=== PATIENT | female | born 1950 | race American Indian/Alaskan Native ===

== ENCOUNTER 2017-01-05 21:33 | Observation (INO) | payer OTHER, MEDICAID ==
[2017-01-05 21:33] VITALS: BMI 42.7
--- NOTE | 2017-01-05 22:07 | ED PDOC ---
Syncope/Near Syncope/Dizzyness Time Seen by Provider: 01/05/17 21:51 Chief Complaint (Nursing): Dizziness/Lightheaded Chief Complaint (Provider): Dizziness History Per: Patient History/Exam Limitations: no limitations Onset/Duration Of Symptoms: Days (x5) Current Symptoms Are (Timing): Still Present Activity At Onset Of Symptoms: Exertional Activity (ambulation), Other (rising quickly) Seizure Or Post-ictal Symptoms: None Fall Associated With With Symptoms: No Severity: Moderate Additional Complaint(s): Lindsey Woodard is a 66 year old female, with a past medical history inclusive of CAD/CO (s/p CABG and coronary stent placement), CHF, mitral valve prolapse, HTN, hypercholesterolemia, CKD and COPD (on home O2), who presents to the ED on 01/05/17 for the evaluation of moderate dizziness that she has experienced x5 days. Sensation, further described as "room spinning", is worse upon rising quickly and with ambulation, though she is able to do so unassisted. Associated nausea, mild crampy/gassy abdominal pain and intermittent right shoulder pain also reported, though she denies outright chest pain, vomiting, headache or syncope. No previous history of similar, with patient further reporting that chronic b/l leg swelling is unchanged from baseline. Of note, patient was evaluated by her PMD earlier today for this issue, at which time she was told her blood pressure was elevated, and that she had medicated with a dose of her nitroglycerin prior to arrival. PMD: Derrick Cole Past Medical History Reviewed: Historical Data, Nursing Documentation, Vital Signs Vital Signs: Last Vital Signs Temp 98.5 F 01/05/17 21:34 Pulse 90 01/05/17 21:34 Resp 20 01/05/17 21:34 BP 118/66 01/05/17 21:34 Pulse Ox 95 01/05/17 21:34 - Medical History PMH: Anemia, Arthritis, Asthma, Back Problems (herniated discs (cervical, lumbar )), Bronchitis, CAD, Cardia Arrhythmia, CHF, COPD, Deep Vein Thrombosis, HTN, Hypercholesterolemia, Hypothyroidism, Malignancy (ovarian), Mitral Valve Prolapse, Peripheral Edema, Pneumonia, Pulmonary Embolism, Chronic Kidney Disease Denies: Diabetes, HIV - Surgical History Surgical History: CABG, Coronary Stent, Endoscopy - Family History Family History: States: Unknown Family Hx - Social History Current smoker - smoking cessation education provided: Yes (light (<10 cigarettes/day)) Alcohol: None Drugs: Denies - Immunization History Hx Pneumococcal Vaccination: Yes - Home Medications Home Medications: Ambulatory Orders Medication Instructions Recorded Aspirin [Aspirin EC] 81 mg PO DAILY #0 tablet. 06/08/16 Levothyroxine Sodium 25 mcg PO DAILY #0 tablet 06/08/16 Pravastatin Sodium [Pravachol] 20 mg PO HS #0 tab 06/08/16 Albuterol 0.083% [Albuterol 3 ml IH Q6 PRN 11/30/16 Sulfate 3 Ml] Ergocalciferol (Vitamin D2) 50,000 unit PO QWK 11/30/16 [Vitamin D2] Febuxostat [Uloric] 40 mg PO DAILY 11/30/16 Ferrous Sulfate [Feosol] 325 mg PO DAILY 11/30/16 Folic Acid 1 mg PO DAILY 11/30/16 Furosemide [Lasix] 40 mg PO DAILY 11/30/16 Levocetirizine Dihydrochloride 5 mg PO DAILY 11/30/16 [Xyzal] Metoprolol Succinate XL [Toprol XL] 25 mg PO BRK 11/30/16 Ranolazine [Ranexa] 500 mg PO BID 11/30/16 - Allergies Allergies/Adverse Reactions: Allergies Allergy/AdvReac Type Severity Reaction Status Date / Time No Known Allergies Allergy Verified 11/30/16 00:55 Review of Systems ROS Statement: Except As Marked, All Systems Reviewed And Found Negative Cardiovascular: Positive for: Edema (chronic b/l LE, unchanged from baseline). Negative for: Chest Pain Gastrointestinal: Positive for: Nausea, Abdominal Pain (mild, crampy/gassy). Negative for: Vomiting Musculoskeletal: Positive for: Shoulder Pain (right (intermittent)) Neurological: Positive for: Dizziness ("room spinning"). Negative for: Headache , Other (no syncope) Physical Exam - Reviewed Nursing Documentation Reviewed: Yes Vital Signs Reviewed: Yes - Physical Exam Appears: Positive for: Non-toxic, No Acute Distress Head Exam: Positive for: ATRAUMATIC, NORMOCEPHALIC Skin: Positive for: Normal Color, Warm, Dry Eye Exam: Positive for: Normal appearance, EOMI, PERRL. Negative for: Nystagmus ENT: Positive for: Normal ENT Inspection Neck: Positive for: Normal, Painless ROM, Supple Cardiovascular/Chest: Positive for: Regular Rate, Rhythm, Edema (chronic b/l LE , non-pitting). Negative for: Murmur Respiratory: Positive for: Normal Breath Sounds. Negative for: Wheezing, Respiratory Distress Gastrointestinal/Abdominal: Positive for: Normal Exam, Soft. Negative for: Tenderness Back: Positive for: Normal Inspection Extremity: Positive for: Normal ROM (moving all extremities well) Neurologic/Psych: Positive for: Alert, Oriented. Negative for: Motor/Sensory Deficits (5/5 x4 extremities), Aphasia, Facial Droop - Laboratory Results Result Diagrams: 01/05/17 22:40 01/06/17 05:30 - ECG O2 Sat by Pulse Oximetry: 95 (RA) Pulse Ox Interpretation: Normal Medical Decision Making Medical Decision Makin:51 Initial Impression: vertiginous (peripheral vs central) dizziness vs non- vertiginous/orthostatic dizziness Initial Plan: * EKG * CT Head w/o contrast * Labs * BNP * Troponin I * Meclizine 25mg PO * Reevaluation 2250: CT head impression: 1. No acute intracranial abnormality. 2. Increase in size of extraaxial mass, possibly meningioma. Recommend MRI. Scribe Attestation: Documented by Cadence Sorto, acting as a scribe for Earl Goldman MD. Provider Scribe Attestation: All medical record entries made by the Scribe were at my direction and personally dictated by me. I have reviewed the chart and agree that the record accurately reflects my personal performance of the history, physical exam, medical decision making, and the department course for this patient. I have also personally directed, reviewed, and agree with the discharge instructions and disposition. Disposition - Clinical Impression Clinical Impression: Dizziness, Mass of brain - Patient ED Disposition Is Patient to be Admitted: Yes Discussed With : Chet Mccann Doctor Will See Patient In The: ED Counseled Patient/Family Regarding: Studies Performed, Diagnosis - Disposition Disposition Time: 23:00 Condition: FAIR - Pt Status Changed To: Hospital Disposition Of: Observation - POA Present On Arrival: None
--- NOTE | 2017-01-05 22:51 | CT ---
EXAM: CT Head Without Intravenous Contrast CLINICAL HISTORY: 66 years old, female; Signs and symptoms; Dizziness and other: Near syncope TECHNIQUE: Axial computed tomography images of the head/brain without intravenous contrast. This CT exam was performed using one or more of the following dose reduction techniques: automated exposure control, adjustment of the mA and/or kV according to patient size, and/or use of iterative reconstruction technique. Coronal and sagittal reformatted images were created and reviewed. COMPARISON: CT - HEAD W/O CONTRAST 06/15/2014 3:57:42 AM FINDINGS: Brain: No intracranial hemorrhage. 2.9 x 2.1 cm extra-axial mass along RIGHT frontal convexity, mildly increased from previous examination. Dilated perivascular space vs chronic lacunar infarct about LEFT basal ganglia. No definite edema. Ventricles: No hydrocephalus. Bones/joints: No acute fracture. Soft tissues: Unremarkable. Vasculature: Mild atherosclerotic disease of intracranial arteries. Sinuses: Scattered minimal mucosal thickening. Mastoid air cells: No mastoid effusion. Orbits: Unremarkable as visualized. Sella: Mildly enlarged sella with CSF density, stable. IMPRESSION: 1. No acute intracranial abnormality. 2. Increase in size of extraaxial mass, possibly meningioma. Recommend MRI. 3. Incidental/non-acute findings are described above.
[2017-01-05 23:06] LABS: BASO # 0.1 K/uL (0.0-0.2); BASO % 0.6 % (0.0-2.0); EOS # 0.2 K/uL (0.0-0.7); EOS % 2.6 % (0.0-4.0); HEMATOCRIT 40.5 % (34.0-47.0); LYMPH # 3.2 K/uL (1.0-4.3); LYMPH % 36.7 % (20.0-40.0); MEAN CELL VOLUME 82.8 fl (81.0-99.0); MEAN CORPUSCULAR HEMOGLOBIN 26.5 pg (27.0-31.0); MONO # 0.7 K/uL (0.0-0.8); MONO % 7.5 % (0.0-10.0); NEUT # 4.7 K/uL (1.8-7.0); NEUT % 52.6 % (50.0-75.0); NRBC % 0.2 % (0.0-0.0); RED CELL DISTRIBUTION WIDTH 15.9 % (11.5-14.5); WHITE BLOOD COUNT 8.8 K/uL (4.8-10.8)
[2017-01-05 23:19] LABS: BLOOD UREA NITROGEN 26 mg/dl (7-17); CALCIUM 9.1 mg/dL (8.4-10.2); CARBON DIOXIDE 32 mmol/L (22-30); CHLORIDE 101 mmol/L (98-107); GFR AFRICAN-AMERICAN 34; GLUCOSE,RANDOM 103 mg/dL (65-105); POTASSIUM 3.9 MMOL/L (3.6-5.0); SODIUM 144 mmol/l (132-148)
--- NOTE | 2017-01-05 23:57 | CP.PCM.HP ---
History of Present Illness - History of Present Illness History of Present Illness: PCP: Derrick Cole MD Chief Complaint: Dizziness/Lightheadedness HPI: 66 years old female with Hx of CAD, COPD, HTN last admitted on 11/30/16 with chest pain and discharged on 11/30/16, She now comes with one day of lightheadedness which is intermittent. This occurs when standing from a sitting position and while ambulating. She has associated mild abdominal and right shoulder pains with nausea. No chest pain , SOB, coughing, Headaches. She has chronic bilateral leg edema. She referred seeing her PCP 5 days ago and her blood pressure was found to be elevated. PMH: Anemia; Arthritis, DDD , Herneated Disc, cervical and LS, with chronic back pain; CAD, Cardia Arrhythmia, CHF systolic and Diastolic; Obesity; COPD and Asthma;, DVT and PE; HTN; HLD; Hypothyroidism, Mitral Valve Prolapse, Peripheral Edema; CKD IV; Vertigo PSH; CABG triple bipass 03/2012; Coronary stent placement; hysterectomy SH: light smoker; no illegal drug use; No alcohol; FH: no known family hx Allergies: NKDA Present on Admission - Present on Admission Any Indicators Present on Admission: No History of DVT/PE: No History of Uncontrolled Diabetes: No Urinary Catheter: No Decubitus Ulcer Present: No Review of Systems - Constitutional Constitutional: absent: Anorexia, Chills, Fever, Headache, Lethargy - EENT Eyes: Requires Corrective Lenses. absent: Diplopia, Photophobia, Sees Flashes Ears: absent: Decreased Hearing, Ear Discharge, Ear Pain, Tinnitus Nose/Mouth/Throat: absent: Epistaxis, Nasal Congestion, Nasal Discharge, Sinus Pain, Sinus Pressure, Sore Throat - Cardiovascular Cardiovascular: Leg Edema, Lightheadedness. absent: Chest Pain, Dyspnea, Orthopnea, Palpitations - Respiratory Respiratory: absent: Cough, Dyspnea, Wheezing, Chest Congestion - Gastrointestinal Gastrointestinal: Nausea. absent: Abdominal Pain, Constipation, Diarrhea, Dyspepsia, Vomiting - Genitourinary Genitourinary: absent: Dysuria, Flank Pain, Hematuria, Urinary Frequency - Musculoskeletal Musculoskeletal: absent: Arthralgias, Back Pain, Muscle Cramps (Bilateral lower extremity edema2+) Additional comments: Chronic Bilateral Leg edema - Integumentary Integumentary: absent: Pruritus, Rash, Skin Ulcer, Sores, Striae - Neurological Neurological: absent: Confusion, Focal Weakness, Headaches, Memory Loss, Paresthesias - Psychiatric Psychiatric: absent: Anxiety, Depression, Panic Attacks - Endocrine Endocrine: absent: Palpitations, Polydipsia, Polyphagia, Polyuria - Hematologic/Lymphatic Hematologic: absent: Easy Bleeding, Easy Bruising Past Patient History - Infectious Disease Hx of Infectious Diseases: None - Past Medical History & Family History Past Medical History?: Yes - Past Social History Smoking Status: Light Smoker < 10 Cigarettes Daily Chewing Tobacco Use: No Cigar Use: No Alcohol: None Drugs: Denies - CARDIAC Hx Cardia Arrhythmia: Yes Hx Congestive Heart Failure: Yes Hx Hypercholesterolemia: Yes Hx Hypertension: Yes Hx Mitral Valve Prolapse: Yes Hx Peripheral Edema: Yes - PULMONARY Hx Asthma: Yes Hx Bronchitis: Yes Hx Chronic Obstructive Pulmonary Disease (COPD): Yes Hx Pneumonia: Yes Hx Pulmonary Embolism: Yes - NEUROLOGICAL Hx Neurological Disorder: No Hx Vertigo: Yes - HEENT Hx HEENT Problems: No - RENAL Hx Chronic Kidney Disease: Yes - ENDOCRINE/METABOLIC Hx Hypothyroidism: Yes - HEMATOLOGICAL/ONCOLOGICAL Hx Anemia: Yes Hx Human Immunodeficiency Virus (HIV): No - INTEGUMENTARY Hx Dermatological Problems: No - MUSCULOSKELETAL/RHEUMATOLOGICAL Hx Arthritis: Yes - GASTROINTESTINAL Hx Gastrointestinal Disorders: No Other/Comment: GI Bleed - GENITOURINARY/GYNECOLOGICAL Hx Genitourinary Disorders: No Hx Ovarian Cancer: Yes Other/Comment: hysterectomy - PSYCHIATRIC Hx Psychophysiologic Disorder: No Hx Emotional Abuse: No Hx Physical Abuse: No Hx Substance Use: No Other/Comment: HX OF DVT - SURGICAL HISTORY Hx Coronary Artery Bypass Graft: Yes Hx Coronary Stent: Yes - ANESTHESIA Hx Anesthesia: Yes Hx Anesthesia Reactions: No Hx Malignant Hyperthermia: No Meds Allergies/Adverse Reactions: Allergies Allergy/AdvReac Type Severity Reaction Status Date / Time No Known Allergies Allergy Verified 11/30/16 00:55 Physical Exam - Constitutional Appears: No Acute Distress - Head Exam Head Exam: ATRAUMATIC, NORMAL INSPECTION, NORMOCEPHALIC - Eye Exam Eye Exam: EOMI, Normal appearance Pupil Exam: NORMAL ACCOMODATION, PERRL - ENT Exam ENT Exam: Mucous Membranes Moist, Normal Exam, Normal External Ear Exam, Normal Oropharynx - Neck Exam Neck exam: Positive for: Full Rom, Normal Inspection. Negative for: Lymphadenopathy, Tenderness - Respiratory Exam Respiratory Exam: Clear to Auscultation Bilateral. absent: Rales, Rhonchi, Wheezes - Cardiovascular Exam Cardiovascular Exam: REGULAR RHYTHM, +S1, +S2. absent: Gallop Additional comments: 3/6 systolic murmur at the base - GI/Abdominal Exam GI & Abdominal Exam: Normal Bowel Sounds, Soft. absent: Mass, Organomegaly, Tenderness - Rectal Exam Rectal Exam: Deferred - Extremities Exam Extremities exam: Positive for: full ROM, pedal edema Additional comments: Bilateral leg edema 2+ - Back Exam Back exam: NORMAL INSPECTION. absent: CVA tenderness (L), CVA tenderness (R) - Neurological Exam Neurological exam: Alert, CN II-XII Intact, Oriented x3, Reflexes Normal - Psychiatric Exam Psychiatric exam: Normal Affect, Normal Mood - Skin Skin Exam: Dry, Intact, Normal Color, Warm Results - Vital Signs Recent Vital Signs: Last Vital Signs Temp 98.5 F 01/05/17 21:34 Pulse 90 01/05/17 21:34 Resp 20 01/05/17 21:34 BP 118/66 01/05/17 21:34 Pulse Ox 95 01/05/17 23:06 - Labs Result Diagrams: 01/05/17 22:40 01/05/17 22:40 Labs: Laboratory Results - last 24 hr 01/05/17 01/05/17 22:40 23:33 WBC 8.8 RBC 4.90 Hgb 13.0 Hct 40.5 MCV 82.8 MCH 26.5 L MCHC 32.0 L RDW 15.9 H Plt Count 172 MPV 11.0 Neut % (Auto) 52.6 Lymph % (Auto) 36.7 [place] % (Auto) 7.5 Eos % (Auto) 2.6 Baso % (Auto) 0.6 Neut # 4.7 Lymph # 3.2 Giles # 0.7 Eos # 0.2 Baso # 0.1 Sodium 144 Potassium 3.9 Chloride 101 Carbon Dioxide 32 H Anion Gap 15 BUN 26 H Creatinine 1.8 H Est GFR ( Amer) 34 Est GFR (Non-Af Amer) 28 Random Glucose 103 Calcium 9.1 Magnesium 2.0 Troponin I < 0.0120 NT-Pro-B Natriuret Pep 253 - Imaging and Cardiology CT scan - head Status: Report reviewed by me Additional comment: No acute intracraneal abnormality Increase in size of extraaxial mass Possible meningioma Assessment & Plan - Assessment and Plan (Free Text) Assessment: #. Lightheadedness/dizziness #. Brain Mass 3 Dehydration #, Hypothyroidism #. CAD # COPD Plan: 66 years old female with Hx of CAD, COPD, HTN last admitted on 11/30/16 with chest pain and discharged on 11/30/16, She now comes with one day of lightheadedness which is intermittent, when standing from a sitting position and while ambulating. No chest pain , SOB, coughing, Headaches. She saw her PCP 5 days ago and her blood pressure was found to be elevated. #. Lightheadedness/dizziness most likely secondary to dehydration, the brain mask is less likely the cause - IV Fluids 1/2 Normal Saline 100mls/hr. Patient has Hx of CHF and is on Lasix - Hold lasix - Follow Renal labs #. Brain Mass probably meningioma as per CT head - Consult Neuro surgery Dr Schmitz - Follow MRI with and without contrast #. Dehydration - IV Fluids - Follow Renal labs #, Hypothyroidism - Levothyroxin - Monitor TSH #. CAD stable - ASA/Ranolazine/ Pravastatin # COPD stable - Duonebs #. DVT prophylaxis with SCD #. Code Status: Stable - Date & Time Date: 01/05/17 Time: 23:56
[2017-01-06] MEDS ORDERED: Albuterol 0.083% Inhal Sol (2.5 mg/3 mL) UD IH PRN (01:28)
[2017-01-06] MEDS ORDERED: Sodium Chloride 0.45% 1,000 ML IV SCH (01:30)
[2017-01-06] MEDS ORDERED: Ergocalciferol 50,000 Intl Units Cap PO SCH (01:30)
[2017-01-06] MEDS ORDERED: Levothyroxine 25 MCG TAB PO SCH (06:30)
[2017-01-06 07:36] LABS: CALCIUM 8.5 mg/dL (8.4-10.2); POTASSIUM 3.4 MMOL/L (3.6-5.0)
[2017-01-06 08:00] LABS: THYROID STIMULATING HORMONE 1.54 mIU/ML (0.46-4.68)
[2017-01-06] MEDS ORDERED: Metoprolol Succinate 25 mg XL Tab PO SCH (08:00)
[2017-01-06 08:13] VITALS: BP 125/72; RESP 20; TEMP 98.3
[2017-01-06] MEDS ORDERED: Pneumococcal 23-Valent Vaccine IM ONE (09:00)
[2017-01-06] MEDS ORDERED: Patient's Own Med (Ranolazine [Ranexa] 500 MG) PO SCH (09:00)
[2017-01-06 10:19] VITALS: PULSE 60
--- NOTE | 2017-01-06 12:44 | MRI ---
PROCEDURE: MRI BRAIN WITHOUT CONTRAST HISTORY: Brain mass COMPARISON: CT from 06/15/2014 and 01/05/2017. TECHNIQUE: Multiplanar, multisequence MR images of the brain were obtained without intravenous contrast enhancement. Limited evaluation due to artifact from patient motion. FINDINGS: HEMORRHAGE: None DWI: No evidence of an acute or early subacute infarction. Restricted diffusion involving the extra-axial mass from the inner table of the right frontal calvarium. BRAIN PARENCHYMA: There is an extra-axial mass measuring approximately 3.1 x 3 x 2.5 centimeters attached to the inner table of the right frontal calvarium. Associated surrounding mass-effect as seen by buckling of the right frontal lobe sulci. The mass demonstrates restricted diffusion with mild increase T2 and FLAIR signal intensity. Corresponding T1 weighted images demonstrated mildly decreased signal intensity when compared to the surrounding brain parenchyma. Gradient echo images demonstrate mild low signal intensity in the medial/peripheral aspect which could represent old hemorrhage versus vessels. The vascularity and enhancement characteristics of this mass is not evaluated due to lack of intravenous contrast. No definite evidence of edema in the surrounding brain parenchyma. Additionally, few scattered areas of high T2 signal intensity in the white matter of both cerebral hemispheres could represent areas of microvascular ischemic changes. Minimal volume loss, likely age related. Gradient echo images demonstrates a focus of low signal intensity in the left cerebellar hemisphere hand in the paramedian right frontal lobe. This could be foci of old hemorrhage. Dilated perivascular space versus old infarct in the left basal ganglia. VENTRICLES: Unremarkable. No hydrocephalus. CRANIUM: Unremarkable. ORBITS: Grossly unremarkable. PARANASAL SINUSES/MASTOIDS: Clear VASCULAR SYSTEM: Skull base flow voids intact. OTHER FINDINGS: None. IMPRESSION: Re- demonstration of an extra-axial mass measuring approximately 3.1 x 3 x 2.5 centimeter attached to the inner table of the right frontal calvarium with associated surrounding mass-effect as seen by buckling of the right frontal lobe sulci. While there is mass-effect, there is no significant edema in the surrounding brain parenchyma. (This mass has villarreal seen in the prior CTs and based on the most recent CT there is an increase in size when compared to the CT from 2008.) Enhancement characteristics are not evaluated due to lack of intravenous contrast. Mild volume loss. Minimal microvascular ischemic changes. Evidence of old punctate hemorrhage in the left cerebellar hemisphere and in the paramedian right frontal lobe.
[2017-01-06 13:51] VITALS: O2SAT 95
--- NOTE | 2017-01-06 14:31 | CP.PCM.DIS ---
Provider - Provider Date of Admission: 01/05/17 23:51 Attending physician: Chet Mccann Primary care physician: Derrick Cole MD Consults: Dr Cazares Time Spent in preparation of Discharge (in minutes): 35 Diagnosis - Discharge Diagnosis (1) Dizziness Status: Acute Comment: probably postural in nature with dehydration. Lasix held then resume at lower dose at home (2) Meningioma Status: Chronic Comment: slow growing meningioma since 2012 or even beyond. neurosurgery consult with Dr Cazares who will see patient in his office. no surgical intervention at the moment (3) Chronic kidney disease, stage III (moderate) Status: Chronic Comment: stable (4) CAD (coronary artery disease) Status: Chronic Priority: Medium Comment: denied chest pain or SOB. continue ASA, Ranolacine and Pravastatin (5) COPD (chronic obstructive pulmonary disease) Status: Chronic Priority: High Comment: asymptomatic Hospital Course - Lab Results Lab Results: Most Recent Lab Values WBC 8.8 K/uL (4.8-10.8) 01/05/17 22:40 RBC 4.90 Mil/uL (3.80-5.20) 01/05/17 22:40 Hgb 13.0 g/dL (12.0-16.0) 01/05/17 22:40 Hct 40.5 % (34.0-47.0) 01/05/17 22:40 MCV 82.8 fl (81.0-99.0) 01/05/17 22:40 MCH 26.5 pg (27.0-31.0) L 01/05/17 22:40 MCHC 32.0 g/dL (33.0-37.0) L 01/05/17 22:40 RDW 15.9 % (11.5-14.5) H 01/05/17 22:40 Plt Count 172 K/uL (130-400) 01/05/17 22:40 MPV 11.0 fl (7.2-11.7) 01/05/17 22:40 Neut % (Auto) 52.6 % (50.0-75.0) 01/05/17 22:40 Lymph % (Auto) 36.7 % (20.0-40.0) 01/05/17 22:40 [place] % (Auto) 7.5 % (0.0-10.0) 01/05/17 22:40 Eos % (Auto) 2.6 % (0.0-4.0) 01/05/17 22:40 Baso % (Auto) 0.6 % (0.0-2.0) 01/05/17 22:40 Neut # 4.7 K/uL (1.8-7.0) 01/05/17 22:40 Lymph # 3.2 K/uL (1.0-4.3) 01/05/17 22:40 [place] # 0.7 K/uL (0.0-0.8) 01/05/17 22:40 Eos # 0.2 K/uL (0.0-0.7) 01/05/17 22:40 Baso # 0.1 K/uL (0.0-0.2) 01/05/17 22:40 Sodium 145 mmol/l (132-148) 01/06/17 05:30 Potassium 3.4 MMOL/L (3.6-5.0) L 01/06/17 05:30 Chloride 104 mmol/L (98-107) 01/06/17 05:30 Carbon Dioxide 29 mmol/L (22-30) 01/06/17 05:30 Anion Gap 15 (10-20) 01/06/17 05:30 BUN 24 mg/dl (7-17) H 01/06/17 05:30 Creatinine 1.5 mg/dL (0.7-1.2) H 01/06/17 05:30 Est GFR ( Amer) 42 01/06/17 05:30 Est GFR (Non-Af Amer) 35 01/06/17 05:30 Random Glucose 88 mg/dL (65-105) 01/06/17 05:30 Calcium 8.5 mg/dL (8.4-10.2) 01/06/17 05:30 Magnesium 2.0 MG/DL (1.6-2.3) 01/05/17 23:33 Troponin I < 0.0120 ng/mL (0.00-0.120) 01/05/17 22:40 NT-Pro-B Natriuret Pep 253 pg/ml (0-900) 01/05/17 22:40 TSH 3rd Generation 1.54 mIU/ML (0.46-4.68) 01/06/17 05:30 - Hospital Course Hospital Course: 66 yo female with history of CAD, COPD, HTN, PE, CHF, Lumbago and Meningioma ( info obtained from previous history) came in with intermittent lightheadedness mainly positional such as from sitting to standing. Denied chest pain or SOB. Also denied fever or chills. CT scan of the head was done since patient was known to have meningioma since 2012 although patient and daughter denied having been informed about it. Scan showed a slow growing meningioma along right frontal convexity measuring 2.9 x 2.1 cm (2.5 x 1.4 cm in 2013 and 2.2 x 1.2 cm in 2012). Neurosurgeon, Dr Cazares , saw the image. No surgical intervention was advised but he would be willing to follow her up as outpatient in his office. He advised to discharge patient today. Discharge Exam - Head Exam Head Exam: ATRAUMATIC, NORMOCEPHALIC - Eye Exam Eye Exam: absent: Scleral icterus - ENT Exam ENT Exam: Mucous Membranes Moist - Respiratory Exam Respiratory Exam: absent: Rhonchi, Wheezes, Respiratory Distress - Cardiovascular Exam Cardiovascular Exam: REGULAR RHYTHM, +S1, +S2 - GI/Abdominal Exam GI & Abdominal Exam: Soft. absent: Tenderness - Rectal Exam Rectal Exam: Deferred - Neurological Exam Neurological exam: Alert, Oriented x3 - Psychiatric Exam Psychiatric exam: Normal Affect - Skin Skin Exam: Dry, Intact Discharge Plan - Follow Up Plan Condition: FAIR Disposition: HOME/ ROUTINE Referrals: Derrick Cole MD [Primary Care Provider] -
--- NOTE | 2017-01-06 17:21 | CARD ---
APPROVED REPORT EKG Measurement Heart [id number] <Conclusion> Sinus bradycardia with 1st degree AV block Anterior infarct, age undetermined Abnormal ECG
--- NOTE | 2017-01-06 21:45 | DS ---
This is a 66-year-old lady with a known right frontal meningioma, who apparently presented to the ER with "dizziness"; was admitted to have MRI of the brain which showed the meningioma. This mass was known since at least 2012, where it is clearly seen on CT there. Now it is, in fact, l arger but it is slowly swelling. There is no significant mass effect. There is no shift. My recommendation would be to have the patient follow up with my office to discuss treatment options. Would essentially include continued expectant management with frequent radiographic followup or litzy ctive excision of the tumor. Kam Cazares MD cc: 131 TT: 01/06/2017 21:45:03 jn
[2017-01-06] MEDS ORDERED: Pravastatin Sodium 20 MG TAB PO SCH (22:00)
== END 2017-01-06 15:13 | disposition home or self-care (01) ==
LOC: H.ER 21:33 → H.MEDSURG1 23:51 → H.ERHOLD 01-06 01:17 → H.MEDSURG1 01-06 01:24
PROVIDERS: ADMIT Internal Medicine; ATTEND Internal Medicine
DX: D32.0 Benign neoplasm of cerebral meninges (principal); I25.10 Atherosclerotic heart disease of native coronary artery without angina pectoris; Z95.1 Presence of aortocoronary bypass graft; Z95.5 Presence of coronary angioplasty implant and graft; E78.00 Pure hypercholesterolemia, unspecified; I34.1 Nonrheumatic mitral (valve) prolapse; I13.0 Hypertensive heart and chronic kidney disease with heart failure and stage 1 through stage 4 chronic kidney disease, or unspecified chronic kidney disease; J44.9 Chronic obstructive pulmonary disease, unspecified; F17.210 Nicotine dependence, cigarettes, uncomplicated; E03.9 Hypothyroidism, unspecified; E86.0 Dehydration; N18.3 Chronic kidney disease, stage 3 (moderate); Z86.711 Personal history of pulmonary embolism
CPT/HCPCS: 36415; 70450; 70551; 80048; 82948; 83735; 83880; 84443; 84484; 85025; 93005; 99282; G0378; J2060; J7030

== ENCOUNTER 2017-01-29 21:21 | Observation (INO) | payer OTHER, MEDICAID ==
[2017-01-29 21:22] VITALS: BMI 42.7
[2017-01-29 21:25] VITALS: TEMP 98.4
--- NOTE | 2017-01-29 22:18 | ED PDOC ---
HPI: General Adult Time Seen by Provider: 01/29/17 21:46 Chief Complaint (Nursing): Shortness Of Breath Chief Complaint (Provider): shortness of breath History Per: Patient History/Exam Limitations: no limitations Additional Complaint(s): 66yo female was sitting and eating dinner when she began experiencing chills and sweats. Also reports abdominal pain, nausea, headache. She currently has headache and back pain. Abdominal pain has resolved. Patient admits that her back pain is chronic, and she sees Dr. Black for pain management. No dysuria. Patient has an appointment with neurosurgery on 03/01/17. denies hx abdominal surgery PMD Kelsey Past Medical History Reviewed: Historical Data, Nursing Documentation, Vital Signs Vital Signs: Last Vital Signs Temp 98.4 F 01/29/17 21:23 Pulse 61 01/30/17 02:26 Resp 12 01/30/17 02:26 BP 146/95 H 01/30/17 02:26 Pulse Ox 99 01/30/17 03:31 - Medical History PMH: Anemia, Arthritis, Asthma, Back Problems (herniated discs (cervical, lumbar )), Bronchitis, CAD, Cardia Arrhythmia, CHF, COPD, Deep Vein Thrombosis, HTN, Hypercholesterolemia, Hypothyroidism, Malignancy (ovarian), Mitral Valve Prolapse, Peripheral Edema, Pneumonia, Pulmonary Embolism, Chronic Kidney Disease Denies: Diabetes, HIV - Surgical History Surgical History: CABG, Coronary Stent, Endoscopy - Family History Family History: States: Unknown Family Hx - Social History Current smoker - smoking cessation education provided: Yes ("occasionally") - Immunization History Hx Pneumococcal Vaccination: Yes - Home Medications Home Medications: Ambulatory Orders Medication Instructions Recorded Aspirin [Aspirin EC] 81 mg PO DAILY #0 tablet. 06/08/16 Levothyroxine Sodium 25 mcg PO DAILY #0 tablet 06/08/16 Pravastatin Sodium [Pravachol] 20 mg PO HS #0 tab 06/08/16 Albuterol 0.083% [Albuterol 0.083% 3 ml IH Q6 PRN 11/30/16 Inhal Kendra (2.5 mg/3 ml) UD] Ergocalciferol (Vitamin D2) 50,000 unit PO QWK 11/30/16 [Vitamin D2] Ferrous Sulfate [Feosol] 325 mg PO DAILY 11/30/16 Folic Acid 1 mg PO DAILY 11/30/16 Levocetirizine Dihydrochloride 5 mg PO DAILY 11/30/16 [Xyzal] Metoprolol Succinate XL [Toprol XL] 25 mg PO BRK 11/30/16 Ranolazine [Ranexa] 500 mg PO BID 11/30/16 Febuxostat [Uloric] 20 mg PO DAILY #0 01/06/17 Furosemide [Lasix] 20 mg PO DAILY #30 01/06/17 Dicyclomine [Dicyclomine HCl] 10 mg PO TID #30 cap 01/30/17 - Allergies Allergies/Adverse Reactions: Allergies Allergy/AdvReac Type Severity Reaction Status Date / Time No Known Allergies Allergy Verified 11/30/16 00:55 Review of Systems ROS Statement: Except As Marked, All Systems Reviewed And Found Negative Constitutional: Positive for: Chills. Negative for: Fever Gastrointestinal: Positive for: Nausea, Abdominal Pain. Negative for: Vomiting , Diarrhea Musculoskeletal: Positive for: Back Pain Neurological: Positive for: Headache Physical Exam - Reviewed Nursing Documentation Reviewed: Yes Vital Signs Reviewed: Yes - Physical Exam Appears: Positive for: Well, Non-toxic, No Acute Distress Head Exam: Positive for: ATRAUMATIC, NORMAL INSPECTION, NORMOCEPHALIC Skin: Positive for: Warm, Dry Eye Exam: Positive for: EOMI, PERRL Cardiovascular/Chest: Positive for: Regular Rate, Rhythm Respiratory: Positive for: Normal Breath Sounds, Other (speaking full sentences) . Negative for: Rales, Rhonchi, Wheezing, Respiratory Distress Gastrointestinal/Abdominal: Positive for: Soft, Tenderness (left lower quadrant only), Other (morbidly obese). Negative for: Guarding, Rebound Back: Positive for: Other (lower midline tenderness) Extremity: Positive for: Normal ROM Neurologic/Psych: Positive for: Alert, Oriented (x3) - Laboratory Results Result Diagrams: 01/29/17 00:03 01/29/17 00:03 - ECG O2 Sat by Pulse Oximetry: 99 (RA) Pulse Ox Interpretation: Normal Medical Decision Making Medical Decision Makin CT abd/pel w/, CT Head w/o, Labs, EKG ordered. Disposition - Clinical Impression Clinical Impression: Diverticulosis - Patient ED Disposition Is Patient to be Admitted: Transfer of Care - Disposition Disposition: Transfer of Care Disposition Time: 00:00 Condition: STABLE Patient Signed Over To: Justin Moncada Handoff Comments: Pending CT. Additional Comments - Additional Comments Additional Comments: Scribe Attestation: Documented by Shine Knott acting as a scribe for Jorge Umana MD. Scribe Attestation: All medical record entries made by the Scribe were at my direction and personally dictated by me. I have reviewed the chart and agree that the record accurately reflects my personal performance of the history, physical exam, medical decision making, and the department course for this patient. I have also personally directed, reviewed, and agree with the discharge instructions and disposition.
[2017-01-29] MEDS ORDERED: Iohexol 240 (50 ml) PO STA (22:20)
--- NOTE | 2017-01-29 23:55 | CT ---
EXAM: CT Head Without Intravenous Contrast CLINICAL HISTORY: 66 years old, female; Pain; Headache; Headache not specified; Additional info: MALHOTRA TECHNIQUE: Axial computed tomography images of the head/brain without intravenous contrast. This CT exam was performed using one or more of the following dose reduction techniques: automated exposure control, adjustment of the mA and/or kV according to patient size, and/or use of iterative reconstruction technique. Coronal and sagittal reformatted images were created and reviewed. COMPARISON: CT - HEAD W/O CONTRAST 01/05/2017 10:25:48 PM FINDINGS: Brain: Minimal atrophy. No intracranial hemorrhage. 2.9 x 2.1 cm extra-axial mass along RIGHT frontal convexity, grossly stable. Dilated perivascular space vs chronic lacunar infarct about LEFT basal ganglia. No definite edema. Ventricles: No hydrocephalus. Bones/joints: No acute fracture. Soft tissues: Unremarkable. Vasculature: Mild atherosclerotic disease of intracranial arteries. Sinuses: No acute sinusitis. Mastoid air cells: No mastoid effusion. Orbits: Unremarkable as visualized. Sella: Mildly enlarged sella with CSF density, stable. IMPRESSION: 1. No acute intracranial abnormality. 2. Probable meningioma. Suggest followup. 3. Incidental/non-acute findings are described above.
[2017-01-30 00:06] LABS: BASO # 0.1 K/uL (0.0-0.2); EOS # 0.2 K/uL (0.0-0.7); EOS % 2.6 % (0.0-4.0); HEMATOCRIT 39.5 % (34.0-47.0); LYMPH # 2.2 K/uL (1.0-4.3); LYMPH % 25.9 % (20.0-40.0); MEAN CORPUSCULAR HEMOGLOBIN 26.6 pg (27.0-31.0); MEAN CORPUSCULAR HGB CONC 32.1 g/dL (33.0-37.0); MEAN PLATELET VOLUME 8.5 fl (7.2-11.7); MONO # 0.5 K/uL (0.0-0.8); MONO % 6.3 % (0.0-10.0); NEUT # 5.4 K/uL (1.8-7.0); NEUT % 64.2 % (50.0-75.0); NRBC % 0.1 % (0.0-0.0); RED CELL DISTRIBUTION WIDTH 16.1 % (11.5-14.5); WHITE BLOOD COUNT 8.4 K/uL (4.8-10.8)
[2017-01-30 00:14] LABS: BILIRUBIN,TOTAL 0.5 mg/dl (0.2-1.3); CALCIUM 9.5 mg/dL (8.4-10.2); POTASSIUM 3.9 MMOL/L (3.6-5.0); TOTAL PROTEIN 7.6 G/DL (6.3-8.2)
[2017-01-30 00:22] LABS: PARTIAL THROMBOPLASTIN TIME 32.2 SECONDS (23.3-32.5)
--- NOTE | 2017-01-30 00:25 | ED PDOC ---
- Laboratory Results Result Diagrams: 01/29/17 00:03 01/29/17 00:03 - ECG O2 Sat by Pulse Oximetry: 99 (RA) Medical Decision Making Medical Decision Makin:00 Pt signed out to me by Dr. Lyndsay MD. Pending CT Abd, re-eval, and disposition. CT ABDOMEN FINDINGS: Lower thorax: Mild cardiomegaly. Mild emphysematous changes. Mild atelectasis/ scarring. ABDOMEN: Liver: Unremarkable. Gallbladder and bile ducts: No calcified stones. No ductal dilation. Pancreas: Unremarkable. No ductal dilation. Spleen: No splenomegaly. Adrenals: Mild hypertrophy of adrenal glands. Kidneys and ureters: Mild scarring of kidneys. Mild atrophy of RIGHT kidney. Probable RIGHT renal cyst. No renal calculi. No hydronephrosis. Stomach and bowel: Scattered diverticula within colon. No associated inflammatory stranding. No definite mural thickening. No obstruction. Appendix: Normal caliber. No inflammation. PELVIS: Bladder: Unremarkable. No stones. Reproductive: Hysterectomy. ABDOMEN and PELVIS: Intraperitoneal space: No significant fluid collection. No free air. Bones/joints: Degenerative changes of spine. No acute fracture. Soft tissues: Unremarkable. Vasculature: Moderate atherosclerotic disease. IVC filter. No aneurysm. Lymph nodes: No pathologically enlarged lymph nodes. IMPRESSION: 1. Diverticulosis without CT evidence of diverticulitis. 2. Incidental/non-acute findings are described above. 02:03 Pt was re-evaluated. CT report reviewed, findings show diverticulosis. Pt will be discharged routinely with Rx for Bentyl. Discussed CT report at great length with pt, who expressed any questions or concerns regarding the report. Encouraged to schedule a follow-up with PMD within 2-3 days. Advised to return if condition persists or worsens. Condition is stable for discharge. Clinical Impression- Diverticulosis Documented by Kalpana Ku, acting as a scribe for Justin Moncada MD. All medical record entries made by the Scribe were at my direction and personally dictated by me. I have reviewed the chart and agree that the record accurately reflects my personal performance of the history, physical exam, medical decision making, and the department course for this patient. I have also personally directed, reviewed, and agree with the discharge instructions and disposition. Disposition - Clinical Impression Clinical Impression: Diverticulosis - POA Present On Arrival: None - Disposition Disposition: Routine/Home Disposition Time: 02:05 Condition: STABLE
--- NOTE | 2017-01-30 01:37 | CT ---
EXAM: CT Abdomen and Pelvis Without Intravenous Contrast CLINICAL HISTORY: 66 years old, female; Pain; Abdominal pain; Localized; Left lower quadrant (llq); Additional info: Llq pain. Sent phy. Doc. With request TECHNIQUE: Axial computed tomography images of the abdomen and pelvis without intravenous contrast. This CT exam was performed using one or more of the following dose reduction techniques: automated exposure control, adjustment of the mA and/or kV according to patient size, and/or use of iterative reconstruction technique. Coronal and sagittal reformatted images were created and reviewed. COMPARISON: CT - ABD PELVIS PO CONTRAST ONLY 07/01/2014 6:39:30 PM FINDINGS: Lower thorax: Mild cardiomegaly. Mild emphysematous changes. Mild atelectasis/scarring. ABDOMEN: Liver: Unremarkable. Gallbladder and bile ducts: No calcified stones. No ductal dilation. Pancreas: Unremarkable. No ductal dilation. Spleen: No splenomegaly. Adrenals: Mild hypertrophy of adrenal glands. Kidneys and ureters: Mild scarring of kidneys. Mild atrophy of RIGHT kidney. Probable RIGHT renal cyst. No renal calculi. No hydronephrosis. Stomach and bowel: Scattered diverticula within colon. No associated inflammatory stranding. No definite mural thickening. No obstruction. Appendix: Normal caliber. No inflammation. PELVIS: Bladder: Unremarkable. No stones. Reproductive: Hysterectomy. ABDOMEN and PELVIS: Intraperitoneal space: No significant fluid collection. No free air. Bones/joints: Degenerative changes of spine. No acute fracture. Soft tissues: Unremarkable. Vasculature: Moderate atherosclerotic disease. IVC filter. No aneurysm. Lymph nodes: No pathologically enlarged lymph nodes. IMPRESSION: 1. Diverticulosis without CT evidence of diverticulitis. 2. Incidental/non-acute findings are described above.
[2017-01-30 02:26] VITALS: RESP 12
[2017-01-30 02:27] VITALS: PULSE 61
[2017-01-30 03:32] VITALS: O2SAT 99
[2017-01-30 03:34] VITALS: BP 146/95
--- NOTE | 2017-01-30 08:23 | CARD ---
APPROVED REPORT EKG Measurement Heart [id number] <Conclusion> Sinus bradycardia with 1st degree AV block Possible Left atrial enlargement Borderline ECG
== END 2017-01-30 01:56 | disposition home or self-care (01) ==
LOC: H.ER 21:21 → H.EROBSV 22:24
PROVIDERS: ADMIT Emergency Medicine; ATTEND Emergency Medicine
DX: K57.90 Diverticulosis of intestine, part unspecified, without perforation or abscess without bleeding (principal)
CPT/HCPCS: 36415; 70450; 74176; 80053; 85025; 85610; 85730; 93005; 96374; 99284; G0378; J2270; Q9966

== ENCOUNTER 2017-03-17 21:21 | Emergency (ER) | payer MEDICARE ==
[2017-03-17 21:21] VITALS: BMI 42.7
[2017-03-17 21:55] VITALS: BP 139/102; PULSE 69; RESP 16; TEMP 98.1; O2SAT 98
[2017-03-17] MEDS ORDERED: DiphenhydrAMINE 50 mg/ml Inj IM STA (22:05)
--- NOTE | 2017-03-17 22:08 | ED PDOC ---
HPI: General Adult Time Seen by Provider: 03/17/17 21:58 Chief Complaint (Nursing): Abnormal Skin Integrity History Per: Patient Additional Complaint(s): Pt. states for the past month she's had a pruritic rash on her chest and R arm. Reports that she was prescribed a cream and levocetirizine without any relief by her PMD. Denies fever, SOB, throat swelling. Past Medical History Reviewed: Historical Data, Nursing Documentation, Vital Signs Vital Signs: Last Vital Signs Temp 98.1 F 03/17/17 21:50 Pulse 69 03/17/17 21:50 Resp 16 03/17/17 21:50 BP 139/102 H 03/17/17 21:50 Pulse Ox 98 03/17/17 21:50 - Medical History PMH: Anemia, Arthritis, Asthma, Back Problems (herniated discs (cervical, lumbar )), Bronchitis, CAD, Cardia Arrhythmia, CHF, COPD, Deep Vein Thrombosis, HTN, Hypercholesterolemia, Hypothyroidism, Malignancy (ovarian), Mitral Valve Prolapse, Peripheral Edema, Pneumonia, Pulmonary Embolism, Chronic Kidney Disease Denies: Diabetes, HIV - Surgical History Surgical History: CABG, Coronary Stent, Endoscopy - Family History Family History: States: Unknown Family Hx - Immunization History Hx Pneumococcal Vaccination: Yes - Home Medications Home Medications: Ambulatory Orders Medication Instructions Recorded Aspirin [Aspirin EC] 81 mg PO DAILY #0 tablet. 06/08/16 Levothyroxine Sodium 25 mcg PO DAILY #0 tablet 06/08/16 Pravastatin Sodium [Pravachol] 20 mg PO HS #0 tab 06/08/16 Albuterol 0.083% [Albuterol 0.083% 3 ml IH Q6 PRN 11/30/16 Inhal Kendra (2.5 mg/3 ml) UD] Ergocalciferol (Vitamin D2) 50,000 unit PO QWK 11/30/16 [Vitamin D2] Ferrous Sulfate [Feosol] 325 mg PO DAILY 11/30/16 Folic Acid 1 mg PO DAILY 11/30/16 Levocetirizine Dihydrochloride 5 mg PO DAILY 11/30/16 [Xyzal] Metoprolol Succinate XL [Toprol XL] 25 mg PO BRK 11/30/16 Ranolazine [Ranexa] 500 mg PO BID 11/30/16 Febuxostat [Uloric] 20 mg PO DAILY #0 01/06/17 Furosemide [Lasix] 20 mg PO DAILY #30 01/06/17 Dicyclomine [Dicyclomine HCl] 10 mg PO TID #30 cap 01/30/17 DiphenhydrAMINE [Benadryl] 1 - 2 cap PO Q6 PRN #30 cap 03/17/17 Methylprednisolone [Medrol Dose 4 mg PO DAILY #21 mg 03/17/17 Pack (21 tabs)] - Allergies Allergies/Adverse Reactions: Allergies Allergy/AdvReac Type Severity Reaction Status Date / Time No Known Allergies Allergy Verified 11/30/16 00:55 Review of Systems ROS Statement: Except As Marked, All Systems Reviewed And Found Negative Skin: Positive for: Rash Physical Exam - Physical Exam Appears: Positive for: Well, Non-toxic, No Acute Distress Skin: Positive for: Normal Color, Warm, Rash (scattered hyperpigmented plaques on R elbow and on L side of chest without pustules or vesicles or surrounding erythema) - ECG O2 Sat by Pulse Oximetry: 98 - Progress ED Course And Treament: Benadryl 50mg IM given. Instructed to stop taking levocetirizine. Disposition - Clinical Impression Clinical Impression: Atopic dermatitis - Patient ED Disposition Is Patient to be Admitted: No - Disposition Referrals: [employer] [Outside] Disposition: Routine/Home Disposition Time: 22:09 Condition: IMPROVED Additional Instructions: Follow up with your PMD on Sunday WITHOUT FAIL. Prescriptions: DiphenhydrAMINE [Benadryl] 1 - 2 cap PO Q6 PRN #30 cap PRN Reason: Itching / Pruritus Methylprednisolone [Medrol Dose Pack (21 tabs)] 4 mg PO DAILY #21 mg Instructions: Acute Rash (ED)
[2017-03-17] MEDS ORDERED: DiphenhydrAMINE 50 mg/ml Inj ONE (22:10)
== END 2017-03-17 22:37 | disposition home or self-care (01) ==
LOC: H.ER 21:21
DX: L20.9 Atopic dermatitis, unspecified (principal)
CPT/HCPCS: 96372; 99282; J1200

== ENCOUNTER 2017-04-04 10:43 | Day surgery (SDC) | payer OTHER, MEDICAID ==
[2017-04-04 11:03] VITALS: TEMP 98
[2017-04-04 11:24] VITALS: BMI 45.3
[2017-04-04] MEDS ORDERED: Bupivacaine HCl 0.5% PF (10 ml) Inj ONE (12:14)
[2017-04-04] MEDS ORDERED: methylPREDNISolone Depo 80 mg/ml Inj ONE (12:14)
[2017-04-04] MEDS ORDERED: Lidocaine 1% Inj (20ml) ONE (12:14)
[2017-04-04] MEDS ORDERED: Iohexol 300 10 ML ONE (12:15)
[2017-04-04] MEDS ORDERED: methylPREDNISolone Depo 80 mg/ml Inj IM ONE ×2 (12:55→13:05)
[2017-04-04] MEDS ORDERED: Lidocaine 1% Inj (20ml) IJ ONE ×2 (12:55→13:05)
[2017-04-04] MEDS ORDERED: Iohexol 300 10 ML IJ ONE ×2 (12:55→13:05)
[2017-04-04] MEDS ORDERED: Bupivacaine HCl 0.5% PF (10 ml) Inj IJ ONE ×2 (12:55→13:05)
[2017-04-04] MEDS ORDERED: Oxycodone/Acetaminophen 5/325 mg Tab ONE (13:13)
[2017-04-04] MEDS ORDERED: Oxycodone/Acetaminophen 5/325 mg Tab PO ONE ×2 (13:16)
[2017-04-04 13:53] VITALS: RESP 18
[2017-04-04 14:21] VITALS: BP 140/60; PULSE 60; O2SAT 94
--- NOTE | 2017-04-04 15:59 | RAD ---
PROCEDURE: Fluoroscopy up to 1 hr. HISTORY: PAIN MANAGEMENT COMPARISON: None TECHNIQUE: Standard protocol for this study/examination. FINDINGS: Submitted images from the current procedure: 3.0. IMPRESSION: Total fluoroscopic time (continuous mode) utilized during the procedure: 48.3 seconds.
--- NOTE | 2017-04-06 08:00 | PCM.OP ---
Operative Report - Operative Report Date of Surgery/Procedure: 04/04/17 Time of Surgery/Procedure: 14:00 Surgeon: Wayne Anesthesia/Sedation: Monitored anesthesia Care Pre-Operative Diagnosis: Left shoulder impingement Post-Operative Diagnosis: Same Indication for Surgery: Intractable Pain Operative Findings: See dictation. Procedure/Operation Description: Left shoulder acromio-clavicular joint injection under flouroscopy Estimated Blood Loss: None. Complications: None. Discharge & Condition: Stable to home.
== END 2017-04-04 14:25 | disposition home or self-care (01) ==
LOC: H.OPSURG 10:43
PROVIDERS: ATTEND Anesthesiology
DX: M75.42 Impingement syndrome of left shoulder (principal); J45.909 Unspecified asthma, uncomplicated; E78.5 Hyperlipidemia, unspecified; I10 Essential (primary) hypertension
CPT/HCPCS: 20610; J1040; Q9967

== ENCOUNTER 2017-05-07 01:27 | Inpatient (IN) | payer OTHER, MEDICAID ==
[2017-05-07 01:27] VITALS: BMI 45.3
[2017-05-07] MEDS ORDERED: Morphine 4 MG/ML VIAL IVP STA (02:00)
[2017-05-07] MEDS ORDERED: Morphine 4 MG/ML VIAL ONE (02:14)
[2017-05-07 02:29] LABS: BASO # 0.1 K/uL (0.0-0.2); BASO % 1.2 % (0.0-2.0); EOS # 0.2 K/uL (0.0-0.7); EOS % 2.6 % (0.0-4.0); HEMOGLOBIN 12.8 g/dL (12.0-16.0); LYMPH # 2.4 K/uL (1.0-4.3); LYMPH % 25.5 % (20.0-40.0); MEAN CORPUSCULAR HEMOGLOBIN 26.5 pg (27.0-31.0); MEAN CORPUSCULAR HGB CONC 31.9 g/dL (33.0-37.0); MONO # 0.7 K/uL (0.0-0.8); MONO % 7.5 % (0.0-10.0); NEUT # 5.8 K/uL (1.8-7.0); NEUT % 63.2 % (50.0-75.0); RBC 4.83 Mil/uL (3.80-5.20); RED CELL DISTRIBUTION WIDTH 15.8 % (11.5-14.5); WHITE BLOOD COUNT 9.2 K/uL (4.8-10.8)
[2017-05-07 02:39] LABS: CALCIUM 9.4 mg/dL (8.4-10.2)
--- NOTE | 2017-05-07 03:11 | ED PDOC ---
Lower Extremity Pain/Injury Time Seen by Provider: 05/07/17 01:31 Chief Complaint (Nursing): Shortness Of Breath Chief Complaint (Provider): Left Hip Pain History Per: Patient History/Exam Limitations: no limitations Current Symptoms Are (Timing): Still Present Additional Complaint(s): Kirsten Dallas, a 67 year old female, presents to the ED complaining of left hip pain x1 week. The patient reports that she has difficulty ambulating because of pain and hse has never had pain like this before. The patient states that the pain is so severe that it is making her chronic short of breath much worse than usual. She states that she has been taking percocet for the pain but it would only work for 30 minutes at a time. - Hip Currently Unable To: Bend Or Move Past Medical History Reviewed: Historical Data, Nursing Documentation, Vital Signs Vital Signs: Last Vital Signs Temp 98.2 F 05/07/17 01:33 Pulse 65 05/07/17 01:33 Resp 18 05/07/17 01:33 BP 126/69 05/07/17 01:33 Pulse Ox 99 05/07/17 01:33 - Medical History PMH: Anemia, Arthritis, Asthma, Back Problems (herniated discs (cervical, lumbar )), Bronchitis, CAD, Cardia Arrhythmia, CHF, COPD, Deep Vein Thrombosis, HTN, Hypercholesterolemia, Hypothyroidism, Malignancy (ovarian), Mitral Valve Prolapse, Peripheral Edema, Pneumonia, Pulmonary Embolism, Chronic Kidney Disease Denies: Diabetes, HIV - Surgical History Surgical History: CABG, Coronary Stent, Endoscopy - Family History Family History: States: Unknown Family Hx - Immunization History Hx Pneumococcal Vaccination: Yes - Home Medications Home Medications: Ambulatory Orders Medication Instructions Recorded Aspirin [Aspirin EC] 81 mg PO DAILY #0 tablet.dr 06/08/16 Levothyroxine Sodium 25 mcg PO DAILY #0 tablet 06/08/16 Pravastatin Sodium [Pravachol] 20 mg PO HS #0 tab 06/08/16 Albuterol 0.083% [Albuterol 0.083% 3 ml IH Q6 PRN 11/30/16 Inhal Kendra (2.5 mg/3 ml) UD] Ergocalciferol (Vitamin D2) 50,000 unit PO QWK 11/30/16 [Vitamin D2] Ferrous Sulfate [Feosol] 325 mg PO DAILY 11/30/16 Folic Acid 1 mg PO DAILY 11/30/16 Metoprolol Succinate XL [Toprol XL] 50 mg PO DAILY 11/30/16 Ranolazine [Ranexa] 500 mg PO BID 11/30/16 Dicyclomine [Dicyclomine HCl] 10 mg PO TID #30 cap 01/30/17 oxyCODONE/Acetaminophen [Percocet 10 - 325 mg PO Q4 PRN 04/04/17 5/325 mg Tab] Febuxostat [Uloric] 40 mg PO DAILY 05/07/17 Furosemide [Lasix] 40 mg PO DAILY 05/07/17 Isosorbide Dinitrate [Isordil] 20 mg PO BID 05/07/17 - Allergies Allergies/Adverse Reactions: Allergies Allergy/AdvReac Type Severity Reaction Status Date / Time No Known Allergies Allergy Verified 05/07/17 01:33 Review of Systems ROS Statement: Except As Marked, All Systems Reviewed And Found Negative Musculoskeletal: Positive for: Other (Left hip pain) Physical Exam - Reviewed Nursing Documentation Reviewed: Yes Vital Signs Reviewed: Yes - Physical Exam Appears: Positive for: Non-toxic, No Acute Distress Head Exam: Positive for: ATRAUMATIC, NORMAL INSPECTION, NORMOCEPHALIC Skin: Positive for: Normal Color, Warm, Dry Eye Exam: Positive for: Normal appearance, EOMI, PERRL ENT: Positive for: Normal ENT Inspection Neck: Positive for: Normal, Painless ROM, Supple Cardiovascular/Chest: Positive for: Regular Rate, Rhythm, Chest Non Tender. Negative for: Tachycardia Respiratory: Positive for: Normal Breath Sounds. Negative for: Wheezing, Respiratory Distress Gastrointestinal/Abdominal: Positive for: Normal Exam, Bowel Sounds, Soft. Negative for: Tenderness, Guarding, Rebound Back: Positive for: Normal Inspection Extremity: Positive for: Tenderness (Tenderness to left hip), Other (distally neurovascularly intact; Able to lift left leg off of the bed; Able to bend at the knee but unable to bend at the hip.). Negative for: Normal ROM (Limited ROM of left hip.), Deformity, Swelling Neurologic/Psych: Positive for: Alert, Oriented - Laboratory Results Result Diagrams: 05/07/17 02:12 05/07/17 02:12 - ECG O2 Sat by Pulse Oximetry: 99 (RA) Pulse Ox Interpretation: Normal Medical Decision Making Medical Decision Makin Initial Impression: 67 year old female presenting with left hip pain initial Plan: * Type and Screen * CT Pelvis w/o PO or IV contrast * Basic Metabolic Panel * CBC * Chest x-ray * Morphine 4mg IVP * Toradol 15mg IVP * Reevaluation 530 Pt. still having 10/10 pain, CT negative. Will admit for pain control to Obs med surg. Case d/w Dr. Mccann Scribe Attestation Documented by Kati Nam acting as a scribe for Justin Moncada MD. Provider Attestation All medical record entries made by the Scribe were at my direction and personally dictated by me. I have reviewed the chart and agree that the record accurately reflects my personal performance of the history, physical exam, medical decision making, and the department course for this patient. I have also personally directed, reviewed, and agree with the discharge instructions and disposition. ED OBSERVATION Date of observation admission: 05/07/17 Time of observation admission: 02:31 - Observation admission statement Patient is being placed in observation because:: Adequate pain control. - Progress Note Progress Note: 05/07/17 04:11 Patient is stable and resting comfortably. 05/07/17 05:35 Patient is stable and resting comfortably. Disposition - Clinical Impression Clinical Impression: Intractable pain - Patient ED Disposition Is Patient to be Admitted: Yes - Disposition Referrals: Derrick Cole MD [Staff Provider] - Disposition Time: 05:30 Condition: STABLE Forms: [employer] (Slovak)
--- NOTE | 2017-05-07 03:19 | CT ---
EXAM: CT Pelvis Without Intravenous Contrast CLINICAL HISTORY: 67 years old, female; Pain; Hip pain; Left hip; Additional info: Atraumatic l hip pain TECHNIQUE: Axial computed tomography images of the pelvis without intravenous contrast. This CT exam was performed using one or more of the following dose reduction techniques: automated exposure control, adjustment of the mA and/or kV according to patient size, and/or use of iterative reconstruction technique. Coronal and sagittal reformatted images were created and reviewed. EXAM DATE/TIME: 05/07/2017 2:00 AM COMPARISON: CT - ABD PELVIS PO CONTRAST ONLY 01/30/2017 1:12:21 AM FINDINGS: IVC filter. Right groin clips. Colonic diverticulosis. A normal appendix is identified on images 21 through 31. Pelvic phleboliths. The soft tissues appear grossly normal on noncontrast study. No effusion identified. No fractures. No dislocations. No osseous lesions. IMPRESSION: No acute findings.
[2017-05-07] MEDS ORDERED: HYDROmorphone 0.5 mg/0.5 ml ISec IVP STA (05:09)
--- NOTE | 2017-05-07 05:16 | CP.PCM.HP ---
History of Present Illness - History of Present Illness History of Present Illness: PCP: Derrick Cole MD Chief Complaint: Severe Left Hip Pain HPI: 67 years old female with Hx of Arthritis; DDD; Herneated Disc and chronic lower back pain. She comes to the ED with a one week hx of Her pain Doctor is Dr Zabala. She comes to the ED with a one week of left hip and upper left thigh pain. The pain is sharp, constant, and increases with her ambulating. The pain is not relieved with her regular medication analgesics. PMH: Anemia; Arthritis, DDD , Herneated Disc, cervical and LS, with chronic back pain; CAD, Cardia Arrhythmia, CHF systolic and Diastolic; Obesity; COPD and Asthma;, DVT and PE; HTN; HLD; Hypothyroidism, Mitral Valve Prolapse, Peripheral Edema; CKD IV; Vertigo PSH; CABG triple bipass 03/2012; Coronary stent placement; hysterectomy SH: light smoker; no illegal drug use; No alcohol; FH: no known family hx Allergies: NKDA Present on Admission - Present on Admission Any Indicators Present on Admission: No History of DVT/PE: No History of Uncontrolled Diabetes: No Urinary Catheter: No Decubitus Ulcer Present: No Review of Systems - Constitutional Constitutional: absent: Anorexia, Chills, Fever - EENT Eyes: Requires Corrective Lenses. absent: Diplopia, Floaters, Photophobia Ears: absent: Decreased Hearing, Ear Discharge, Ear Pain, Tinnitus Nose/Mouth/Throat: absent: Epistaxis, Nasal Congestion, Nasal Discharge, Sinus Pain, Sinus Pressure - Respiratory Respiratory: absent: Cough, Dyspnea, Wheezing - Gastrointestinal Gastrointestinal: absent: Abdominal Pain, Nausea, Vomiting - Genitourinary Genitourinary: absent: Dysuria, Flank Pain, Hematuria, Urinary Frequency - Musculoskeletal Musculoskeletal: Back Pain Additional comments: Pain to the left hip and upper left thigh. - Integumentary Integumentary: absent: Pruritus, Rash, Skin Ulcer, Sores, Striae, Swelling - Neurological Neurological: absent: Confusion, Focal Weakness, Headaches, Weakness - Psychiatric Psychiatric: absent: Anxiety, Depression, Panic Attacks - Endocrine Endocrine: absent: Palpitations, Polydipsia, Polyphagia, Polyuria - Hematologic/Lymphatic Hematologic: absent: Easy Bleeding, Easy Bruising Past Patient History - Infectious Disease Hx of Infectious Diseases: None - Past Medical History & Family History Past Medical History?: Yes - Past Social History Smoking Status: Light Smoker < 10 Cigarettes Daily Chewing Tobacco Use: No Cigar Use: No Alcohol: None Drugs: Denies - CARDIAC Hx Cardia Arrhythmia: Yes Hx Congestive Heart Failure: Yes Hx Hypercholesterolemia: Yes Hx Hypertension: Yes Hx Mitral Valve Prolapse: Yes Hx Peripheral Edema: Yes - PULMONARY Hx Asthma: Yes Hx Bronchitis: Yes Hx Chronic Obstructive Pulmonary Disease (COPD): Yes Hx Pneumonia: Yes Hx Pulmonary Embolism: Yes - NEUROLOGICAL Hx Neurological Disorder: Yes Hx Vertigo: Yes - HEENT Hx HEENT Problems: No - RENAL Hx Chronic Kidney Disease: Yes - ENDOCRINE/METABOLIC Hx Hypothyroidism: Yes - HEMATOLOGICAL/ONCOLOGICAL Hx Anemia: Yes Hx Human Immunodeficiency Virus (HIV): No - INTEGUMENTARY Hx Dermatological Problems: No - MUSCULOSKELETAL/RHEUMATOLOGICAL Hx Arthritis: Yes - GASTROINTESTINAL Hx Gastrointestinal Disorders: No Other/Comment: GI Bleed - GENITOURINARY/GYNECOLOGICAL Hx Genitourinary Disorders: No Hx Ovarian Cancer: Yes Other/Comment: hysterectomy - PSYCHIATRIC Hx Psychophysiologic Disorder: No Hx Emotional Abuse: No Hx Physical Abuse: No Hx Substance Use: No Other/Comment: HX OF DVT - SURGICAL HISTORY Hx Coronary Artery Bypass Graft: Yes Hx Coronary Stent: Yes - ANESTHESIA Hx Anesthesia: Yes Hx Anesthesia Reactions: No Hx Malignant Hyperthermia: No Meds Allergies/Adverse Reactions: Allergies Allergy/AdvReac Type Severity Reaction Status Date / Time No Known Allergies Allergy Verified 05/07/17 01:33 Physical Exam - Constitutional Appears: No Acute Distress - Head Exam Head Exam: ATRAUMATIC, NORMAL INSPECTION, NORMOCEPHALIC - Eye Exam Eye Exam: EOMI, Normal appearance Pupil Exam: NORMAL ACCOMODATION, PERRL - ENT Exam ENT Exam: Mucous Membranes Moist, Normal Exam, Normal External Ear Exam, Normal Oropharynx - Neck Exam Neck exam: Positive for: Full Rom, Normal Inspection. Negative for: Lymphadenopathy, Tenderness - Respiratory Exam Respiratory Exam: Clear to Auscultation Bilateral. absent: Rales, Rhonchi, Wheezes - Cardiovascular Exam Cardiovascular Exam: REGULAR RHYTHM, RRR, +S1, +S2 - GI/Abdominal Exam Additional comments: Obese, Soft Nontender, +ve bowel sounds. - Rectal Exam Rectal Exam: Deferred - Extremities Exam Extremities exam: Positive for: normal inspection. Negative for: pedal edema Additional comments: Pain to the latero-posterior region of the upper third of the left thigh and lower buttock. No mass palpated. - Back Exam Back exam: NORMAL INSPECTION. absent: CVA tenderness (L), CVA tenderness (R) - Neurological Exam Neurological exam: Alert, CN II-XII Intact, Oriented x3, Reflexes Normal - Psychiatric Exam Psychiatric exam: Normal Affect, Normal Mood - Skin Skin Exam: Dry, Intact, Normal Color, Warm Results - Vital Signs Recent Vital Signs: Last Vital Signs Temp 98.2 F 05/07/17 01:33 Pulse 65 05/07/17 01:33 Resp 18 05/07/17 02:05 BP 126/69 05/07/17 01:33 Pulse Ox 99 05/07/17 04:11 - Labs Result Diagrams: 05/07/17 02:12 05/07/17 02:12 - Imaging and Cardiology CT pelvis Additional comment: COMPARISON: CT - ABD PELVIS PO CONTRAST ONLY 01/30/2017 1:12:21 AM FINDINGS: IVC filter. Right groin clips. Colonic diverticulosis. A normal appendix is identified on images 21 through 31. Pelvic phleboliths. The soft tissues appear grossly normal on noncontrast study. No effusion identified. No fractures. No dislocations. No osseous lesions. IMPRESSION: No acute findings. Thank you for allowing us t Assessment & Plan - Assessment and Plan (Free Text) Plan: 67 years old female with Hx of Arthritis; DDD; Herneated Disc and chronic lower back pain. She comes to the ED with a one week hx of Her pain Doctor is Dr Zabala. She comes to the ED with a one week of left hip and upper left thigh pain. The pain is sharp, constant, and increases with her ambulating. The pain is not relieved with her regular medication analgesics. #. Intractible Upper left thigh Musculoskeletal pain - Consult Dr Zabala Pain management #. ASthma and COPD - Bronchodilators #. CKD III - follow up with PMD #, Hypothyroidism - Levothyroxin #. CAD stable - ASA/Ranolazine/ Pravastatin #. DVT prophylaxis with Lovenox #. Code Status: Stable - Date & Time Date: 05/07/17 Time: 05:16
[2017-05-07] MEDS ORDERED: Albuterol 0.083% Inhal Sol (2.5 mg/3 mL) UD IH PRN (06:33)
[2017-05-07] MEDS ORDERED: Oxycodone/Acetaminophen 5/325 mg Tab PO PRN (06:38)
[2017-05-07] MEDS ORDERED: Ergocalciferol 50,000 Intl Units Cap PO SCH (06:45)
--- NOTE | 2017-05-07 08:21 | CP.PCM.CON ---
History of Present Illness - History of Present Illness History of Present Illness: 67 yo patient w/ multiple co-morbidities, well known to me from pain clinic, is referred for pain management. Patient developed sharp left sided buttock and leg pain about 2 weeks ago, without trauma. The pain is sharp, constant even at rest, 10/10 at worst. The pain starts in the buttock region and radiates into the left knee along the posterior aspect. Patient takes Percocet 10/325mg and Neurontin for pain as an outpatient. Past Patient History - Infectious Disease Hx of Infectious Diseases: None - Past Medical History & Family History Past Medical History?: Yes - Past Social History Smoking Status: Light Smoker < 10 Cigarettes Daily Chewing Tobacco Use: No Cigar Use: No Alcohol: None Drugs: Denies - CARDIAC Hx Cardia Arrhythmia: Yes Hx Congestive Heart Failure: Yes Hx Hypercholesterolemia: Yes Hx Hypertension: Yes Hx Mitral Valve Prolapse: Yes Hx Peripheral Edema: Yes - PULMONARY Hx Asthma: Yes Hx Bronchitis: Yes Hx Chronic Obstructive Pulmonary Disease (COPD): Yes Hx Pneumonia: Yes Hx Pulmonary Embolism: Yes - NEUROLOGICAL Hx Neurological Disorder: Yes Hx Vertigo: Yes - HEENT Hx HEENT Problems: No - RENAL Hx Chronic Kidney Disease: Yes - ENDOCRINE/METABOLIC Hx Hypothyroidism: Yes - HEMATOLOGICAL/ONCOLOGICAL Hx Anemia: Yes Hx Human Immunodeficiency Virus (HIV): No - INTEGUMENTARY Hx Dermatological Problems: No - MUSCULOSKELETAL/RHEUMATOLOGICAL Hx Arthritis: Yes - GASTROINTESTINAL Hx Gastrointestinal Disorders: No Other/Comment: GI Bleed - GENITOURINARY/GYNECOLOGICAL Hx Genitourinary Disorders: No Hx Ovarian Cancer: Yes Other/Comment: hysterectomy - PSYCHIATRIC Hx Psychophysiologic Disorder: No Hx Emotional Abuse: No Hx Physical Abuse: No Hx Substance Use: No Other/Comment: HX OF DVT - SURGICAL HISTORY Hx Coronary Artery Bypass Graft: Yes Hx Coronary Stent: Yes - ANESTHESIA Hx Anesthesia: Yes Hx Anesthesia Reactions: No Hx Malignant Hyperthermia: No Meds Allergies/Adverse Reactions: Allergies Allergy/AdvReac Type Severity Reaction Status Date / Time No Known Allergies Allergy Verified 05/07/17 01:33 - Medications Medications: Current Medications Albuterol Sulfate (Albuterol 0.083% Inhal Kendra (2.5 Mg/3 Ml) Ud) 2.5 mg IH Q6 PRN PRN Reason: Shortness of Breath Aspirin (Ecotrin) 81 mg PO DAILY [facility] Dicyclomine HCl (Bentyl) 10 mg PO TID [facility] Enoxaparin Sodium (Lovenox) 40 mg SC DAILY [facility] PRN Reason: Protocol Ergocalciferol (Drisdol 50,000 Intl Units Cap) 1 cap PO QWK [facility] Ferrous Sulfate (Feosol) 325 mg PO DAILY [facility] Folic Acid (Folic Acid) 1 mg PO DAILY [facility] Furosemide (Lasix) 40 mg PO DAILY [facility] Home Med (Ranolazine [Ranexa]) 500 mg PO BID [facility] Isosorbide Dinitrate (Isordil) 20 mg PO BID [facility] Levothyroxine Sodium (Synthroid) 25 mcg PO DAILY@0630 [facility] Lidocaine (Lidoderm) 1 ea TD DAILY [facility] Metoprolol Succinate (Toprol Xl) 50 mg PO DAILY [facility] Oxycodone/Acetaminophen (Percocet 5/325 Mg Tab) 2 tab PO Q4 PRN PRN Reason: Pain, severe (8-10) Stop: 05/10/17 06:38 Oxycodone/Acetaminophen (Percocet 5/325 Mg Tab) 1 tab PO Q4 PRN PRN Reason: Pain, Mild (1-3) Stop: 05/10/17 06:39 Pravastatin Sodium (Pravachol) 20 mg PO HS [facility] Physical Exam - Respiratory Exam Respiratory Exam: NORMAL BREATHING PATTERN - Cardiovascular Exam Cardiovascular Exam: REGULAR RHYTHM - Extremities Exam Additional comments: TTP over left posterior buttock, left lateral hip. Results - Vital Signs Recent Vital Signs: Last Vital Signs Temp 98.4 F 05/07/17 06:15 Pulse 56 L 05/07/17 06:15 Resp 16 05/07/17 06:15 BP 131/61 05/07/17 06:15 Pulse Ox 99 05/07/17 06:15 - Labs Result Diagrams: 05/07/17 02:12 05/07/17 02:12 Assessment & Plan (1) Intractable pain Assessment and Plan: 67 yo woman w/ new onset left buttock/left leg pain. Patient has a history of chronic pain, the current condition could be arthritic in origin or of an unclear etiology. - continue Percocet PRN - obtain X-ray of lumbar spine, left hip, and left knee - pending X-ray results, would consider injection tomorrow - hold Lovenox tomorrow AM for possible injection, patient can continue diet Status: Acute
[2017-05-07] MEDS: Metoprolol Succinate 50 mg XL Tab PO SCH (08:33)
[2017-05-07] MEDS: Levothyroxine 25 MCG TAB PO SCH (08:33)
[2017-05-07] MEDS ORDERED: Patient's Own Med (Ranolazine [Ranexa] 500 MG) PO SCH (09:00)
[2017-05-07] MEDS ORDERED: Enoxaparin 40 mg Syringe SC SCH (09:00)
[2017-05-07] MEDS: Lidocaine 5% Patch TD SCH (10:45)
--- NOTE | 2017-05-07 11:24 | US ---
HISTORY: Pain to upper left thigh . PRIORS: None. FINDINGS: 2-D, color and duplex Doppler analysis of the lower extremity venous circulation using routine protocol from the femoral veins through the popliteal veins. Venous compressibility: Normal. Flow and augmentation patterns: Normal. Visualized veins upper third of calf: Normal. Chavez cyst: None. IMPRESSION: No sonographic or Doppler evidence for DVT in left lower extremity.
--- NOTE | 2017-05-07 14:26 | RAD ---
PROCEDURE: CHEST RADIOGRAPH, 1 VIEW HISTORY: r/o pna COMPARISON: 11/30/2016. FINDINGS: LUNGS: Clear. PLEURA: No pneumothorax or pleural fluid seen. CARDIOVASCULAR: Cardiomegaly, of pulmonary vascular plethora. OSSEOUS STRUCTURES: No significant abnormalities. VISUALIZED UPPER ABDOMEN: Normal. OTHER FINDINGS: None. IMPRESSION: No active pulmonary disease. No significant interval change compared to the prior examination(s). No preliminary report provided by emergency department personnel.
--- NOTE | 2017-05-07 14:39 | RAD ---
PROCEDURE: Radiographs of the pelvis. HISTORY: left hip pain down to left knee COMPARISON: None. FINDINGS: BONES: Pelvic Bones: Unremarkable. Hips: Mild age related degenerative change, approximately symmetrical. JOINTS: Sacroiliac Joints: Unremarkable. Pubic Symphysis: Unremarkable. OTHER FINDINGS: None. IMPRESSION: No significant or acute findings to account for/ related to the clinical presentation.
--- NOTE | 2017-05-07 14:40 | RAD ---
PROCEDURE: Radiographs of the Lumbar Spine. HISTORY: pain in lower back down to left leg No antecedent history of trauma provided. COMPARISON: 07/23/2013 FINDINGS: BONES: No acute fractures. 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 IMPRESSION: Mildly progressive degenerative changes mid. No acute findings.
--- NOTE | 2017-05-07 14:49 | CP.PCM.DIS ---
Provider - Provider Date of Admission: 05/07/17 02:30 Attending physician: Chet Mccann Primary care physician: Derrick Cole MD Consults: Dr Black Time Spent in preparation of Discharge (in minutes): 35 Diagnosis - Discharge Diagnosis (1) Intractable low back pain Status: Acute Comment: follow up with Dr Black in pain clinic. Xray of LS spine: showed mild degerative changes (2) COPD not affecting current episode of care Status: Acute Comment: asymptomatic. Albuterol inhaler: 2 puffs q 4hrs prn (3) CAD (coronary artery disease) Status: Chronic Priority: Medium Comment: asymptomatic. continue ASA, Ranolazine and statin Hospital Course - Lab Results Lab Results: Most Recent Lab Values WBC 9.2 K/uL (4.8-10.8) 05/07/17 02:12 RBC 4.83 Mil/uL (3.80-5.20) 05/07/17 02:12 Hgb 12.8 g/dL (12.0-16.0) 05/07/17 02:12 Hct 40.1 % (34.0-47.0) 05/07/17 02:12 MCV 83.0 fl (81.0-99.0) 05/07/17 02:12 MCH 26.5 pg (27.0-31.0) L 05/07/17 02:12 MCHC 31.9 g/dL (33.0-37.0) L 05/07/17 02:12 RDW 15.8 % (11.5-14.5) H 05/07/17 02:12 Plt Count 147 K/uL (130-400) 05/07/17 02:12 MPV 9.0 fl (7.2-11.7) 05/07/17 02:12 Neut % (Auto) 63.2 % (50.0-75.0) 05/07/17 02:12 Lymph % (Auto) 25.5 % (20.0-40.0) 05/07/17 02:12 [place] % (Auto) 7.5 % (0.0-10.0) 05/07/17 02:12 Eos % (Auto) 2.6 % (0.0-4.0) 05/07/17 02:12 Baso % (Auto) 1.2 % (0.0-2.0) 05/07/17 02:12 Neut # 5.8 K/uL (1.8-7.0) 05/07/17 02:12 Lymph # 2.4 K/uL (1.0-4.3) 05/07/17 02:12 [place] # 0.7 K/uL (0.0-0.8) 05/07/17 02:12 Eos # 0.2 K/uL (0.0-0.7) 05/07/17 02:12 Baso # 0.1 K/uL (0.0-0.2) 05/07/17 02:12 Sodium 140 mmol/l (132-148) 05/07/17 02:12 Potassium 3.7 MMOL/L (3.6-5.0) 05/07/17 02:12 Chloride 103 mmol/L (98-107) 05/07/17 02:12 Carbon Dioxide 31 mmol/L (22-30) H 05/07/17 02:12 Anion Gap 10 (10-20) 05/07/17 02:12 BUN 26 mg/dl (7-17) H 05/07/17 02:12 Creatinine 1.4 mg/dL (0.7-1.2) H 05/07/17 02:12 Est GFR ( Amer) 46 05/07/17 02:12 Est GFR (Non-Af Amer) 38 05/07/17 02:12 Random Glucose 104 mg/dL (65-105) 05/07/17 02:12 Calcium 9.4 mg/dL (8.4-10.2) 05/07/17 02:12 Blood Type A POSITIVE 05/07/17 02:15 Antibody Screen Negative 05/07/17 02:15 BBK History Checked Patient has bt 05/07/17 02:15 - Hospital Course Hospital Course: 67 yo female with history of arthritis and chronic low back pain admitted because of severe, non-relenting low back pain radiating to the LLE. Xrays of the pelvis, left knee and LS spine showed no acute changes but mild degenerative changes. Patient was put on Toradol and had some relief. She was advised to follow up in pain clinic with Dr Black. Discharge Exam - Head Exam Head Exam: ATRAUMATIC, NORMAL INSPECTION, NORMOCEPHALIC - Eye Exam Eye Exam: absent: Scleral icterus - ENT Exam ENT Exam: Mucous Membranes Moist - Respiratory Exam Respiratory Exam: absent: Wheezes, Respiratory Distress - Cardiovascular Exam Cardiovascular Exam: REGULAR RHYTHM, +S1, +S2 - GI/Abdominal Exam GI & Abdominal Exam: Soft. absent: Tenderness - Rectal Exam Rectal Exam: Deferred - Neurological Exam Neurological exam: Alert, Oriented x3 - Psychiatric Exam Psychiatric exam: Normal Affect - Skin Skin Exam: Dry, Intact Discharge Plan - Follow Up Plan Condition: STABLE Disposition: HOME/ ROUTINE Instructions: Hip Pain (GEN) Referrals: Sam Black MD [Staff Provider] - 05/11/17 (pls call doctor's office [facility] to make an appointment.) Derrick Cole MD [Primary Care Provider] -
--- NOTE | 2017-05-07 15:13 | RAD ---
PROCEDURE: Left Knee Radiographs. HISTORY: Pain. COMPARISON: Prior left knee x-ray series 10057. FINDINGS: BONES: No acute fracture, dislocation or suspicious lytic or blastic changes identified. Further osteophytic development seen at the medial femorotibial core joint compartments with medial femorotibial joint space mildly diminished in height as well. Similar degenerate changes affect the patellofemoral articulation. JOINTS: As above JOINT EFFUSION: Limited suprapatellar bursa effusion not excluded. OTHER FINDINGS: None. IMPRESSION: Advanced osteoarthritis again seen at the left knee with increasing severity. No acute fracture dislocation. Limited bursal effusion in question.
[2017-05-07] MEDS: Oxycodone/Acetaminophen 5/325 mg Tab PO PRN (16:25)
[2017-05-07] MEDS ORDERED: Pravastatin Sodium 20 MG TAB PO SCH (22:00)
[2017-05-08] MEDS: Levothyroxine 25 MCG TAB PO SCH (06:26)
[2017-05-08] MEDS: Metoprolol Succinate 50 mg XL Tab PO SCH (09:18)
[2017-05-08] MEDS: Lidocaine 5% Patch TD SCH (09:26)
[2017-05-08] MEDS: Oxycodone/Acetaminophen 5/325 mg Tab PO PRN (10:09)
[2017-05-08] MEDS ORDERED: Iohexol 300 10 ML ONE (13:09)
[2017-05-08] MEDS ORDERED: methylPREDNISolone Depo 80 mg/ml Inj ONE (13:09)
[2017-05-08] MEDS ORDERED: Bupivacaine HCl 0.5% PF (10 ml) Inj ONE (13:09)
[2017-05-08] MEDS ORDERED: Lidocaine 1% Inj (20ml) ONE (13:10)
[2017-05-08] MEDS ORDERED: Midazolam 2 MG/2 ML VIAL ONE (13:20)
[2017-05-08] MEDS ORDERED: Lactated Ringer's 1,000 ML IV SCH (13:45)
[2017-05-08] MEDS ORDERED: Lactated Ringer's 1,000 ML IV ONE (13:47)
--- NOTE | 2017-05-08 13:51 | CP.PCM.PN ---
Subjective - Date & Time of Evaluation Date of Evaluation: 05/08/17 Time of Evaluation: 13:45 - Subjective Subjective: Patient is s/p left sacroiliac joint steroid injection, left piriformis muscle injection today. She tolerated the procedure well, and is resting comfortably in PACU. Objective - Vital Signs/Intake and Output Vital Signs (last 24 hours): Temp Pulse Resp BP Pulse Ox 97.6 F 52 L 20 178/73 H 98 05/08/17 08:52 05/08/17 09:18 05/08/17 08:52 05/08/17 09:18 05/08/17 08:52 - Medications Medications: Current Medications Albuterol Sulfate (Albuterol 0.083% Inhal Kendra (2.5 Mg/3 Ml) Ud) 2.5 mg IH Q6 PRN PRN Reason: Shortness of Breath Aspirin (Ecotrin) 81 mg PO DAILY [facility] Last Admin: 05/08/17 09:16 Dose: 81 mg Dicyclomine HCl (Bentyl) 10 mg PO TID [facility] Last Admin: 05/08/17 12:02 Dose: Not Given Enoxaparin Sodium (Lovenox) 40 mg SC DAILY [facility] PRN Reason: Protocol Last Admin: 05/07/17 10:46 Dose: 40 mg Ergocalciferol (Drisdol 50,000 Intl Units Cap) 1 cap PO QWK [facility] Ferrous Sulfate (Feosol) 325 mg PO DAILY [facility] Last Admin: 05/08/17 09:18 Dose: 325 mg Folic Acid (Folic Acid) 1 mg PO DAILY [facility] Last Admin: 05/08/17 09:17 Dose: 1 mg Furosemide (Lasix) 40 mg PO DAILY [facility] Last Admin: 05/08/17 09:17 Dose: 40 mg Isosorbide Dinitrate (Isordil) 20 mg PO BID [facility] Last Admin: 05/08/17 09:16 Dose: 20 mg Levothyroxine Sodium (Synthroid) 25 mcg PO DAILY@0630 [facility] Last Admin: 05/08/17 06:26 Dose: 25 mcg Lidocaine (Lidoderm) 1 ea TD DAILY [facility] Last Admin: 05/08/17 09:26 Dose: 1 ea Metoprolol Succinate (Toprol Xl) 50 mg PO DAILY [facility] Last Admin: 05/08/17 09:18 Dose: 50 mg Oxycodone/Acetaminophen (Percocet 5/325 Mg Tab) 2 tab PO Q4 PRN PRN Reason: Pain, severe (8-10) Stop: 05/10/17 06:38 Last Admin: 05/08/17 10:09 Dose: 2 tab Oxycodone/Acetaminophen (Percocet 5/325 Mg Tab) 1 tab PO Q4 PRN PRN Reason: Pain, Mild (1-3) Stop: 05/10/17 06:39 Pravastatin Sodium (Pravachol) 20 mg PO HS [facility] Last Admin: 05/07/17 21:08 Dose: 20 mg - Respiratory Exam Respiratory Exam: NORMAL BREATHING PATTERN - Cardiovascular Exam Cardiovascular Exam: REGULAR RHYTHM Assessment and Plan (1) Intractable pain Assessment & Plan: 67 yo woman w/ chronic pain. She's suffering from left buttock pain, resulting in left leg weakness and inability to ambulate. She's s/p injection today. - PT eval for dispo - patient is cleared for discharge from pain management's standpoint - patient will have outpatient follow-up with me in pain clinic, she has medications at home Status: Acute
--- NOTE | 2017-05-08 14:27 | OP ---
PROCEDURE DATE: 05/08/2017 PREOPERATIVE DIAGNOSIS: Lower back pain. POSTOPERATIVE DIAGNOSIS: Lower back pain. PROCEDURE: Left sacroiliac joint steroid injection and left piriformis muscle injection. SURGEON: Sam Black MD TYPE OF ANESTHESIA: Monitored anesthesia care. ANESTHESIA ADMINISTERED BY: Fara Knapp MD COMPLICATIONS: None. SPECIMEN: None. DESCRIPTION OF PROCEDURE: After discussion of the procedure with the patient including its risks, benefits, alternatives, outcome data, possibility of no effects, increased pain. The patient consented to the procedure. She denies any recent infection, bleeding tendencies or being on anticoagulants. Decision was then made to proceed to the OR. The patient was placed on fluoroscopy table in a prone position with 2 pillows underneath her abdomen. The back was prepped and draped in a usual sterile fashion and sterile technique was adhered during the entire procedure. The sacroiliac joints on the left was first visualized on the anterior-posterior view. The posterior opening to the inferior pole was was the visualized and marked. The skin overlying this area was infiltrated with 1% lidocaine using 25-gauge needle. Subsequently, a 22-gauge 5-inch spinal needle was then incrementally advanced under fluoroscopic guidance until the needle walk into the joint capsule of the left sacroiliac joint. After satisfactory position of the needle approximately 1 mL of Isovue contrast was injected showing appropriate spread up the joint capsule. After confirming the needle positioning approximately 4 mL of 0.5% Marcaine and Depo Medrol mixture was injected. Needle was then removed. Then the landmarks between the sacrum and the left greater trochanter was then marked and palpated. A line was drawn between the 2 points. At midpoint of this line it is determined target of the injection. The skin overlying this area was infiltrated with 1% lidocaine using 25-gauge needle. Subsequently, a 25-gauge 7-inch spinal needle was incrementally advanced under fluoroscopic guidance until tip of the needle walk into the belly of the muscle. After satisfactory positioning of the needle approximately 0.5 mL of Isovue contrast was injected to rule out intravenous spread. After doing so, approximately 4 mL of 0.5% Marcaine and Depo Medrol mixture was injected. Needle was then removed. The patient's back was clean and dry bandage was applied. At the end of the case, the patient's back was cleaned and dried, and bandage was applied. The patient was then transferred to recovery area in good condition without any signs or BAG MENDER toxicity or any neurological deficits. She may be discharge from the floor this evening. En-Surinder Black MD
[2017-05-08 16:10] VITALS: BP 123/77; PULSE 52; RESP 18; TEMP 97.7; O2SAT 95
--- NOTE | 2017-05-08 16:37 | CP.PCM.DIS ---
Provider - Provider Date of Admission: 05/07/17 15:45 Attending physician: Chet Mccann Primary care physician: Derrick Cole MD Consults: pain management PT eval Time Spent in preparation of Discharge (in minutes): 20 Hospital Course - Lab Results Lab Results: Most Recent Lab Values WBC 9.2 K/uL (4.8-10.8) 05/07/17 02:12 RBC 4.83 Mil/uL (3.80-5.20) 05/07/17 02:12 Hgb 12.8 g/dL (12.0-16.0) 05/07/17 02:12 Hct 40.1 % (34.0-47.0) 05/07/17 02:12 MCV 83.0 fl (81.0-99.0) 05/07/17 02:12 MCH 26.5 pg (27.0-31.0) L 05/07/17 02:12 MCHC 31.9 g/dL (33.0-37.0) L 05/07/17 02:12 RDW 15.8 % (11.5-14.5) H 05/07/17 02:12 Plt Count 147 K/uL (130-400) 05/07/17 02:12 MPV 9.0 fl (7.2-11.7) 05/07/17 02:12 Neut % (Auto) 63.2 % (50.0-75.0) 05/07/17 02:12 Lymph % (Auto) 25.5 % (20.0-40.0) 05/07/17 02:12 [place] % (Auto) 7.5 % (0.0-10.0) 05/07/17 02:12 Eos % (Auto) 2.6 % (0.0-4.0) 05/07/17 02:12 Baso % (Auto) 1.2 % (0.0-2.0) 05/07/17 02:12 Neut # 5.8 K/uL (1.8-7.0) 05/07/17 02:12 Lymph # 2.4 K/uL (1.0-4.3) 05/07/17 02:12 [place] # 0.7 K/uL (0.0-0.8) 05/07/17 02:12 Eos # 0.2 K/uL (0.0-0.7) 05/07/17 02:12 Baso # 0.1 K/uL (0.0-0.2) 05/07/17 02:12 Sodium 140 mmol/l (132-148) 05/07/17 02:12 Potassium 3.7 MMOL/L (3.6-5.0) 05/07/17 02:12 Chloride 103 mmol/L (98-107) 05/07/17 02:12 Carbon Dioxide 31 mmol/L (22-30) H 05/07/17 02:12 Anion Gap 10 (10-20) 05/07/17 02:12 BUN 26 mg/dl (7-17) H 05/07/17 02:12 Creatinine 1.4 mg/dL (0.7-1.2) H 05/07/17 02:12 Est GFR ( Amer) 46 05/07/17 02:12 Est GFR (Non-Af Amer) 38 05/07/17 02:12 Random Glucose 104 mg/dL (65-105) 05/07/17 02:12 Calcium 9.4 mg/dL (8.4-10.2) 05/07/17 02:12 Blood Type A POSITIVE 05/07/17 02:15 Antibody Screen Negative 05/07/17 02:15 BBK History Checked Patient has bt 05/07/17 02:15 - Hospital Course Hospital Course: 67 years old female with Hx of Arthritis; DJD; Herneated Disc and chronic lower back pain came to the ED with a one week hx intractable left upper thiogh pain , unable to ambulate . The pain is sharp, constant, and increases with her ambulating. The pain is not relieved with her regular medication analgesics. patient was placed under observation in Med/surg and her pain management doctor Dr. Black was consulted Patient underwent left sacroiliac joint steroid injection and left piriformis muscle injection and tolerated wekk Post procedure pain is better controlled and able to ambulate with her walker. Evaluated by PT and recommended PT at home.Patient is cleared for discharge from pain management's standpoint and will have outpatient follow-up with pain clinic in 1 week. She has pain medications at home 1. Intractible Upper left thigh Musculoskeletal pain 2. ASthma and COPD stable on Bronchodilators 3. CKD III stable 4, Hypothyroidism on Levothyroxin 5. CAD stable continuer ASA/Ranolazine/ Pravastatin Discharge Exam - Head Exam Head Exam: ATRAUMATIC, NORMAL INSPECTION, NORMOCEPHALIC - Eye Exam Eye Exam: EOMI, Normal appearance, PERRL Pupil Exam: NORMAL ACCOMODATION - ENT Exam ENT Exam: Mucous Membranes Moist, Normal Exam - Neck Exam Neck exam: Full Rom, Normal Inspection - Respiratory Exam Respiratory Exam: Clear to PA & Lateral, Prolonged Expiratory Phase, NORMAL BREATHING PATTERN. absent: Rhonchi, Wheezes - Cardiovascular Exam Cardiovascular Exam: REGULAR RHYTHM, RRR, +S1, +S2. absent: JVD - GI/Abdominal Exam GI & Abdominal Exam: Normal Bowel Sounds, Soft. absent: Distended, Guarding, Rebound, Tenderness - Rectal Exam Rectal Exam: Deferred - Extremities Exam Extremities exam: normal capillary refill, normal inspection, pedal pulses present - Back Exam Back exam: NORMAL INSPECTION - Neurological Exam Neurological exam: Alert, CN II-XII Intact, Oriented x3, Reflexes Normal - Psychiatric Exam Psychiatric exam: Normal Affect, Normal Mood - Skin Skin Exam: Dry, Intact, Normal Color, Warm Discharge Plan - Follow Up Plan Condition: STABLE Disposition: HOME/ ROUTINE Patient education suggested?: Yes Instructions: Hip Pain (GEN) Additional Instructions: [facility] Visiting Nurse [phone] Referrals: Sam Black MD [Staff Provider] - 05/11/17 (pls call doctor's office [facility] to make an appointment.) Derrick Cole MD [Primary Care Provider] -
--- NOTE | 2017-05-09 08:38 | RAD ---
PROCEDURE: Intraoperative Fluoroscopy. HISTORY: PAIN FINDINGS: Fluoroscopic assistance was provided for sacral epidural injection. fluoroscopic time (continuous mode) utilized during the procedure: 29.9 seconds
--- NOTE | 2017-05-11 13:23 | PQF GENQUE ---
Dr. Mccann pt was admitted with intractable upper left thigh pain. After study if known what is the cause or source of pt's pain? This form is a permanent part of the medical record Clarification of your documentation is requested to better reflect the severity of illness and intensity of treatment of your patient. Indicators present [] Specify: [] [] Specify: [] [] Specify: [] [] Specify: [] Location in the medical record that reflects the above clinical findings: [] Treatment Provided: [] PHYSICIAN'S RESPONSE Based on your medical judgment of the clinical indicators outlined above please clarify the following: [] Practitioner response [] If unable to determine, please check the box, sign and date. Present On Admission (POA) Indicator: [] Present at the time of admission [] Not present at the time of admission [] Clinically Undetermined In responding to this query, please exercise your independent professional judgment. The fact that a question is asked does not imply that any particular answer is desired or expected. Thank you for your clarification on this documentation. If you have any questions please call:[ ] * Thank you, [ ]Mana Noble sap basis architect BERNARD
== END 2017-05-08 16:48 | disposition home or self-care (01) | DRG 556 ==
LOC: H.ER 01:27 → H.EROBSV 02:30 → H.ERHOLD 05:48 → H.MEDSURG1 06:26 → OBSVTOIN 15:45
PROVIDERS: ADMIT Internal Medicine; ATTEND Internal Medicine
PROC: 3E0U3BZ Introduction of Anesthetic Agent into Joints, Percutaneous Approach (ICD-10-PCS; 2017-05-08)
PROC: 3E0233Z Introduction of Anti-inflammatory into Muscle, Percutaneous Approach (ICD-10-PCS; 2017-05-08)
PROC: 3E023BZ Introduction of Anesthetic Agent into Muscle, Percutaneous Approach (ICD-10-PCS; 2017-05-08)
PROC: 3E0U33Z Introduction of Anti-inflammatory into Joints, Percutaneous Approach (ICD-10-PCS; principal; 2017-05-08 13:00)
DX: M62.838 Other muscle spasm (principal); I13.0 Hypertensive heart and chronic kidney disease with heart failure and stage 1 through stage 4 chronic kidney disease, or unspecified chronic kidney disease; I50.42 Chronic combined systolic (congestive) and diastolic (congestive) heart failure; J44.9 Chronic obstructive pulmonary disease, unspecified; Z68.42 Body mass index [BMI] 45.0-49.9, adult; M79.652 Pain in left thigh; E03.9 Hypothyroidism, unspecified; E78.5 Hyperlipidemia, unspecified; E78.00 Pure hypercholesterolemia, unspecified; I25.10 Atherosclerotic heart disease of native coronary artery without angina pectoris; I34.1 Nonrheumatic mitral (valve) prolapse; J45.909 Unspecified asthma, uncomplicated; Z85.43 Personal history of malignant neoplasm of ovary; Z86.711 Personal history of pulmonary embolism; Z86.718 Personal history of other venous thrombosis and embolism; Z95.1 Presence of aortocoronary bypass graft; Z95.5 Presence of coronary angioplasty implant and graft; E66.9 Obesity, unspecified; F17.210 Nicotine dependence, cigarettes, uncomplicated; N18.3 Chronic kidney disease, stage 3 (moderate); M50.20 Other cervical disc displacement, unspecified cervical region; M51.26 Other intervertebral disc displacement, lumbar region; M19.90 Unspecified osteoarthritis, unspecified site

== ENCOUNTER 2017-05-22 21:49 | Observation (INO) | payer OTHER, MEDICAID ==
[2017-05-22 21:49] VITALS: BMI 45.3
[2017-05-22 21:53] VITALS: RESP 16
[2017-05-22] MEDS ORDERED: Morphine 4 MG/ML VIAL ONE (23:32)
--- NOTE | 2017-05-23 00:20 | RAD ---
EXAM: XR Left Knee, 1 or 2 views CLINICAL HISTORY: 67 years old, female; Injury or trauma; Fall; Initial encounter; Blunt trauma; Knee; Left TECHNIQUE: Frontal and/or lateral views of the left knee. COMPARISON: CR - KNEE 3 VIEWS LT 05/07/2017 9:22:23 AM FINDINGS: Bones/joints: No acute fracture. Mild osteoarthrosis of medial and patellofemoral compartments. Early osteoarthrosis of lateral compartment. No dislocation. No significant joint effusion. Patellar enthesophyte. Soft tissues: Mild vascular calcifications. IMPRESSION: 1. No fracture. 2. If pain persists, suggest MRI to evaluate for occult fracture/internal arrangement. 3. Incidental/non-acute findings are described above.
--- NOTE | 2017-05-23 00:21 | RAD ---
EXAM: XR Right Hip With Pelvis When Performed, 1 View CLINICAL HISTORY: 67 years old, female; Injury or trauma; Fall; Initial encounter; Blunt trauma (contusions or hematomas); Bilateral; Hip TECHNIQUE: Frontal view of the right hip, with pelvis when performed. COMPARISON: CR - HIP W/WO PELVIS 2-3 VIEWS LT 11/16/2015 12:05:36 PM FINDINGS: Bones/joints: No acute fracture. Degenerative changes of lower lumbar spine. No dislocation. Soft tissues: Surgical clips about RIGHT thigh. Mild vascular calcifications. IMPRESSION: 1. No fracture. 2. If hip pain persists, consider MRI to exclude occult fracture/internal derangement. 3. Incidental/non-acute findings are described above.
[2017-05-23] MEDS ORDERED: Morphine 4 MG/ML VIAL IV ONE ×2 (00:22→01:52)
--- NOTE | 2017-05-23 00:32 | RAD ---
EXAM: XR Left Foot, 2 Views CLINICAL HISTORY: 67 years old, female; Injury or trauma; Fall; Initial encounter; Blunt trauma; Foot; Left TECHNIQUE: Frontal and lateral views of the left foot. COMPARISON: No relevant prior studies available. FINDINGS: Bones/joints: Apparent nondisplaced fracture navicular. Linear lucency head of talus. Postsurgical changes of fifth metatarsal, fifth proximal phalanx. Plantar calcaneal enthesophyte. No dislocation. Soft tissues: Mild soft tissue swelling. IMPRESSION: 1. Navicular fracture. Possible talar fracture. Recommend CT. 2. Incidental/non-acute findings are described above.
--- NOTE | 2017-05-23 00:34 | RAD ---
EXAM: XR Left Ankle, 2 Views CLINICAL HISTORY: 67 years old, female; Injury or trauma; Fall; Initial encounter; Blunt trauma; Ankle; Left TECHNIQUE: Frontal and lateral views of the left ankle. COMPARISON: No relevant prior studies available. FINDINGS: Bones/joints: Apparent nondisplaced fracture distal fibula. No dislocation. No significant joint effusion. Ossification along syndesmosis. Soft tissues: Soft tissue swelling. IMPRESSION: 1. Probable distal fibular fracture. Recommend CT. 2. Incidental/non-acute findings are described above.
--- NOTE | 2017-05-23 00:47 | ED PDOC ---
Lower Extremity Pain/Injury Time Seen by Provider: 05/22/17 21:57 Chief Complaint (Nursing): Lower Extremity Problem/Injury Chief Complaint (Provider): Lower Extremity Injury History Per: Patient History/Exam Limitations: no limitations Current Symptoms Are (Timing): Still Present Additional Complaint(s): 67 year old female presents to ED status post fall at home and has a past medical history including but not limited to HTN, hypercholesterolemia, CAD, and COPD. (+) left ankle and knee pain. (-) head injury, LOC, fever, or vomiting. PCP: Derrick Cole - Knee Description Of Injury: Fell - Ankle/Foot Description Of Injury: Fell Past Medical History Reviewed: Historical Data, Nursing Documentation, Vital Signs Vital Signs: Last Vital Signs Temp 98.9 F 05/22/17 21:51 Pulse 72 05/22/17 21:51 Resp 16 05/22/17 21:51 BP 113/82 05/22/17 21:51 Pulse Ox 97 05/22/17 21:51 - Medical History PMH: Anemia, Arthritis, Asthma, Back Problems (herniated discs (cervical, lumbar )), Bronchitis, CAD, Cardia Arrhythmia, CHF, COPD, Deep Vein Thrombosis, HTN, Hypercholesterolemia, Hypothyroidism, Malignancy (ovarian), Mitral Valve Prolapse, Peripheral Edema, Pneumonia, Pulmonary Embolism, Chronic Kidney Disease Denies: No Chronic Diseases, Diabetes, HIV - Surgical History Surgical History: CABG, Coronary Stent, Endoscopy - Family History Family History: States: Unknown Family Hx - Social History Current smoker - smoking cessation education provided: No Alcohol: Occasional Drugs: Denies - Immunization History Hx Pneumococcal Vaccination: Yes - Home Medications Home Medications: Ambulatory Orders Medication Instructions Recorded Aspirin [Aspirin EC] 81 mg PO DAILY #0 tablet. 06/08/16 Levothyroxine Sodium 25 mcg PO DAILY #0 tablet 06/08/16 Pravastatin Sodium [Pravachol] 20 mg PO HS #0 tab 06/08/16 Albuterol 0.083% [Albuterol 0.083% 3 ml IH Q6 PRN 11/30/16 Inhal Kendra (2.5 mg/3 ml) UD] Ergocalciferol (Vitamin D2) 50,000 unit PO QWK 11/30/16 [Vitamin D2] Ferrous Sulfate [Feosol] 325 mg PO DAILY 11/30/16 Folic Acid 1 mg PO DAILY 11/30/16 Metoprolol Succinate XL [Toprol XL] 50 mg PO DAILY 11/30/16 Ranolazine [Ranexa] 500 mg PO BID 11/30/16 Dicyclomine [Bentyl] 10 mg PO TID #30 cap 01/30/17 oxyCODONE/Acetaminophen [Percocet 10 - 325 mg PO Q4 PRN 04/04/17 5/325 mg Tab] Febuxostat [Uloric] 40 mg PO DAILY 05/07/17 Furosemide [Lasix] 40 mg PO DAILY 05/07/17 Isosorbide Dinitrate [Isordil] 20 mg PO BID 05/07/17 oxyCODONE/Acetaminophen [Percocet 1 tab PO Q6H PRN #5 tab 05/23/17 5/325 mg Tab] - Allergies Allergies/Adverse Reactions: Allergies Allergy/AdvReac Type Severity Reaction Status Date / Time No Known Allergies Allergy Verified 05/22/17 21:50 Review of Systems ROS Statement: Except As Marked, All Systems Reviewed And Found Negative Constitutional: Negative for: Fever Gastrointestinal: Negative for: Vomiting Musculoskeletal: Positive for: Leg Pain (left knee pain), Other (left ankle pain ) Neurological: Negative for: Other ((-) LOC) Physical Exam - Reviewed Nursing Documentation Reviewed: Yes Vital Signs Reviewed: Yes - Physical Exam Appears: Positive for: Non-toxic, No Acute Distress Head Exam: Positive for: ATRAUMATIC, NORMOCEPHALIC Skin: Positive for: Normal Color, Warm, Dry Eye Exam: Positive for: Normal appearance, EOMI, PERRL Neck: Positive for: Normal Cardiovascular/Chest: Positive for: Regular Rate, Rhythm. Negative for: Murmur Respiratory: Positive for: Normal Breath Sounds. Negative for: Respiratory Distress Pulses-Dorsalis Pedis (L): 2+ Pulses-Dorsalis Pedis (R): 2+ Pulses-Post. Tibialis (L): 2+ Pulses-Post. Tibialis (R): 2+ Gastrointestinal/Abdominal: Positive for: Soft. Negative for: Tenderness Back: Positive for: Normal Inspection Extremity: Positive for: Normal ROM (Full ROM to left knee), Tenderness (left knee minimally tender, left ankle tender), Swelling (left ankle swollen but neurovascularly intact). Negative for: Deformity, Other (No cellulitis noticed) - Laboratory Results Result Diagrams: 05/23/17 01:50 - ECG O2 Sat by Pulse Oximetry: 97 (RA) Pulse Ox Interpretation: Normal Medical Decision Making Medical Decision Makin Initial plan: * XR ANKLE LEFT * XR FOOT LEFT * Toradol 60mg IM * XR HIP W PELVIS LEFT * XR HIPS BI W PELVIS * XR KNEE LEFT 0000 * ED OBS ADMISION All further documentation will take place in ED OBS note. Scribe Attestation: Documented by Hilary Luna acting as a scribe for Eren Samaniego MD. Scribe Attestation: All medical record entries made by the Scribe were at my direction and personally dictated by me. I have reviewed the chart and agree that the record accurately reflects my personal performance of the history, physical exam, medical decision making, and the department course for this patient. I have also personally directed, reviewed, and agree with the discharge instructions and disposition. ED OBSERVATION Discharge: Yes Date of observation admission: 05/23/17 Time of observation admission: 00:00 - Observation admission statement Patient is being placed in observation because:: Pending CT/XR imaging - Goals of Observation Goals of observation are:: CT an XR results - Progress Note Progress Note: 05/23/17 00:43 * T&S * CT EXT LOWER * Labs * Morphine 4mg IV * Podiatry consult XR ANKLE LEFT FINDINGS Bones/joints: Apparent nondisplaced fracture distal fibula. No dislocation. No significant joint effusion. Ossification along syndesmosis. Soft tissues: Soft tissue swelling. IMPRESSION: 1. Probable distal fibular fracture. Recommend CT. 2. Incidental/non-acute findings are described above. XR FOOT LEFT FINDINGS Bones/joints: Apparent nondisplaced fracture navicular. Linear lucency head of talus. Postsurgical changes of fifth metatarsal, fifth proximal phalanx. Plantar calcaneal enthesophyte. No dislocation. Soft tissues: Mild soft tissue swelling. IMPRESSION: 1. Navicular fracture. Possible talar fracture. Recommend CT. 2. Incidental/non-acute findings are described above. XR HIP PELVIS FINDINGS Bones/joints: No acute fracture. Degenerative changes of lower lumbar spine. No dislocation. Soft tissues: Surgical clips about RIGHT thigh. Mild vascular calcifications. IMPRESSION: 1. No fracture. 2. If hip pain persists, consider MRI to exclude occult fracture/internal derangement. 3. Incidental/non-acute findings are described above. XR KNEE LEFT FINDINGS Bones/joints: No acute fracture. Mild osteoarthrosis of medial and patellofemoral compartments. Early osteoarthrosis of lateral compartment. No dislocation. No significant joint effusion. Patellar enthesophyte. Soft tissues: Mild vascular calcifications. IMPRESSION: 1. No fracture. 2. If pain persists, suggest MRI to evaluate for occult fracture/internal arrangement. 3. Incidental/non-acute findings are described above 05/23/17 01:52 * Morphine 4mg IV CT FINDINGS Bones/joints: Nondisplaced fracture distal fibula. Nondisplaced fracture navicular. Degenerative changes of knee, ankle, hindfoot, midfoot. Plantar calcaneal enthesophyte. Postsurgical changes of fifth metatarsal. Small tibiotalar joint effusion. Small knee joint effusion. Soft tissues: Mild soft tissue swelling about ankle/foot. Mild soft tissue swelling along anterior lower leg. Varicosities. IMPRESSION: 1. Distal fibular fracture. 2. Navicular fracture. 3. Incidental/non-acute findings are described above. Called podiatry: splinted distal fibular fracture. Patient already has walker, no need for crutches. Patient will be discharged with Percocet for pain and will follow up with podiatry outpatient. Patient is medically stable for discharge home. 05/23/17 03:39 * Percocet 1 tab PO Disposition - Clinical Impression Clinical Impression: Ankle fracture, Foot pain - Patient ED Disposition Is Patient to be Admitted: No - Disposition Disposition Time: 00:00 Condition: FAIR - Pt Status Changed To: Hospital Disposition Of: Observation - POA Present On Arrival: None
--- NOTE | 2017-05-23 01:29 | CT ---
EXAM: CT Left Lower Extremity Without Intravenous Contrast, Tibia and Fibula CLINICAL HISTORY: 67 years old, female; Pain; Ankle; Left; Additional info: Tib fib fracture TECHNIQUE: Axial computed tomography images of the left tibia and fibula without intravenous contrast. All CT scans at this facility use one or more dose reduction techniques, viz.: automated exposure control; ma/kV adjustment per patient size (including targeted exams where dose is matched to indication; i.e. head); or iterative reconstruction technique. COMPARISON: CR - ANKLE AP LAT 2 VIEWS LT 05/22/2017 10:31:49 PM FINDINGS: Bones/joints: Nondisplaced fracture distal fibula. Nondisplaced fracture navicular. Degenerative changes of knee, ankle, hindfoot, midfoot. Plantar calcaneal enthesophyte. Postsurgical changes of fifth metatarsal. Small tibiotalar joint effusion. Small knee joint effusion. Soft tissues: Mild soft tissue swelling about ankle/foot. Mild soft tissue swelling along anterior lower leg. Varicosities. IMPRESSION: 1. Distal fibular fracture. 2. Navicular fracture. 3. Incidental/non-acute findings are described above.
[2017-05-23] MEDS ORDERED: Morphine 4 MG/ML VIAL ONE (01:54)
[2017-05-23 02:06] LABS: BASO # 0.1 K/uL (0.0-0.2); BASO % 0.5 % (0.0-2.0); EOS # 0.2 K/uL (0.0-0.7); EOS % 1.2 % (0.0-4.0); HEMOGLOBIN 13.4 g/dL (12.0-16.0); LYMPH # 2.8 K/uL (1.0-4.3); LYMPH % 18.6 % (20.0-40.0); MEAN CELL VOLUME 83.5 fl (81.0-99.0); MEAN CORPUSCULAR HEMOGLOBIN 26.5 pg (27.0-31.0); MEAN CORPUSCULAR HGB CONC 31.7 g/dL (33.0-37.0); MEAN PLATELET VOLUME 10.4 fl (7.2-11.7); MONO # 1.2 K/uL (0.0-0.8); MONO % 8.3 % (0.0-10.0); NEUT # 10.7 K/uL (1.8-7.0); NEUT % 71.4 % (50.0-75.0); NRBC % 0.2 % (0.0-0.0); RBC 5.07 Mil/uL (3.80-5.20); RED CELL DISTRIBUTION WIDTH 15.8 % (11.5-14.5)
--- NOTE | 2017-05-23 02:37 | CP.PCM.CON ---
History of Present Illness - History of Present Illness History of Present Illness: 67 year old female with PMH of Anemia, Arthritis, Asthma, Back Problems ( herniated discs (cervical, lumbar)), Bronchitis, CAD, Cardia Arrhythmia, CHF, COPD, Deep Vein Thrombosis, HTN, Hypercholesterolemia, Hypothyroidism, Malignancy (ovarian), Mitral Valve Prolapse, Peripheral Edema, Pneumonia, Pulmonary Embolism, Chronic Kidney Disease seen in ED complaining of left lower extremity pain following a fall at her house earlier this evening. Patient states that she was walking to the bathroom and without realizing what had happened she was on the ground. She was unable to get up due to the immense amount of pain that she was in so she crawled to the couch and called her niece to come and pick her up to bring her to the hospital. Her niece is present with her during this visit. Patient states that her pain is most severe on the outside of her ankle and on the bottom of her midfoot. She states that her pain has been relieved slightly since taking pain medication upon arrival to the ED. Patient denies any allergies. She states that she has had previous foot surgery in both feet. Patient denies any further pedal complaints at this time. Patient denies N/V/F/C/CP/SOB. Review of Systems - Review of Systems Review of Systems: ROS unremarkable outside of HPI Past Patient History - Infectious Disease Hx of Infectious Diseases: None - Past Medical History & Family History Past Medical History?: Yes - Past Social History Smoking Status: Light Smoker < 10 Cigarettes Daily - CARDIAC Hx Cardia Arrhythmia: Yes Hx Congestive Heart Failure: Yes Hx Hypercholesterolemia: Yes Hx Hypertension: Yes Hx Mitral Valve Prolapse: Yes Hx Peripheral Edema: Yes - PULMONARY Hx Asthma: Yes Hx Bronchitis: Yes Hx Chronic Obstructive Pulmonary Disease (COPD): Yes Hx Pneumonia: Yes Hx Pulmonary Embolism: Yes - NEUROLOGICAL Hx Neurological Disorder: Yes Hx Vertigo: Yes - HEENT Hx HEENT Problems: No - RENAL Hx Chronic Kidney Disease: Yes - ENDOCRINE/METABOLIC Hx Hypothyroidism: Yes - HEMATOLOGICAL/ONCOLOGICAL Hx Anemia: Yes Hx Human Immunodeficiency Virus (HIV): No - INTEGUMENTARY Hx Dermatological Problems: No - MUSCULOSKELETAL/RHEUMATOLOGICAL Hx Arthritis: Yes - GASTROINTESTINAL Hx Gastrointestinal Disorders: Yes Other/Comment: GI Bleed - GENITOURINARY/GYNECOLOGICAL Hx Genitourinary Disorders: Yes Hx Ovarian Cancer: Yes Other/Comment: hysterectomy - PSYCHIATRIC Hx Psychophysiologic Disorder: No Hx Emotional Abuse: No Hx Physical Abuse: No Hx Substance Use: No Other/Comment: HX OF DVT - SURGICAL HISTORY Hx Coronary Artery Bypass Graft: Yes Hx Coronary Stent: Yes - ANESTHESIA Hx Anesthesia: Yes Hx Anesthesia Reactions: No Hx Malignant Hyperthermia: No Meds Home Medications: Home Medication List Medication Instructions Recorded Confirmed Type oxyCODONE/Acetaminophen [Percocet 1 tab PO Q6H PRN #5 tab 05/23/17 Rx 5/325 mg Tab] Allergies/Adverse Reactions: Allergies Allergy/AdvReac Type Severity Reaction Status Date / Time No Known Allergies Allergy Verified 05/22/17 21:50 Physical Exam - Constitutional Appears: Well, Non-toxic - Extremities Exam Additional comments: Lower extremity focused exam Vasc: DP/PT pulses palpable 2/4 b/l. CFT < 3 seconds to digits 1-5 b/l. Skin temperature warm to warm from proximal to distal. Diffuse edema noted from left ankle to left forefoot. Neuro: Epicritic and protective sensation grossly intact Derm: No open lesions, wounds, maceration, xerosis, or abnormal pigmentation noted at this time MSK: POP noted to left knee and maximally at left distal fibula and at level of left navicular. No POP noted to left fifth metatarsal base, length of achilles tendon, medial malleoli or lis franc ligament Foot xray impressions: Navicular fracture, possible talar fracture. CT recommended Ankle Xray impressions: Probable distal fibular fracture. Recommend CT CT impressions: Distal fibular fracture. Navicular fracture - Neurological Exam Neurological exam: Alert, Oriented x3 - Psychiatric Exam Psychiatric exam: Normal Affect, Normal Mood Results - Vital Signs Recent Vital Signs: Last Vital Signs Temp 98.9 F 05/22/17 21:51 Pulse 72 05/22/17 21:51 Resp 16 05/22/17 21:51 BP 113/82 05/22/17 21:51 Pulse Ox 97 05/23/17 00:46 - Labs Result Diagrams: 05/23/17 01:50 Labs: Laboratory Results - last 24 hr 05/23/17 01:50 WBC 15.0 H D RBC 5.07 Hgb 13.4 Hct 42.3 MCV 83.5 MCH 26.5 L MCHC 31.7 L RDW 15.8 H Plt Count 183 MPV 10.4 Neut % (Auto) 71.4 Lymph % (Auto) 18.6 L Walsh % (Auto) 8.3 Eos % (Auto) 1.2 Baso % (Auto) 0.5 Neut # 10.7 H Lymph # 2.8 Walsh # 1.2 H Eos # 0.2 Baso # 0.1 Assessment & Plan - Assessment and Plan (Free Text) Assessment: 67 year old female seen in ED for navicular fracture and distal fibular fracture after falling at home Plan: Patient seen and evaluated at bedside Charts, labs and vitals reviewed Plan discussed with Dr. Pittman Discussed diagnostic findings with patient and answered any questions she had Left leg dressed with [place] compression and posterior splint Patient given Percocet for pain management tonight Patient to remain NWB and elevate leg as much as possible when at home Patient brought a walker with her to be used for stability if she needs to stand up Patient to follow up in Dr. Pittman's office - Date & Time Date: 05/23/17 Time: 03:43
[2017-05-23] MEDS ORDERED: Oxycodone/Acetaminophen 5/325 mg Tab PO ONE (03:39)
[2017-05-23] MEDS ORDERED: Oxycodone/Acetaminophen 5/325 mg Tab ONE (03:40)
[2017-05-23 04:13] VITALS: BP 135/80; PULSE 75; TEMP 97.9
[2017-05-24 23:41] VITALS: O2SAT 97
== END 2017-05-23 03:29 | disposition home or self-care (01) ==
LOC: H.ER 21:49 → H.EROBSV 05-23
PROVIDERS: ADMIT Emergency Medicine; ATTEND Emergency Medicine
DX: S92.252A Displaced fracture of navicular [scaphoid] of left foot, initial encounter for closed fracture (principal); S82.492A Other fracture of shaft of left fibula, initial encounter for closed fracture; I13.0 Hypertensive heart and chronic kidney disease with heart failure and stage 1 through stage 4 chronic kidney disease, or unspecified chronic kidney disease; E03.9 Hypothyroidism, unspecified; I25.10 Atherosclerotic heart disease of native coronary artery without angina pectoris; I50.9 Heart failure, unspecified; N18.9 Chronic kidney disease, unspecified; I34.1 Nonrheumatic mitral (valve) prolapse; J44.9 Chronic obstructive pulmonary disease, unspecified; E78.00 Pure hypercholesterolemia, unspecified; W01.0XXA Fall on same level from slipping, tripping and stumbling without subsequent striking against object, initial encounter; F17.210 Nicotine dependence, cigarettes, uncomplicated; Y92.002 Bathroom of unspecified non-institutional (private) residence as the place of occurrence of the external cause; Z85.43 Personal history of malignant neoplasm of ovary; Z86.711 Personal history of pulmonary embolism; Z86.718 Personal history of other venous thrombosis and embolism; Z95.1 Presence of aortocoronary bypass graft; Z95.5 Presence of coronary angioplasty implant and graft
CPT/HCPCS: 36415; 73521; 73560; 73600; 73620; 73700; 85025; 96372; 99284; G0378; J1885

== ENCOUNTER 2017-07-17 21:19 | Observation (INO) | payer OTHER, MEDICAID ==
[2017-07-17 21:19] VITALS: BMI 45.3
[2017-07-17 22:05] LABS: BASO # 0.1 K/uL (0.0-0.2); BASO % 0.8 % (0.0-2.0); EOS # 0.2 K/uL (0.0-0.7); EOS % 1.9 % (0.0-4.0); HEMATOCRIT 40.1 % (34.0-47.0); LYMPH % 21.3 % (20.0-40.0); MEAN CELL VOLUME 83.7 fl (81.0-99.0); MEAN CORPUSCULAR HEMOGLOBIN 26.7 pg (27.0-31.0); MEAN CORPUSCULAR HGB CONC 31.9 g/dL (33.0-37.0); MEAN PLATELET VOLUME 8.8 fl (7.2-11.7); MONO # 0.6 K/uL (0.0-0.8); NEUT # 6.7 K/uL (1.8-7.0); NRBC % 0.1 % (0.0-0.0); RED CELL DISTRIBUTION WIDTH 16.1 % (11.5-14.5); WHITE BLOOD COUNT 9.5 K/uL (4.8-10.8)
[2017-07-17 22:24] LABS: PARTIAL THROMBOPLASTIN TIME 31.9 Seconds (25.6-37.1)
[2017-07-17 22:29] LABS: CALCIUM 9.2 mg/dL (8.4-10.2)
[2017-07-17 22:35] LABS: POTASSIUM 3.4 MMOL/L (3.6-5.0)
[2017-07-17 22:40] LABS: TROPONIN I 0.018 ng/mL (0.00-0.120)
[2017-07-17] MEDS ORDERED: Heparin 25,000units in D5W 25,000 UNITS/250 ML BAG IV SCH ×2 (23:00→23:09)
[2017-07-17] MEDS ORDERED: Albuterol 0.083% Inhal Sol (2.5 mg/3 mL) UD IH PRN (23:10)
[2017-07-17] MEDS ORDERED: Oxycodone/Acetaminophen 5/325 mg Tab PO PRN (23:10)
--- NOTE | 2017-07-17 23:21 | ED PDOC ---
HPI: SOB/CHF/COPD Time Seen by Provider: 07/17/17 21:34 Chief Complaint (Nursing): Shortness Of Breath Chief Complaint (Provider): Shortness of Breath History Per: Patient History/Exam Limitations: no limitations Onset/Duration Of Symptoms: Hrs (since earlier this evening) Current Symptoms Are (Timing): Still Present Associated Symptoms: Chest Pain Additional Complaint(s): 67 year old female presents to ED with complaints of SOB since earlier this evening and has an extensive cardiac history including but not limited to CHF, HTN, myocardial infarction, and CABG. Patient states she was lying down when she started experiencing sudden onset SOB. (+) chest pain and left arm pain. Notes that arm pain ceased after taking nitro but SOB persisted. On arrival to ED patient confirms SOB is slowly resolving but is still present. Also notes she is currently suffering from chronic back pain. Claims that she experienced chest pain last night as well. PCP: Vidal Past Medical History Reviewed: Historical Data, Nursing Documentation, Vital Signs Vital Signs: Last Vital Signs Temp 98.3 F 07/18/17 01:47 Pulse 70 07/18/17 01:47 Resp 18 07/18/17 01:47 BP 129/57 L 07/18/17 01:47 Pulse Ox 95 07/18/17 01:30 - Medical History PMH: Anemia, Arthritis, Asthma, Back Problems (herniated discs (cervical, lumbar )), Bronchitis, CAD, Cardia Arrhythmia, CHF, COPD, Deep Vein Thrombosis, HTN, Hypercholesterolemia, Hypothyroidism, Malignancy (ovarian), Mitral Valve Prolapse, Peripheral Edema, Pneumonia, Pulmonary Embolism, Chronic Kidney Disease Denies: Diabetes, HIV - Surgical History Surgical History: CABG, Coronary Stent, Endoscopy - Family History Family History: States: Unknown Family Hx - Immunization History Hx Pneumococcal Vaccination: Yes - Home Medications Home Medications: Ambulatory Orders Medication Instructions Recorded Aspirin [Aspirin EC] 81 mg PO DAILY #0 tablet. 06/08/16 Levothyroxine Sodium 25 mcg PO DAILY #0 tablet 06/08/16 Pravastatin Sodium [Pravachol] 20 mg PO HS #0 tab 06/08/16 Albuterol 0.083% [Albuterol 0.083% 3 ml IH Q6 PRN 11/30/16 Inhal Kendra (2.5 mg/3 ml) UD] Ergocalciferol (Vitamin D2) 50,000 unit PO QWK 11/30/16 [Vitamin D2] Ferrous Sulfate [Feosol] 325 mg PO DAILY 11/30/16 Folic Acid 1 mg PO DAILY 11/30/16 Metoprolol Succinate XL [Toprol XL] 50 mg PO DAILY 11/30/16 Ranolazine [Ranexa] 500 mg PO BID 11/30/16 oxyCODONE/Acetaminophen [Percocet 10 - 325 mg PO Q4 PRN 04/04/17 5/325 mg Tab] Febuxostat [Uloric] 40 mg PO DAILY 05/07/17 Furosemide [Lasix] 40 mg PO DAILY 05/07/17 Isosorbide Dinitrate [Isordil] 20 mg PO BID 05/07/17 oxyCODONE/Acetaminophen [Percocet 1 tab PO Q6H PRN #5 tab 05/23/17 5/325 mg Tab] - Allergies Allergies/Adverse Reactions: Allergies Allergy/AdvReac Type Severity Reaction Status Date / Time No Known Allergies Allergy Verified 05/22/17 21:50 Curb-65 Severity Score - CURB-65 Severity Score Confusion: No Respiratory Rate greater than/equal to 30: No Systolic BP <90 or Diastolic BP less than/equal 60mmHg: Yes Age >64: Yes Curb-65 Score: 2 Percentage 30-day mortality: 6.8% Wells Criteria for PE - Wells Criteria for Pulmonary Embolism Heart Rate >100: No Hemoptysis: No Malignancy w/treatment within 6 months, or palliative: No Total Score: 0 Review of Systems ROS Statement: Except As Marked, All Systems Reviewed And Found Negative Cardiovascular: Positive for: Chest Pain Respiratory: Positive for: Shortness of Breath Musculoskeletal: Positive for: Arm Pain (left arm pain), Back Pain (chronic) Physical Exam - Reviewed Nursing Documentation Reviewed: Yes Vital Signs Reviewed: Yes - Physical Exam Appears: Positive for: Non-toxic, No Acute Distress (Obese). Negative for: Uncomfortable Skin: Positive for: Normal Color, Warm, Dry Eye Exam: Positive for: Normal appearance ENT: Positive for: Normal ENT Inspection Neck: Positive for: Normal, Painless ROM, Supple Cardiovascular/Chest: Positive for: Regular Rate, Rhythm. Negative for: Murmur Respiratory: Positive for: Normal Breath Sounds. Negative for: Respiratory Distress Gastrointestinal/Abdominal: Positive for: Normal Exam, Soft. Negative for: Tenderness Back: Positive for: Normal Inspection Extremity: Negative for: Deformity Neurologic/Psych: Positive for: Alert, Oriented. Negative for: Motor/Sensory Deficits - Laboratory Results Result Diagrams: 07/17/17 21:57 07/17/17 21:57 - ECG O2 Sat by Pulse Oximetry: 100 (RA) Pulse Ox Interpretation: Normal Medical Decision Making Medical Decision Makin Initial impression: r/o PE v chest pain Initial plan: * EKG * Labs * Trop I * D Dimer * PTT/PT * CXR * Heparin 44668 units in 250mL IV * Morphine 4mg IVP * Re-eval 2256 Patient will be admitted to ED OBS under Dr. Glynn. Unable to obtain CTA due to NAKIA. Will get VQ scan in AM. Will treat w/ heparin prophylactically. Scribe Attestation: Documented by Hilary Luna acting as a scribe for Justin Moncada MD. Scribe Attestation: All medical record entries made by the Scribe were at my direction and personally dictated by me. I have reviewed the chart and agree that the record accurately reflects my personal performance of the history, physical exam, medical decision making, and the department course for this patient. I have also personally directed, reviewed, and agree with the discharge instructions and disposition. Disposition - Clinical Impression Clinical Impression: Chest pain, Acute kidney injury (nontraumatic) - Patient ED Disposition Is Patient to be Admitted: Yes - Disposition Disposition Time: 22:57 Condition: STABLE - Pt Status Changed To: Hospital Disposition Of: Observation (OBS TELE)
--- NOTE | 2017-07-17 23:27 | CP.PCM.HP ---
History of Present Illness - History of Present Illness History of Present Illness: Chief Complaint: shortness of breath HPI: 67 year old female with extensive PMH CABG X3 03/2012, PCI, COPD O2 dependent 3L, Hx DVT/PE with IVC filter (per pt), Hx GIB, Iron Deficiency Anemia , CKD, MV replacement, CHF, pulmonary HTN per ECHO, Hx Ovarian CA, chronic pain for which she sees Dr. Black, presents with after an acute onset of moderate to severe constant dyspnea, only mildly ameliorated by a breathing treatment and additional supplemental O2 at home. She then called [facility] and was brought to ER via EMS. Pt also describes an episode of severe heavy chest pressure one day ago, which she likened to "someone sitting on her chest" the night before, associated with dypsnea at that time, this resolved by the end of the evening. Pt recently sustained an ankle fracture for which she has been bed bound. She admits to having a PE after IVC placement in the past. No AC 2/2 prior GIB. In ER, pt started on heparin for poss PE, V/Q scan for tomorrow. Troponin was neg x1, EKG showed mild t wave changes in anterolateral leads compared to prior study. Pt to be placed on OBS for chest pain, concern for ACS, and V/Q tomorrow to rule out PE. ROS: Per HPI, all other systems reviewed negative by me PMD: Dr. Cole PMSH: PMH CABG X3 03/2012, PCI, COPD O2 dependent 3L, Hx DVT/PE with IVC filter (per pt), Hx GIB, Iron Deficiency Anemia, CKD, MV replacement, CHF, pulmonary HTN per ECHO, Hx Ovarian CA, chronic pain, hysterectomy FH: denies SH: smokes <10 cigarettes daily, denies etoh, ivdu ALLERGIES: NKDA MEDICATIONS: reviewed and as below Surrogate Decision Maker: daughters information in chart 98.3, 129/57 70 18 100% on 3L GENERAL APPEARANCE: obese, alert and cooperative, and appears to be in no acute distress. HEENT: normocephalic, atraumatic PERRL, EOMI. Vision is grossly intact. NECK: Neck supple, non-tender without lymphadenopathy, masses or thyromegaly. CARDIAC: Normal S1 and S2. No S3, S4 or murmurs. Rhythm is regular. LUNGS: Clear to auscultation and percussion without rales, rhonchi, wheezing or diminished breath sounds. ABDOMEN: obese, Positive bowel sounds. Soft, nondistended, nontender. No guarding or rebound. No masses. BACK: Examination of the spine reveals no spinal deformity, symmetry of spinal muscles, NEUROLOGICAL: Strength and sensation symmetric and intact throughout. Reflexes 2 + throughout. SKIN: Skin normal color, texture and turgor with no lesions or eruptions. PSYCHIATRIC: The patient was oriented to person, place, and time. Normal affect. LABS: 07/17/17 21:57 07/17/17 21:57 EKG NSR rate 68 T wave inv and flattening anterolateral leads mildly changed from prior study ASSESSMENT AND PLAN 67 year old female with extensive PMH CABG X3 03/2012, PCI, COPD O2 dependent 3L , Hx DVT/PE with IVC filter (per pt), Hx GIB, Iron Deficiency Anemia, CKD, MV replacement, CHF, pulmonary HTN per ECHO, Hx Ovarian CA, chronic pain for which she sees Dr. Black, presents with after an acute onset of moderate to severe constant dyspnea, only mildly ameliorated by a breathing treatment and additional supplemental O2 at home. She then called [facility] and was brought to ER via EMS. Pt also describes an episode of severe heavy chest pressure one day ago, which she likened to "someone sitting on her chest" the night before, associated with dypsnea at that time, this resolved by the end of the evening. Pt recently sustained an ankle fracture 2 months ago for which she has been bed bound. She admits to having a PE after IVC placement in the past. No AC 2/2 prior GIB. In ER, pt started on heparin for poss PE, V/Q scan for tomorrow. Troponin was neg x1, EKG showed mild t wave changes in anterolateral leads compared to prior study. Pt to be placed on OBS for chest pain, concern for ACS, and V/Q tomorrow to rule out PE. 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 Chest Pain Acute Dyspnea improving monitor on Tele OBS trend cardiac enzymes, first negative EKG mild t wave inversion and flattening, mildly changed from prior cont ASA 81 mg po daily cont Toprol [address] Makeda Ludwig Rule out Pulmonary Embolism patient bedbound 2/2 ankle fx 2 months ago pt hx IVC filter, no AC 2/2 hx GIB pt on heparin drip in setting of CKD V/Q scan for tomorrow COPD stable no wheeze/rhonchi on admission cont bronchodilators Chronic Back Pain cont pain meds per Dr. Black home meds consult if necessary CAD Hx CABG x3 CHF HTN Pulmonary Hypertension via ECHO appears euvolemic, BNP 487 continue home meds ASA, Toprol, Isosorbide Dinitrate, lasix monitor on Tele Hypokalemia K 3.4 repleted check Mg and chem tomorrow Hyperlipidemia cont statin Hypothyroid cont synthroid CKD SCr at baseline monitor DVT prophylaxis on Heparin drip Present on Admission - Present on Admission Any Indicators Present on Admission: No Past Patient History - Infectious Disease Hx of Infectious Diseases: None - Past Medical History & Family History Past Medical History?: Yes - Past Social History Smoking Status: Light Smoker < 10 Cigarettes Daily - CARDIAC Hx Cardia Arrhythmia: Yes Hx Congestive Heart Failure: Yes Hx Hypercholesterolemia: Yes Hx Hypertension: Yes Hx Mitral Valve Prolapse: Yes Hx Peripheral Edema: Yes - PULMONARY Hx Asthma: Yes Hx Bronchitis: Yes Hx Chronic Obstructive Pulmonary Disease (COPD): Yes Hx Pneumonia: Yes Hx Pulmonary Embolism: Yes - NEUROLOGICAL Hx Neurological Disorder: Yes Hx Vertigo: Yes - HEENT Hx HEENT Problems: No - RENAL Hx Chronic Kidney Disease: Yes - ENDOCRINE/METABOLIC Hx Hypothyroidism: Yes - HEMATOLOGICAL/ONCOLOGICAL Hx Anemia: Yes Hx Human Immunodeficiency Virus (HIV): No - INTEGUMENTARY Hx Dermatological Problems: No - MUSCULOSKELETAL/RHEUMATOLOGICAL Hx Arthritis: Yes - GASTROINTESTINAL Hx Gastrointestinal Disorders: Yes Other/Comment: GI Bleed - GENITOURINARY/GYNECOLOGICAL Hx Genitourinary Disorders: Yes Hx Ovarian Cancer: Yes Other/Comment: hysterectomy - PSYCHIATRIC Hx Psychophysiologic Disorder: No Hx Emotional Abuse: No Hx Physical Abuse: No Hx Substance Use: No Other/Comment: HX OF DVT - SURGICAL HISTORY Hx Coronary Artery Bypass Graft: Yes Hx Coronary Stent: Yes - ANESTHESIA Hx Anesthesia: Yes Hx Anesthesia Reactions: No Hx Malignant Hyperthermia: No Meds Allergies/Adverse Reactions: Allergies Allergy/AdvReac Type Severity Reaction Status Date / Time No Known Allergies Allergy Verified 05/22/17 21:50 Results - Vital Signs Recent Vital Signs: Last Vital Signs Temp 98.3 F 07/17/17 21:22 Pulse 70 07/17/17 21:22 Resp 18 07/17/17 21:22 BP 129/57 L 07/17/17 21:22 Pulse Ox 100 07/17/17 21:22 - Labs Result Diagrams: 07/17/17 21:57 07/17/17 21:57 Labs: Laboratory Results - last 24 hr 07/17/17 07/17/17 07/17/17 21:57 21:57 21:57 WBC 9.5 RBC 4.79 Hgb 12.8 Hct 40.1 MCV 83.7 MCH 26.7 L MCHC 31.9 L RDW 16.1 H Plt Count 203 MPV 8.8 Neut % (Auto) 70.0 Lymph % (Auto) 21.3 Mcculloch % (Auto) 6.0 Eos % (Auto) 1.9 Baso % (Auto) 0.8 Neut # 6.7 Lymph # 2.0 Mcculloch # 0.6 Eos # 0.2 Baso # 0.1 PT 12.4 INR 1.1 APTT 31.9 D-Dimer, Quantitative Cancelled Sodium 141 Potassium 3.4 L Chloride 98 Carbon Dioxide 33 H Anion Gap 13 BUN 19 H Creatinine 1.4 H Est GFR ( Amer) 46 Est GFR (Non-Af Amer) 38 Random Glucose 130 H Calcium 9.2 Troponin I 0.0180 NT-Pro-B Natriuret Pep 487
[2017-07-18] MEDS ORDERED: Potassium Chloride 20 mEq ER Tab PO ONE ×2 (00:27→08:05)
[2017-07-18 05:38] LABS: HEMATOCRIT 37.9 % (34.0-47.0); MEAN CELL VOLUME 84.4 fl (81.0-99.0); MEAN CORPUSCULAR HEMOGLOBIN 26.8 pg (27.0-31.0); MEAN CORPUSCULAR HGB CONC 31.7 g/dL (33.0-37.0); RED CELL DISTRIBUTION WIDTH 15.9 % (11.5-14.5); WHITE BLOOD COUNT 9.9 K/uL (4.8-10.8)
[2017-07-18 05:43] LABS: BLOOD UREA NITROGEN 21 mg/dl (7-17); CALCIUM 9.1 mg/dL (8.4-10.2); CARBON DIOXIDE 32 mmol/L (22-30); CHLORIDE 102 mmol/L (98-107); GFR AFRICAN-AMERICAN 42; GLUCOSE,RANDOM 95 mg/dL (65-105); MAGNESIUM 1.9 MG/DL (1.6-2.3); POTASSIUM 3.3 MMOL/L (3.6-5.0); SODIUM 143 mmol/l (132-148)
[2017-07-18] MEDS ORDERED: Influenza Vaccine 18yr & older 0.5 ML/45 MCG SYR IM ONE (06:00)
[2017-07-18] MEDS ORDERED: Levothyroxine 25 MCG TAB PO SCH (06:30)
--- NOTE | 2017-07-18 08:47 | CP.PCM.CON ---
History of Present Illness - History of Present Illness History of Present Illness: This 67-year-old -[place] female came to the emergency room complaining of severe shortness of breath and was hospitalized. She gave history of having experienced retrosternal discomfort as well the day before which had resolved. The patient has an extensive medical history which consists of chronic endogenous obesity and chronic lower back pain for which she sees a pain management physician on a regular basis. The patient also has a history of hypertension, dyslipidemia and a long history of chronic and heavy cigarette use with consequent COPD. The patient has required coronary bypass graft surgery and mitral valve replacement in April 2012. A coronary angiogram in February 2016 revealed a patent saphenous graft to posterior descending artery and a patent left internal mammary artery anastomosis to LAD which was patent as well. The internal mammary artery was particularly narrow. Patient has had multiple bouts of chest pain usually responding to sublingual nitroglycerin. The patient also has had DVT and had taken oral anticoagulation with warfarin for a number of years which was discontinued after a severe GI bleed. She has had an IVC filter placed number of years back and has had pulmonary embolism. Left ventricular systolic function was reported as having an ejection fraction of 45% during the February 2016. An echocardiogram in December 2015 had shown adequate left ventricle systolic function with a pulmonary artery systolic pressure exceeding 50 mmHg. On physical examination this is a middle aged obese -[place] female was found sleeping flat on her back breathing comfortably at 16-18 breaths per minute while on oxygen supplement via nasal cannula at 3 L/m. Her pulse oximetry showed an oxygen saturation at 96-97%. Her heart rate was 68 bpm and regular and her blood pressure was 138/74 mmHg. Her jugular venous pressure could not be adequately evaluated because of a short thick neck. Minimal pitting edema was evident on both lower extremities. There was no calf tenderness and Homans sign was negative. His sternotomy scar was evident. The apex was not palpable. First and second heart sounds were distant but normal. There were no rales and there was no gallop. Her electrocardiogram showed sinus rhythm with mild T-wave inversion in in leads V2 and V3. No Q waves were detected on the electrocautery around. Her troponin's were negative for any evidence of myocyte injury.Pro BNP was normal indicating no CHF. K+ is being replaced. The rest of her labs were noted. IMPRESSION: Atypical chest pain with no evidence of acute coronary syndrome. Stable coronary artery disease with status post coronary bypass graft surgery and mitral valve replacement with tissue graft. Chronic endogenous obesity with severe COPD and a history of pulmonary embolism. Status post IVC filter placement. Hypertension and dyslipidemia. Chronic lower back pain. The patient is on IV heparin while workup continues to rule out evidence of pulmonary embolism. She is stable from cardiovascular point of view. Past Patient History - Infectious Disease Hx of Infectious Diseases: None - Past Medical History & Family History Past Medical History?: Yes - Past Social History Smoking Status: Light Smoker < 10 Cigarettes Daily - CARDIAC Hx Cardia Arrhythmia: Yes Hx Congestive Heart Failure: Yes Hx Hypercholesterolemia: Yes Hx Hypertension: Yes Hx Mitral Valve Prolapse: Yes Hx Peripheral Edema: Yes - PULMONARY Hx Asthma: Yes Hx Bronchitis: Yes Hx Chronic Obstructive Pulmonary Disease (COPD): Yes Hx Pneumonia: Yes Hx Pulmonary Embolism: Yes - NEUROLOGICAL Hx Neurological Disorder: Yes Hx Vertigo: Yes - HEENT Hx HEENT Problems: No - RENAL Hx Chronic Kidney Disease: Yes - ENDOCRINE/METABOLIC Hx Hypothyroidism: Yes - HEMATOLOGICAL/ONCOLOGICAL Hx Anemia: Yes Hx Human Immunodeficiency Virus (HIV): No - INTEGUMENTARY Hx Dermatological Problems: No - MUSCULOSKELETAL/RHEUMATOLOGICAL Hx Arthritis: Yes - GASTROINTESTINAL Hx Gastrointestinal Disorders: Yes Other/Comment: GI Bleed - GENITOURINARY/GYNECOLOGICAL Hx Genitourinary Disorders: Yes Hx Ovarian Cancer: Yes - PSYCHIATRIC Hx Psychophysiologic Disorder: No Hx Substance Use: No - SURGICAL HISTORY Hx Coronary Artery Bypass Graft: Yes Hx Coronary Stent: Yes - ANESTHESIA Hx Anesthesia: Yes Hx Anesthesia Reactions: No Hx Malignant Hyperthermia: No Meds Allergies/Adverse Reactions: Allergies Allergy/AdvReac Type Severity Reaction Status Date / Time No Known Allergies Allergy Verified 05/22/17 21:50 - Medications Medications: Current Medications Albuterol Sulfate (Albuterol 0.083% Inhal Kendra (2.5 Mg/3 Ml) Ud) 2.5 mg IH Q6 PRN PRN Reason: Shortness of Breath Aspirin (Ecotrin) 81 mg PO DAILY [facility] Dicyclomine HCl (Bentyl) 10 mg PO TID [facility] Ferrous Sulfate (Feosol) 325 mg PO DAILY [facility] Folic Acid (Folic Acid) 1 mg PO DAILY [facility] Furosemide (Lasix) 40 mg PO DAILY [facility] Home Med (Febuxostat [Uloric]) 40 mg PO DAILY [facility] Home Med (Ranolazine [Ranexa]) 500 mg PO BID [facility] Heparin Sodium/Dextrose (Heparin 25,000 Units/250ml In D5w) 25,000 units in 250 mls @ 18 mls/hr IV .[id number] [facility] PRN Reason: Protocol Last Admin: 07/17/17 23:57 Dose: 18 mls/hr Isosorbide Dinitrate (Isordil) 20 mg PO BID [facility] Levothyroxine Sodium (Synthroid) 25 mcg PO DAILY@0630 [facility] Last Admin: 07/18/17 06:19 Dose: 25 mcg Metoprolol Succinate (Toprol Xl) 50 mg PO DAILY [facility] Oxycodone/Acetaminophen (Percocet 5/325 Mg Tab) 1 tab PO Q6H PRN PRN Reason: Pain, moderate (4-7) Stop: 07/20/17 23:11 Pravastatin Sodium (Pravachol) 20 mg PO [facility] Results - Vital Signs Recent Vital Signs: Last Vital Signs Temp 98.1 F 07/18/17 08:00 Pulse 71 07/18/17 08:00 Resp 18 07/18/17 08:00 BP 122/75 07/18/17 08:00 Pulse Ox 96 07/18/17 08:00 - Labs Result Diagrams: 07/18/17 04:40 07/18/17 04:40 Labs: Laboratory Results - last 24 hr 07/17/17 07/17/17 07/17/17 21:57 21:57 21:57 WBC 9.5 RBC 4.79 Hgb 12.8 Hct 40.1 MCV 83.7 MCH 26.7 L MCHC 31.9 L RDW 16.1 H Plt Count 203 MPV 8.8 Neut % (Auto) 70.0 Lymph % (Auto) 21.3 Bonner % (Auto) 6.0 Eos % (Auto) 1.9 Baso % (Auto) 0.8 Neut # 6.7 Lymph # 2.0 Bonner # 0.6 Eos # 0.2 Baso # 0.1 PT 12.4 INR 1.1 APTT 31.9 D-Dimer, Quantitative Cancelled Sodium 141 Potassium 3.4 L Chloride 98 Carbon Dioxide 33 H Anion Gap 13 BUN 19 H Creatinine 1.4 H Est GFR ( Amer) 46 Est GFR (Non-Af Amer) 38 Random Glucose 130 H Calcium 9.2 Magnesium Troponin I 0.0180 NT-Pro-B Natriuret Pep 487 07/18/17 07/18/17 04:40 04:40 WBC 9.9 RBC 4.49 Hgb 12.0 Hct 37.9 MCV 84.4 MCH 26.8 L MCHC 31.7 L RDW 15.9 H Plt Count 182 MPV Neut % (Auto) Lymph % (Auto) Bonner % (Auto) Eos % (Auto) Baso % (Auto) Neut # Lymph # Bonner # Eos # Baso # PT INR APTT D-Dimer, Quantitative Sodium 143 Potassium 3.3 L Chloride 102 Carbon Dioxide 32 H Anion Gap 12 BUN 21 H Creatinine 1.5 H Est GFR ( Amer) 42 Est GFR (Non-Af Amer) 35 Random Glucose 95 Calcium 9.1 Magnesium 1.9 Troponin I < 0.0120 NT-Pro-B Natriuret Pep
--- NOTE | 2017-07-18 08:57 | RAD ---
PROCEDURE: CHEST RADIOGRAPH, 1 VIEW HISTORY: sob COMPARISON: 05/07/2017 FINDINGS: LUNGS: Clear. PLEURA: No pneumothorax or pleural fluid seen. CARDIOVASCULAR: Cardiomegaly. No evidence of acute, significant cardiovascular disease. Incidental Finding(s): Postoperative changes related to sternotomy. OSSEOUS STRUCTURES: No significant abnormalities. VISUALIZED UPPER ABDOMEN: Normal. OTHER FINDINGS: None. IMPRESSION: No active disease. No acute/significant interval changes. Please note: No preliminary report/ innterpretation of this examination provided by emergency department personnel.
[2017-07-18] MEDS ORDERED: Metoprolol Succinate 50 mg XL Tab PO SCH (09:00)
[2017-07-18] MEDS ORDERED: Patient's Own Med (Ranolazine [Ranexa] 500 MG) PO SCH (09:00)
--- NOTE | 2017-07-18 10:33 | CARD ---
APPROVED REPORT EKG Measurement Heart [id number] MD [id number] <Conclusion> Sinus rhythm with 1st degree AV block T wave abnormality, consider anterior ischemia Abnormal ECG
[2017-07-18] MEDS ORDERED: Heparin25000 units/250ml 1/2NS 25,000 UNITS/250 ML BAG IV ONE (12:04)
[2017-07-18] MEDS ORDERED: Heparin25000 units/250ml 1/2NS 25,000 UNITS/250 ML BAG IV SCH (12:15)
[2017-07-18 12:34] LABS: CALCIUM 8.7 mg/dL (8.4-10.2); POTASSIUM 3.7 MMOL/L (3.6-5.0)
[2017-07-18 12:55] LABS: PARTIAL THROMBOPLASTIN TIME 180.7 Seconds (25.6-37.1)
[2017-07-18 16:16] VITALS: BP 100/64; PULSE 55; RESP 20; TEMP 97.7; O2SAT 98
--- NOTE | 2017-07-18 16:33 | CP.PCM.DIS ---
Provider - Provider Date of Admission: 07/17/17 22:37 Attending physician: Greta Glynn DO Primary care physician: DR Cole Consults: Cardio : Dr Ludwig Time Spent in preparation of Discharge (in minutes): 40 Diagnosis - Discharge Diagnosis (1) Atypical chest pain Status: Acute Priority: High Comment: Referred Pain likely due to shoulder pain. ACS ruled out. unlikely PE as pt is not desaturating, not tachy. Doppler US of LE : Neg DVT. Pt has IVC filter. (2) CAD (coronary artery disease) Status: Chronic (3) CKD (chronic kidney disease) stage 3, GFR 30-59 ml/min Status: Acute (4) CKD (chronic kidney disease) Status: Chronic Priority: Medium (5) COPD (chronic obstructive pulmonary disease) Status: Chronic (6) DJD (degenerative joint disease) Status: Chronic (7) History of venous thromboembolism Status: Chronic Comment: s/p IVC filter placement (8) Hypertension Status: Chronic Priority: Low (9) Hypothyroid Status: Chronic (10) History of GI bleed Status: Chronic Hospital Course - Lab Results Lab Results: Most Recent Lab Values WBC 9.9 K/uL (4.8-10.8) 07/18/17 04:40 RBC 4.49 Mil/uL (3.80-5.20) 07/18/17 04:40 Hgb 12.0 g/dL (12.0-16.0) 07/18/17 04:40 Hct 37.9 % (34.0-47.0) 07/18/17 04:40 MCV 84.4 fl (81.0-99.0) 07/18/17 04:40 MCH 26.8 pg (27.0-31.0) L 07/18/17 04:40 MCHC 31.7 g/dL (33.0-37.0) L 07/18/17 04:40 RDW 15.9 % (11.5-14.5) H 07/18/17 04:40 Plt Count 182 K/uL (130-400) 07/18/17 04:40 MPV 8.8 fl (7.2-11.7) 07/17/17 21:57 Neut % (Auto) 70.0 % (50.0-75.0) 07/17/17 21:57 Lymph % (Auto) 21.3 % (20.0-40.0) 07/17/17 21:57 [place] % (Auto) 6.0 % (0.0-10.0) 07/17/17 21:57 Eos % (Auto) 1.9 % (0.0-4.0) 07/17/17 21:57 Baso % (Auto) 0.8 % (0.0-2.0) 07/17/17 21:57 Neut # 6.7 K/uL (1.8-7.0) 07/17/17 21:57 Lymph # 2.0 K/uL (1.0-4.3) 07/17/17 21:57 [place] # 0.6 K/uL (0.0-0.8) 07/17/17 21:57 Eos # 0.2 K/uL (0.0-0.7) 07/17/17 21:57 Baso # 0.1 K/uL (0.0-0.2) 07/17/17 21:57 PT 12.4 Seconds (9.8-13.1) 07/17/17 21:57 INR 1.1 (0.9-1.2) 07/17/17 21:57 APTT 180.7 Seconds (25.6-37.1) H* D 07/18/17 12:10 D-Dimer, Quantitative 352 ng/mlDDU (0-230) H 07/18/17 12:10 Sodium 143 mmol/l (132-148) 07/18/17 12:10 Potassium 3.7 MMOL/L (3.6-5.0) 07/18/17 12:10 Chloride 102 mmol/L (98-107) 07/18/17 12:10 Carbon Dioxide 33 mmol/L (22-30) H 07/18/17 12:10 Anion Gap 12 (10-20) 07/18/17 12:10 BUN 19 mg/dl (7-17) H 07/18/17 12:10 Creatinine 1.3 mg/dL (0.7-1.2) H 07/18/17 12:10 Est GFR ( Amer) 50 07/18/17 12:10 Est GFR (Non-Af Amer) 41 07/18/17 12:10 Random Glucose 95 mg/dL (65-105) 07/18/17 12:10 Calcium 8.7 mg/dL (8.4-10.2) 07/18/17 12:10 Magnesium 1.9 MG/DL (1.6-2.3) 07/18/17 04:40 Troponin I 0.0140 ng/mL (0.00-0.120) 07/18/17 09:40 NT-Pro-B Natriuret Pep 487 pg/ml (0-900) 07/17/17 21:57 - Hospital Course Hospital Course: 67 y/o lady with multiple medical problems w/c includes HTN, CAD s/p CABG, VTE s /p IVC filter, GI bleeding due to anticoagulant, COPD on Home O2 at 3 liters NC , , CKD, , was brought in by ambulance bec of chest pain . Pt was observed in Telemetry . She was continued on her Home meds - w/c includes ASA, statin, BB, Ranexa, NTG. She was also empirically started on Heparin drip . TROPONIN x 3 negative. DDimer was elevated . Doppler US of LE ws negative for DVT. We were unable to do CTA to r/o PE bec of her abn renal function. Pt refused to have V/Q scan despite explanation of benefits. Pt felt very claustrophobic during the procedure and refused offer to be given a sedative. She states that her CP and SOB resolved and her pain is more on her left shoulder. She also stated that even if PE was found, she does not want to be placed on Anticoagulant bec of her hx of GI bleed. Cardio was consulted and Dr Makeda Ludwig felt that the CP was not cardiac in etiology. Pt wanted to go home. At present she is asymptomatic and didnt want any further work up to r/o PE. I have also discussed test results with pt's daughter Pratima and she agrees with plan. Discharge Exam - Head Exam Head Exam: NORMAL INSPECTION, NORMOCEPHALIC - Eye Exam Eye Exam: EOMI, Normal appearance Pupil Exam: NORMAL ACCOMODATION - ENT Exam ENT Exam: Mucous Membranes Moist, Normal External Ear Exam - Neck Exam Neck exam: Full Rom - Respiratory Exam Respiratory Exam: NORMAL BREATHING PATTERN. absent: Rales, Respiratory Distress - Cardiovascular Exam Cardiovascular Exam: REGULAR RHYTHM, +S1, +S2 - GI/Abdominal Exam GI & Abdominal Exam: Normal Bowel Sounds, Soft. absent: Tenderness - Extremities Exam Extremities exam: normal capillary refill, pedal pulses present Additional comments: no calf tenderness mild pedal edema - Back Exam Back exam: absent: CVA tenderness (L), CVA tenderness (R) - Neurological Exam Neurological exam: Alert, CN II-XII Intact, Oriented x3 - Psychiatric Exam Psychiatric exam: Normal Affect, Normal Mood - Skin Skin Exam: Dry, Normal Color, Warm Discharge Plan - Follow Up Plan Condition: IMPROVED Disposition: HOME/ ROUTINE Additional Instructions: ff up with Dr cole seamus Pain mgt appt seamus Referrals: Taqueria Ludwig MD [Staff Provider] - Derrick Cole MD [Family Provider] -
--- NOTE | 2017-07-18 17:08 | US ---
PROCEDURE: Bilateral lower extremity venous duplex Doppler. HISTORY: r/o DVT COMPARISON: None. TECHNIQUE: Bilateral common femoral, superficial femoral, popliteal and posterior tibial veins were evaluated. Flow was assessed with color Doppler, compressibility, assessment of phasic flow and augmentation response. FINDINGS: COMMON FEMORAL VEIN: Right CFV: Unremarkable. Left CFV: Unremarkable. SUPERFICIAL FEMORAL VEIN: Right SFV: Unremarkable. Left SFV: Unremarkable. POPLITEAL VEIN: Right Popliteal: Unremarkable. Left Popliteal: Unremarkable. POSTERIOR TIBIAL VEIN: Right PTV: Unremarkable. Left PTV: Unremarkable. OTHER FINDINGS: None. IMPRESSION: No evidence of deep venous thrombosis.
[2017-07-18] MEDS ORDERED: Pravastatin Sodium 20 MG TAB PO SCH (22:00)
== END 2017-07-18 18:50 | disposition home health service (06) ==
LOC: H.ER 21:19 → H.ERHOLD 22:37 → H.TEL 07-18 01:24
PROVIDERS: ADMIT Student in an Organized Health Care Education/Training Program; ATTEND Student in an Organized Health Care Education/Training Program
DX: N17.9 Acute kidney failure, unspecified (principal); N18.3 Chronic kidney disease, stage 3 (moderate); I13.0 Hypertensive heart and chronic kidney disease with heart failure and stage 1 through stage 4 chronic kidney disease, or unspecified chronic kidney disease; I50.9 Heart failure, unspecified; I25.10 Atherosclerotic heart disease of native coronary artery without angina pectoris; G89.29 Other chronic pain; I27.20 Pulmonary hypertension, unspecified; Z79.82 Long term (current) use of aspirin; Z85.43 Personal history of malignant neoplasm of ovary; Z86.711 Personal history of pulmonary embolism; Z86.718 Personal history of other venous thrombosis and embolism; Z87.01 Personal history of pneumonia (recurrent); Z95.1 Presence of aortocoronary bypass graft; Z95.2 Presence of prosthetic heart valve; Z95.5 Presence of coronary angioplasty implant and graft; Z99.81 Dependence on supplemental oxygen; J44.9 Chronic obstructive pulmonary disease, unspecified; E87.6 Hypokalemia; E78.5 Hyperlipidemia, unspecified; E03.9 Hypothyroidism, unspecified; R07.89 Other chest pain; E66.8 Other obesity; Z23 Encounter for immunization; F17.210 Nicotine dependence, cigarettes, uncomplicated; M19.90 Unspecified osteoarthritis, unspecified site
CPT/HCPCS: 36415; 71010; 80048; 83735; 83880; 84484; 85025; 85027; 85378; 85610; 85730; 93005; 93970; 96374; 96375; 96376; 99285; G0008; G0378; J1644; J2270; Q2035

== ENCOUNTER 2017-09-05 10:02 | Day surgery (SDC) | payer OTHER, MEDICAID ==
[2017-09-05] MEDS ORDERED: Lactated Ringer's 1,000 ML IV ONE (11:15)
[2017-09-05] MEDS ORDERED: Bupivacaine HCl 0.5% PF (30 ml) Inj ONE (11:16)
[2017-09-05] MEDS ORDERED: MethylPREDNISolone Depo 40 mg/ml Inj ONE (11:16)
[2017-09-05] MEDS ORDERED: Lidocaine 1% Inj (20ml) ONE (11:17)
[2017-09-05] MEDS ORDERED: Iohexol 300 10 ML ONE (11:17)
[2017-09-05] MEDS ORDERED: Midazolam 2 MG/2 ML VIAL ONE (11:20)
[2017-09-05] MEDS ORDERED: Iohexol 300 10 ML IJ ONE (11:24)
[2017-09-05] MEDS ORDERED: MethylPREDNISolone Depo 40 mg/ml Inj IM ONE (11:24)
[2017-09-05] MEDS ORDERED: Lidocaine 1% Inj (20ml) IJ ONE (11:24)
[2017-09-05] MEDS ORDERED: Bupivacaine 0.5% Inj(30mL) IJ ONE (11:24)
[2017-09-05] MEDS ORDERED: Lactated Ringer's 1,000 ML IV SCH (12:45)
[2017-09-05 13:10] VITALS: RESP 20
[2017-09-05 13:34] VITALS: TEMP 97.6; O2SAT 100
--- NOTE | 2017-09-05 13:46 | OP ---
PROCEDURE DATE: 09/05/2017 PREOPERATIVE DIAGNOSIS: Left sacroiliitis. POSTOPERATIVE DIAGNOSIS: Left sacroiliitis. PROCEDURE: Left sacroiliac joint steroid injection and left sciatic notch block. ANESTHESIA ADMINISTERED BY: Dr. Randolph. SURGEON: Sam Black MD TYPE OF ANESTHESIA: Monitored anesthesia care. COMPLICATIONS: None. SPECIMEN: None. DESCRIPTION OF PROCEDURE: After we had discussion of the procedure with the patient including its risks, benefits, alternatives, outcome data, possibility of no effect or increased pain, the patient consented to the procedure. She denies any recent infection, bleeding tendencies, or being on anticoagulants, a decision was then made to proceed to the OR. The patient was placed on a fluoroscopy table in a prone position with 2 pillows underneath her abdomen. Her back was prepped and draped in the usual sterile fashion, and sterile technique was adhered to during the entire procedure. The left sacroiliac joint was first visualized on the anterior-posterior view. Angulation towards the contralateral right side was used to open up the posterior opening of the left sacroiliac joint. The skin overlying this area was infiltrated with 1% lidocaine using a 25-gauge needle. Subsequently, a 22-gauge 7-inch spinal needle was then incrementally advanced under fluoroscopic guidance until the tip of the needle made bony contact with the medial border of the sacroiliac joint. The needle was then turned laterally and walked into the joint capsule. After appropriate placement of the needle, which was confirmed by injecting approximately 0.5 mL of Isovue contrast, which showed the contrast spreading up to the top of the sacroiliac joint and approximately 3 mL of 0.5% Marcaine and Depo Medrol was injected. The needle was then removed. Then, the sciatic notch was visualized on the anterior-posterior view as well at the 6 o'clock to 7 o'clock position of the pelvic rim on the left. The skin overlying this area was infiltrated with 1% Xylocaine using 25-gauge needle. Subsequently, a 22 gauge 7-inch spinal needle was incrementally advanced under fluoroscopic guidance until bony contact was made with the target areas. After negative aspiration, approximately 0.5 mL Isovue contrast was injected to rule out intravenous uptake. After doing so and the patient denied any paraesthesia going down the left leg, approximately 5 mL of 0.5% Marcaine and Depo-Medrol mixture was injected. The needle was then removed and the patient's back was cleaned and dry bandage was applied. The patient was then transferred to the recovery area in good conditions without any signs of [employer] BILLING [employer]IST toxicity or any neurological deficit. She will have a followup in the office in approximately 2 to 4 weeks. En-Surinder Black MD
[2017-09-05 15:50] VITALS: BP 156/90; PULSE 85
--- NOTE | 2017-09-07 12:13 | RAD ---
PROCEDURE: Fluoroscopy up to 1 hr. HISTORY: PAIN MANAGEMENT COMPARISON: None TECHNIQUE: Standard protocol for this study/examination. FINDINGS: Total fluoroscopic time (continuous mode) utilized during the procedure: 71.8 seconds. Total exam DLP: (mGy): 33.00 IMPRESSION: Less than 1 hr fluoroscopic time utilized during performance of the procedure.
== END 2017-09-05 14:20 | disposition home or self-care (01) ==
LOC: H.OPSURG 10:02
PROVIDERS: ATTEND Anesthesiology
DX: M46.1 Sacroiliitis, not elsewhere classified (principal); J45.909 Unspecified asthma, uncomplicated; I25.10 Atherosclerotic heart disease of native coronary artery without angina pectoris; E78.5 Hyperlipidemia, unspecified; E03.9 Hypothyroidism, unspecified; I10 Essential (primary) hypertension
CPT/HCPCS: 20552; J1030; J2250; J3010; J7120; Q9967

== ENCOUNTER 2017-10-17 11:50 | Day surgery (SDC) | payer MEDICARE, MEDICAID ==
[2017-10-17 12:20] VITALS: RESP 18
[2017-10-17 12:32] VITALS: BMI 26.8
[2017-10-17] MEDS ORDERED: Lidocaine 1% Inj (20ml) ONE (12:46)
[2017-10-17] MEDS ORDERED: Bupivacaine HCl 0.5% PF (10 ml) Inj ONE (12:46)
[2017-10-17] MEDS ORDERED: methylPREDNISolone Depo 80 mg/ml Inj ONE (12:46)
[2017-10-17] MEDS ORDERED: Midazolam 2 MG/2 ML VIAL ONE (13:10)
[2017-10-17] MEDS ORDERED: Iohexol 300 10 ML ONE (13:14)
[2017-10-17] MEDS ORDERED: Lactated Ringer's 1,000 ML IV ONE (13:30)
[2017-10-17] MEDS ORDERED: Oxycodone/Acetaminophen 5/325 mg Tab PO PRN (14:24)
[2017-10-17] MEDS ORDERED: Metoprolol Succinate 25 mg XL Tab PO PRN (14:25)
[2017-10-17 15:39] VITALS: TEMP 98
[2017-10-17 16:18] VITALS: BP 150/75; PULSE 66; O2SAT 99
--- NOTE | 2017-10-17 22:53 | OP ---
PROCEDURE DATE: 10/17/2017 PREOPERATIVE DIAGNOSIS: Lumbar facet syndrome and sacroiliitis. POSTOPERATIVE DIAGNOSIS: Lumbar facet syndrome and sacroiliitis. PROCEDURE: Left L3, L4, and L5 medial branch nerve block and left sacroiliac joint steroid injection. SURGEON: Sam Black MD. ANESTHESIOLOGIST: Fina Dawkins MD. TYPE OF ANESTHESIA: Monitored anesthesia care. COMPLICATIONS: None. SPECIMEN: None. DESCRIPTION OF PROCEDURE: As follows: After discussion of the procedure with the patient including its risks, benefits, alternatives, outcome data, possibility of no effects, or increased pain, patient consented to the procedure. She denies any recent infection, bleeding tendencies, or being on anticoagulants and decision was then made to proceed to the OR. The patient was placed on fluoroscopy table in a prone position with two pillows underneath her abdomen. The back was prepped and draped in a usual sterile fashion and sterile technique was adhered to during the entire procedure. The L3, L4, and L5 medial branch nerves were located at the intersection of the superior articular process and the transverse processes of the L4 and L5 pedicles and also the sacral ala. The three above target areas were visualized by turning the fluoroscopy towards the left at approximately 15 degrees. The skin overlying the three above target areas was then infiltrated with 1% lidocaine using a 25-gauge needle. Subsequently, a 22-gauge 5-inch spinal needle was then incrementally advanced under fluoroscopic guidance until tip of the needle made bony contact with all three target areas. After satisfactory positioning of all three needles, approximately 3 mL of 0.5% Marcaine and Depo-Medrol mixture was injected. The needle was then removed. Then, the left sacroiliac joint was visualized on the anterior-posterior view. Angulation towards the ipsilateral left side was used to open up the posterior opening of the sacroiliac joint. The skin overlying the inferior pole of the joint was then infiltrated with 1% lidocaine using 25-gauge needle. Subsequently, a 22-gauge 5-inch spinal needle was then incrementally advanced under fluoroscopic guidance until the tip of the needle made bony contact lateral to the joint and then the needle was turned to walk into the joint capsule. After satisfactory positioning of the needle, approximately 0.5 mL of Isovue contrast was injected showing appropriate spread of the joint capsule. At this point, approximately 3 mL of 0.5 % Marcaine and Depo Medrol mixture was injected. Needle was then removed and patient's back was cleaned and dried and bandage was applied. 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 She will be following in the office in approximately 2 to 4 weeks. En-Surinder Black MD
--- NOTE | 2017-10-18 19:31 | RAD ---
PROCEDURE: Intraoperative Fluoroscopy. HISTORY: PAIN MANAGEMENT FINDINGS: Fluoroscopic assistance was provided for lumbar spinal an sacroiliac joint pain management. Please refer to the operative report from cumulative radiation dose of 31.33 mGy.
== END 2017-10-17 16:20 | disposition home or self-care (01) ==
LOC: H.OPSURG 11:50
PROVIDERS: ATTEND Anesthesiology
DX: M54.16 Radiculopathy, lumbar region (principal); M46.1 Sacroiliitis, not elsewhere classified; I25.10 Atherosclerotic heart disease of native coronary artery without angina pectoris; I11.0 Hypertensive heart disease with heart failure; I50.9 Heart failure, unspecified; E03.9 Hypothyroidism, unspecified; I25.2 Old myocardial infarction; E66.01 Morbid (severe) obesity due to excess calories; Z86.718 Personal history of other venous thrombosis and embolism; Z68.42 Body mass index [BMI] 45.0-49.9, adult
CPT/HCPCS: 64483; J1040; J2250; J3010; J7120; Q9967

== ENCOUNTER 2017-10-30 00:49 | Observation (INO) | payer MEDICARE, MEDICAID ==
[2017-10-30 01:08] VITALS: BMI 43.4
[2017-10-30] MEDS ORDERED: Morphine 4 MG/ML VIAL IVP ONE (01:52)
[2017-10-30] MEDS ORDERED: HYDROmorphone 0.5 mg/0.5 ml ISec IVP STA (02:00)
[2017-10-30 02:09] LABS: BASO # 0.1 K/uL (0.0-0.2); BASO % 0.8 % (0.0-2.0); EOS # 0.2 K/uL (0.0-0.7); EOS % 1.7 % (0.0-4.0); HEMOGLOBIN 12.9 g/dL (12.0-16.0); LYMPH # 2.2 K/uL (1.0-4.3); LYMPH % 19.8 % (20.0-40.0); MEAN CELL VOLUME 81.6 fl (81.0-99.0); MEAN CORPUSCULAR HEMOGLOBIN 25.8 pg (27.0-31.0); MEAN CORPUSCULAR HGB CONC 31.6 g/dL (33.0-37.0); MEAN PLATELET VOLUME 9.2 fl (7.2-11.7); MONO # 0.7 K/uL (0.0-0.8); MONO % 6.4 % (0.0-10.0); NEUT # 7.9 K/uL (1.8-7.0); NEUT % 71.3 % (50.0-75.0); NRBC % 0.1 % (0.0-0.0); RBC 4.99 Mil/uL (3.80-5.20); RED CELL DISTRIBUTION WIDTH 17.2 % (11.5-14.5); WHITE BLOOD COUNT 11.1 K/uL (4.8-10.8)
--- NOTE | 2017-10-30 02:12 | ED PDOC ---
HPI: SOB/CHF/COPD Time Seen by Provider: 10/30/17 01:13 Chief Complaint (Nursing): Shortness Of Breath Chief Complaint (Provider): Chest Pain and Shortness Of Breath History Per: Patient History/Exam Limitations: no limitations Onset/Duration Of Symptoms: Days (x2) Current Symptoms Are (Timing): Still Present Additional Complaint(s): 67 year old female with a past medical history of CAD, CHF, CKD, and COPD, who presents to the ED complaining of chest pain and shortness of breath x2 days. Patient states shortness of breath was coming and going but occurred today while heaving a conversation with her granddaughter. Also reports feeling dizzy today and breaking out into a sweat. PMD: Derrick Cole Past Medical History Reviewed: Historical Data, Nursing Documentation, Vital Signs Vital Signs: Last Vital Signs Temp 97.8 F 10/30/17 01:09 Pulse 67 10/30/17 01:09 Resp 20 10/30/17 01:09 BP 148/60 10/30/17 02:29 Pulse Ox 98 10/30/17 02:16 - Medical History PMH: Anemia, Arthritis, Asthma, Back Problems (herniated discs (cervical, lumbar )), Bronchitis, CAD, Cardia Arrhythmia, CHF, COPD, Deep Vein Thrombosis, Fractures (left ankle), HTN, Hypercholesterolemia, Hypothyroidism, Malignancy ( ovarian), Mitral Valve Prolapse, Peripheral Edema, Pneumonia, Pulmonary Embolism , Chronic Kidney Disease Denies: Diabetes, HIV - Surgical History Surgical History: CABG, Coronary Stent, Endoscopy - Family History Family History: States: Unknown Family Hx - Immunization History Hx Pneumococcal Vaccination: Yes - Home Medications Home Medications: Ambulatory Orders Medication Instructions Recorded Aspirin [Aspirin EC] 81 mg PO DAILY #0 tablet. 06/08/16 Levothyroxine Sodium 25 mcg PO DAILY #0 tablet 06/08/16 Pravastatin Sodium [Pravachol] 20 mg PO HS #0 tab 06/08/16 Albuterol 0.083% [Albuterol 0.083% 3 ml IH Q6 PRN 11/30/16 Inhal Kendra (2.5 mg/3 ml) UD] Ergocalciferol (Vitamin D2) 50,000 unit PO QWK 11/30/16 [Vitamin D2] Ferrous Sulfate [Feosol] 325 mg PO BID 02/23/17 Folic Acid 1 mg PO DAILY 11/30/16 Metoprolol Succinate XL [Toprol XL] 50 mg PO DAILY 11/30/16 Ranolazine [Ranexa] 500 mg PO BID 11/30/16 Febuxostat [Uloric] 40 mg PO DAILY 05/07/17 Furosemide [Lasix] 40 mg PO DAILY 05/07/17 Isosorbide Dinitrate [Isordil] 20 mg PO BID 05/07/17 oxyCODONE/Acetaminophen [Percocet 1 tab PO Q6H PRN #5 tab 05/23/17 5/325 mg Tab] - Allergies Allergies/Adverse Reactions: Allergies Allergy/AdvReac Type Severity Reaction Status Date / Time No Known Allergies Allergy Verified 10/30/17 01:08 Review of Systems ROS Statement: Except As Marked, All Systems Reviewed And Found Negative Constitutional: Positive for: Sweats Cardiovascular: Positive for: Chest Pain Respiratory: Positive for: Shortness of Breath Neurological: Positive for: Dizziness Physical Exam - Reviewed Nursing Documentation Reviewed: Yes Vital Signs Reviewed: Yes - Physical Exam Appears: Positive for: Non-toxic, No Acute Distress Head Exam: Positive for: ATRAUMATIC, NORMAL INSPECTION, NORMOCEPHALIC Skin: Positive for: Normal Color, Warm, Dry. Negative for: Rash Eye Exam: Positive for: EOMI, Normal appearance, PERRL Neck: Positive for: Normal, Painless ROM, Supple Cardiovascular/Chest: Positive for: Regular Rate, Rhythm. Negative for: Murmur Respiratory: Positive for: Normal Breath Sounds. Negative for: Respiratory Distress Gastrointestinal/Abdominal: Positive for: Normal Exam, Bowel Sounds, Soft. Negative for: Tenderness Back: Positive for: Normal Inspection. Negative for: L CVA Tenderness, R CVA Tenderness, Vertebral Tenderness Extremity: Positive for: Normal ROM, Swelling (bilateral +2 pitting edema to knees) Neurologic/Psych: Positive for: Alert, Oriented (x3). Negative for: Motor/ Sensory Deficits - Laboratory Results Result Diagrams: 10/30/17 02:06 10/30/17 02:06 - ECG O2 Sat by Pulse Oximetry: 98 (RA) Pulse Ox Interpretation: Normal Medical Decision Making Medical Decision Making: Time: 01:51 Initial Impression: CHF exacerbation vs ACS vs musculoskeletal pain Initial Plan: Medical clearance to return to senior living --EKG --BNP --BMP --Troponin I --CBC w/ differential --PTT --PT --Chest X-Ray --Dilaudid 0.5 mg IVP --Lasix 60 mg IVP --Influenza A B --Reevaluation 230 CXR shows perivascular congestion. Patient has significant cardiac co- morbidties requiring OBS stay for continuous cardiac monitoring, repeat blood work, and cardiology consultation as deemed necessary by admittting physican. Case discussed with Dr. Mccann. Scribe Attestation: Documented by Ifeanyi Cantrell, acting as a scribe for Justin Moncada MD. Provider Scribe Attestation: All medical record entries made by the Scribe were at my direction and personally dictated by me. I have reviewed the chart and agree that the record accurately reflects my personal performance of the history, physical exam, medical decision making, and the department course for this patient. I have also personally directed, reviewed, and agree with the discharge instructions and disposition. Disposition - Clinical Impression Clinical Impression: Chest pain - Patient ED Disposition Is Patient to be Admitted: Yes - Disposition Referrals: Derrick Cole MD [Primary Care Provider] - Disposition Time: 02:37 Condition: GUARDED Forms: Visto (Bulgarian)
[2017-10-30 02:17] LABS: CALCIUM 9.4 mg/dL (8.4-10.2)
[2017-10-30 02:29] LABS: TROPONIN I 0.016 ng/mL (0.00-0.120)
--- NOTE | 2017-10-30 02:54 | CP.PCM.HP ---
History of Present Illness - History of Present Illness History of Present Illness: PMD: Derrick Cole MD Chief Complaint: SOB HPI: 67 years old female with hx of Asthma and COPD on home oxygen, CAD and CHF , comes with two days of worsening SOB with chest tightness Associated with severe diaphoresis. She has minimal cough and not expectorating. She has chills with the sudoration. No fever, nausea, vomits, diarrhea nor dysuria. PMH: Anemia, Arthritis, Asthma, Back Problems (herniated discs (cervical, lumbar )), Bronchitis, CAD, Cardia Arrhythmia, CHF, COPD, Deep Vein Thrombosis, Fractures (left ankle), HTN, HLD, Hypothyroidism, Malignancy (ovarian), Mitral Valve Prolapse, Peripheral Edema, Pneumonia, Pulmonary Embolism, CKD PSH: CABG triple bipass 03/2012; Coronary stent placement; hysterectomy SH: No illegal drug use; No Alcohol; light smoking FH: States: Unknown Family Hx Allergies: KNDA Medication: Reviewed Present on Admission - Present on Admission Any Indicators Present on Admission: No History of DVT/PE: No History of Uncontrolled Diabetes: No Urinary Catheter: No Decubitus Ulcer Present: No Review of Systems - Constitutional Constitutional: Chills, Fatigue. absent: Anorexia, Fever, Headache - EENT Eyes: Requires Corrective Lenses. absent: Diplopia, Floaters, Spots in Vision Ears: absent: Decreased Hearing, Ear Discharge, Ear Pain, Tinnitus Nose/Mouth/Throat: absent: Epistaxis, Nasal Congestion, Nasal Discharge - Cardiovascular Cardiovascular: Chest Pain, Dyspnea, Orthopnea, Pedal Edema - Respiratory Respiratory: Cough, Dyspnea, Chest Congestion - Gastrointestinal Gastrointestinal: absent: Constipation, Diarrhea, Melena, Vomiting - Genitourinary Genitourinary: absent: Dysuria, Flank Pain, Hematuria, Urinary Frequency - Musculoskeletal Musculoskeletal: Arthralgias, Back Pain - Integumentary Integumentary: Skin Pain, Swelling. absent: Skin Ulcer, Sores, Striae - Neurological Neurological: absent: Confusion, Dizziness, Focal Weakness, Weakness - Psychiatric Psychiatric: absent: Anxiety, Depression, Panic Attacks - Endocrine Endocrine: absent: Palpitations, Polydipsia, Polyphagia, Polyuria - Hematologic/Lymphatic Hematologic: absent: Easy Bleeding, Easy Bruising Past Patient History - Infectious Disease Hx of Infectious Diseases: None - Past Medical History & Family History Past Medical History?: Yes - Past Social History Smoking Status: Light Smoker < 10 Cigarettes Daily Chewing Tobacco Use: No Cigar Use: No Alcohol: None - CARDIAC Hx Cardia Arrhythmia: Yes Hx Congestive Heart Failure: Yes Hx Hypercholesterolemia: Yes Hx Hypertension: Yes Hx Mitral Valve Prolapse: Yes Hx Peripheral Edema: Yes - PULMONARY Hx Asthma: Yes Hx Bronchitis: Yes Hx Chronic Obstructive Pulmonary Disease (COPD): Yes Hx Pneumonia: Yes Hx Pulmonary Embolism: Yes - NEUROLOGICAL Hx Neurological Disorder: Yes Hx Vertigo: Yes - HEENT Hx HEENT Problems: No - RENAL Hx Chronic Kidney Disease: Yes - ENDOCRINE/METABOLIC Hx Hypothyroidism: Yes - HEMATOLOGICAL/ONCOLOGICAL Hx Anemia: Yes Hx Human Immunodeficiency Virus (HIV): No - INTEGUMENTARY Hx Dermatological Problems: No - MUSCULOSKELETAL/RHEUMATOLOGICAL Hx Arthritis: Yes Hx Fractures: Yes (left ankle) - GASTROINTESTINAL Hx Gastrointestinal Disorders: Yes Other/Comment: GI Bleed - GENITOURINARY/GYNECOLOGICAL Hx Genitourinary Disorders: Yes Hx Ovarian Cancer: Yes Other/Comment: hysterectomy - PSYCHIATRIC Hx Emotional Abuse: No Hx Physical Abuse: No Hx Substance Use: No - SURGICAL HISTORY Hx Coronary Artery Bypass Graft: Yes Hx Coronary Stent: Yes - ANESTHESIA Hx Anesthesia: Yes Hx Anesthesia Reactions: No Hx Malignant Hyperthermia: No Meds Allergies/Adverse Reactions: Allergies Allergy/AdvReac Type Severity Reaction Status Date / Time No Known Allergies Allergy Verified 10/30/17 01:08 Physical Exam - Constitutional Appears: No Acute Distress - Head Exam Head Exam: ATRAUMATIC, NORMAL INSPECTION, NORMOCEPHALIC - Eye Exam Eye Exam: EOMI, Normal appearance Pupil Exam: NORMAL ACCOMODATION, PERRL - ENT Exam ENT Exam: Mucous Membranes Moist, Normal Exam, Normal External Ear Exam, Normal Oropharynx - Neck Exam Neck exam: Positive for: Full Rom - Respiratory Exam Respiratory Exam: absent: Rhonchi, Wheezes Additional comments: Inspiratory rales at both bases - Cardiovascular Exam Cardiovascular Exam: REGULAR RHYTHM, RRR, +S1, +S2. absent: Gallop - GI/Abdominal Exam Additional comments: Obese, Soft, nontender, +ve bowel sounds - Rectal Exam Rectal Exam: Deferred - Extremities Exam Extremities exam: Positive for: normal inspection. Negative for: calf tenderness, joint swelling, pedal edema - Back Exam Back exam: NORMAL INSPECTION. absent: CVA tenderness (L), CVA tenderness (R) - Neurological Exam Neurological exam: Alert, CN II-XII Intact, Oriented x3, Reflexes Normal - Psychiatric Exam Psychiatric exam: Normal Affect, Normal Mood - Skin Skin Exam: Dry, Intact, Normal Color, Warm Results - Vital Signs Recent Vital Signs: Last Vital Signs Temp 97.8 F 10/30/17 01:09 Pulse 67 10/30/17 01:09 Resp 18 10/30/17 01:35 BP 148/60 10/30/17 02:29 Pulse Ox 98 10/30/17 02:37 - Labs Result Diagrams: 10/30/17 02:06 10/30/17 02:06 Labs: Laboratory Results - last 24 hr 10/30/17 10/30/17 10/30/17 02:01 02:06 02:06 WBC 11.1 H RBC 4.99 Hgb 12.9 Hct 40.8 MCV 81.6 D MCH 25.8 L MCHC 31.6 L RDW 17.2 H Plt Count 166 MPV 9.2 Neut % (Auto) 71.3 Lymph % (Auto) 19.8 L Rooks % (Auto) 6.4 Eos % (Auto) 1.7 Baso % (Auto) 0.8 Neut # 7.9 H Lymph # 2.2 Rooks # 0.7 Eos # 0.2 Baso # 0.1 Sodium 143 Potassium 4.2 Chloride 104 Carbon Dioxide 32 H Anion Gap 11 BUN 23 H Creatinine 1.7 H Est GFR ( Amer) 36 Est GFR (Non-Af Amer) 30 Random Glucose 108 H Calcium 9.4 Troponin I 0.0160 NT-Pro-B Natriuret Pep 322 Influenza Typ A,B (EIA) Negative for flu a/b - Imaging and Cardiology Chest x-ray Status: Image reviewed by me Additional comment: Poor inspiration Increased cardiac silhouette Left base oblerated Right basal interstitial infiltrate Assessment & Plan - Assessment and Plan (Free Text) Assessment: #. Chest Pain #. Leukocytosis #. COPD and Asthma #. CAD #. Hypothyroidism Plan: 67 years old female with hx of Asthma and COPD on home oxygen, CAD and CHF, comes with two days of worsening SOB with chest tightness Associated with severe diaphoresis. She has minimal cough and not expectorating. She has chills with the sudoration. No fever, nausea, vomits, diarrhea nor dysuria. #. Chest Pain r/o ACS - Consult Dr Ludwig cardiology - Follow Troponin - EKG - ASA - Continue Ranexa - Pravastatin #. Bibasal interstitial infiltrates with bilateral lower extremity edema and a Normal BNP in an obese patient with no fever nor significant white count. we will treat with: - Lasix 40 IVP Daily - Isordil/Toprol - Cardiology on board #. Leukocytosis probably reactive - Follow CBC #. COPD and Asthma - Albuterol Nebulizer Q6H and PRN - #. CAD s/p CABG - ASA/Ranexa/Pravastatin #. Hypothyroidism - Levothyroxin #. DVT prophylaxis with Lovenox #. Code Status: Stable - Date & Time Date: 10/30/17 Time: 02:54
[2017-10-30 03:03] LABS: INR 1.1 (0.9-1.2); PARTIAL THROMBOPLASTIN TIME 30.1 Seconds (25.6-37.1); PROTHROMBIN TIME 12.1 Seconds (9.8-13.1)
[2017-10-30] MEDS ORDERED: Ergocalciferol 50,000 Intl Units Cap PO SCH (03:30)
[2017-10-30] MEDS ORDERED: Oxycodone/Acetaminophen 5/325 mg Tab PO PRN (03:37)
[2017-10-30] MEDS: Albuterol 0.083% Inhal Sol (2.5 mg/3 mL) UD IH SCH ×3 (05:15→14:27)
[2017-10-30] MEDS ORDERED: Levothyroxine 25 MCG TAB PO SCH (06:30)
--- NOTE | 2017-10-30 08:40 | RAD ---
PROCEDURE: CHEST RADIOGRAPH, 1 VIEW HISTORY: cp, sob COMPARISON: Frontal chest radiograph 07/17/2017. FINDINGS: LUNGS: No acute infiltrate identified bilaterally. PLEURA: No pneumothorax or pleural fluid seen. CARDIOVASCULAR: Stable cardiomegaly. Median sternotomy again noted. Limited pulmonary venous congestion again suspected. Clinically correlate further. OSSEOUS STRUCTURES: No significant abnormalities. VISUALIZED UPPER ABDOMEN: Normal. OTHER FINDINGS: None. IMPRESSION: Limited pulmonary venous congestion. Cardiomegaly is stable. No acute infiltrate, pleural effusion or pneumothorax bilaterally.
--- NOTE | 2017-10-30 08:59 | CP.PCM.CON ---
History of Present Illness - History of Present Illness History of Present Illness: This 67-year-old - Gabones[place] female came into the hospital complaining of a sense of lightheadedness and shortness of breath. The patient also has had pedal edema. She has been taking oral diuretics for suspected congestive cardiac failure. She has a long medical history which consists of coronary artery disease for which she required coronary bypass graft surgery more than 7 years back and along with chronic endogenous obesity obstructive sleep apnea severe spinal stenosis and lower back syndrome with chronic lung disease secondary to a long history of chronic cigarette use and COPD, hypertension. The patient had undergone a coronary angiography in February 2016 which revealed patent coronary bypasses while her internal mammary artery and LAD artery with atretic. The bypass from KEITH to LAD was patent. The patient has had multiple epidural injections and sees a physician for chronic lower back pain on the regular basis. She gives history of having injured her left ankle in a fall and was immobilized for a prolonged period of time at the end of summer last year and spent a long period in recovery. She has chronic pedal edema as a consequence of prolonged sitting with her persistent exogenous obesity. Physical examination shows a markedly overweight -[place]onese female who is able to carry on a conversation without much difficulty. She is alert awake over and afebrile and breeds at 18 breaths per minute. Her pulse oximetry with oxygen supplement were using nasal cannula at 3 L/m was 96-98%. Her jugular veins could not be adequately examined because of short thick neck and a right internal jugular access. There was pitting edema over both lower extremities and the pedal pulses were difficult to palpate. Her extremities were warm, her nailbeds were pink. There was no central or peripheral cyanosis and there was no clubbing. There was evidence of a sternotomy and mild tenderness in the left parasternal region. The apex was not palpable. The first and second heart sounds were normal there was no murmur or gallop. The first and second heart sounds were distant but normal. There were no rales. The inspiratory effort was poor. Abdomen was soft and liver and spleen are not palpable. Her electro-cardial gram showed sinus rhythm at 61 bpm with no evidence of pathological Q waves. Review of her echocardiogram from 1 year back showed evidence of preserved left ventricular systolic function with a pulmonary artery systolic pressure estimated at 50 mmHg. Her chest x-ray showed significant obesity and breast related artifacts simple superimposed on her chest x-ray. Costophrenic angles appear to be clear. Her lab data showed a hemoglobin and hematocrit of 12.9 g and 40.8% respectively her WBC count was 11, 100 off which 71% were neutrophils and 20% were lymphocytes. Her BUN and creatinine were 23 and 1.7 mg percent respectively and her electrolytes were normal her proBNP was 322 pg per mL. Impression: Doubt congestive cardiac failure in this patient with stable coronary artery disease and preserved left ventricular systolic function. Chronic exogenous obesity with COPD obstructive sleep apnea chronic lower back syndrome. Her pedal edema is probably secondary to prolonged sitting and immobility along with obesity. I have spoken with the daughter at length regarding her long-term medical care. Past Patient History - Infectious Disease Hx of Infectious Diseases: None - Past Medical History & Family History Past Medical History?: Yes - Past Social History Smoking Status: Light Smoker < 10 Cigarettes Daily Chewing Tobacco Use: No Cigar Use: No Alcohol: None - CARDIAC Hx Cardia Arrhythmia: Yes Hx Congestive Heart Failure: Yes Hx Hypercholesterolemia: Yes Hx Hypertension: Yes Hx Mitral Valve Prolapse: Yes Hx Peripheral Edema: Yes - PULMONARY Hx Asthma: Yes Hx Bronchitis: Yes Hx Chronic Obstructive Pulmonary Disease (COPD): Yes Hx Pneumonia: Yes Hx Pulmonary Embolism: Yes - NEUROLOGICAL Hx Neurological Disorder: Yes Hx Vertigo: Yes - HEENT Hx HEENT Problems: No - RENAL Hx Chronic Kidney Disease: Yes - ENDOCRINE/METABOLIC Hx Hypothyroidism: Yes - HEMATOLOGICAL/ONCOLOGICAL Hx Anemia: Yes Hx Human Immunodeficiency Virus (HIV): No - INTEGUMENTARY Hx Dermatological Problems: No - MUSCULOSKELETAL/RHEUMATOLOGICAL Hx Arthritis: Yes Hx Fractures: Yes (left ankle) - GASTROINTESTINAL Hx Gastrointestinal Disorders: Yes Other/Comment: GI Bleed - GENITOURINARY/GYNECOLOGICAL Hx Genitourinary Disorders: Yes Hx Ovarian Cancer: Yes Other/Comment: hysterectomy - PSYCHIATRIC Hx Emotional Abuse: No Hx Physical Abuse: No Hx Substance Use: No - SURGICAL HISTORY Hx Coronary Artery Bypass Graft: Yes Hx Coronary Stent: Yes - ANESTHESIA Hx Anesthesia: Yes Hx Anesthesia Reactions: No Hx Malignant Hyperthermia: No Meds Allergies/Adverse Reactions: Allergies Allergy/AdvReac Type Severity Reaction Status Date / Time No Known Allergies Allergy Verified 10/30/17 01:08 - Medications Medications: Current Medications Albuterol Sulfate (Albuterol 0.083% Inhal Kendra (2.5 Mg/3 Ml) Ud) 2.5 mg IH Q6 ADITYA Last Admin: 10/30/17 07:42 Dose: 2.5 mg Aspirin (Ecotrin) 81 mg PO DAILY [facility] Last Admin: 10/30/17 08:32 Dose: 81 mg Enoxaparin Sodium (Lovenox) 30 mg SC DAILY [facility] PRN Reason: Protocol Last Admin: 10/30/17 08:31 Dose: 30 mg Ergocalciferol (Drisdol 50,000 Intl Units Cap) 1 cap PO QWK [facility] Folic Acid (Folic Acid) 1 mg PO DAILY [facility] Last Admin: 10/30/17 08:32 Dose: 1 mg Furosemide (Lasix) 40 mg IVP DAILY [facility] Last Admin: 10/30/17 08:33 Dose: 40 mg Home Med (Ranolazine [Ranexa]) 500 mg PO BID [facility] Isosorbide Dinitrate (Isordil) 20 mg PO BID [facility] Last Admin: 10/30/17 08:34 Dose: 20 mg Levothyroxine Sodium (Synthroid) 25 mcg PO DAILY@0630 [facility] Last Admin: 10/30/17 05:49 Dose: 25 mcg Metoprolol Succinate (Toprol Xl) 50 mg PO DAILY [facility] Last Admin: 10/30/17 08:34 Dose: 50 mg Oxycodone/Acetaminophen (Percocet 5/325 Mg Tab) 1 tab PO Q6H PRN PRN Reason: Pain, moderate (4-7) Stop: 11/02/17 03:38 Pravastatin Sodium (Pravachol) 20 mg PO [facility] Results - Vital Signs Recent Vital Signs: Last Vital Signs Temp 97.9 F 10/30/17 07:59 Pulse 560 H 10/30/17 08:34 Resp 18 10/30/17 07:59 BP 117/58 L 10/30/17 08:34 Pulse Ox 99 10/30/17 07:59 - Labs Result Diagrams: 10/30/17 02:06 10/30/17 02:06 Labs: Laboratory Results - last 24 hr 10/30/17 10/30/17 10/30/17 02:01 02:06 02:06 WBC 11.1 H RBC 4.99 Hgb 12.9 Hct 40.8 MCV 81.6 D MCH 25.8 L MCHC 31.6 L RDW 17.2 H Plt Count 166 MPV 9.2 Neut % (Auto) 71.3 Lymph % (Auto) 19.8 L [place] % (Auto) 6.4 Eos % (Auto) 1.7 Baso % (Auto) 0.8 Neut # 7.9 H Lymph # 2.2 [place] # 0.7 Eos # 0.2 Baso # 0.1 PT INR APTT Sodium 143 Potassium 4.2 Chloride 104 Carbon Dioxide 32 H Anion Gap 11 BUN 23 H Creatinine 1.7 H Est GFR ( Amer) 36 Est GFR (Non-Af Amer) 30 Random Glucose 108 H Calcium 9.4 Troponin I 0.0160 NT-Pro-B Natriuret Pep 322 Influenza Typ A,B (EIA) Negative for flu a/b 10/30/17 02:06 WBC RBC Hgb Hct MCV MCH MCHC RDW Plt Count MPV Neut % (Auto) Lymph % (Auto) [place] % (Auto) Eos % (Auto) Baso % (Auto) Neut # Lymph # J[place] # Eos # Baso # PT 12.1 INR 1.1 APTT 30.1 Sodium Potassium Chloride Carbon Dioxide Anion Gap BUN Creatinine Est GFR ( Amer) Est GFR (Non-Af Amer) Random Glucose Calcium Troponin I NT-Pro-B Natriuret Pep Influenza Typ A,B (EIA)
[2017-10-30] MEDS ORDERED: Enoxaparin 30 mg Syringe SC SCH (09:00)
[2017-10-30] MEDS ORDERED: Metoprolol Succinate 50 mg XL Tab PO SCH (09:00)
[2017-10-30] MEDS ORDERED: Patient's Own Med (Ranolazine [Ranexa] 500 MG) PO SCH (09:00)
[2017-10-30 11:37] LABS: BASO # 0.1 K/uL (0.0-0.2); BASO % 0.8 % (0.0-2.0); EOS # 0.2 K/uL (0.0-0.7); EOS % 1.7 % (0.0-4.0); HEMOGLOBIN 13.1 g/dL (12.0-16.0); LYMPH # 2.6 K/uL (1.0-4.3); LYMPH % 24.6 % (20.0-40.0); MEAN CELL VOLUME 81.2 fl (81.0-99.0); MEAN CORPUSCULAR HEMOGLOBIN 25.8 pg (27.0-31.0); MEAN CORPUSCULAR HGB CONC 31.7 g/dL (33.0-37.0); MEAN PLATELET VOLUME 8.8 fl (7.2-11.7); MONO # 0.8 K/uL (0.0-0.8); MONO % 7.6 % (0.0-10.0); NEUT # 6.8 K/uL (1.8-7.0); NEUT % 65.3 % (50.0-75.0); NRBC % 0.1 % (0.0-0.0); RBC 5.09 Mil/uL (3.80-5.20); RED CELL DISTRIBUTION WIDTH 17.2 % (11.5-14.5); WHITE BLOOD COUNT 10.5 K/uL (4.8-10.8)
--- NOTE | 2017-10-30 15:10 | CP.PCM.DIS ---
Provider - Provider Date of Admission: 10/30/17 02:34 Attending physician: Chet Mccann Primary care physician: Derrick Cole MD Time Spent in preparation of Discharge (in minutes): 30 Hospital Course - Lab Results Lab Results: Most Recent Lab Values WBC 10.5 K/uL (4.8-10.8) 10/30/17 11:30 RBC 5.09 Mil/uL (3.80-5.20) 10/30/17 11:30 Hgb 13.1 g/dL (12.0-16.0) 10/30/17 11:30 Hct 41.4 % (34.0-47.0) 10/30/17 11:30 MCV 81.2 fl (81.0-99.0) 10/30/17 11:30 MCH 25.8 pg (27.0-31.0) L 10/30/17 11:30 MCHC 31.7 g/dL (33.0-37.0) L 10/30/17 11:30 RDW 17.2 % (11.5-14.5) H 10/30/17 11:30 Plt Count 150 K/uL (130-400) 10/30/17 11:30 MPV 8.8 fl (7.2-11.7) 10/30/17 11:30 Neut % (Auto) 65.3 % (50.0-75.0) 10/30/17 11:30 Lymph % (Auto) 24.6 % (20.0-40.0) 10/30/17 11:30 Dickenson % (Auto) 7.6 % (0.0-10.0) 10/30/17 11:30 Eos % (Auto) 1.7 % (0.0-4.0) 10/30/17 11:30 Baso % (Auto) 0.8 % (0.0-2.0) 10/30/17 11:30 Neut # 6.8 K/uL (1.8-7.0) 10/30/17 11:30 Lymph # 2.6 K/uL (1.0-4.3) 10/30/17 11:30 Dickenson # 0.8 K/uL (0.0-0.8) 10/30/17 11:30 Eos # 0.2 K/uL (0.0-0.7) 10/30/17 11:30 Baso # 0.1 K/uL (0.0-0.2) 10/30/17 11:30 PT 12.1 Seconds (9.8-13.1) 10/30/17 02:06 INR 1.1 (0.9-1.2) 10/30/17 02:06 APTT 30.1 Seconds (25.6-37.1) 10/30/17 02:06 Sodium 143 mmol/l (132-148) 10/30/17 02:06 Potassium 4.2 MMOL/L (3.6-5.0) 10/30/17 02:06 Chloride 104 mmol/L (98-107) 10/30/17 02:06 Carbon Dioxide 32 mmol/L (22-30) H 10/30/17 02:06 Anion Gap 11 (10-20) 10/30/17 02:06 BUN 23 mg/dl (7-17) H 10/30/17 02:06 Creatinine 1.7 mg/dl (0.7-1.2) H 10/30/17 02:06 Est GFR ( Amer) 36 10/30/17 02:06 Est GFR (Non-Af Amer) 30 10/30/17 02:06 Random Glucose 108 mg/dL (65-105) H 10/30/17 02:06 Calcium 9.4 mg/dL (8.4-10.2) 10/30/17 02:06 Troponin I 0.0140 ng/mL (0.00-0.120) 10/30/17 14:00 NT-Pro-B Natriuret Pep 322 pg/ml (0-900) 10/30/17 02:06 Influenza Typ A,B (EIA) Negative for flu a/b (NEGATIVE) 10/30/17 02:01 - Hospital Course Hospital Course: 67 years old female with hx of Asthma and COPD on home oxygen, CAD and CHF, comes with two days of worsening SOB with chest tightness Associated with severe diaphoresis. She has minimal cough and not expectorating. She has chills. No fever, nausea, vomits, diarrhea nor dysuria. Cardiac enzymes were negative x3, no significant EKG changes. Patient was evaluated by cardiology, no acute heart failure. Patient likely mild exacerbation COPD, on HOME O2, improved with nebulizer treatments and steroids and ZPak. HD stable, NAD, stable for discharge home with follow up PCP in one week. Discharge Exam - Head Exam Head Exam: ATRAUMATIC, NORMAL INSPECTION, NORMOCEPHALIC - Eye Exam Eye Exam: EOMI, Normal appearance - ENT Exam ENT Exam: Mucous Membranes Moist, Normal Oropharynx - Respiratory Exam Respiratory Exam: Clear to PA & Lateral, NORMAL BREATHING PATTERN - Cardiovascular Exam Cardiovascular Exam: RRR, +S1, +S2 - GI/Abdominal Exam GI & Abdominal Exam: Normal Bowel Sounds, Soft. absent: Mass, Tenderness - Extremities Exam Extremities exam: normal capillary refill, pedal pulses present - Back Exam Back exam: absent: CVA tenderness (L), CVA tenderness (R) - Neurological Exam Neurological exam: Alert, Oriented x3 - Psychiatric Exam Psychiatric exam: Normal Affect, Normal Mood - Skin Skin Exam: Dry, Normal Color, Warm Discharge Plan - Discharge Medications Prescriptions: Albuterol 0.083% [Albuterol 0.083% Inhal Kendra (2.5 mg/3 ml) UD] 2.5 mg IH Q6 #30 neb Febuxostat [Uloric] 40 mg PO DAILY #30 tablet Folic Acid 1 mg PO DAILY #30 tab Furosemide [Lasix] 40 mg PO DAILY #30 tab hydrALAZINE [Apresoline] 25 mg PO BID #60 tab Isosorbide Dinitrate [Isordil] 20 mg PO BID #60 tab Levothyroxine Sodium 25 mcg PO DAILY #30 tablet Metoprolol Succinate XL [Toprol XL] 50 mg PO DAILY #30 tab Pravastatin Sodium [Pravachol] 20 mg PO HS #30 tab Ranolazine [Ranexa] 500 mg PO BID #60 ter - Follow Up Plan Condition: GUARDED Disposition: HOME/ ROUTINE Additional Instructions: follow up PMD one week Referrals: Derrick Cole MD [Primary Care Provider] -
[2017-10-30 16:07] VITALS: BP 128/77; PULSE 54; RESP 16; TEMP 97.3; O2SAT 95
[2017-10-30] MEDS ORDERED: Pravastatin Sodium 20 MG TAB PO SCH (22:00)
--- NOTE | 2017-10-31 11:42 | CARD ---
APPROVED REPORT EKG Measurement Heart [id number] <Conclusion> Sinus bradycardia with 1st degree AV block Nonspecific T wave abnormality Abnormal ECG
--- NOTE | 2017-10-31 11:42 | CARD ---
APPROVED REPORT EKG Measurement Heart [id number] <Conclusion> Sinus rhythm with 1st degree AV block Otherwise normal ECG
== END 2017-10-30 18:52 | disposition home or self-care (01) ==
LOC: H.ER 00:49 → H.ERHOLD 02:34 → H.TEL 04:14
PROVIDERS: ADMIT Internal Medicine; ATTEND Internal Medicine
DX: R07.9 Chest pain, unspecified (principal); D72.829 Elevated white blood cell count, unspecified; J44.9 Chronic obstructive pulmonary disease, unspecified; J45.909 Unspecified asthma, uncomplicated; I25.10 Atherosclerotic heart disease of native coronary artery without angina pectoris; E03.9 Hypothyroidism, unspecified; E66.09 Other obesity due to excess calories; Z99.81 Dependence on supplemental oxygen; Z68.41 Body mass index [BMI] 40.0-44.9, adult; G47.33 Obstructive sleep apnea (adult) (pediatric); I13.0 Hypertensive heart and chronic kidney disease with heart failure and stage 1 through stage 4 chronic kidney disease, or unspecified chronic kidney disease; I50.9 Heart failure, unspecified; N18.9 Chronic kidney disease, unspecified; Z95.1 Presence of aortocoronary bypass graft; Z95.5 Presence of coronary angioplasty implant and graft; Z86.711 Personal history of pulmonary embolism; E78.00 Pure hypercholesterolemia, unspecified; Z86.718 Personal history of other venous thrombosis and embolism; M19.90 Unspecified osteoarthritis, unspecified site; M50.20 Other cervical disc displacement, unspecified cervical region; M51.26 Other intervertebral disc displacement, lumbar region
CPT/HCPCS: 71045; 80048; 83880; 84145; 84484; 85025; 85610; 85730; 87804; 93005; 94640; 96372; 96374; 96375; 96376; 99283; G0378; J1170; J1650; J1940; J2930

== ENCOUNTER 2017-11-12 00:02 | Inpatient (IN) | payer MEDICARE, MEDICAID ==
[2017-11-12 00:02] VITALS: BMI 43.4
--- NOTE | 2017-11-12 00:51 | ED PDOC ---
HPI: Chest Pain Time Seen by Provider: 11/12/17 00:10 Chief Complaint (Nursing): Chest Pain Chief Complaint (Provider): Chest Pain History Per: Patient History/Exam Limitations: no limitations Onset/Duration Of Symptoms: Hrs (x 2) Current Symptoms Are (Timing): Still Present Additional Complaint(s): 67 year old female with a history of CAD, CHF, HTN, COPD and chronic pain presents to the ED complaining of chest pain and right sided rib pain as well, onset about 2 hours ago. Patient reports the pain started while she was laying down and that she was sweating. She admits to taking two doses of Nitroglycerin , the first with no relief and the second dose with some relief. The pain is constant and non-extertional. Also reports some difficulty breathing before arrival, but no longer complains of any. Patient says she is complaint with medications. Denies leg swelling, fever, cough, wheezing, syncope, dizziness and palpitations. PMD: Rust Past Medical History Reviewed: Historical Data, Nursing Documentation, Vital Signs Vital Signs: Last Vital Signs Temp 98.3 F 11/12/17 00:18 Pulse 80 11/12/17 03:06 Resp 16 11/12/17 00:18 BP 105/50 L 11/12/17 00:18 Pulse Ox 96 11/12/17 03:06 - Medical History PMH: Anemia, Arthritis, Asthma, Back Problems (herniated discs (cervical, lumbar )), Bronchitis, CAD, Cardia Arrhythmia, CHF, COPD, Deep Vein Thrombosis, Fractures (left ankle), HTN, Hypercholesterolemia, Hypothyroidism, Malignancy ( ovarian), Mitral Valve Prolapse, Peripheral Edema, Pneumonia, Pulmonary Embolism , Chronic Kidney Disease Denies: Diabetes, HIV - Surgical History Surgical History: CABG (x 4), Coronary Stent, Endoscopy - Family History Family History: States: Unknown Family Hx - Social History Current smoker - smoking cessation education provided: Yes (Light Smoker < 10 a day) Alcohol: None Drugs: Denies - Immunization History Hx Pneumococcal Vaccination: Yes - Home Medications Home Medications: Ambulatory Orders Medication Instructions Recorded Aspirin [Aspirin EC] 81 mg PO DAILY #0 tablet. 06/08/16 Ergocalciferol (Vitamin D2) 50,000 unit PO QWK 11/30/16 [Vitamin D2] oxyCODONE/Acetaminophen [Percocet 1 tab PO Q6H PRN #5 tab 05/23/17 5/325 mg Tab] Albuterol 0.083% [Albuterol 0.083% 2.5 mg IH Q6 #30 neb 10/30/17 Inhal Kendra (2.5 mg/3 ml) UD] Azithromycin [Z-Al] 250 mg PO DAILY #6 tab 10/30/17 Febuxostat [Uloric] 40 mg PO DAILY #30 tablet 10/30/17 Folic Acid 1 mg PO DAILY #30 tab 10/30/17 Furosemide [Lasix] 40 mg PO DAILY #30 tab 10/30/17 Isosorbide Dinitrate [Isordil] 20 mg PO BID #60 tab 10/30/17 Levothyroxine Sodium 25 mcg PO DAILY #30 tablet 10/30/17 Metoprolol Succinate XL [Toprol XL] 50 mg PO DAILY #30 tab 10/30/17 Pravastatin Sodium [Pravachol] 20 mg PO HS #30 tab 10/30/17 Ranolazine [Ranexa] 500 mg PO BID #60 ter 10/30/17 hydrALAZINE [Apresoline] 25 mg PO BID #60 tab 10/30/17 - Allergies Allergies/Adverse Reactions: Allergies Allergy/AdvReac Type Severity Reaction Status Date / Time No Known Allergies Allergy Verified 10/30/17 01:08 ARMINDA Risk Score for UA/NSTEMI - ARMINDA Risk Score Age > 64: YES 3 or more CAD Risk Factors: YES Known CAD (Stenosis greater than 50%): NO Aspirin use in past 7 days: YES Severe Angina: YES EKG ST changes greater than 0.5mm: NO Positive Cardiac Marker: NO ARMINDA Score: 4 Risk %: 20% Wells Criteria for PE - Wells Criteria for Pulmonary Embolism Clinical Signs and Symptoms of DVT: No P.E is #1 Diagnosis, or Equally Likely: No Heart Rate >100: No Immobilization at least 3 days;Surgery previous 4 weeks: No Previous, objectively diagnosed PE or DVT: No Hemoptysis: No Malignancy w/treatment within 6 months, or palliative: No Total Score: 0 Review of Systems ROS Statement: Except As Marked, All Systems Reviewed And Found Negative Constitutional: Negative for: Fever, Other (syncope) Cardiovascular: Positive for: Chest Pain. Negative for: Palpitations Respiratory: Negative for: Cough Gastrointestinal: Positive for: Abdominal Pain (right sided rib pain) Musculoskeletal: Negative for: Other (leg swelling) Neurological: Negative for: Dizziness Physical Exam - Reviewed Nursing Documentation Reviewed: Yes Vital Signs Reviewed: Yes - Physical Exam Appears: Positive for: Non-toxic, No Acute Distress Head Exam: Positive for: ATRAUMATIC, NORMOCEPHALIC Skin: Positive for: Normal Color, Warm, Dry Eye Exam: Positive for: EOMI, Normal appearance, PERRL Neck: Positive for: Normal, Painless ROM, Supple Cardiovascular/Chest: Positive for: Regular Rate, Rhythm. Negative for: Murmur Respiratory: Positive for: Normal Breath Sounds. Negative for: Wheezing, Respiratory Distress Gastrointestinal/Abdominal: Positive for: Normal Exam, Soft. Negative for: Tenderness Back: Positive for: Normal Inspection. Negative for: L CVA Tenderness, R CVA Tenderness Extremity: Positive for: Normal ROM. Negative for: Deformity Neurologic/Psych: Positive for: Alert, Oriented. Negative for: Motor/Sensory Deficits - Laboratory Results Result Diagrams: 11/12/17 02:36 11/12/17 02:36 - ECG ECG: Positive for: Interpreted By Me, Viewed By Me ECG Rhythm: Positive for: Normal QRS, Normal ST Segment, Sinus Rhythm (normal). Negative for: ST/T Changes Rate: 80 O2 Sat by Pulse Oximetry: 96 (NC) Pulse Ox Interpretation: Normal - Radiology X-Ray: Interpreted by Me, Viewed By Me X-Ray Interpretation: No Acute Disease - Core Measure Core Measure Indicators: Chest Pain Medical Decision Making Medical Decision Making: Time: 00:44 Impression: chest pain Differential diagnoses include, but are not limited to: ACS, unstable angina, non STEMI and CHF exacerbation Initial Plan: --EKG --BNP --BMP --Troponin I --CBC with differentials --Chest x-ray --Aspirin 325 mg PO EKG --reveals normal sinus rhythm, normal QRS, no ST/T changes and a rate of 80. Chest x-ray --reviewed by me, reveals no acute findings. There is cardiomegaly presents s/p CABG. Scribe Attestation: Documented by Denae Wynn, acting as a scribe for Earl Goldman MD. Provider Scribe Attestation: All medical record entries made by the Scribe were at my direction and personally dictated by me. I have reviewed the chart and agree that the record accurately reflects my personal performance of the history, physical exam, medical decision making, and the department course for this patient. I have also personally directed, reviewed, and agree with the discharge instructions and disposition. Disposition - Clinical Impression Clinical Impression: Chest pain, CHF (congestive heart failure), Chronic kidney disease, stage III ( moderate) - Patient ED Disposition Is Patient to be Admitted: Yes Discussed With : Juju Conway Doctor Will See Patient In The: ED Counseled Patient/Family Regarding: Studies Performed, Diagnosis - Disposition Disposition Time: 03:04 Condition: FAIR Forms: yoone (Sammarinese) - Pt Status Changed To: Hospital Disposition Of: Observation - POA Present On Arrival: None
[2017-11-12] MEDS ORDERED: Oxycodone/Acetaminophen 5/325 mg Tab PO ONE (02:07)
[2017-11-12] MEDS ORDERED: Oxycodone/Acetaminophen 5/325 mg Tab ONE ×2 (02:10→12:10)
[2017-11-12 02:40] LABS: BASO # 0.1 K/uL (0.0-0.2); BASO % 0.6 % (0.0-2.0); EOS # 0.2 K/uL (0.0-0.7); EOS % 1.7 % (0.0-4.0); HEMOGLOBIN 13.4 g/dL (12.0-16.0); LYMPH % 21.1 % (20.0-40.0); MEAN CELL VOLUME 81.6 fl (81.0-99.0); MEAN CORPUSCULAR HEMOGLOBIN 25.6 pg (27.0-31.0); MEAN CORPUSCULAR HGB CONC 31.4 g/dL (33.0-37.0); MEAN PLATELET VOLUME 9.5 fl (7.2-11.7); MONO # 0.7 K/uL (0.0-0.8); MONO % 6.8 % (0.0-10.0); NEUT # 6.8 K/uL (1.8-7.0); NEUT % 69.8 % (50.0-75.0); NRBC % 0.3 % (0.0-0.0); RBC 5.21 Mil/uL (3.80-5.20); RED CELL DISTRIBUTION WIDTH 17.2 % (11.5-14.5); WHITE BLOOD COUNT 9.7 K/uL (4.8-10.8)
[2017-11-12 03:02] LABS: TROPONIN I 0.013 ng/mL (0.00-0.120)
[2017-11-12 03:03] LABS: CALCIUM 9.5 mg/dL (8.4-10.2)
[2017-11-12] MEDS ORDERED: Oxycodone/Acetaminophen 5/325 mg Tab PO PRN (04:01)
[2017-11-12] MEDS ORDERED: Ergocalciferol 50,000 Intl Units Cap PO SCH (04:15)
--- NOTE | 2017-11-12 04:30 | CP.PCM.HP ---
History of Present Illness - History of Present Illness History of Present Illness: 67 yr old F presents to ED with complaint of constant substernal chest pain and right rib pain x 2 hrs. PMHx includes CAD s/p triple bypass, HTN, COPD, hypothyroidism, chronic low back pain, Ovarian cancer, mitral valve prolapse and CKD Stage 3. Associated symptoms are SOB and sweating which resolved upon arrival to ED. Denies palpitations, syncope, weakness, dizziness, gait imbalance , fevers, cough or chills. She took 2 nitroglycerin tabs but only the second one provided relief. Chest pain is not exacerbated by anything. Patient reports this has occurred in the past. She uses O2 at home PRN. PMD: Geovanna Myles -last visit at [facility] was 11/07/17 Specialists: Dr. Ludwig, Dr. Gonzalez, Titus Epstein, Dr. 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 SocHx: current smoker (5 cig daily x 20 yrs) Medications: Isosorbide DInitrate 20mg PO BID, Furosemide 40mg PO QD, Metoprolol succinate 50mg PO QD, ASA 81 mg PO QD, Hydralazine 25mg PO BID, Pravastatin 20mg PO QHS, Uloric 40mg PO QD, Ranexater 500mg PO BID, Carey D 36293 IU Qweek, Folic acid 1mg PO QD, Ferrous sulfate 325mg PO BID, Albuterol HFA 2 puffs PRN bronchospasm, Levothyroxine 25mcg PO QD Allergies: NKDA ED course: vitals 105/50 mmHg, Pulse 77, Temp 98.3F, RR 16, O2 sat 96% on supplemental O2 2L via nasal cannula EKG: NSR, no ST-T changes CXR: no acute disease labs: proBNP 1350, troponin negative, CBC wnl, CMP: Bun/Cr 18/2.0 GFR 30 ml/min ED tx: ASA 325 mg PO once, Nitroglycerin 0.4 mg SL once, Percocet 1 tab once Present on Admission - Present on Admission Any Indicators Present on Admission: No History of DVT/PE: Yes History of Uncontrolled Diabetes: No Urinary Catheter: No Decubitus Ulcer Present: No History Surgical Site Infection Following: None Review of Systems - Constitutional Constitutional: absent: Chills, Fever, Headache - EENT Eyes: absent: Blurred Vision, Change in Vision Ears: absent: Disequilibrium, Dizziness Nose/Mouth/Throat: absent: Nasal Congestion, Nasal Discharge, Sore Throat - Cardiovascular Cardiovascular: Chest Pain, Dyspnea, Pedal Edema. absent: Palpitations - Respiratory Respiratory: absent: Cough, Hemoptysis - Gastrointestinal Gastrointestinal: absent: Abdominal Pain, Nausea, Vomiting - Genitourinary Genitourinary: absent: Difficulty Urinating, Dysuria - Musculoskeletal Musculoskeletal: Back Pain (chronic). absent: Muscle Weakness, Radiating Pain into Limb - Integumentary Integumentary: absent: Bleeding Lesions - Neurological Neurological: absent: Confusion, Disequilibrium, Numbness, Weakness - Psychiatric Psychiatric: absent: Anxiety, Homicidal Ideation, Suicidal Ideation - Endocrine Endocrine: absent: Fatigue - Hematologic/Lymphatic Hematologic: absent: Easy Bleeding, Easy Bruising Past Patient History - Infectious Disease Hx of Infectious Diseases: None - Past Medical History & Family History Past Medical History?: Yes - Past Social History Alcohol: None Drugs: Denies - CARDIAC Hx Cardia Arrhythmia: Yes Hx Congestive Heart Failure: Yes Hx Hypercholesterolemia: Yes Hx Hypertension: Yes Hx Mitral Valve Prolapse: Yes Hx Peripheral Edema: Yes - PULMONARY Hx Asthma: Yes Hx Bronchitis: Yes Hx Chronic Obstructive Pulmonary Disease (COPD): Yes Hx Pneumonia: Yes Hx Pulmonary Embolism: Yes - NEUROLOGICAL Hx Neurological Disorder: Yes Hx Vertigo: Yes - HEENT Hx HEENT Problems: No - RENAL Hx Chronic Kidney Disease: Yes - ENDOCRINE/METABOLIC Hx Hypothyroidism: Yes - HEMATOLOGICAL/ONCOLOGICAL Hx Anemia: Yes Hx Human Immunodeficiency Virus (HIV): No - INTEGUMENTARY Hx Dermatological Problems: No - MUSCULOSKELETAL/RHEUMATOLOGICAL Hx Arthritis: Yes Hx Fractures: Yes (left ankle) - GASTROINTESTINAL Hx Gastrointestinal Disorders: Yes Other/Comment: GI Bleed - GENITOURINARY/GYNECOLOGICAL Hx Genitourinary Disorders: Yes Hx Ovarian Cancer: Yes Other/Comment: hysterectomy - PSYCHIATRIC Hx Emotional Abuse: No Hx Physical Abuse: No Hx Substance Use: No - SURGICAL HISTORY Hx Coronary Artery Bypass Graft: Yes (x 4) Hx Coronary Stent: Yes - ANESTHESIA Hx Anesthesia: Yes Hx Anesthesia Reactions: No Hx Malignant Hyperthermia: No Meds Allergies/Adverse Reactions: Allergies Allergy/AdvReac Type Severity Reaction Status Date / Time No Known Allergies Allergy Verified 10/30/17 01:08 Physical Exam - Constitutional Appears: No Acute Distress (obese) - Head Exam Head Exam: ATRAUMATIC, NORMOCEPHALIC - Eye Exam Eye Exam: EOMI, PERRL (pinpoint pupils) - ENT Exam ENT Exam: Mucous Membranes Moist - Neck Exam Neck exam: Positive for: Full Rom. Negative for: Lymphadenopathy - Respiratory Exam Respiratory Exam: Clear to Auscultation Bilateral, Wheezes (mild), NORMAL BREATHING PATTERN (on supplemental O2). absent: Rhonchi - Cardiovascular Exam Cardiovascular Exam: REGULAR RHYTHM, +S1, +S2 - GI/Abdominal Exam GI & Abdominal Exam: Normal Bowel Sounds (obese), Soft - Extremities Exam Extremities exam: Positive for: full ROM, pedal edema (bilateral +1) - Neurological Exam Neurological exam: Alert, CN II-XII Intact, Oriented x3 - Psychiatric Exam Psychiatric exam: Normal Affect, Normal Mood - Skin Skin Exam: Dry (very), Intact, Normal Color, Warm Results - Vital Signs Recent Vital Signs: Last Vital Signs Temp 98.3 F 11/12/17 00:18 Pulse 80 11/12/17 03:07 Resp 16 11/12/17 00:18 BP 105/50 L 11/12/17 00:18 Pulse Ox 96 11/12/17 03:07 - Labs Result Diagrams: 11/12/17 02:36 11/12/17 02:36 Labs: Laboratory Results - last 24 hr 11/12/17 11/12/17 02:36 02:36 WBC 9.7 RBC 5.21 H Hgb 13.4 Hct 42.5 MCV 81.6 MCH 25.6 L MCHC 31.4 L RDW 17.2 H Plt Count 162 MPV 9.5 Neut % (Auto) 69.8 Lymph % (Auto) 21.1 Ross % (Auto) 6.8 Eos % (Auto) 1.7 Baso % (Auto) 0.6 Neut # (Auto) 6.8 Lymph # (Auto) 2.0 Ross # (Auto) 0.7 Eos # (Auto) 0.2 Baso # (Auto) 0.1 Sodium 142 Potassium 3.5 L Chloride 103 Carbon Dioxide 32 H Anion Gap 11 BUN 18 H Creatinine 2.0 H Est GFR ( Amer) 30 Est GFR (Non-Af Amer) 25 Random Glucose 110 H Calcium 9.5 Troponin I 0.0130 NT-Pro-B Natriuret Pep 1340 H Assessment & Plan - Assessment and Plan (Free Text) Assessment: 67 yr old F admitted for acute CHF unknown type and acute on chronic kidney disease stage 3B. 1. Acute CHF-unknown type -proBNP 1350, chronic recurrent LE swelling and SOB -admit to telemetry -cardiac monitoring -f/u echocardiogram -daily weight, I&O's -resume home medications: Isosorbide DInitrate 20mg PO BID, Furosemide 40mg PO QD, Metoprolol succinate 50mg PO QD, ASA 81 mg PO QD, Hydralazine 25mg PO BID, Pravastatin 20mg PO QHS -Cardiology on board: will follow recommendations 2. Acute on CKD stage 3B -Bun/Cr 18/2.0, GFR 30 -continue home medications: Uloric 40mg PO QD, Ranexater 500mg PO BID, Carey D 44842 IU Qweek, Folic acid 1mg PO QD, Ferrous sulfate 325mg PO BID 3. Hypertension -chronic, controlled -continue home medications as above 4. COPD -chronic, controlled -Albuterol HFA PRN 5. Hypothyroidism -chronic, controlled -continue home medication: Levothyroxine 25mcg PO QD 6. DVT prophylaxis -Lovenox 30 mg SC QD - Date & Time Date: 11/12/17 Time: 03:45
[2017-11-12] MEDS: Levothyroxine 25 MCG TAB PO SCH (07:18)
[2017-11-12] MEDS ORDERED: Metoprolol Succinate 50 mg XL Tab PO SCH (09:00)
[2017-11-12] MEDS ORDERED: Patient's Own Med (Ranolazine [Ranexa] 500 MG) PO SCH (09:00)
--- NOTE | 2017-11-12 09:04 | RAD ---
PROCEDURE: CHEST RADIOGRAPH, 1 VIEW HISTORY: chest pain COMPARISON: Comparison chest dated 11/12/2017 FINDINGS: LUNGS: There is localized tenting lateral aspect left hemidiaphragm possibly associate with some pleural thickening along the left lateral lung base and CP angle region. Suspect minor bibasilar atelectasis and or scarring PLEURA: No pneumothorax or pleural fluid seen. CARDIOVASCULAR: Sternotomy wires again noted. Heart remains enlarged. OSSEOUS STRUCTURES: No significant abnormalities. VISUALIZED UPPER ABDOMEN: Normal. OTHER FINDINGS: None. IMPRESSION: There is localized tenting lateral aspect left hemidiaphragm possibly associate with some pleural thickening along the left lateral lung base and CP angle region. Suspect minor bibasilar atelectasis and or scarring
[2017-11-12] MEDS: Enoxaparin 30 mg Syringe SC SCH (10:02)
--- NOTE | 2017-11-12 11:55 | CARD ---
APPROVED REPORT EXAM: Two-dimensional and M-mode echocardiogram with Doppler and color Doppler. Other Information Quality : AverageRhythm : NSR Technically limited study due to Poor Echo Window INDICATION Congestive Heart Failure Surgery/Intervention Status/Post Mitral Valve Replacement: Bioprosthetic 2D DIMENSIONS IVSd1.21 (0.7-1.1cm)LVDd4.39 (3.9-5.9cm) LVOT Diameter1.83 (1.8-2.4cm)PWd1.24 (0.7-1.1cm) IVSs1.69 (0.8-1.2cm)LVDs3.05 (2.5-4.0cm) FS (%) 30.6 %PWs1.53 (0.8-1.2cm) M-Mode DIMENSIONS Left Atrium (MM)4.44 (2.5-4.0cm)IVSd1.31 (0.7-1.1cm) Aortic Root2.88 (2.2-3.7cm)LVDd5.28 (4.0-5.6cm) Aortic Cusp Exc.1.91 (1.5-2.0cm)PWd0.94 (0.7-1.1cm) IVSs1.81 cmFS (%) 36 % LVDs3.41 (2.0-3.8cm)PWs2.00 cm Aortic Valve LVOT Peak Cyzzfuzi215.1cm/sLVOT VTI23.91cm Mitral Valve MV E Wkenteei722.4cm/sMV DECEL [id number] A Jvdnbzcs320.5cm/s MV MCK478ppV/A ratio0.8MVA (PHT)1.65cm2 TDI E/Lateral E'0.0E/Medial E'0.0 Pulmonary Valve PV Peak Qtvnqcxb182.5cm/s LEFT VENTRICLE The left ventricle is normal size. There is normal left ventricular wall thickness. The left ventricular function is normal. The left ventricular ejection fraction is within the normal range. The Ejection Fraction is 50-55%. There is normal LV segmental wall motion. Transmitral Doppler flow pattern is Grade I-abnormal relaxation pattern. RIGHT VENTRICLE The right ventricle is normal size. The right ventricular systolic function is normal. ATRIA The left atrium size is normal. The right atrium size is normal. AORTIC VALVE The aortic valve is normal in structure. No aortic regurgitation is present. There is no aortic valvular stenosis. MITRAL VALVE The mitral valve is normal in structure. There is no mitral valve stenosis. There is no mitral valve regurgitation noted. TRICUSPID VALVE The tricuspid valve is normal in structure. There is no tricuspid valve regurgitation noted. PULMONIC VALVE The pulmonary valve is normal in structure. There is no pulmonic valvular regurgitation. GREAT VESSELS The aortic root is normal in size. The IVC is normal in size and collapses >50% with inspiration. PERICARDIAL EFFUSION The pericardium appears normal. <Conclusion> The left ventricle is normal size. The left ventricular function is normal. The left ventricular ejection fraction is within the normal range. The Ejection Fraction is 50-55%. Transmitral Doppler flow pattern is Grade I-abnormal relaxation pattern.
[2017-11-12] MEDS: Oxycodone/Acetaminophen 5/325 mg Tab PO PRN (12:12)
--- NOTE | 2017-11-12 12:21 | CARD ---
APPROVED REPORT EKG Measurement Heart [id number] <Conclusion> Normal sinus rhythm Possible Left atrial enlargement Nonspecific T wave abnormality Abnormal ECG
[2017-11-12] MEDS ORDERED: Albuterol 0.083% Inhal Sol (2.5 mg/3 mL) UD ONE (21:11)
[2017-11-12] MEDS: Albuterol 0.083% Inhal Sol (2.5 mg/3 mL) UD IH SCH (21:12)
[2017-11-12 21:57] LABS: BARBITURATES, UR NEGATIVE (NEGATIVE); BENZODIAZEPINES, UR NEGATIVE (NEGATIVE); PHENCYCLIDINE, UR NEGATIVE (NEGATIVE)
[2017-11-12 22:03] LABS: OPIATES, UR POSITIVE (NEGATIVE)
[2017-11-12 22:25] LABS: SQUAMOUS EPITHIAL 1 /hpf (0-5); URINE BACTERIA RARE (<OCC); URINE BILIRUBIN NEGATIVE (NEGATIVE); URINE BLOOD NEGATIVE (NEGATIVE); URINE CLARITY SLIGHTY-CLOUDY (Clear); URINE COLOR YELLOW (YELLOW); URINE GLUCOSE (UA) NEG (Normal); URINE LEUKOCYTE ESTERASE NEG Leu/uL (Negative); URINE NITRATE NEGATIVE (NEGATIVE); URINE PROTEIN NEGATIVE (NEGATIVE); URINE UROBILINOGEN 0.2-1.0 mg/dL (0.2-1.0)
[2017-11-12] MEDS: Pravastatin Sodium 20 MG TAB PO SCH (23:11)
[2017-11-13] MEDS: Albuterol 0.083% Inhal Sol (2.5 mg/3 mL) UD IH SCH ×4 (01:04→19:46)
[2017-11-13] MEDS: Levothyroxine 25 MCG TAB PO SCH (05:46)
[2017-11-13] MEDS: Oxycodone/Acetaminophen 5/325 mg Tab PO PRN ×2 (08:23→21:52)
--- NOTE | 2017-11-13 08:45 | CARD ---
APPROVED REPORT EKG Measurement Heart [id number] <Conclusion> Normal sinus rhythm Possible Left atrial enlargement Nonspecific T wave abnormality Prolonged QT Abnormal ECG
--- NOTE | 2017-11-13 09:37 | CP.PCM.PN ---
Subjective - Date & Time of Evaluation Date of Evaluation: 11/13/17 Time of Evaluation: 08:20 - Subjective Subjective: Pt seen and examined at bedside. She denies overnight events. reports improvement of symptoms. Denies cp/significant sob/n/v/diarrhea or constipation. Objective - Vital Signs/Intake and Output Vital Signs (last 24 hours): Temp Pulse Resp BP Pulse Ox 97.8 F 72 18 117/79 97 11/13/17 08:50 11/13/17 08:50 11/13/17 08:50 11/13/17 08:50 11/13/17 08:50 - Medications Medications: Current Medications Albuterol Sulfate (Albuterol 0.083% Inhal Kendra (2.5 Mg/3 Ml) Ud) 2.5 mg IH RQ6 [facility] Last Admin: 11/13/17 07:55 Dose: 2.5 mg Aspirin (Ecotrin) 81 mg PO DAILY [facility] Enoxaparin Sodium (Lovenox) 30 mg SC DAILY [facility] PRN Reason: Protocol Last Admin: 11/12/17 10:02 Dose: 30 mg Ergocalciferol (Drisdol 50,000 Intl Units Cap) 1 cap PO QWK [facility] Folic Acid (Folic Acid) 1 mg PO DAILY [facility] Furosemide (Lasix) 40 mg PO DAILY [facility] Last Admin: 11/12/17 10:24 Dose: Not Given Home Med (Febuxostat [Uloric]) 40 mg PO DAILY [facility] Home Med (Ranolazine [Ranexa]) 500 mg PO BID [facility] Hydralazine HCl (Apresoline) 25 mg PO BID [facility] Isosorbide Dinitrate (Isordil) 20 mg PO BID [facility] Last Admin: 11/12/17 10:23 Dose: Not Given Levothyroxine Sodium (Synthroid) 25 mcg PO DAILY@0630 [facility] Last Admin: 11/13/17 05:46 Dose: 25 mcg Metoprolol Succinate (Toprol Xl) 50 mg PO DAILY [facility] Last Admin: 11/12/17 10:24 Dose: Not Given Oxycodone/Acetaminophen (Percocet 5/325 Mg Tab) 1 tab PO Q6H PRN PRN Reason: Pain, moderate (4-7) Stop: 11/15/17 04:06 Last Admin: 11/13/17 08:23 Dose: 1 tab Pravastatin Sodium (Pravachol) 20 mg PO HS [facility] Last Admin: 11/12/17 23:11 Dose: 20 mg - Labs Labs: 11/12/17 02:36 11/12/17 02:36 - Constitutional Appears: Well, No Acute Distress - Eye Exam Eye Exam: EOMI, Normal appearance - Neck Exam Neck Exam: Full ROM - Respiratory Exam Respiratory Exam: Clear to Ausculation Bilateral, NORMAL BREATHING PATTERN. absent: Wheezes - Cardiovascular Exam Cardiovascular Exam: +S1, +S2 - GI/Abdominal Exam GI & Abdominal Exam: Soft, Normal Bowel Sounds - Neurological Exam Neurological Exam: Alert, Awake, CN II-XII Intact, Oriented x3 - Psychiatric Exam Psychiatric exam: Normal Affect, Normal Mood Assessment and Plan - Assessment and Plan (Free Text) Plan: 67 yr old F admitted for acute CHF unknown type and acute on chronic kidney disease stage 3B. 1. Hypotension - History of hypertension. - All antihypertensives held. - Unclear etiology - Cardiology consulted for medication evaluation: Called Dr. Ludwig and wasnt able to report 2/2 to illness. 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 2. Acute CHF-unknown type -proBNP 1350, chronic recurrent LE swelling and SOB -admit to telemetry -f/u echocardiogram: EF 50-55 % -daily weight, I&O's -resume home medications: Isosorbide DInitrate 20mg PO BID, Furosemide 40mg PO QD, Metoprolol succinate 50mg PO QD, ASA 81 mg PO QD, Hydralazine 25mg PO BID, Pravastatin 20mg PO QHS -Cardiology on board: will follow recommendations from Dr. Ron 3. Acute on CKD stage 3B -Bun/Cr 18/2.0, GFR 30 -continue home medications: Uloric 40mg PO QD, Ranexater 500mg PO BID, Carey D 18804 IU Qweek, Folic acid 1mg PO QD, Ferrous sulfate 325mg PO BID -UA hyaline casts 4. COPD -chronic, controlled -Albuterol HFA PRN 5. Hypothyroidism -chronic, controlled -continue home medication: Levothyroxine 25mcg PO QD 6. DVT prophylaxis -Lovenox 30 mg SC QD
[2017-11-13] MEDS ORDERED: Metoprolol Succinate 25 mg XL Tab PO SCH (11:55)
[2017-11-13] MEDS: Enoxaparin 30 mg Syringe SC SCH (12:19)
[2017-11-13 13:27] LABS: HEMOGLOBIN 14.2 g/dL (12.0-16.0); MEAN CELL VOLUME 81.5 fl (81.0-99.0); MEAN CORPUSCULAR HEMOGLOBIN 26.2 pg (27.0-31.0); MEAN CORPUSCULAR HGB CONC 32.1 g/dL (33.0-37.0); RBC 5.41 Mil/uL (3.80-5.20); RED CELL DISTRIBUTION WIDTH 17.1 % (11.5-14.5); WHITE BLOOD COUNT 9.3 K/uL (4.8-10.8)
[2017-11-13 13:52] LABS: CALCIUM 9.5 mg/dL (8.4-10.2)
--- NOTE | 2017-11-13 17:27 | CP.PCM.CON ---
History of Present Illness - History of Present Illness History of Present Illness: 67 yr old F presents to ED with complaint of constant substernal chest pain and right rib pain x 2 hrs. PMHx includes CAD s/p triple bypass, HTN, COPD, hypothyroidism, chronic low back pain, Ovarian cancer, mitral valve prolapse and CKD Stage 3. Associated symptoms are SOB and sweating which resolved upon arrival to ED. Denies palpitations, syncope, weakness, dizziness, gait imbalance, fevers, cough or chills. She took 2 nitroglycerin tabs but only the second one provided relief. Chest pain is not exacerbated by anything. Patient reports this has occurred in the past. She uses O2 at home PRN. Has not had any pain while in [facility] EKG: NSR Echo: Good LV function EF: 50 - 55% Troponin: neg BNP: 1340 PMD: Geovanna Myles -last visit at [facility] was 11/07/17 Specialists: Dr. Ludwig, Dr. Lisa Dr, Krish, Dr. Black PMHx: CAD s/p triple bypass, HTN, COPD, hypothyroidism, chronic low back pain, Ovarian cancer, mitral valve prolapse CKD Stage 3 SurgHx: triple bypass 03/2012, coronary stent and hysterectomy Past Patient History - Infectious Disease Hx of Infectious Diseases: None - Past Medical History & Family History Past Medical History?: Yes - Past Social History Smoking Status: Light Smoker < 10 Cigarettes Daily - CARDIAC Hx Cardia Arrhythmia: Yes Hx Congestive Heart Failure: Yes Hx Hypercholesterolemia: Yes Hx Hypertension: Yes Hx Mitral Valve Prolapse: Yes Hx Peripheral Edema: Yes - PULMONARY Hx Asthma: Yes Hx Bronchitis: Yes Hx Chronic Obstructive Pulmonary Disease (COPD): Yes Hx Pneumonia: Yes Hx Pulmonary Embolism: Yes - NEUROLOGICAL Hx Neurological Disorder: Yes Hx Vertigo: Yes - HEENT Hx HEENT Problems: No - RENAL Hx Chronic Kidney Disease: Yes (stage 3) - ENDOCRINE/METABOLIC Hx Hypothyroidism: Yes - HEMATOLOGICAL/ONCOLOGICAL Hx AIDS: No Hx Anemia: Yes Hx Blood Transfusions: Yes Hx Blood Transfusion Reaction: No Hx Human Immunodeficiency Virus (HIV): No - INTEGUMENTARY Hx Dermatological Problems: No - MUSCULOSKELETAL/RHEUMATOLOGICAL Hx Arthritis: Yes Hx Falls: No Hx Fractures: Yes (left ankle) - GASTROINTESTINAL Hx Gastrointestinal Disorders: Yes Other/Comment: GI Bleed - GENITOURINARY/GYNECOLOGICAL Hx Genitourinary Disorders: Yes Hx Ovarian Cancer: Yes Other/Comment: hysterectomy - PSYCHIATRIC Hx Emotional Abuse: No Hx Physical Abuse: No Hx Substance Use: No - SURGICAL HISTORY Hx Coronary Artery Bypass Graft: Yes (x 4) Hx Coronary Stent: Yes Hx Hysterectomy: Yes - ANESTHESIA Hx Anesthesia: Yes Hx Anesthesia Reactions: No Hx Malignant Hyperthermia: No Meds Allergies/Adverse Reactions: Allergies Allergy/AdvReac Type Severity Reaction Status Date / Time No Known Allergies Allergy Verified 10/30/17 01:08 - Medications Medications: Current Medications Albuterol Sulfate (Albuterol 0.083% Inhal Kendra (2.5 Mg/3 Ml) Ud) 2.5 mg IH RQ6 [facility] Last Admin: 11/13/17 14:06 Dose: 2.5 mg Aspirin (Ecotrin) 81 mg PO DAILY [facility] Last Admin: 11/13/17 12:18 Dose: 81 mg Enoxaparin Sodium (Lovenox) 30 mg SC DAILY [facility] PRN Reason: Protocol Last Admin: 11/13/17 12:19 Dose: 30 mg Ergocalciferol (Drisdol 50,000 Intl Units Cap) 1 cap PO QWK [facility] Folic Acid (Folic Acid) 1 mg PO DAILY [facility] Last Admin: 11/13/17 12:18 Dose: 1 mg Furosemide (Lasix) 20 mg PO DAILY [facility] Last Admin: 11/13/17 14:47 Dose: Not Given Home Med (Febuxostat [Uloric]) 40 mg PO DAILY [facility] Home Med (Ranolazine [Ranexa]) 500 mg PO BID [facility] Hydralazine HCl (Apresoline) 25 mg PO BID [facility] Last Admin: 11/13/17 12:17 Dose: 25 mg Isosorbide Dinitrate (Isordil) 20 mg PO BID [facility] Last Admin: 11/13/17 12:19 Dose: 20 mg Levothyroxine Sodium (Synthroid) 25 mcg PO DAILY@0630 [facility] Last Admin: 11/13/17 05:46 Dose: 25 mcg Metoprolol Succinate (Toprol Xl) 25 mg PO DAILY [facility] Oxycodone/Acetaminophen (Percocet 5/325 Mg Tab) 1 tab PO Q6H PRN PRN Reason: Pain, moderate (4-7) Stop: 11/15/17 04:06 Last Admin: 11/13/17 08:23 Dose: 1 tab Pravastatin Sodium (Pravachol) 20 mg PO HS [facility] Last Admin: 11/12/17 23:11 Dose: 20 mg Results - Vital Signs Recent Vital Signs: Last Vital Signs Temp 97.5 F L 11/13/17 16:16 Pulse 73 11/13/17 16:16 Resp 20 11/13/17 16:16 BP 98/60 L 11/13/17 16:16 Pulse Ox 95 11/13/17 16:16 - Labs Result Diagrams: 11/13/17 12:15 11/13/17 12:15 Labs: Laboratory Results - last 24 hr 11/12/17 11/12/17 11/12/17 20:00 21:00 21:27 WBC RBC Hgb Hct MCV MCH MCHC RDW Plt Count Sodium Potassium Chloride Carbon Dioxide Anion Gap BUN Creatinine Est GFR ( Amer) Est GFR (Non-Af Amer) Random Glucose Calcium Troponin I < 0.0120 NT-Pro-B Natriuret Pep Urine Color Yellow Urine Clarity Slighty-cloudy Urine pH 6.0 Ur Specific [place] 1.012 Urine Protein Negative Urine Glucose (UA) Neg Urine Ketones Negative Urine Blood Negative Urine Nitrate Negative Urine Bilirubin Negative Urine Urobilinogen 0.2-1.0 Ur Leukocyte Esterase Neg Urine RBC (Auto) 1 Urine Microscopic WBC 3 Ur Squamous Epith Cells 1 Urine Bacteria Rare Hyaline Casts 3-5 H Urine Opiates Screen Positive H Urine Methadone Screen Negative Ur Barbiturates Screen Negative Ur Phencyclidine Scrn Negative Ur Amphetamines Screen Negative U Benzodiazepines Scrn Negative U Oth Cocaine Metabols Negative U Cannabinoids Screen Negative 11/13/17 11/13/17 12:15 12:15 WBC 9.3 RBC 5.41 H Hgb 14.2 Hct 44.1 MCV 81.5 MCH 26.2 L MCHC 32.1 L RDW 17.1 H Plt Count 167 Sodium 144 Potassium 4.5 Chloride 103 Carbon Dioxide 33 H Anion Gap 13 BUN 19 H Creatinine 1.2 Est GFR ( Amer) 54 Est GFR (Non-Af Amer) 45 Random Glucose 145 H Calcium 9.5 Troponin I NT-Pro-B Natriuret Pep 225 Urine Color Urine Clarity Urine pH Ur Specific [place] Urine Protein Urine Glucose (UA) Urine Ketones Urine Blood Urine Nitrate Urine Bilirubin Urine Urobilinogen Ur Leukocyte Esterase Urine RBC (Auto) Urine Microscopic WBC Ur Squamous Epith Cells Urine Bacteria Hyaline Casts Urine Opiates Screen Urine Methadone Screen Ur Barbiturates Screen Ur Phencyclidine Scrn Ur Amphetamines Screen U Benzodiazepines Scrn U Oth Cocaine Metabols U Cannabinoids Screen Assessment & Plan (1) CHF (congestive heart failure) Assessment and Plan: acute on chronic Left Systolic CHF Status: Chronic Priority: High (2) Chronic kidney disease, stage III (moderate) Status: Chronic (3) Atypical chest pain Assessment and Plan: Chest pain has resolved Status: Acute Priority: High
--- NOTE | 2017-11-13 17:42 | CP.PCM.CON ---
Past Patient History - Infectious Disease Hx of Infectious Diseases: None - Past Medical History & Family History Past Medical History?: Yes - Past Social History Smoking Status: Light Smoker < 10 Cigarettes Daily - CARDIAC Hx Cardia Arrhythmia: Yes Hx Congestive Heart Failure: Yes Hx Hypercholesterolemia: Yes Hx Hypertension: Yes Hx Mitral Valve Prolapse: Yes Hx Peripheral Edema: Yes - PULMONARY Hx Asthma: Yes Hx Bronchitis: Yes Hx Chronic Obstructive Pulmonary Disease (COPD): Yes Hx Pneumonia: Yes Hx Pulmonary Embolism: Yes - NEUROLOGICAL Hx Neurological Disorder: Yes Hx Vertigo: Yes - HEENT Hx HEENT Problems: No - RENAL Hx Chronic Kidney Disease: Yes (stage 3) - ENDOCRINE/METABOLIC Hx Hypothyroidism: Yes - HEMATOLOGICAL/ONCOLOGICAL Hx AIDS: No Hx Anemia: Yes Hx Blood Transfusions: Yes Hx Blood Transfusion Reaction: No Hx Human Immunodeficiency Virus (HIV): No - INTEGUMENTARY Hx Dermatological Problems: No - MUSCULOSKELETAL/RHEUMATOLOGICAL Hx Arthritis: Yes Hx Falls: No Hx Fractures: Yes (left ankle) - GASTROINTESTINAL Hx Gastrointestinal Disorders: Yes Other/Comment: GI Bleed - GENITOURINARY/GYNECOLOGICAL Hx Genitourinary Disorders: Yes Hx Ovarian Cancer: Yes Other/Comment: hysterectomy - PSYCHIATRIC Hx Emotional Abuse: No Hx Physical Abuse: No Hx Substance Use: No - SURGICAL HISTORY Hx Coronary Artery Bypass Graft: Yes (x 4) Hx Coronary Stent: Yes Hx Hysterectomy: Yes - ANESTHESIA Hx Anesthesia: Yes Hx Anesthesia Reactions: No Hx Malignant Hyperthermia: No Meds Allergies/Adverse Reactions: Allergies Allergy/AdvReac Type Severity Reaction Status Date / Time No Known Allergies Allergy Verified 10/30/17 01:08 - Medications Medications: Current Medications Albuterol Sulfate (Albuterol 0.083% Inhal Kendra (2.5 Mg/3 Ml) Ud) 2.5 mg RQ6 [facility] Last Admin: 11/13/17 14:06 Dose: 2.5 mg Aspirin (Ecotrin) 81 mg PO DAILY [facility] Last Admin: 11/13/17 12:18 Dose: 81 mg Enoxaparin Sodium (Lovenox) 30 mg SC DAILY [facility] PRN Reason: Protocol Last Admin: 11/13/17 12:19 Dose: 30 mg Ergocalciferol (Drisdol 50,000 Intl Units Cap) 1 cap PO QWK [facility] Folic Acid (Folic Acid) 1 mg PO DAILY [facility] Last Admin: 11/13/17 12:18 Dose: 1 mg Furosemide (Lasix) 20 mg PO DAILY [facility] Last Admin: 11/13/17 14:47 Dose: Not Given Home Med (Febuxostat [Uloric]) 40 mg PO DAILY [facility] Home Med (Ranolazine [Ranexa]) 500 mg PO BID [facility] Hydralazine HCl (Apresoline) 25 mg PO BID [facility] Last Admin: 11/13/17 17:26 Dose: Not Given Isosorbide Dinitrate (Isordil) 20 mg PO BID [facility] Last Admin: 11/13/17 17:27 Dose: Not Given Levothyroxine Sodium (Synthroid) 25 mcg PO DAILY@0630 [facility] Last Admin: 11/13/17 05:46 Dose: 25 mcg Metoprolol Succinate (Toprol Xl) 25 mg PO DAILY [facility] Oxycodone/Acetaminophen (Percocet 5/325 Mg Tab) 1 tab PO Q6H PRN PRN Reason: Pain, moderate (4-7) Stop: 11/15/17 04:06 Last Admin: 11/13/17 08:23 Dose: 1 tab Pravastatin Sodium (Pravachol) 20 mg PO [facility] Last Admin: 11/12/17 23:11 Dose: 20 mg Results - Vital Signs Recent Vital Signs: Last Vital Signs Temp 97.5 F L 11/13/17 16:16 Pulse 73 11/13/17 16:16 Resp 20 11/13/17 16:16 BP 98/60 L 11/13/17 17:26 Pulse Ox 95 11/13/17 16:16 - Labs Result Diagrams: 11/13/17 12:15 11/13/17 12:15 Labs: Laboratory Results - last 24 hr 11/12/17 11/12/17 11/12/17 20:00 21:00 21:27 WBC RBC Hgb Hct MCV MCH MCHC RDW Plt Count Sodium Potassium Chloride Carbon Dioxide Anion Gap BUN Creatinine Est GFR ( Amer) Est GFR (Non-Af Amer) Random Glucose Calcium Troponin I < 0.0120 NT-Pro-B Natriuret Pep Urine Color Yellow Urine Clarity Slighty-cloudy Urine pH 6.0 Ur Specific [place] 1.012 Urine Protein Negative Urine Glucose (UA) Neg Urine Ketones Negative Urine Blood Negative Urine Nitrate Negative Urine Bilirubin Negative Urine Urobilinogen 0.2-1.0 Ur Leukocyte Esterase Neg Urine RBC (Auto) 1 Urine Microscopic WBC 3 Ur Squamous Epith Cells 1 Urine Bacteria Rare Hyaline Casts 3-5 H Urine Opiates Screen Positive H Urine Methadone Screen Negative Ur Barbiturates Screen Negative Ur Phencyclidine Scrn Negative Ur Amphetamines Screen Negative U Benzodiazepines Scrn Negative U Oth Cocaine Metabols Negative U Cannabinoids Screen Negative 11/13/17 11/13/17 12:15 12:15 WBC 9.3 RBC 5.41 H Hgb 14.2 Hct 44.1 MCV 81.5 MCH 26.2 L MCHC 32.1 L RDW 17.1 H Plt Count 167 Sodium 144 Potassium 4.5 Chloride 103 Carbon Dioxide 33 H Anion Gap 13 BUN 19 H Creatinine 1.2 Est GFR ( Amer) 54 Est GFR (Non-Af Amer) 45 Random Glucose 145 H Calcium 9.5 Troponin I NT-Pro-B Natriuret Pep 225 Urine Color Urine Clarity Urine pH Ur Specific [place] Urine Protein Urine Glucose (UA) Urine Ketones Urine Blood Urine Nitrate Urine Bilirubin Urine Urobilinogen Ur Leukocyte Esterase Urine RBC (Auto) Urine Microscopic WBC Ur Squamous Epith Cells Urine Bacteria Hyaline Casts Urine Opiates Screen Urine Methadone Screen Ur Barbiturates Screen Ur Phencyclidine Scrn Ur Amphetamines Screen U Benzodiazepines Scrn U Oth Cocaine Metabols U Cannabinoids Screen
[2017-11-13 19:33] VITALS: RESP 18
[2017-11-13] MEDS: Pravastatin Sodium 20 MG TAB PO SCH (21:52)
[2017-11-14] MEDS: Albuterol 0.083% Inhal Sol (2.5 mg/3 mL) UD IH SCH ×3 (01:01→13:25)
[2017-11-14] MEDS: Levothyroxine 25 MCG TAB PO SCH (05:43)
[2017-11-14] MEDS ORDERED: Metoprolol Succinate 25 mg XL Tab PO SCH (06:46)
[2017-11-14 06:48] LABS: CALCIUM 8.9 mg/dL (8.4-10.2)
[2017-11-14 07:04] LABS: FREE T4 0.93 ng/dL (0.78-2.19)
[2017-11-14 07:18] LABS: T3 0.96 nmol/L (1.49-2.60)
--- NOTE | 2017-11-14 07:51 | CP.PCM.PN ---
Subjective - Date & Time of Evaluation Date of Evaluation: 11/14/17 Time of Evaluation: 07:20 Objective - Vital Signs/Intake and Output Vital Signs (last 24 hours): Temp Pulse Resp BP Pulse Ox 97.9 F 72 18 102/66 95 11/14/17 04:50 11/14/17 04:50 11/14/17 04:50 11/14/17 04:50 11/14/17 04:50 - Medications Medications: Current Medications Albuterol Sulfate (Albuterol 0.083% Inhal Kendra (2.5 Mg/3 Ml) Ud) 2.5 mg IH RQ6 [facility] Last Admin: 11/14/17 01:01 Dose: 2.5 mg Aspirin (Ecotrin) 81 mg PO DAILY [facility] Last Admin: 11/13/17 12:18 Dose: 81 mg Enoxaparin Sodium (Lovenox) 30 mg SC DAILY [facility] PRN Reason: Protocol Last Admin: 11/13/17 12:19 Dose: 30 mg Ergocalciferol (Drisdol 50,000 Intl Units Cap) 1 cap PO QWK [facility] Folic Acid (Folic Acid) 1 mg PO DAILY [facility] Last Admin: 11/13/17 12:18 Dose: 1 mg Furosemide (Lasix) 20 mg PO DAILY [facility] Home Med (Febuxostat [Uloric]) 40 mg PO DAILY [facility] Home Med (Ranolazine [Ranexa]) 500 mg PO BID [facility] Hydralazine HCl (Apresoline) 25 mg PO BID [facility] Isosorbide Dinitrate (Isordil) 20 mg PO BID [facility] Levothyroxine Sodium (Synthroid) 25 mcg PO DAILY@0630 [facility] Last Admin: 11/14/17 05:43 Dose: 25 mcg Metoprolol Succinate (Toprol Xl) 25 mg PO DAILY [facility] Oxycodone/Acetaminophen (Percocet 5/325 Mg Tab) 1 tab PO Q6H PRN PRN Reason: Pain, moderate (4-7) Stop: 11/15/17 04:06 Last Admin: 11/13/17 21:52 Dose: 1 tab Pravastatin Sodium (Pravachol) 20 mg PO HS [facility] Last Admin: 11/13/17 21:52 Dose: 20 mg - Labs Labs: 11/13/17 12:15 11/14/17 05:30 Assessment and Plan - Assessment and Plan (Free Text) Plan: 67 yr old F admitted for acute CHF unknown type and acute on chronic kidney disease stage 3B. 1. Hypotension - History of hypertension. - All antihypertensives held. - Unclear etiology - Cardiology consulted for medication evaluation: Called Dr. Ludwig and wasnt able to report 2/2 to illness. 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 - Appropriate bp: 90s/60s 2. Acute CHF-Diastolic heart failure -proBNP: 225; 11/12 1350, chronic recurrent LE swelling and SOB -admit to telemetry -f/u echocardiogram: EF 50-55 % -daily weight, I&O's -resume home medications: Furosemide 40mg PO QD, Metoprolol succinate 50mg PO QD , ASA 81 mg PO QD, Hydralazine 25mg PO BID, Pravastatin 20mg PO QHS -Cardiology on board: will follow recommendations from Dr. Ron and Dr. Ludwig -Discontinue Isosorbide -PFTs ordered 3. Acute on CKD stage 3B -Bun/Cr 18/2.0, GFR 30 -continue home medications: Uloric 40mg PO QD, Ranexater 500mg PO BID, Carey D 39650 IU Qweek, Folic acid 1mg PO QD, Ferrous sulfate 325mg PO BID -UA hyaline casts 4. COPD -chronic, controlled -Albuterol HFA PRN -PFT ordered 5. Hypothyroidism -chronic, controlled -continue home medication: Levothyroxine 25mcg PO QD 6. DVT prophylaxis -Lovenox 30 mg SC QD
[2017-11-14] MEDS: Enoxaparin 30 mg Syringe SC SCH (09:00)
--- NOTE | 2017-11-14 09:47 | PQF GENQUE ---
Dr. Negron, 2 queries as follows: 1. Agree with the BM: 45.1 as is listed in the EMR: if yes please add the BMI to your next progress note 2. If in agreement please provide a nutritional diagnosis, if known, related to the BMI:45.1 ; i.e. Morbid Obesity etc. OR: Disagree OR: Unable to determine OR: Other explanation of clinical finding EMR: BMI:45.1 5ft 1in This form is a permanent part of the medical record Clarification of your documentation is requested to better reflect the severity of illness and intensity of treatment of your patient. Indicators present [] Specify: [] [] Specify: [] [] Specify: [] [] Specify: [] Location in the medical record that reflects the above clinical findings: [] Treatment Provided: [] PHYSICIAN'S RESPONSE Based on your medical judgment of the clinical indicators outlined above please clarify the following: [] Practitioner response [] If unable to determine, please check the box, sign and date. Present On Admission (POA) Indicator: [] Present at the time of admission [] Not present at the time of admission [] Clinically Undetermined In responding to this query, please exercise your independent professional judgment. The fact that a question is asked does not imply that any particular answer is desired or expected. Thank you for your clarification on this documentation. If you have any questions please call. * Thank you, Penny Perry RN ext. #[phone] MTDD
--- NOTE | 2017-11-14 10:01 | CP.PCM.DIS ---
Provider - Provider Date of Admission: 11/13/17 11:56 Attending physician: Nehal Negron MD Time Spent in preparation of Discharge (in minutes): 25 Hospital Course - Lab Results Lab Results: Most Recent Lab Values WBC 9.3 K/uL (4.8-10.8) 11/13/17 12:15 RBC 5.41 Mil/uL (3.80-5.20) H 11/13/17 12:15 Hgb 14.2 g/dL (12.0-16.0) 11/13/17 12:15 Hct 44.1 % (34.0-47.0) 11/13/17 12:15 MCV 81.5 fl (81.0-99.0) 11/13/17 12:15 MCH 26.2 pg (27.0-31.0) L 11/13/17 12:15 MCHC 32.1 g/dL (33.0-37.0) L 11/13/17 12:15 RDW 17.1 % (11.5-14.5) H 11/13/17 12:15 Plt Count 167 K/uL (130-400) 11/13/17 12:15 MPV 9.5 fl (7.2-11.7) 11/12/17 02:36 Neut % (Auto) 69.8 % (50.0-75.0) 11/12/17 02:36 Lymph % (Auto) 21.1 % (20.0-40.0) 11/12/17 02:36 [place] % (Auto) 6.8 % (0.0-10.0) 11/12/17 02:36 Eos % (Auto) 1.7 % (0.0-4.0) 11/12/17 02:36 Baso % (Auto) 0.6 % (0.0-2.0) 11/12/17 02:36 Neut # (Auto) 6.8 K/uL (1.8-7.0) 11/12/17 02:36 Lymph # (Auto) 2.0 K/uL (1.0-4.3) 11/12/17 02:36 [place] # (Auto) 0.7 K/uL (0.0-0.8) 11/12/17 02:36 Eos # (Auto) 0.2 K/uL (0.0-0.7) 11/12/17 02:36 Baso # (Auto) 0.1 K/uL (0.0-0.2) 11/12/17 02:36 ESR 44 mm/hr (0-30) H 11/14/17 05:30 Sodium 143 mmol/l (132-148) 11/14/17 05:30 Potassium 3.6 MMOL/L (3.6-5.0) 11/14/17 05:30 Chloride 103 mmol/L (98-107) 11/14/17 05:30 Carbon Dioxide 35 mmol/L (22-30) H 11/14/17 05:30 Anion Gap 9 (10-20) L 11/14/17 05:30 BUN 22 mg/dl (7-17) H 11/14/17 05:30 Creatinine 1.3 mg/dl (0.7-1.2) H 11/14/17 05:30 Est GFR ( Amer) 50 11/14/17 05:30 Est GFR (Non-Af Amer) 41 11/14/17 05:30 Random Glucose 94 mg/dL (65-105) 11/14/17 05:30 Calcium 8.9 mg/dL (8.4-10.2) 11/14/17 05:30 Troponin I < 0.0120 ng/mL (0.00-0.120) 11/12/17 20:00 NT-Pro-B Natriuret Pep 225 pg/ml (0-900) 11/13/17 12:15 Triglycerides 97 mg/DL (0-149) 11/14/17 05:30 Cholesterol 185 mg/dL (0-199) 11/14/17 05:30 LDL Cholesterol Direct 98 mg/dL (0-129) 11/14/17 05:30 HDL Cholesterol 45 MG/DL (30-70) 11/14/17 05:30 Free T4 0.93 ng/dL (0.78-2.19) 11/14/17 05:30 Total T3 0.960 nmol/L (1.49-2.60) L 11/14/17 05:30 TSH 3rd Generation 1.40 mIU/ML (0.46-4.68) 11/14/17 05:30 Urine Color Yellow (YELLOW) 11/12/17 21:00 Urine Clarity Slighty-cloudy (Clear) 11/12/17 21:00 Urine pH 6.0 (5.0-8.0) 11/12/17 21:00 Ur Specific [place] 1.012 (1.003-1.030) 11/12/17 21:00 Urine Protein Negative mg/dL (NEGATIVE) 11/12/17 21:00 Urine Glucose (UA) Neg mg/dL (Normal) 11/12/17 21:00 Urine Ketones Negative mg/dL (NEGATIVE) 11/12/17 21:00 Urine Blood Negative (NEGATIVE) 11/12/17 21:00 Urine Nitrate Negative (NEGATIVE) 11/12/17 21:00 Urine Bilirubin Negative (NEGATIVE) 11/12/17 21:00 Urine Urobilinogen 0.2-1.0 mg/dL (0.2-1.0) 11/12/17 21:00 Ur Leukocyte Esterase Neg [place]/uL (Negative) 11/12/17 21:00 Urine RBC (Auto) 1 /hpf (0-3) 11/12/17 21:00 Urine Microscopic WBC 3 /hpf (0-5) 11/12/17 21:00 Ur Squamous Epith Cells 1 /hpf (0-5) 11/12/17 21:00 Urine Bacteria Rare (<OCC) 11/12/17 21:00 Hyaline Casts 3-5 /hpf (0-2) H 11/12/17 21:00 Urine Opiates Screen Positive (NEGATIVE) H 11/12/17 21:27 Urine Methadone Screen Negative (NEGATIVE) 11/12/17 21:27 Ur Barbiturates Screen Negative (NEGATIVE) 11/12/17 21:27 Ur Phencyclidine Scrn Negative (NEGATIVE) 11/12/17 21:27 Ur Amphetamines Screen Negative (NEGATIVE) 11/12/17 21:27 U Benzodiazepines Scrn Negative (NEGATIVE) 11/12/17 21:27 U Oth Cocaine Metabols Negative (NEGATIVE) 11/12/17 21:27 U Cannabinoids Screen Negative (NEGATIVE) 11/12/17 21:27 - Hospital Course Hospital Course: 67 yr old F phmhx of CAD s/p triple bypass, HTN, COPD, hypothyroidism, chronic low back pain, Ovarian cancer, mitral valve prolapse and CKD Stage 3 admitted for acute CHF unknown type. Pt presented with hypotension. Antihypertensive medication adjusted for updated bp goal of 90/60 including: Hydralazine 25 mg BID, Metoprolol 50 mg qd. Unexpected quick recovery. Pt to f/u in clinic for continuity of care. Discharge Exam - Head Exam Head Exam: ATRAUMATIC, NORMOCEPHALIC Discharge Plan - Follow Up Plan Condition: FAIR Disposition: HOME/ ROUTINE
[2017-11-14 12:24] VITALS: BP 101/64; PULSE 74; TEMP 97.8; O2SAT 96
[2017-11-14] MEDS: Oxycodone/Acetaminophen 5/325 mg Tab PO PRN (14:26)
== END 2017-11-14 15:25 | disposition home or self-care (01) | DRG 291 ==
LOC: H.ER 00:02 → H.ERHOLD 03:01 → H.TEL 21:32 → INTOOBSV 11-13 11:56 → OBSVTOIN 11-13 11:56
PROVIDERS: ADMIT Family Medicine Geriatric Medicine; ATTEND Family Medicine Geriatric Medicine
DX: I13.0 Hypertensive heart and chronic kidney disease with heart failure and stage 1 through stage 4 chronic kidney disease, or unspecified chronic kidney disease (principal); I50.23 Acute on chronic systolic (congestive) heart failure; N18.3 Chronic kidney disease, stage 3 (moderate); J44.9 Chronic obstructive pulmonary disease, unspecified; E66.01 Morbid (severe) obesity due to excess calories; Z68.42 Body mass index [BMI] 45.0-49.9, adult; E03.9 Hypothyroidism, unspecified; Z95.1 Presence of aortocoronary bypass graft; G89.29 Other chronic pain; Z85.43 Personal history of malignant neoplasm of ovary; Z95.5 Presence of coronary angioplasty implant and graft; F17.210 Nicotine dependence, cigarettes, uncomplicated; I25.10 Atherosclerotic heart disease of native coronary artery without angina pectoris; M19.90 Unspecified osteoarthritis, unspecified site; J45.909 Unspecified asthma, uncomplicated; E78.00 Pure hypercholesterolemia, unspecified; I34.1 Nonrheumatic mitral (valve) prolapse

== ENCOUNTER 2017-12-11 11:50 | Emergency (ER) | payer MEDICARE, MEDICAID ==
[2017-12-11 11:56] VITALS: BP 116/61; PULSE 66; TEMP 97; O2SAT 94
[2017-12-11 11:58] VITALS: BMI 44.9
[2017-12-11 12:02] VITALS: RESP 16
--- NOTE | 2017-12-11 12:45 | ED PDOC ---
Lower Extremity Pain/Injury Time Seen by Provider: 12/11/17 12:42 Chief Complaint (Nursing): Lower Extremity Problem/Injury Chief Complaint (Provider): leg pain and swelling History Per: Patient Additional Complaint(s): 67-year-old female presents to emergency department for evaluation of possible DVT to left lower extremity. Patient was seen at [facility] and was referred to ER for further evaluation. Patient has had increased swelling to both legs and has history of DVT. She denies any chest pain or shortness of breath. PMD: [facility] Past Medical History Reviewed: Historical Data, Nursing Documentation, Vital Signs Vital Signs: Last Vital Signs Temp 97 F L 12/11/17 12:00 Pulse 66 12/11/17 12:00 Resp 16 12/11/17 12:00 BP 116/61 12/11/17 12:00 Pulse Ox 94 L 12/11/17 12:00 - Medical History PMH: Anemia, Arthritis, Asthma, Back Problems (herniated discs (cervical, lumbar )), Bronchitis, CAD (with coronary stent), Cardia Arrhythmia, CHF, COPD, Deep Vein Thrombosis, Fractures (left ankle), HTN, Hypercholesterolemia, Hypothyroidism, Malignancy (ovarian), Mitral Valve Prolapse, Peripheral Edema, Pneumonia, Pulmonary Embolism, Chronic Kidney Disease (stage 3) - Surgical History Surgical History: CABG (x 4), Coronary Stent, Endoscopy - Family History Family History: States: No Known Family Hx - Living Arrangements Living Arrangements: With Family - Social History Current smoker - smoking cessation education provided: No Alcohol: None Drugs: Denies - Home Medications Home Medications: Ambulatory Orders Medication Instructions Recorded Aspirin [Aspirin EC] 81 mg PO DAILY #0 tablet. 06/08/16 Albuterol 0.083% [Albuterol 0.083% 2.5 mg IH Q6 #30 neb 11/14/17 Inhal Kendra (2.5 mg/3 ml) UD] Aspirin [Ecotrin] 81 mg PO DAILY #0 tabec 11/14/17 Febuxostat [Uloric] 40 mg PO DAILY #30 tablet 11/14/17 Folic Acid 1 mg PO DAILY #30 tab 11/14/17 Furosemide [Lasix] 40 mg PO DAILY #30 tab 11/14/17 Levothyroxine Sodium 25 mcg PO DAILY #30 tablet 11/14/17 Metoprolol Succinate [Toprol XL] 25 mg PO DAILY #30 tab 11/14/17 Pravastatin Sodium [Pravachol] 20 mg PO HS #30 tab 11/14/17 Ranolazine [Ranexa] 500 mg PO BID #60 ter 11/14/17 hydrALAZINE [Apresoline] 25 mg PO BID #60 tab 11/14/17 - Allergies Allergies/Adverse Reactions: Allergies Allergy/AdvReac Type Severity Reaction Status Date / Time No Known Allergies Allergy Verified 10/30/17 01:08 Wells Criteria for PE - Wells Criteria for Pulmonary Embolism Clinical Signs and Symptoms of DVT: Yes P.E is #1 Diagnosis, or Equally Likely: No Heart Rate >100: No Immobilization at least 3 days;Surgery previous 4 weeks: No Previous, objectively diagnosed PE or DVT: No Hemoptysis: No Malignancy w/treatment within 6 months, or palliative: No Total Score: 3 Review of Systems ROS Statement: Except As Marked, All Systems Reviewed And Found Negative Constitutional: Negative for: Fever Cardiovascular: Negative for: Chest Pain Respiratory: Negative for: Shortness of Breath, SOB with Exertion Musculoskeletal: Positive for: Other (left leg pain and swelling) Physical Exam - Reviewed Nursing Documentation Reviewed: Yes Vital Signs Reviewed: Yes - Physical Exam Appears: Positive for: Well, Non-toxic, No Acute Distress Skin: Negative for: Rash Eye Exam: Positive for: Normal appearance Cardiovascular/Chest: Positive for: Regular Rate, Rhythm Respiratory: Positive for: Normal Breath Sounds Extremity: Positive for: Other (Edema noted to bilateral lower extremities) Neurologic/Psych: Positive for: Alert, Oriented - ECG O2 Sat by Pulse Oximetry: 94 Pulse Ox Interpretation: Normal - Other Rad Duplex bilateral lower extremities X-Ray: Read By Radiologist X-Ray Interpretation: no DVT Medical Decision Making Medical Decision Makin67 year old here for doppler of lower extremities, sent by clinic Plan: Doppler bilateral lower extremities Patient is refusing all other testing, states she was told by clinic doctor that all she needed to have done was doppler Doppler is negative for DVT and bilateral lower extremities. Patient was advised to follow up as needed with clinic. Disposition - Clinical Impression Clinical Impression: Pedal edema, Chronic leg pain - Patient ED Disposition Is Patient to be Admitted: No Counseled Patient/Family Regarding: Studies Performed, Diagnosis, Need For Followup - Disposition Referrals: [facility] [Outside] Disposition: Routine/Home Disposition Time: 15:36 Condition: STABLE Additional Instructions: Follow up as directed with clinic. Instructions: Dependent Edema (DC) Forms: Figgu (Occitan)
--- NOTE | 2017-12-11 15:40 | US ---
PROCEDURE: Bilateral lower extremity venous duplex Doppler. HISTORY: swelling both legs, left > right COMPARISON: None available. TECHNIQUE: Bilateral common femoral, superficial femoral, popliteal and posterior tibial veins were evaluated. Flow was assessed with color Doppler, compressibility, assessment of phasic flow and augmentation response. FINDINGS: COMMON FEMORAL VEIN: Right CFV: Unremarkable. Left CFV: Unremarkable. SUPERFICIAL FEMORAL VEIN: Right SFV: Unremarkable. Left SFV: Unremarkable. POPLITEAL VEIN: Right Popliteal: Unremarkable. Left Popliteal: Unremarkable. POSTERIOR TIBIAL VEIN: Right PTV: Unremarkable. Left PTV: Unremarkable. OTHER FINDINGS: None. IMPRESSION: No evidence of deep venous thrombosis.
== END 2017-12-11 15:49 | disposition home or self-care (01) ==
LOC: H.ER 11:50
DX: R60.9 Edema, unspecified (principal); G89.29 Other chronic pain; E03.9 Hypothyroidism, unspecified; E78.00 Pure hypercholesterolemia, unspecified; I13.0 Hypertensive heart and chronic kidney disease with heart failure and stage 1 through stage 4 chronic kidney disease, or unspecified chronic kidney disease; I34.1 Nonrheumatic mitral (valve) prolapse; N18.3 Chronic kidney disease, stage 3 (moderate); Z79.82 Long term (current) use of aspirin; Z85.41 Personal history of malignant neoplasm of cervix uteri; Z86.711 Personal history of pulmonary embolism; Z86.718 Personal history of other venous thrombosis and embolism; Z95.1 Presence of aortocoronary bypass graft; Z95.5 Presence of coronary angioplasty implant and graft

== ENCOUNTER 2017-12-18 06:04 | Observation (INO) | payer MEDICARE, MEDICAID ==
[2017-12-18 06:04] VITALS: BMI 44.9
--- NOTE | 2017-12-18 06:45 | ED PDOC ---
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 Of note, patient took a nitroglycerin tablet 20 min prior to arrival with some relief. He reports having chronic back pain, but denies fever, cough, leg swelling, or palpitations. [facility] Past Medical History Reviewed: Historical Data, Nursing Documentation, Vital Signs Vital Signs: Last Vital Signs Temp 97.8 F 12/18/17 17:00 Pulse 60 12/18/17 17:00 Resp 20 12/18/17 17:00 BP 113/72 12/18/17 17:00 Pulse Ox 98 12/18/17 17:00 - Medical History PMH: Anemia, Arthritis, Asthma, Back Problems (herniated discs (cervical, lumbar )), Bronchitis, CAD (with coronary stent), Cardia Arrhythmia, CHF, COPD, Deep Vein Thrombosis, Fractures (left ankle), HTN, Hypercholesterolemia, Hypothyroidism, Malignancy (ovarian), Mitral Valve Prolapse, Peripheral Edema, Pneumonia, Pulmonary Embolism, Chronic Kidney Disease (stage 3) Denies: Diabetes, HIV - Surgical History Surgical History: CABG (x 4), Coronary Stent, Endoscopy - Family History Family History: States: Unknown Family Hx - Social History Current smoker - smoking cessation education provided: Yes (light) Ex-Smoker (has not smoked in the last 12 months): No Alcohol: None Drugs: Denies - Immunization History Hx Pneumococcal Vaccination: Yes - Home Medications Home Medications: Ambulatory Orders Medication Instructions Recorded Albuterol 0.083% [Albuterol 0.083% 2.5 mg IH Q6 #30 neb 11/14/17 Inhal Kendra (2.5 mg/3 ml) UD] Aspirin [Ecotrin] 81 mg PO DAILY #0 tabec 11/14/17 Febuxostat [Uloric] 40 mg PO DAILY #30 tablet 11/14/17 Folic Acid 1 mg PO DAILY #30 tab 11/14/17 Furosemide [Lasix] 40 mg PO DAILY #30 tab 11/14/17 Levothyroxine Sodium 25 mcg PO DAILY #30 tablet 11/14/17 Metoprolol Succinate [Toprol XL] 25 mg PO DAILY #30 tab 11/14/17 Pravastatin Sodium [Pravachol] 20 mg PO HS #30 tab 11/14/17 Albuterol HFA [Ventolin HFA 90 2 puff IH Q4H PRN 12/18/17 mcg/actuation (8 g)] Budesonide/Formoterol Fumarate 2 puff IH Q12 12/18/17 [Symbicort 160-4.5 Mcg Inhaler] Cholecalciferol [Vitamin D 1000 IU] 1 tab PO DAILY 12/18/17 Ferrous Sulfate [Ferrous Sulfate] 325 mg PO Q12 12/18/17 Oxycodone HCl/Acetaminophen 1 tab PO Q4 PRN 12/18/17 [Percocet 10-325 mg Tablet] Ranolazine [Ranexa] 500 mg PO Q12 12/18/17 hydrALAZINE [Apresoline] 25 mg PO Q12 12/18/17 - Allergies Allergies/Adverse Reactions: Allergies Allergy/AdvReac Type Severity Reaction Status Date / Time No Known Allergies Allergy Verified 10/30/17 01:08 ARMINDA Risk Score for UA/NSTEMI - ARMINDA Risk Score Age > 64: YES 3 or more CAD Risk Factors: YES Known CAD (Stenosis greater than 50%): NO Aspirin use in past 7 days: YES Severe Angina: NO EKG ST changes greater than 0.5mm: NO Positive Cardiac Marker: NO ARMINDA Score: 3 Risk %: 13% Wells Criteria for PE - Wells Criteria for Pulmonary Embolism Clinical Signs and Symptoms of DVT: No P.E is #1 Diagnosis, or Equally Likely: No Heart Rate >100: No Immobilization at least 3 days;Surgery previous 4 weeks: No Previous, objectively diagnosed PE or DVT: No Hemoptysis: No Malignancy w/treatment within 6 months, or palliative: No Total Score: 0 Review of Systems ROS Statement: Except As Marked, All Systems Reviewed And Found Negative Constitutional: Negative for: Fever Cardiovascular: Positive for: Chest Pain (left sided). Negative for: Palpitations Respiratory: Negative for: Cough Gastrointestinal: Positive for: Abdominal Pain (epigastric) Musculoskeletal: Positive for: Shoulder Pain (left), Back Pain (chronic). Negative for: Leg Pain (swelling) Physical Exam - Reviewed Nursing Documentation Reviewed: Yes Vital Signs Reviewed: Yes - Physical Exam Appears: Positive for: Well, Non-toxic, No Acute Distress Head Exam: Positive for: ATRAUMATIC, NORMAL INSPECTION, NORMOCEPHALIC Skin: Positive for: Normal Color, Warm, DRY Eye Exam: Positive for: EOMI, Normal appearance, PERRL ENT: Positive for: Normal ENT Inspection Neck: Positive for: Normal, Painless ROM Cardiovascular/Chest: Positive for: Regular Rate, Rhythm. Negative for: Murmur Respiratory: Positive for: Normal Breath Sounds. Negative for: Respiratory Distress Gastrointestinal/Abdominal: Positive for: Normal Exam, Soft. Negative for: Tenderness Back: Positive for: Normal Inspection Extremity: Positive for: Normal ROM. Negative for: Pedal Edema, Deformity Neurologic/Psych: Positive for: Alert, Oriented. Negative for: Motor/Sensory Deficits - Laboratory Results Result Diagrams: 12/18/17 08:00 12/18/17 08:00 - ECG ECG: Positive for: Interpreted By Me, Viewed By Me ECG Rhythm: Positive for: Normal QRS, Sinus Rhythm (1st degree av block), Nonspecific Changes (t wave changes) Rate: 64 O2 Sat by Pulse Oximetry: 98 (RA) Pulse Ox Interpretation: Normal Medical Decision Making Medical Decision Making: Time: --06:41 Impression: --chest pain Differential: --ACS Plan: --ECG --Labs --Troponin I --Chest one view x-ray --manager cardiac Reassess -- Scribe Attestation: Documented by Rhett Hidalgo acting as a scribe for Earl Goldman MD. Provider Attestation: All medical record entries made by the Scribe were at my direction and personally dictated by me. I have reviewed the chart and agree that the record accurately reflects my personal performance of the history, physical exam, medical decision making, and the department course for this patient. I have also personally directed, reviewed, and agree with the discharge instructions and disposition. Disposition - Clinical Impression Clinical Impression: Chronic back pain, Chest pain - Patient ED Disposition Is Patient to be Admitted: Transfer of Care - Disposition Disposition: Transfer of Care Disposition Time: 07:00 Condition: STABLE Patient Signed Over To: Henry,Alex III Handoff Comments: pending labs and final disposition
[2017-12-18 07:17] LABS: CALCIUM 9.4 mg/dL (8.4-10.2)
--- NOTE | 2017-12-18 07:17 | ED PDOC ---
- Laboratory Results Result Diagrams: 12/18/17 08:00 12/18/17 08:00 - ECG O2 Sat by Pulse Oximetry: 98 (RA) Pulse Ox Interpretation: Normal Medical Decision Making Medical Decision Making: recd 7am from Dr Goldman pending labs and re-eval/likely admit r/o ACS\ trop 0.02 chem/cbc unremarkable CXR mild pulm vasc congestion ASA ordered c/o pain again, repeat EKG sinus jillian at 59bpm with nonspecific ST changes Did not take her percocet today, dose ordered Admit to FP service D/w Dr Gomez earlier Disposition Counseled Patient/Family Regarding: Studies Performed, Diagnosis, Need For Followup, Rx Given - Clinical Impression Clinical Impression: Chronic back pain, Chest pain - POA Present On Arrival: None - Disposition Disposition: Hospitalized as Observation Patient Disposition Time: 09:15 Condition: FAIR
[2017-12-18 07:30] LABS: TROPONIN I 0.02 ng/mL (0.00-0.120)
[2017-12-18 08:20] LABS: BASO % 0.6 % (0.0-2.0); EOS # 0.2 K/uL (0.0-0.7); EOS % 2.9 % (0.0-4.0); HEMOGLOBIN 12.7 g/dL (12.0-16.0); LYMPH # 2.1 K/uL (1.0-4.3); LYMPH % 26.7 % (20.0-40.0); MEAN CELL VOLUME 81.1 fl (81.0-99.0); MEAN CORPUSCULAR HEMOGLOBIN 26.6 pg (27.0-31.0); MEAN CORPUSCULAR HGB CONC 32.8 g/dL (33.0-37.0); MEAN PLATELET VOLUME 8.5 fl (7.2-11.7); MONO # 0.5 K/uL (0.0-0.8); MONO % 6.3 % (0.0-10.0); NEUT # 5.1 K/uL (1.8-7.0); NEUT % 63.5 % (50.0-75.0); NRBC % 0.3 % (0.0-0.0); RBC 4.76 Mil/uL (3.80-5.20); RED CELL DISTRIBUTION WIDTH 16.5 % (11.5-14.5)
--- NOTE | 2017-12-18 10:04 | RAD ---
PROCEDURE: CHEST RADIOGRAPH, 1 VIEW HISTORY: chest pain COMPARISON: Chest radiograph dated 11/12/2017 FINDINGS: LUNGS: Prominence of the pulmonary vasculature may be secondary to AP technique and/or pulmonary vascular congestion. No focal consolidation. PLEURA: Stable eventration of the left hemidiaphragm No pneumothorax or pleural fluid seen. CARDIOVASCULAR: Prior sternotomy with sternal wires and surgical clips redemonstrated. Atherosclerotic aortic calcifications. Cardiomediastinal silhouette stably enlarged. OSSEOUS STRUCTURES: Unchanged. VISUALIZED UPPER ABDOMEN: Normal. OTHER FINDINGS: None. IMPRESSION: Prominence of the pulmonary vasculature may be secondary to AP technique and/or pulmonary vascular congestion. No focal consolidation or pleural effusion.
[2017-12-18] MEDS ORDERED: Oxycodone/Acetaminophen 5/325 mg Tab PO STA (12:03)
[2017-12-18] MEDS ORDERED: Oxycodone/Acetaminophen 5/325 mg Tab ONE (12:06)
--- NOTE | 2017-12-18 13:47 | CP.PCM.HP ---
History of Present Illness - History of Present Illness History of Present Illness: CC: Chest Pain 67F p/w 3 episodes yesterday "pulling-like" chest pain that she reports radiated into her LEFT neck and shoulder without associated change in breathing , difficulty breathing, diaphoresis, N/V, headache, or dizziness. She reports she took SL nitro and had successful resolution for each episode, however the third time she felt it would be best to come into the ED and notified her "Life Alert". PMD: Geovanna Myles Specialists: Dr. Ludwig, Dr. Gonzalez, Dr. Qureshi, Dr. Black PMH: CAD s/p CABGx3, HTN, COPD (home oxygen), hypothyroidism, chronic low back pain, Ovarian cancer, mitral valve prolapse repair and CKD Stage 3 PSH: CABGx3 (03/2012), PCI w/stent, JANET SHx: current smoker (5 cig daily x 20 yrs) on home oxygen ALL: NKDA Present on Admission - Present on Admission Any Indicators Present on Admission: Yes History of DVT/PE: Yes Review of Systems - Cardiovascular Cardiovascular: Chest Pain at Rest Past Patient History - Infectious Disease Hx of Infectious Diseases: None - Past Medical History & Family History Past Medical History?: Yes - Past Social History Alcohol: None Drugs: Denies - CARDIAC Hx Cardiac Disorders: Yes - PULMONARY Hx Respiratory Disorders: Yes - NEUROLOGICAL Hx Neurological Disorder: Yes Hx Vertigo: Yes - HEENT Hx HEENT Problems: No - RENAL Hx Chronic Kidney Disease: Yes (stage 3) - ENDOCRINE/METABOLIC Hx Hypothyroidism: Yes - HEMATOLOGICAL/ONCOLOGICAL Hx Anemia: Yes Hx Human Immunodeficiency Virus (HIV): No - INTEGUMENTARY Hx Dermatological Problems: No - MUSCULOSKELETAL/RHEUMATOLOGICAL Hx Musculoskeletal Disorders: Yes - GASTROINTESTINAL Hx Gastrointestinal Disorders: Yes Other/Comment: GI Bleed - GENITOURINARY/GYNECOLOGICAL Hx Genitourinary Disorders: Yes Hx Ovarian Cancer: Yes Other/Comment: hysterectomy - PSYCHIATRIC Hx Emotional Abuse: No Hx Physical Abuse: No Hx Substance Use: No - SURGICAL HISTORY Hx Coronary Artery Bypass Graft: Yes (x 4) Hx Coronary Stent: Yes - ANESTHESIA Hx Anesthesia: Yes Hx Anesthesia Reactions: No Hx Malignant Hyperthermia: No Meds Allergies/Adverse Reactions: Allergies Allergy/AdvReac Type Severity Reaction Status Date / Time No Known Allergies Allergy Verified 10/30/17 01:08 Physical Exam - Constitutional Appears: Well, Non-toxic, No Acute Distress - Head Exam Head Exam: ATRAUMATIC, NORMAL INSPECTION - Eye Exam Eye Exam: EOMI, Normal appearance - ENT Exam ENT Exam: Mucous Membranes Moist - Respiratory Exam Respiratory Exam: Rhonchi, NORMAL BREATHING PATTERN - Cardiovascular Exam Cardiovascular Exam: REGULAR RHYTHM. absent: JVD - GI/Abdominal Exam GI & Abdominal Exam: Normal Bowel Sounds, Soft. absent: Tenderness - Extremities Exam Extremities exam: Positive for: pedal edema (Rt- 2+ at ankle and none on Lt ankle) - Back Exam Back exam: muscle spasm (LEFT trapezius) - Neurological Exam Neurological exam: Alert, Oriented x3 - Skin Skin Exam: Dry, Warm Results - Vital Signs Recent Vital Signs: Last Vital Signs Temp 36.3 C L 12/18/17 13:12 Pulse 58 L 12/18/17 13:12 Resp 18 12/18/17 13:12 BP 108/67 12/18/17 13:12 Pulse Ox 98 12/18/17 13:12 - Labs Result Diagrams: 12/18/17 08:00 12/18/17 08:00 Labs: Laboratory Results - last 24 hr 12/18/17 12/18/17 12/18/17 06:50 08:00 08:00 WBC 8.0 RBC 4.76 Hgb 12.7 Hct 38.6 MCV 81.1 MCH 26.6 L MCHC 32.8 L RDW 16.5 H Plt Count 206 MPV 8.5 Neut % (Auto) 63.5 Lymph % (Auto) 26.7 Creek % (Auto) 6.3 Eos % (Auto) 2.9 Baso % (Auto) 0.6 Neut # (Auto) 5.1 Lymph # (Auto) 2.1 Creek # (Auto) 0.5 Eos # (Auto) 0.2 Baso # (Auto) 0.0 Sodium 141 Potassium 5.2 H 4.0 Chloride 98 Carbon Dioxide 30 Anion Gap 18 BUN 23 H Creatinine 1.6 H Est GFR ( Amer) 39 Est GFR (Non-Af Amer) 32 Random Glucose 95 Calcium 9.4 Troponin I 0.0200 Assessment & Plan (1) Atypical chest pain Assessment and Plan: Rule out ACS, EKG without acute changes and Troponins negative x2 thus far. - c/w cardiac medications - f/u 3rd Troponin - Status: Acute Priority: High (2) DVT prophylaxis Assessment and Plan: Lovenox 40mg, SC, HS Status: Acute (3) CKD (chronic kidney disease) stage 3, GFR 30-59 ml/min Assessment and Plan: Chronic, stable. - Monitor Status: Chronic (4) COPD not affecting current episode of care Assessment and Plan: Asymptomatic, chronic, stable on home oxygen. - c/w medication - Monitor - c/w 3L NC Status: Chronic (5) Hypothyroid Assessment and Plan: Chronic, stable. - c/w Synthroid - Monitor Status: Chronic
--- NOTE | 2017-12-18 15:12 | CARD ---
APPROVED REPORT EKG Measurement Heart [id number] NM [id number] [id number] <Conclusion> Sinus rhythm with 1st degree AV block Nonspecific T wave abnormality Abnormal ECG
--- NOTE | 2017-12-18 15:14 | CARD ---
APPROVED REPORT EKG Measurement Heart [id number] MT [id number] [id number] <Conclusion> Sinus bradycardia with 1st degree AV block Nonspecific T wave abnormality Abnormal ECG
[2017-12-18] MEDS ORDERED: Lidocaine 5% Patch TD ONE (17:24)
[2017-12-18] MEDS ORDERED: Albuterol HFA 90 mcg/actuation (8 g) IH PRN (18:33)
[2017-12-18] MEDS ORDERED: Patient's Own Med (Oxycodone Hcl/Acetaminophen [Percocet 10-325 Mg Tablet] 1 TAB) PO PRN (18:33)
[2017-12-18] MEDS ORDERED: Patient's Own Med (Ranolazine [Ranexa] 500 MG) PO SCH (21:00)
[2017-12-18] MEDS ORDERED: Pravastatin Sodium 20 MG TAB PO SCH (22:00)
[2017-12-18] MEDS ORDERED: Enoxaparin 40 mg Syringe SC SCH (22:00)
[2017-12-18] MEDS: Fluticasone-Salmeterol 250-50mcg Diskus IH SCH (22:21)
[2017-12-19 00:08] VITALS: RESP 18
--- NOTE | 2017-12-19 00:27 | CP.PCM.PCO ---
Assessment/Plan - Assessment/Plan Assessment (Free Text): paged for lower abdominal pain @ 12:23am seen and evaluated pt at bedside, reports pain is located suprapubically and started "couple days ago" w/o any triggering event. Pain is 7-8/10, intermittent , shapr, located suprapubically, nonradiating. No alleviating factors. No aggravating factors. No relation to PO intake. Last BM >1 day ago. Last urination just prior to evaluation. No associated N/V/D. Denies urinary symptoms. No triggering event. vitals: reviewed, stable PE: Gen: NAD, alert and oriented CVS: RRR, S1S2, No MRG Lungs: CTA B/L, No WRR Abd: truncal obesity, +BS, soft, nondistended. Mild tenderness suprapubically, no guarding/rigidity, rebound. Pulses: 2+ throughout A/P: UA Colace c/w monitoring - Consults Consult Orders: Consultations 12/18/17 18:45 Case Management Referral Routine Comment: Pt/ w/ manager home improvement Mon - Sat. 8 hrs/day. Best Care Physician Instructions: Reason For Exam: Reason for Referral: Discharge Planning - Problems Patient Problems: Problem List (Active/Current) Problem Status Onset Code Chest pain Acute R07.9 Chronic back pain Chronic M54.9, G89.29
[2017-12-19] MEDS: Albuterol 0.083% Inhal Sol (2.5 mg/3 mL) UD IH SCH ×2 (01:04→07:56)
[2017-12-19 02:42] LABS: SQUAMOUS EPITHIAL 1 /hpf (0-5); URINE BACTERIA OCC (<OCC); URINE BILIRUBIN NEGATIVE (NEGATIVE); URINE BLOOD NEGATIVE (NEGATIVE); URINE CLARITY SLIGHTY-CLOUDY (Clear); URINE COLOR YELLOW (YELLOW); URINE GLUCOSE (UA) NEG (Normal); URINE LEUKOCYTE ESTERASE NEG Leu/uL (Negative); URINE PROTEIN NEGATIVE (NEGATIVE); URINE UROBILINOGEN 0.2-1.0 mg/dL (0.2-1.0)
[2017-12-19] MEDS ORDERED: Levothyroxine 25 MCG TAB PO SCH (06:30)
[2017-12-19 08:17] VITALS: TEMP 97.9
[2017-12-19] MEDS: Fluticasone-Salmeterol 250-50mcg Diskus IH SCH (08:38)
[2017-12-19] MEDS ORDERED: Metoprolol Succinate 25 mg XL Tab PO SCH (09:00)
[2017-12-19] MEDS ORDERED: Cholecalciferol 1,000 INTLU TAB PO SCH (09:00)
--- NOTE | 2017-12-19 09:12 | CP.PCM.DIS ---
Provider - Provider Date of Admission: 12/18/17 09:45 Attending physician: Nehal Negron MD Primary care physician: Dr. Yang/Dr. Gregg Time Spent in preparation of Discharge (in minutes): 35 Diagnosis - Discharge Diagnosis (1) Chest pain Status: Resolved Priority: High Comment: Pt presented with chest pain that was relieved with sublingual nitroglycerin; r/o ACS. Troponins neg x3. (2) Urinary tract infection Status: Acute Comment: Urinalysis showed pos urine nitrates; cipro 250mg Q12 was started for uncomplicated cystitis. Urine culture and sensitivities sent. Hospital Course - Lab Results Lab Results: Most Recent Lab Values WBC 8.0 K/uL (4.8-10.8) 12/18/17 08:00 RBC 4.76 Mil/uL (3.80-5.20) 12/18/17 08:00 Hgb 12.7 g/dL (12.0-16.0) 12/18/17 08:00 Hct 38.6 % (34.0-47.0) 12/18/17 08:00 MCV 81.1 fl (81.0-99.0) 12/18/17 08:00 MCH 26.6 pg (27.0-31.0) L 12/18/17 08:00 MCHC 32.8 g/dL (33.0-37.0) L 12/18/17 08:00 RDW 16.5 % (11.5-14.5) H 12/18/17 08:00 Plt Count 206 K/uL (130-400) 12/18/17 08:00 MPV 8.5 fl (7.2-11.7) 12/18/17 08:00 Neut % (Auto) 63.5 % (50.0-75.0) 12/18/17 08:00 Lymph % (Auto) 26.7 % (20.0-40.0) 12/18/17 08:00 [place] % (Auto) 6.3 % (0.0-10.0) 12/18/17 08:00 Eos % (Auto) 2.9 % (0.0-4.0) 12/18/17 08:00 Baso % (Auto) 0.6 % (0.0-2.0) 12/18/17 08:00 Neut # (Auto) 5.1 K/uL (1.8-7.0) 12/18/17 08:00 Lymph # (Auto) 2.1 K/uL (1.0-4.3) 12/18/17 08:00 [place] # (Auto) 0.5 K/uL (0.0-0.8) 12/18/17 08:00 Eos # (Auto) 0.2 K/uL (0.0-0.7) 12/18/17 08:00 Baso # (Auto) 0.0 K/uL (0.0-0.2) 12/18/17 08:00 Sodium 141 mmol/l (132-148) 12/18/17 06:50 Potassium 4.0 MMOL/L (3.6-5.0) 12/18/17 08:00 Chloride 98 mmol/L (98-107) 12/18/17 06:50 Carbon Dioxide 30 mmol/L (22-30) 12/18/17 06:50 Anion Gap 18 (10-20) 12/18/17 06:50 BUN 23 mg/dl (7-17) H 12/18/17 06:50 Creatinine 1.6 mg/dl (0.7-1.2) H 12/18/17 06:50 Est GFR ( Amer) 39 12/18/17 06:50 Est GFR (Non-Af Amer) 32 12/18/17 06:50 Random Glucose 95 mg/dL (65-105) 12/18/17 06:50 Calcium 9.4 mg/dL (8.4-10.2) 12/18/17 06:50 Troponin I < 0.0120 ng/mL (0.00-0.120) 12/18/17 22:00 Urine Color Yellow (YELLOW) 12/19/17 02:05 Urine Clarity Slighty-cloudy (Clear) 12/19/17 02:05 Urine pH 6.0 (5.0-8.0) 12/19/17 02:05 Ur Specific [place] 1.008 (1.003-1.030) 12/19/17 02:05 Urine Protein Negative mg/dL (NEGATIVE) 12/19/17 02:05 Urine Glucose (UA) Neg mg/dL (Normal) 12/19/17 02:05 Urine Ketones Negative mg/dL (NEGATIVE) 12/19/17 02:05 Urine Blood Negative (NEGATIVE) 12/19/17 02:05 Urine Nitrate Positive (NEGATIVE) H 12/19/17 02:05 Urine Bilirubin Negative (NEGATIVE) 12/19/17 02:05 Urine Urobilinogen 0.2-1.0 mg/dL (0.2-1.0) 12/19/17 02:05 Ur Leukocyte Esterase Neg [place]/uL (Negative) 12/19/17 02:05 Urine RBC (Auto) 1 /hpf (0-3) 12/19/17 02:05 Urine Microscopic WBC 1 /hpf (0-5) 12/19/17 02:05 Ur Squamous Epith Cells 1 /hpf (0-5) 12/19/17 02:05 Urine Bacteria Occ (<OCC) H 12/19/17 02:05 - Hospital Course Hospital Course: Pt was seen and examined this am; no chest pain, sitting comfortably in bed. Pt was admitted for observation to rule out ACS due to episode of chest pain. Chest pain resolved with sublingual nitroglycerin, and toponins were negative x3. She complained of suprapubic pain and a UA showed positive nitrates. She was started on ciprofloxacin 250 mg Q12; she received 1 dose this morning and 5 tabs were sent to her pharmacy for a total of 3 days worth of 250 mg Q12. She has an appt with label printer Dr. Ludwig tomorrow; and a hospital discharge followup was scheduled at the [facility] at 11:00am on . Discharge Exam - Head Exam Head Exam: ATRAUMATIC, NORMAL INSPECTION - Eye Exam Eye Exam: Normal appearance - ENT Exam ENT Exam: Mucous Membranes Moist - Respiratory Exam Respiratory Exam: Clear to PA & Lateral, NORMAL BREATHING PATTERN - Cardiovascular Exam Cardiovascular Exam: REGULAR RHYTHM, +S1, +S2 - GI/Abdominal Exam GI & Abdominal Exam: Normal Bowel Sounds, Soft, Tenderness, Unremarkable Additional comments: mild, suprapubic - Extremities Exam Extremities exam: normal capillary refill - Back Exam Back exam: NORMAL INSPECTION - Neurological Exam Neurological exam: Alert, Oriented x3 - Skin Skin Exam: Dry, Normal Color, Warm Discharge Plan - Discharge Medications Prescriptions: Ciprofloxacin [Cipro] 250 mg PO Q12 #5 tab - Follow Up Plan Condition: STABLE Disposition: HOME/ ROUTINE Instructions: Urinary Tract Infection, Adult (DC) Additional Instructions: Please follow up with Dr. Ludwig at scheduled appt tomorrow. Please take antibiotics for urinary tract infection as prescribed; take 1 pill tonight around 8 pm. Starting tomorrow, take 1 pill every 12 hours for two days, for a total of 5 pills that were prescribed and sent to your pharmacy You have a follow up appointment in the [facility] at [address] [place] [address] on December 27, 2017 at 11:00 am. Please arrive at 10:30 am. Referrals: [facility] [Provider Group] - 12/27/17 11:00 am (Please arrive at 1030.)
[2017-12-19 12:14] VITALS: BP 107/57; PULSE 66; O2SAT 100
[2017-12-19] MEDS ORDERED: Lidocaine 5% Patch TD ONE (17:24)
== END 2017-12-19 13:24 | disposition home or self-care (01) ==
LOC: H.ER 06:04 → H.ERHOLD 09:45 → H.TEL 12:20
PROVIDERS: ADMIT Family Medicine Geriatric Medicine; ATTEND Family Medicine Geriatric Medicine
DX: R07.89 Other chest pain (principal); E03.9 Hypothyroidism, unspecified; I25.10 Atherosclerotic heart disease of native coronary artery without angina pectoris; Z95.5 Presence of coronary angioplasty implant and graft; Z95.1 Presence of aortocoronary bypass graft; Z99.81 Dependence on supplemental oxygen; J44.9 Chronic obstructive pulmonary disease, unspecified; Z86.711 Personal history of pulmonary embolism; I13.0 Hypertensive heart and chronic kidney disease with heart failure and stage 1 through stage 4 chronic kidney disease, or unspecified chronic kidney disease; I50.9 Heart failure, unspecified; N18.3 Chronic kidney disease, stage 3 (moderate); N30.90 Cystitis, unspecified without hematuria; Z85.43 Personal history of malignant neoplasm of ovary; E66.9 Obesity, unspecified; Z68.42 Body mass index [BMI] 45.0-49.9, adult; G89.29 Other chronic pain; E78.00 Pure hypercholesterolemia, unspecified; I34.1 Nonrheumatic mitral (valve) prolapse; M19.90 Unspecified osteoarthritis, unspecified site
CPT/HCPCS: 71045; 80048; 81003; 84132; 84484; 85025; 87086; 93005; 94640; 97162; 99285; G0378; G8978; G8979; J1650

== ENCOUNTER 2018-02-11 17:59 | Emergency (ER) | payer MEDICARE, MEDICAID ==
[2018-02-11 18:00] VITALS: BMI 44.9
[2018-02-11 18:06] VITALS: BP 122/71; PULSE 57; RESP 20; TEMP 97.9
[2018-02-11 18:40] VITALS: O2SAT 100
[2018-02-11 20:52] LABS: BASO % 0.6 % (0.0-2.0); EOS # 0.2 K/uL (0.0-0.7); EOS % 2.6 % (0.0-4.0); HEMOGLOBIN 12.8 g/dL (12.0-16.0); LYMPH # 1.6 K/uL (1.0-4.3); MEAN CELL VOLUME 82.2 fl (81.0-99.0); MEAN CORPUSCULAR HEMOGLOBIN 26.6 pg (27.0-31.0); MEAN CORPUSCULAR HGB CONC 32.3 g/dL (33.0-37.0); MEAN PLATELET VOLUME 8.6 fl (7.2-11.7); MONO # 0.5 K/uL (0.0-0.8); MONO % 6.9 % (0.0-10.0); NEUT # 5.1 K/uL (1.8-7.0); NEUT % 68.9 % (50.0-75.0); NRBC % 0.1 % (0.0-0.0); RBC 4.82 Mil/uL (3.80-5.20); WHITE BLOOD COUNT 7.4 K/uL (4.8-10.8)
[2018-02-11 21:12] LABS: CALCIUM 8.9 mg/dL (8.4-10.2)
[2018-02-11 21:18] LABS: ALB/GLOB RATIO 1.1 (1.0-2.1); ALBUMIN 4.1 g/dL (3.5-5.0)
[2018-02-11 21:38] LABS: TROPONIN I 0.016 ng/mL (0.00-0.120)
--- NOTE | 2018-02-11 21:38 | ED PDOC ---
HPI:Nausea, Vomiting, Diarrhea Chief Complaint (Nursing): Shortness Of Breath Chief Complaint (Provider): Nausea, vomiting History Per: Patient History/Exam Limitations: no limitations Current Symptoms Are (Timing): Still Present Associated Symptoms: Nausea, Vomiting. denies: Fever, Diarrhea Additional Complaint(s): 67 year old female, with past medical history of asthma, presented to ED with nausea and vomiting. Patient ordered cleanser on [employer] which she took and since then, she has been feeling nauseous and been vomiting. She diarrhea and fever. PCP: Marycarmen Guerrero Past Medical History Reviewed: Historical Data, Nursing Documentation, Vital Signs Vital Signs: Last Vital Signs Temp 97.9 F 02/11/18 18:03 Pulse 57 L 02/11/18 18:03 Resp 20 02/11/18 18:39 BP 122/71 02/11/18 18:03 Pulse Ox 100 02/11/18 18:39 - Medical History PMH: Anemia, Arthritis, Asthma, Back Problems (herniated discs (cervical, lumbar )), Bronchitis, CAD (with coronary stent), Cardia Arrhythmia, CHF, COPD, Deep Vein Thrombosis, Fractures (left ankle), HTN, Hypercholesterolemia, Hypothyroidism, Malignancy (ovarian), Mitral Valve Prolapse, Osteoporosis, Peripheral Edema, Pneumonia, Pulmonary Embolism, Chronic Kidney Disease (stage 3 ) Denies: Diabetes, HIV - Surgical History Surgical History: CABG (x 4), Coronary Stent, Endoscopy - Family History Family History: States: Unknown Family Hx - Immunization History Hx Pneumococcal Vaccination: Yes - Home Medications Home Medications: Ambulatory Orders Medication Instructions Recorded Albuterol 0.083% [Albuterol 0.083% 2.5 mg IH Q6 #30 neb 11/14/17 Inhal Kendra (2.5 mg/3 ml) UD] Aspirin [Ecotrin] 81 mg PO DAILY #0 tabec 11/14/17 Febuxostat [Uloric] 40 mg PO DAILY #30 tablet 11/14/17 Folic Acid 1 mg PO DAILY #30 tab 11/14/17 Furosemide [Lasix] 40 mg PO DAILY #30 tab 11/14/17 Levothyroxine Sodium 25 mcg PO DAILY #30 tablet 11/14/17 Metoprolol Succinate [Toprol XL] 25 mg PO DAILY #30 tab 11/14/17 Pravastatin Sodium [Pravachol] 20 mg PO HS #30 tab 11/14/17 Albuterol HFA [Ventolin HFA 90 2 puff IH Q4H PRN 12/18/17 mcg/actuation (8 g)] Budesonide/Formoterol Fumarate 2 puff IH Q12 12/18/17 [Symbicort 160-4.5 Mcg Inhaler] Cholecalciferol [Vitamin D 1000 IU] 1 tab PO DAILY 12/18/17 Ferrous Sulfate 325 mg PO Q12 12/18/17 Oxycodone HCl/Acetaminophen 1 tab PO Q4 PRN 12/18/17 [Percocet 10-325 mg Tablet] Ranolazine [Ranexa] 500 mg PO Q12 12/18/17 hydrALAZINE [Apresoline] 25 mg PO Q12 12/18/17 Ciprofloxacin [Cipro] 250 mg PO Q12 #5 tab 12/19/17 - Allergies Allergies/Adverse Reactions: Allergies Allergy/AdvReac Type Severity Reaction Status Date / Time No Known Allergies Allergy Verified 02/11/18 18:03 - Laboratory Results Result Diagrams: 02/11/18 20:42 02/11/18 20:40 - ECG O2 Sat by Pulse Oximetry: 100 Disposition - Disposition
--- NOTE | 2018-02-11 21:45 | ED PDOC ---
Lower Extremity Pain/Injury Time Seen by Provider: 02/11/18 18:00 Chief Complaint (Nursing): Shortness Of Breath Chief Complaint (Provider): Bilateral leg swelling History Per: Patient History/Exam Limitations: no limitations Current Symptoms Are (Timing): Still Present Additional Complaint(s): 67 year old female presented to ED with complaint of bilateral leg swelling. Patient reports becoming anxious at night along with trouble sleeping. Denied chest pain, fever, vomiting, or belly pain. PCP: Marycarmen Guerrero Past Medical History Reviewed: Historical Data, Nursing Documentation, Vital Signs Vital Signs: Last Vital Signs Temp 97.9 F 02/11/18 18:03 Pulse 57 L 02/11/18 18:03 Resp 20 02/11/18 18:39 BP 122/71 02/11/18 18:03 Pulse Ox 100 02/11/18 18:39 - Medical History PMH: Anemia, Arthritis, Asthma, Back Problems (herniated discs (cervical, lumbar )), Bronchitis, CAD (with coronary stent), Cardia Arrhythmia, CHF, COPD, Deep Vein Thrombosis, Fractures (left ankle), HTN, Hypercholesterolemia, Hypothyroidism, Malignancy (ovarian), Mitral Valve Prolapse, Osteoporosis, Peripheral Edema, Pneumonia, Pulmonary Embolism, Chronic Kidney Disease (stage 3 ) Denies: Diabetes, HIV - Surgical History Surgical History: CABG (x 4), Coronary Stent, Endoscopy - Family History Family History: States: Unknown Family Hx - Social History Current smoker - smoking cessation education provided: Yes (2 cigarettes a day) Alcohol: None Drugs: Denies - Immunization History Hx Pneumococcal Vaccination: Yes - Home Medications Home Medications: Ambulatory Orders Medication Instructions Recorded Albuterol 0.083% [Albuterol 0.083% 2.5 mg IH Q6 #30 neb 11/14/17 Inhal Kendra (2.5 mg/3 ml) UD] Aspirin [Ecotrin] 81 mg PO DAILY #0 tabec 11/14/17 Febuxostat [Uloric] 40 mg PO DAILY #30 tablet 11/14/17 Folic Acid 1 mg PO DAILY #30 tab 11/14/17 Furosemide [Lasix] 40 mg PO DAILY #30 tab 11/14/17 Levothyroxine Sodium 25 mcg PO DAILY #30 tablet 11/14/17 Metoprolol Succinate [Toprol XL] 25 mg PO DAILY #30 tab 11/14/17 Pravastatin Sodium [Pravachol] 20 mg PO HS #30 tab 11/14/17 Albuterol HFA [Ventolin HFA 90 2 puff IH Q4H PRN 12/18/17 mcg/actuation (8 g)] Budesonide/Formoterol Fumarate 2 puff IH Q12 12/18/17 [Symbicort 160-4.5 Mcg Inhaler] Cholecalciferol [Vitamin D 1000 IU] 1 tab PO DAILY 12/18/17 Ferrous Sulfate 325 mg PO Q12 12/18/17 Oxycodone HCl/Acetaminophen 1 tab PO Q4 PRN 12/18/17 [Percocet 10-325 mg Tablet] Ranolazine [Ranexa] 500 mg PO Q12 12/18/17 hydrALAZINE [Apresoline] 25 mg PO Q12 12/18/17 Ciprofloxacin [Cipro] 250 mg PO Q12 #5 tab 12/19/17 - Allergies Allergies/Adverse Reactions: Allergies Allergy/AdvReac Type Severity Reaction Status Date / Time No Known Allergies Allergy Verified 02/11/18 18:03 Review of Systems ROS Statement: Except As Marked, All Systems Reviewed And Found Negative Constitutional: Positive for: Other (Bilateral legs swelling). Negative for: Fever Cardiovascular: Negative for: Chest Pain Gastrointestinal: Negative for: Vomiting, Abdominal Pain Physical Exam - Reviewed Nursing Documentation Reviewed: Yes Vital Signs Reviewed: Yes - Physical Exam Appears: Positive for: Non-toxic, No Acute Distress Head Exam: Positive for: ATRAUMATIC, NORMAL INSPECTION, NORMOCEPHALIC Skin: Positive for: Normal Color, Warm, Dry Eye Exam: Positive for: Normal appearance Neck: Positive for: Normal, Painless ROM Cardiovascular/Chest: Positive for: Regular Rate, Rhythm. Negative for: Murmur Respiratory: Positive for: Normal Breath Sounds. Negative for: Wheezing, Respiratory Distress Gastrointestinal/Abdominal: Positive for: Normal Exam, Soft. Negative for: Tenderness Extremity: Positive for: Normal ROM (upper/lower), Pedal Edema (legs chronically swollen) Neurologic/Psych: Positive for: Alert, Oriented. Negative for: Motor/Sensory Deficits - Laboratory Results Result Diagrams: 02/11/18 20:42 02/11/18 20:40 - ECG O2 Sat by Pulse Oximetry: 100 (RA) Pulse Ox Interpretation: Normal Medical Decision Making Medical Decision Making: Initial Impression: Bilateral leg swelling Initial Plan: EKG CMP Troponin CBC 22:16 Upon provider reevaluation patient is feeling better, labs and ekg reviewed. pt is medically stable, no respiratory distress, sleeping in bed every time i go to evaluate her. she requires no further treatment in the ED at this time. Labs were reviewed and labs are at baseline. Counseling was provided and all questions were answered regarding diagnosis. There is agreement to discharge plan. Return if symptoms persist or worsen. 22:40 Patient feels better and indicates she wants to go home. Patient stable for discharge. Scribe Attestation: Documented by Bruno Quick acting as a scribe for Eren Samaniego MD. Provider Scribe Attestation: All medical record entries made by the Scribe were at my direction and personally dictated by me. I have reviewed the chart and agree that the record accurately reflects my personal performance of the history, physical exam, medical decision making, and the department course for this patient. I have also personally directed, reviewed, and agree with the discharge instructions and disposition. Disposition - Clinical Impression Clinical Impression: Chronic congestive heart failure - Patient ED Disposition Is Patient to be Admitted: No Counseled Patient/Family Regarding: Diagnosis, Need For Followup - Disposition Disposition: Routine/Home Disposition Time: 22:00 Condition: IMPROVED Additional Instructions: follow up with your primary doctor in 1-2 days return to the ED with any worsening or concerning symptoms Instructions: Heart Failure, Adult Forms: [employer] ([place])
--- NOTE | 2018-02-12 10:05 | RAD ---
HISTORY: sob COMPARISON: Portable chest 12/18/2017. FINDINGS: LUNGS: No acute infiltrate is identified bilaterally. PLEURA: No significant pleural effusion identified, no pneumothorax apparent. CARDIOVASCULAR: Cardiomegaly is are yearly increased with mild pulmonary venous congestion. OSSEOUS STRUCTURES: Sternotomy wires again noted. VISUALIZED UPPER ABDOMEN: Normal. OTHER FINDINGS: None. IMPRESSION: Mild CHF in question. No acute infiltrate, pleural effusion or pneumothorax identified.
== END 2018-02-11 22:50 | disposition home or self-care (01) ==
LOC: H.ER 17:59
DX: I50.9 Heart failure, unspecified (principal); R60.0 Localized edema; E03.9 Hypothyroidism, unspecified; E78.00 Pure hypercholesterolemia, unspecified; I13.0 Hypertensive heart and chronic kidney disease with heart failure and stage 1 through stage 4 chronic kidney disease, or unspecified chronic kidney disease; I34.1 Nonrheumatic mitral (valve) prolapse; M81.0 Age-related osteoporosis without current pathological fracture; N18.3 Chronic kidney disease, stage 3 (moderate); Z79.82 Long term (current) use of aspirin; Z85.41 Personal history of malignant neoplasm of cervix uteri; Z86.711 Personal history of pulmonary embolism; Z86.718 Personal history of other venous thrombosis and embolism; Z95.1 Presence of aortocoronary bypass graft; Z95.5 Presence of coronary angioplasty implant and graft

== ENCOUNTER 2018-04-13 04:20 | Observation (INO) | payer MEDICARE, MEDICAID ==
[2018-04-13 04:20] VITALS: BMI 44.9
[2018-04-13] MEDS ORDERED: Albuterol-Ipratrop 3 mg / 0.5 (3 ml) UD INH STA ×3 (04:37→06:28)
--- NOTE | 2018-04-13 04:40 | ED PDOC ---
HPI: SOB/CHF/COPD Time Seen by Provider: 04/13/18 04:38 Chief Complaint (Nursing): Shortness Of Breath Chief Complaint (Provider): shortness of breath History Per: Patient (68 y/o female h/o COPD/PE/DVT/CHF here with intermittent sob worse x 2 days. Denies any cough. Denies any fevers/chills. NOtes worsenign of symptomns laying flat. States she attempted use of machine at home without relief.) Past Medical History Reviewed: Historical Data, Nursing Documentation, Vital Signs Vital Signs: Last Vital Signs Temp 98.1 F 04/15/18 00:13 Pulse 67 04/15/18 00:13 Resp 18 04/15/18 00:13 BP 117/71 04/15/18 00:13 Pulse Ox 98 04/15/18 00:13 - Medical History PMH: Anemia, Arthritis, Asthma, Back Problems (herniated discs (cervical, lumbar )), Bronchitis, CAD (with coronary stent), Cardia Arrhythmia, CHF, COPD, Deep Vein Thrombosis, Fractures (left ankle), HTN, Hypercholesterolemia, Hypothyroidism, Malignancy (ovarian), Mitral Valve Prolapse, Osteoporosis, Peripheral Edema, Pneumonia, Pulmonary Embolism, Chronic Kidney Disease (stage 3 ) Denies: Diabetes, HIV - Surgical History Surgical History: CABG (x 4), Coronary Stent, Endoscopy - Family History Family History: States: Unknown Family Hx - Immunization History Hx Pneumococcal Vaccination: Yes - Home Medications Home Medications: Ambulatory Orders Medication Instructions Recorded Albuterol 0.083% [Albuterol 0.083% 2.5 mg IH Q6 #30 neb 11/14/17 Inhal Kendra (2.5 mg/3 ml) UD] Aspirin [Ecotrin] 81 mg PO DAILY #0 tabec 11/14/17 Febuxostat [Uloric] 40 mg PO DAILY #30 tablet 11/14/17 Folic Acid 1 mg PO DAILY #30 tab 11/14/17 Furosemide [Lasix] 40 mg PO DAILY #30 tab 11/14/17 Levothyroxine Sodium 25 mcg PO DAILY #30 tablet 11/14/17 Metoprolol Succinate XL [Toprol XL] 25 mg PO DAILY #30 tab 11/14/17 Pravastatin Sodium [Pravachol] 20 mg PO HS #30 tab 11/14/17 Albuterol HFA [Ventolin HFA 90 2 puff IH Q4H PRN 12/18/17 mcg/actuation (8 g)] Budesonide/Formoterol Fumarate 2 puff IH Q12 12/18/17 [Symbicort 160-4.5 Mcg Inhaler] Oxycodone HCl/Acetaminophen 1 tab PO Q4 PRN 12/18/17 [Percocet 10-325 mg Tablet] Ranolazine [Ranexa] 500 mg PO Q12 12/18/17 hydrALAZINE [Apresoline] 25 mg PO Q12 12/18/17 - Allergies Allergies/Adverse Reactions: Allergies Allergy/AdvReac Type Severity Reaction Status Date / Time No Known Allergies Allergy Verified 04/13/18 04:31 Review of Systems ROS Statement: Except As Marked, All Systems Reviewed And Found Negative Physical Exam - Reviewed Nursing Documentation Reviewed: Yes Vital Signs Reviewed: Yes - Physical Exam Appears: Positive for: Well, Non-toxic, No Acute Distress Head Exam: Positive for: ATRAUMATIC, NORMAL INSPECTION, NORMOCEPHALIC Skin: Positive for: Normal Color, Warm, DRY Eye Exam: Positive for: EOMI, Normal appearance, PERRL ENT: Positive for: Normal ENT Inspection Neck: Positive for: Normal, Painless ROM Cardiovascular/Chest: Positive for: Regular Rate, Rhythm Respiratory: Positive for: CNT, Normal Breath Sounds Gastrointestinal/Abdominal: Positive for: Normal Exam, Soft Back: Positive for: Normal Inspection Extremity: Positive for: Normal ROM Neurologic/Psych: Positive for: Alert, Oriented - Laboratory Results Result Diagrams: 04/14/18 06:40 04/14/18 06:40 - ECG O2 Sat by Pulse Oximetry: 97 - Progress ED Course And Treament: DUONEB X 1 DOSE PATIENT REFUSED IV PLACEMENT IN ED SOLUMEDROL 125MG IM X 1 DOSE cxr: no acute infiltrate Disposition - Clinical Impression Clinical Impression: COPD exacerbation, CHF exacerbation - Patient ED Disposition Is Patient to be Admitted: Transfer of Care - Disposition Disposition: Transfer of Care Disposition Time: 06:29 Condition: FAIR Patient Signed Over To: Earl Goldman Handoff Comments: pending re-evaluation
[2018-04-13] MEDS ORDERED: Albuterol-Ipratrop 3 mg / 0.5 (3 ml) UD ONE (05:43)
[2018-04-13 06:43] LABS: BASO # 0.1 K/uL (0.0-0.2); BASO % 0.6 % (0.0-2.0); EOS # 0.1 K/uL (0.0-0.7); EOS % 1.5 % (0.0-4.0); HEMOGLOBIN 11.8 g/dL (12.0-16.0); LYMPH # 2.9 K/uL (1.0-4.3); LYMPH % 29.1 % (20.0-40.0); MEAN CELL VOLUME 79.6 fl (81.0-99.0); MEAN CORPUSCULAR HEMOGLOBIN 26.4 pg (27.0-31.0); MEAN CORPUSCULAR HGB CONC 33.2 g/dL (33.0-37.0); MEAN PLATELET VOLUME 8.8 fl (7.2-11.7); MONO # 0.6 K/uL (0.0-0.8); MONO % 6.3 % (0.0-10.0); NEUT # 6.3 K/uL (1.8-7.0); NEUT % 62.5 % (50.0-75.0); RBC 4.48 Mil/uL (3.80-5.20); RED CELL DISTRIBUTION WIDTH 16.3 % (11.5-14.5)
[2018-04-13 06:55] LABS: ALB/GLOB RATIO 1.2 (1.0-2.1); ALBUMIN 3.8 g/dL (3.5-5.0); ALT/SGPT 18 U/L (9-52); AST/SGOT 19 U/L (14-36); BLOOD UREA NITROGEN 25 mg/dl (7-17); CALCIUM 9.4 mg/dL (8.4-10.2); GFR AFRICAN-AMERICAN 39; GFR NON-AFRICAN AMERICAN 32
[2018-04-13 07:04] LABS: B-TYPE NATRIURETIC PEPTIDE 484 pg/ml (0-900)
--- NOTE | 2018-04-13 07:28 | ED PDOC ---
- Laboratory Results Result Diagrams: 04/13/18 06:35 04/13/18 06:35 - ECG O2 Sat by Pulse Oximetry: 97 Medical Decision Making Medical Decision Making: received endorsement from Dr. Goldman. [facility] patient with h/o CHF/asthma. Patient is pending labs and imaging and re-evaluation. Patient labs are normal except for elevated creatinine. 9.00a - patient still appears to have labored breathing. Lungs: bilateral crackes in both lungs. bilateral edema Disposition Doctor Will See Patient In The: Hospital - Clinical Impression Clinical Impression: COPD exacerbation, CHF exacerbation - POA Present On Arrival: None - Disposition Disposition: Transfer of Care Disposition Time: 09:00 Condition: FAIR Forms: [employer] ([place])
--- NOTE | 2018-04-13 10:26 | CP.PCM.HP ---
History of Present Illness - History of Present Illness History of Present Illness: "i had a hard time breathing at 2am this morning" 68 y/o female with extensive medical hx presented for evaluation of acute SOB. Pt woke up around 2am complaining of SOB and no other symptoms, so she went to ED for evaluation. Went to bed feeling fine. Reports she had some pressure like chest pain as well. Denies any fever/chills, headaches, changes in vision, Palpitaitons, N/V/D/C, diaphoresis. ROS: 12 systems reviewed, as per HPI PMD: [facility] Specialists: Dr. Ludwig, Dr. Gonzalez, , Titus, Dr. Black PMHx: CAD s/p triple bypass, HTN, COPD, hypothyroidism, chronic low back pain, Ovarian cancer, mitral valve prolapse and CKD Stage 3 MEDS: Isosorbide DInitrate 20mg PO BID, Furosemide 40mg PO QD, Metoprolol succinate 50mg PO QD, ASA 81 mg PO QD, Hydralazine 25mg PO BID, Pravastatin 20mg PO QHS, Uloric 40mg PO QD, Ranexater 500mg PO BID, Carey D 03045 IU Qweek, Folic acid 1mg PO QD, Ferrous sulfate 325mg PO BID, Albuterol HFA 2 puffs PRN bronchospasm, Levothyroxine 25mcg PO QD ALL: NKDA PSurgHx: triple bypass 03/2012, coronary stent and hysterectomy FamilyHx: mother of HF at 60, father at 45 from MVA, had 14 siblings ( 7 from HTN/DM/HF and CO), lives alone, 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 SocialHx: current smoker (5 cig daily x 20 yrs), denies ETOH/drug abuse Next of Kin: as per demographics Code Status: full code ED course Labs: cbc cmp pro-bnp troponin Imaging EKG CXR Treatment: Present on Admission - Present on Admission Any Indicators Present on Admission: Yes History of DVT/PE: Yes History of Uncontrolled Diabetes: No Past Patient History - Infectious Disease Hx of Infectious Diseases: None - Past Medical History & Family History Past Medical History?: Yes - Past Social History Smoking Status: Light Smoker < 10 Cigarettes Daily Alcohol: None Drugs: Denies Home Situation {Lives}: Alone - CARDIAC Hx Cardia Arrhythmia: Yes Hx Congestive Heart Failure: Yes Hx Hypercholesterolemia: Yes Hx Hypertension: Yes Hx Mitral Valve Prolapse: Yes Hx Peripheral Edema: Yes - PULMONARY Hx Asthma: Yes Hx Bronchitis: Yes Hx Chronic Obstructive Pulmonary Disease (COPD): Yes Hx Pneumonia: Yes Hx Pulmonary Embolism: Yes - NEUROLOGICAL Hx Neurological Disorder: Yes Hx Vertigo: Yes - HEENT Hx HEENT Problems: No - RENAL Hx Chronic Kidney Disease: Yes (stage 3) - ENDOCRINE/METABOLIC Hx Hypothyroidism: Yes - HEMATOLOGICAL/ONCOLOGICAL Hx Anemia: Yes Hx Human Immunodeficiency Virus (HIV): No - INTEGUMENTARY Hx Dermatological Problems: No - MUSCULOSKELETAL/RHEUMATOLOGICAL Hx Arthritis: Yes Hx Fractures: Yes (left ankle) Hx Osteoporosis: Yes - GASTROINTESTINAL Hx Gastrointestinal Disorders: Yes Other/Comment: GI Bleed - GENITOURINARY/GYNECOLOGICAL Hx Genitourinary Disorders: Yes Hx Ovarian Cancer: Yes Other/Comment: hysterectomy - PSYCHIATRIC Hx Emotional Abuse: No Hx Physical Abuse: No Hx Substance Use: No - SURGICAL HISTORY Hx Coronary Artery Bypass Graft: Yes (x 4) Hx Coronary Stent: Yes - ANESTHESIA Hx Anesthesia: Yes Hx Anesthesia Reactions: No Hx Malignant Hyperthermia: No Meds Allergies/Adverse Reactions: Allergies Allergy/AdvReac Type Severity Reaction Status Date / Time No Known Allergies Allergy Verified 04/13/18 04:31 Physical Exam - Constitutional Appears: Non-toxic, No Acute Distress - Head Exam Head Exam: ATRAUMATIC, NORMOCEPHALIC - Eye Exam Eye Exam: EOMI, Normal appearance Pupil Exam: PERRL - ENT Exam ENT Exam: Mucous Membranes Moist - Respiratory Exam Respiratory Exam: Rales (bibasilar rales ), NORMAL BREATHING PATTERN. absent: Accessory Muscle Use, Chest Wall Tenderness, Decreased Breath Sounds, Prolonged Expiratory Phase, Rhonchi, Wheezes, Respiratory Distress - Cardiovascular Exam Cardiovascular Exam: REGULAR RHYTHM, RRR, +S1, +S2, Systolic Murmur. absent: Diastolic murmur, JVD - GI/Abdominal Exam GI & Abdominal Exam: Normal Bowel Sounds, Soft. absent: Distended, Firm, Guarding, Hernia, Rebound, Rigid, Tenderness - Extremities Exam Extremities exam: Positive for: full ROM, normal inspection, tenderness, pedal pulses present. Negative for: calf tenderness, pedal edema (chronic venous insuff changes ) - Neurological Exam Neurological exam: Alert, CN II-XII Intact, Normal Gait, Oriented x3 - Psychiatric Exam Psychiatric exam: Normal Affect - Skin Skin Exam: Dry, Warm Results - Vital Signs Recent Vital Signs: Last Vital Signs Temp 98.1 F 04/13/18 08:17 Pulse 73 04/13/18 08:17 Resp 17 04/13/18 08:17 BP 117/69 04/13/18 08:17 Pulse Ox 97 04/13/18 09:12 - Labs Result Diagrams: 04/13/18 06:35 04/13/18 06:35 Labs: Laboratory Results - last 24 hr 04/13/18 04/13/18 06:35 06:35 WBC 10.0 RBC 4.48 Hgb 11.8 L Hct 35.7 MCV 79.6 L D MCH 26.4 L MCHC 33.2 RDW 16.3 H Plt Count 184 MPV 8.8 Neut % (Auto) 62.5 Lymph % (Auto) 29.1 [place] % (Auto) 6.3 Eos % (Auto) 1.5 Baso % (Auto) 0.6 Neut # (Auto) 6.3 Lymph # (Auto) 2.9 [place] # (Auto) 0.6 Eos # (Auto) 0.1 Baso # (Auto) 0.1 Sodium 142 Potassium 3.2 L Chloride 103 Carbon Dioxide 29 Anion Gap 13 BUN 25 H Creatinine 1.6 H Est GFR ( Amer) 39 Est GFR (Non-Af Amer) 32 Random Glucose 103 Calcium 9.4 Total Bilirubin 0.5 AST 19 ALT 18 Alkaline Phosphatase 84 Troponin I < 0.0120 NT-Pro-B Natriuret Pep 484 Total Protein 7.0 Albumin 3.8 Globulin 3.2 Albumin/Globulin Ratio 1.2 Assessment & Plan - Assessment and Plan (Free Text) Assessment: 68 y/o female with extensive medical history admitted for evaluation of acute SOB. Plan: Acute SOB: COPD/CHF -Lasix, re-evaluate, consider additional lasix -CXR- pulmonary venous congestion -Duo-nebs -IV steroids -nitro prn -monitor vitals -repeat AM labs -trend troponin -c/w aspirin Essential HTN -stable -c/w meds as ordered Hypothyroidism -c/w home meds CAD s/p stenting -c/w home meds -trend troponin -repeat ekg Diet -heart healthy DVT PPx: -Lovenox 40mg SC QD Code Status -full code
--- NOTE | 2018-04-13 11:27 | RAD ---
HISTORY: sob COMPARISON: No prior. FINDINGS: LUNGS: Prominence of pulmonary vasculature may be secondary to AP technique and/or pulmonary vascular congestion. No focal consolidation. PLEURA: No significant pleural effusion identified, no pneumothorax apparent. CARDIOVASCULAR: Prior sternotomy with sternal wires and surgical clips redemonstrated. Atherosclerotic aortic calcifications. Cardiomediastinal silhouette stably enlarged. OSSEOUS STRUCTURES: Unchanged. VISUALIZED UPPER ABDOMEN: Normal. OTHER FINDINGS: None. IMPRESSION: Prominence of pulmonary vasculature may be secondary to AP technique and/or pulmonary vascular congestion. No focal consolidation or pleural effusion.
[2018-04-13] MEDS ORDERED: Patient's Own Med (Oxycodone Hcl/Acetaminophen [Percocet 10-325 Mg Tablet] 1 TAB) PO PRN (14:05)
[2018-04-13] MEDS: Albuterol-Ipratrop 3 mg / 0.5 (3 ml) UD INH SCH ×2 (16:27→19:42)
[2018-04-13] MEDS ORDERED: Oxycodone/Acetaminophen 5/325 mg Tab PO ONE (17:13)
[2018-04-13] MEDS ORDERED: Potassium Chloride 20 mEq ER Tab PO ONE (17:14)
[2018-04-13] MEDS: Pravastatin Sodium 20 MG TAB PO SCH (21:13)
[2018-04-13] MEDS: Ranolazine 500 mg Extended Release Tablets PO SCH (21:14)
[2018-04-14] MEDS: Albuterol-Ipratrop 3 mg / 0.5 (3 ml) UD INH SCH ×4 (07:51→19:39)
[2018-04-14 08:09] LABS: HEMOGLOBIN 11.8 g/dL (12.0-16.0); MEAN CELL VOLUME 80.7 fl (81.0-99.0); MEAN CORPUSCULAR HEMOGLOBIN 26.3 pg (27.0-31.0); MEAN CORPUSCULAR HGB CONC 32.6 g/dL (33.0-37.0); RBC 4.5 Mil/uL (3.80-5.20); RED CELL DISTRIBUTION WIDTH 16.6 % (11.5-14.5); WHITE BLOOD COUNT 7.7 K/uL (4.8-10.8)
[2018-04-14] MEDS: Levothyroxine 25 MCG TAB PO SCH (08:22)
[2018-04-14 08:44] LABS: ALB/GLOB RATIO 1.2 (1.0-2.1); ALBUMIN 3.8 g/dL (3.5-5.0); CALCIUM 9.5 mg/dL (8.4-10.2)
[2018-04-14] MEDS ORDERED: methylPREDNISolone 40 MG in Sodium Chloride 0.9% 50 ML IVPB SCH (09:00)
[2018-04-14] MEDS ORDERED: MethylPREDNISolone 40 mg Vial IVP SCH (09:00)
[2018-04-14] MEDS: Ranolazine 500 mg Extended Release Tablets PO SCH ×2 (09:36→21:15)
[2018-04-14] MEDS: Metoprolol Succinate 25 mg XL Tab PO SCH (09:39)
--- NOTE | 2018-04-14 13:14 | CP.PCM.PN ---
Subjective - Date & Time of Evaluation Date of Evaluation: 04/14/18 Time of Evaluation: 13:14 - Subjective Subjective: pt seen and examined at bedside this morning, no acute events overnight. Afebrile. Still reports feeling SOB. Mild improvement since yesterday. OOB/ ambulating with mild SOB. Reports she has not reached her baseline yet. Denies CP. Episodic cough and phlegm production post treatment. Tolerated PO intake w/ o issue. Did not notice much extra urination yesterday post-IV lasix treatment. Denies calf pain. No other complaints. Objective - Vital Signs/Intake and Output Vital Signs (last 24 hours): Temp Pulse Resp BP Pulse Ox 97.6 F 60 22 128/67 96 04/14/18 12:36 04/14/18 12:36 04/14/18 12:36 04/14/18 12:36 04/14/18 12:36 - Medications Medications: Current Medications Acetaminophen (Tylenol 325mg Tab) 650 mg PO Q6 PRN PRN Reason: Pain, Mild (1-3) Albuterol/Ipratropium (Duoneb 3 Mg/0.5 Mg (3 Ml) Ud) 3 ml INH RQID [facility] Last Admin: 04/14/18 11:20 Dose: 3 ml Folic Acid (Folic Acid) 1 mg PO DAILY [facility] Last Admin: 04/14/18 09:36 Dose: 1 mg Furosemide (Lasix) 40 mg IVP ONCE ONE Stop: 04/14/18 13:07 Furosemide (Lasix) 40 mg PO DAILY [facility] Guaifenesin/Dextromethorphan (Mucinex-Dm 600-30 Mg) 2 tab PO BID [facility] Heparin Sodium (Porcine) (Heparin) 5,000 units SC Q8H [facility] PRN Reason: Protocol Last Admin: 04/14/18 05:59 Dose: 5,000 units Hydralazine HCl (Apresoline) 25 mg PO Q12 [facility] Last Admin: 04/14/18 09:36 Dose: 25 mg Levothyroxine Sodium (Synthroid) 25 mcg PO DAILY [facility] Last Admin: 04/14/18 08:22 Dose: 25 mcg Methylprednisolone (Solu-Medrol) 40 mg IVP DAILY [facility] Last Admin: 04/14/18 09:36 Dose: 40 mg Metoprolol Succinate (Toprol Xl) 25 mg PO DAILY [facility] Last Admin: 04/14/18 09:39 Dose: 25 mg Nitroglycerin (Nitrostat Sl Tab) 0.4 mg SL Q5M PRN PRN Reason: Other Pravastatin Sodium (Pravachol) 20 mg PO HS [facility] Last Admin: 04/13/18 21:13 Dose: 20 mg Ranolazine (Ranexa) 500 mg PO Q12 [facility] Last Admin: 04/14/18 09:36 Dose: 500 mg - Labs Labs: 04/14/18 06:40 04/14/18 06:40 - Constitutional Appears: Non-toxic, No Acute Distress - Head Exam Head Exam: ATRAUMATIC, NORMOCEPHALIC - Eye Exam Eye Exam: EOMI. absent: Conjunctival injection, Scleral icterus Pupil Exam: PERRL - ENT Exam ENT Exam: Mucous Membranes Moist - Neck Exam Neck Exam: absent: Lymphadenopathy, Meningismus - Respiratory Exam Respiratory Exam: Rales (scant bibasilar rales ), NORMAL BREATHING PATTERN. absent: Accessory Muscle Use, Decreased Breath Sounds, Clear to Ausculation Bilateral, Rhonchi, Wheezes, Stridor - Cardiovascular Exam Cardiovascular Exam: REGULAR RHYTHM, RRR, +S1, +S2. absent: Tachycardia, Gallop , JVD, Rubs, Murmur - GI/Abdominal Exam GI & Abdominal Exam: Soft, Normal Bowel Sounds. absent: Tenderness Additional comments: abdominal girth 2/2 to morbid obesity limiting exam - Extremities Exam Extremities Exam: Pedal Edema (no acute change. chronic edema and venous insuff changes. ). absent: Tenderness (homans neg b/l, no erythema ) - Neurological Exam Neurological Exam: Alert, Awake, CN II-XII Intact, Oriented x3 - Skin Skin Exam: Dry, Intact Assessment and Plan - Assessment and Plan (Free Text) Assessment: 68 y/o female with extensive medical history admitted for evaluation of acute SOB. Plan: Acute SOB: COPD/CHF -improving -IV Lasix 40mg -resume home lasix -CXR- pulmonary venous congestion -EKG sinus jillian with 1st degree AV block and QT prolongation (~479) -repeat EKG unchanged -Duo-nebs RQID/PRN -IV steroids switched to PO -nitro prn -monitor vitals -repeat AM labs -troponin neg x3 -LE dopplers pending -c/w aspirin Essential HTN -stable -c/w meds as ordered Hypothyroidism -c/w home meds CAD s/p stenting -c/w home meds -troponins within normal limits -repeat ekg no acute change Diet -heart healthy DVT PPx: -heparin 5000 units BID Code Status -full code
[2018-04-14] MEDS ORDERED: Albuterol-Ipratrop 3 mg / 0.5 (3 ml) UD INH PRN (13:51)
[2018-04-14] MEDS: guaiFENesin-DM 600-30 mg ER Tab PO SCH (16:06)
--- NOTE | 2018-04-14 17:45 | CARD ---
APPROVED REPORT EKG Measurement Heart [id number] <Conclusion> Sinus bradycardia with 1st degree AV block Nonspecific T wave abnormality Abnormal ECG
[2018-04-14] MEDS: Pravastatin Sodium 20 MG TAB PO SCH (21:15)
[2018-04-15 05:29] LABS: HEMOGLOBIN 12.2 g/dL (12.0-16.0); MEAN CELL VOLUME 80.9 fl (81.0-99.0); MEAN CORPUSCULAR HEMOGLOBIN 26.1 pg (27.0-31.0); MEAN CORPUSCULAR HGB CONC 32.2 g/dL (33.0-37.0); RBC 4.69 Mil/uL (3.80-5.20); RED CELL DISTRIBUTION WIDTH 16.7 % (11.5-14.5)
[2018-04-15 06:00] LABS: ALB/GLOB RATIO 1.2 (1.0-2.1); CALCIUM 9.3 mg/dL (8.4-10.2)
[2018-04-15] MEDS: guaiFENesin-DM 600-30 mg ER Tab PO SCH ×2 (07:01→09:29)
[2018-04-15] MEDS: Albuterol-Ipratrop 3 mg / 0.5 (3 ml) UD INH SCH ×2 (07:46→11:16)
[2018-04-15 08:05] VITALS: RESP 18
[2018-04-15] MEDS: Levothyroxine 25 MCG TAB PO SCH (09:29)
[2018-04-15] MEDS: Ranolazine 500 mg Extended Release Tablets PO SCH (09:31)
[2018-04-15] MEDS: Metoprolol Succinate 25 mg XL Tab PO SCH (09:35)
--- NOTE | 2018-04-15 10:14 | CARD ---
APPROVED REPORT EKG Measurement Heart [id number] <Conclusion> Sinus bradycardia with 1st degree AV block Nonspecific T wave abnormality Prolonged QT Abnormal ECG
[2018-04-15 12:50] VITALS: BP 163/84; PULSE 67; TEMP 97.7; O2SAT 96
--- NOTE | 2018-04-15 13:23 | US ---
PROCEDURE: Bilateral lower extremity venous duplex Doppler. HISTORY: acute SOB, hx of DVT COMPARISON: Comparison is made with the previous study dated 12/11/2017 TECHNIQUE: Bilateral common femoral, superficial femoral, popliteal and posterior tibial veins were evaluated. Flow was assessed with color Doppler, compressibility, assessment of phasic flow and augmentation response. FINDINGS: COMMON FEMORAL VEIN: Right CFV: Unremarkable. Left CFV: Unremarkable. SUPERFICIAL FEMORAL VEIN: Right SFV: Unremarkable. Left SFV: Unremarkable. POPLITEAL VEIN: Right Popliteal: Unremarkable. Left Popliteal: Unremarkable. POSTERIOR TIBIAL VEIN: Right PTV: Unremarkable. Left PTV: Unremarkable. OTHER FINDINGS: None. IMPRESSION: No evidence of deep venous thrombosis.
--- NOTE | 2018-04-15 13:30 | CP.PCM.DIS ---
Provider - Provider Date of Admission: 04/13/18 09:12 Attending physician: Luis Antonio Lara MD Time Spent in preparation of Discharge (in minutes): 35 Diagnosis - Discharge Diagnosis (1) Shortness of breath Status: Acute Priority: High Hospital Course - Lab Results Lab Results: Most Recent Lab Values WBC 9.0 K/uL (4.8-10.8) 04/15/18 05:12 RBC 4.69 Mil/uL (3.80-5.20) 04/15/18 05:12 Hgb 12.2 g/dL (12.0-16.0) 04/15/18 05:12 Hct 38.0 % (34.0-47.0) 04/15/18 05:12 MCV 80.9 fl (81.0-99.0) L 04/15/18 05:12 MCH 26.1 pg (27.0-31.0) L 04/15/18 05:12 MCHC 32.2 g/dL (33.0-37.0) L 04/15/18 05:12 RDW 16.7 % (11.5-14.5) H 04/15/18 05:12 Plt Count 207 K/uL (130-400) 04/15/18 05:12 MPV 8.8 fl (7.2-11.7) 04/13/18 06:35 Neut % (Auto) 62.5 % (50.0-75.0) 04/13/18 06:35 Lymph % (Auto) 29.1 % (20.0-40.0) 04/13/18 06:35 [place] % (Auto) 6.3 % (0.0-10.0) 04/13/18 06:35 Eos % (Auto) 1.5 % (0.0-4.0) 04/13/18 06:35 Baso % (Auto) 0.6 % (0.0-2.0) 04/13/18 06:35 Neut # (Auto) 6.3 K/uL (1.8-7.0) 04/13/18 06:35 Lymph # (Auto) 2.9 K/uL (1.0-4.3) 04/13/18 06:35 [place] # (Auto) 0.6 K/uL (0.0-0.8) 04/13/18 06:35 Eos # (Auto) 0.1 K/uL (0.0-0.7) 04/13/18 06:35 Baso # (Auto) 0.1 K/uL (0.0-0.2) 04/13/18 06:35 Sodium 142 mmol/l (132-148) 04/15/18 05:12 Potassium 4.6 MMOL/L (3.6-5.0) 04/15/18 05:12 Chloride 103 mmol/L (98-107) 04/15/18 05:12 Carbon Dioxide 30 mmol/L (22-30) 04/15/18 05:12 Anion Gap 14 (10-20) 04/15/18 05:12 BUN 40 mg/dl (7-17) H 04/15/18 05:12 Creatinine 1.8 mg/dl (0.7-1.2) H 04/15/18 05:12 Est GFR ( Amer) 34 04/15/18 05:12 Est GFR (Non-Af Amer) 28 04/15/18 05:12 Random Glucose 104 mg/dL (65-105) 04/15/18 05:12 Calcium 9.3 mg/dL (8.4-10.2) 04/15/18 05:12 Total Bilirubin 0.5 mg/dl (0.2-1.3) 04/15/18 05:12 AST 17 U/L (14-36) 04/15/18 05:12 ALT 14 U/L (9-52) 04/15/18 05:12 Alkaline Phosphatase 82 U/L (38-126) 04/15/18 05:12 Troponin I < 0.0120 ng/mL (0.00-0.120) 04/14/18 02:35 NT-Pro-B Natriuret Pep 484 pg/ml (0-900) 04/13/18 06:35 Total Protein 7.5 G/DL (6.3-8.2) 04/15/18 05:12 Albumin 4.0 g/dL (3.5-5.0) 04/15/18 05:12 Globulin 3.5 gm/dL (2.2-3.9) 04/15/18 05:12 Albumin/Globulin Ratio 1.2 (1.0-2.1) 04/15/18 05:12 - Hospital Course Hospital Course: 68 y/o female with extensive cardiac history as well as COPD and hypothyroidism was admitted for evaluation of acute SOB. She was treat with IV steroids, Duo- neb treatments. She was evaluated for possible cardiac or circulatory etiology as well. Troponin was trended without any abnormal results. EKG was done initially and repeated which also did not show new acute changes. She was also treated with Mucinex BID and several doses of Lasix. SOB improved. Lower Ext Duplex was negative was DVT. After an uneventful hospital stay, she was discharged in stable condition. Meds on Discharge: -prednisone 20mg PO QD x3 days -Mucinex DM Discharge Exam - Head Exam Head Exam: ATRAUMATIC, NORMAL INSPECTION, NORMOCEPHALIC - Eye Exam Eye Exam: EOMI Pupil Exam: PERRL - ENT Exam ENT Exam: Normal Exam - Respiratory Exam Respiratory Exam: Clear to PA & Lateral, NORMAL BREATHING PATTERN, UNREMARKABLE. absent: Chest Wall Tenderness, Rales, Rhonchi, Wheezes, Respiratory Distress - Cardiovascular Exam Cardiovascular Exam: REGULAR RHYTHM, RRR, +S1, +S2. absent: JVD - GI/Abdominal Exam GI & Abdominal Exam: Normal Bowel Sounds - Extremities Exam Extremities exam: pedal edema (chronic, nonpitting, chronic venous insuff changes ) - Neurological Exam Neurological exam: Alert, CN II-XII Intact, Normal Gait, Oriented x3 - Psychiatric Exam Psychiatric exam: Normal Affect - Skin Skin Exam: Dry, Intact Discharge Plan - Discharge Medications Prescriptions: guaiFENesin/Dextromethorphan [Mucinex-DM 600-30 mg] 2 tab PO BID #20 tab predniSONE [predniSONE Tab] 20 mg PO DAILY #3 tab - Follow Up Plan Condition: GOOD Disposition: HOME/ ROUTINE Instructions: Exacerbation of COPD (DC) Additional Instructions: follow up with primary md 5-7 days take medications as prescribed any worsening of symptoms report back to ED for evaluation Referrals: Marycarmen Mcbride MD [Family Provider] -
[2018-04-15] MEDS ORDERED: Oxycodone/Acetaminophen 5/325 mg Tab PO ONE (13:48)
[2018-04-15] MEDS ORDERED: Fluticasone-Salmeterol 250-50mcg Diskus IH SCH (21:00)
== END 2018-04-15 15:00 | disposition home or self-care (01) ==
LOC: H.ER 04:20 → H.ERHOLD 09:12 → H.TEL 13:42
PROVIDERS: ADMIT Family Medicine; ATTEND Family Medicine
DX: J44.1 Chronic obstructive pulmonary disease with (acute) exacerbation (principal); I13.0 Hypertensive heart and chronic kidney disease with heart failure and stage 1 through stage 4 chronic kidney disease, or unspecified chronic kidney disease; I50.9 Heart failure, unspecified; E03.9 Hypothyroidism, unspecified; E78.00 Pure hypercholesterolemia, unspecified; F17.210 Nicotine dependence, cigarettes, uncomplicated; I25.10 Atherosclerotic heart disease of native coronary artery without angina pectoris; I34.1 Nonrheumatic mitral (valve) prolapse; M81.0 Age-related osteoporosis without current pathological fracture; N18.3 Chronic kidney disease, stage 3 (moderate); Z79.82 Long term (current) use of aspirin; Z85.43 Personal history of malignant neoplasm of ovary; Z79.51 Long term (current) use of inhaled steroids; Z86.711 Personal history of pulmonary embolism; Z87.01 Personal history of pneumonia (recurrent); Z95.5 Presence of coronary angioplasty implant and graft; Z95.1 Presence of aortocoronary bypass graft; Z90.710 Acquired absence of both cervix and uterus
CPT/HCPCS: 36415; 71045; 80053; 83880; 84484; 85025; 85027; 93005; 93970; 94640; 96372; 96374; 99283; G0378; J1644; J1885; J1940; J2920; J2930

== ENCOUNTER 2018-05-17 19:15 | Inpatient (IN) | payer MEDICARE, MEDICAID ==
[2018-05-17 19:15] VITALS: BMI 44.9
[2018-05-17] MEDS ORDERED: Morphine 4 MG/ML VIAL ONE (21:28)
[2018-05-17 22:22] LABS: BASO % 0.5 % (0.0-2.0); EOS # 0.1 K/uL (0.0-0.7); EOS % 1.5 % (0.0-4.0); HEMOGLOBIN 12.2 g/dL (12.0-16.0); LYMPH # 2.1 K/uL (1.0-4.3); LYMPH % 29.6 % (20.0-40.0); MEAN CORPUSCULAR HEMOGLOBIN 26.3 pg (27.0-31.0); MEAN CORPUSCULAR HGB CONC 32.4 g/dL (33.0-37.0); MEAN PLATELET VOLUME 8.2 fl (7.2-11.7); MONO # 0.5 K/uL (0.0-0.8); MONO % 6.6 % (0.0-10.0); NEUT # 4.4 K/uL (1.8-7.0); NEUT % 61.8 % (50.0-75.0); RBC 4.63 Mil/uL (3.80-5.20); RED CELL DISTRIBUTION WIDTH 16.9 % (11.5-14.5); WHITE BLOOD COUNT 7.1 K/uL (4.8-10.8)
[2018-05-17 22:30] LABS: INR 1.1; PROTHROMBIN TIME 12.5 Seconds (9.8-13.1)
--- NOTE | 2018-05-17 22:31 | ED PDOC ---
Lower Extremity Pain/Injury Time Seen by Provider: 05/17/18 20:09 Chief Complaint (Nursing): Lower Extremity Problem/Injury Chief Complaint (Provider): Lower Extremity Problem/Injury History Per: Patient History/Exam Limitations: no limitations Onset/Duration Of Symptoms: Days (x2 months) Additional Complaint(s): Kirsten Woodard is a 68 y/o female who presents to [facility] ED complaining of leg swelling. Patient reports the swelling has bothered her on and off for the past x2 months but over the past x2 days the swelling came back and hasn't gone away since despite taking her "water pill" and keeping her legs elevated. Patient also reports shortness of breath but states that it is chronic to her and resolves if she puts her oxygen on. She denies any increase in cough or fever, she also denies trauma to her legs. Patient does report mild pain to her bilateral legs. Patient has a history of PE and DVT but because of bleeding in the the past she no longer takes blood thinners. Otherwise she takes all her medications as prescribed. PMD: Clinic Past Medical History Reviewed: Historical Data, Nursing Documentation, Vital Signs Vital Signs: Last Vital Signs Temp 98 F 05/17/18 19:49 Pulse 57 L 05/17/18 19:49 Resp 19 05/17/18 19:49 BP 117/60 05/17/18 19:49 Pulse Ox 90 L 05/17/18 19:49 - Medical History PMH: Anemia, Arthritis, Asthma, Back Problems (herniated discs (cervical, lumbar )), Bronchitis, CAD (with coronary stent), Cardia Arrhythmia, CHF, COPD, Deep Vein Thrombosis, Fractures (left ankle), HTN, Hypercholesterolemia, Hypothyroidism, Malignancy (ovarian), Mitral Valve Prolapse, Osteoporosis, Peripheral Edema, Pneumonia, Pulmonary Embolism, Chronic Kidney Disease (stage 3 ) Denies: Diabetes, HIV - Surgical History Surgical History: CABG (x 4), Coronary Stent, Endoscopy - Family History Family History: States: Unknown Family Hx - Immunization History Hx Pneumococcal Vaccination: Yes - Home Medications Home Medications: Ambulatory Orders Medication Instructions Recorded Albuterol 0.083% [Albuterol 0.083% 2.5 mg IH Q6 #30 neb 11/14/17 Inhal Kendra (2.5 mg/3 ml) UD] Aspirin [Ecotrin] 81 mg PO DAILY #0 tabec 11/14/17 Febuxostat [Uloric] 40 mg PO DAILY #30 tablet 11/14/17 Folic Acid 1 mg PO DAILY #30 tab 11/14/17 Furosemide [Lasix] 40 mg PO DAILY #30 tab 11/14/17 Levothyroxine Sodium 25 mcg PO DAILY #30 tablet 11/14/17 Metoprolol Succinate XL [Toprol XL] 25 mg PO DAILY #30 tab 11/14/17 Pravastatin Sodium [Pravachol] 20 mg PO HS #30 tab 11/14/17 Albuterol HFA [Ventolin HFA 90 2 puff IH Q4H PRN 12/18/17 mcg/actuation (8 g)] Budesonide/Formoterol Fumarate 2 puff IH Q12 12/18/17 [Symbicort 160-4.5 Mcg Inhaler] Oxycodone HCl/Acetaminophen 1 tab PO Q4 PRN 12/18/17 [Percocet 10-325 mg Tablet] Ranolazine [Ranexa] 500 mg PO Q12 12/18/17 hydrALAZINE [Apresoline] 25 mg PO Q12 12/18/17 guaiFENesin/Dextromethorphan 2 tab PO BID #20 tab 04/15/18 [Mucinex-DM 600-30 mg] predniSONE [predniSONE Tab] 20 mg PO DAILY #3 tab 04/15/18 - Allergies Allergies/Adverse Reactions: Allergies Allergy/AdvReac Type Severity Reaction Status Date / Time No Known Allergies Allergy Verified 04/13/18 04:31 Review of Systems ROS Statement: Except As Marked, All Systems Reviewed And Found Negative (as per HPI otherwise negative) Constitutional: Negative for: Fever Cardiovascular: Positive for: Edema (leg swelling) Respiratory: Positive for: Shortness of Breath (chronic). Negative for: Cough Musculoskeletal: Positive for: Leg Pain (bilaterally; mild) Physical Exam - Reviewed Nursing Documentation Reviewed: Yes Vital Signs Reviewed: Yes - Physical Exam Appears: Positive for: Non-toxic, No Acute Distress Head Exam: Positive for: ATRAUMATIC, NORMOCEPHALIC Skin: Positive for: Warm, Dry Eye Exam: Positive for: EOMI, PERRL ENT: Negative for: Pharyngeal Erythema, Tonsillar Exudate Neck: Positive for: Painless ROM, Supple Cardiovascular/Chest: Positive for: Regular Rate, Rhythm, Edema. Negative for: Murmur Respiratory: Negative for: Rales, Wheezing, Respiratory Distress Gastrointestinal/Abdominal: Positive for: Soft. Negative for: Tenderness Extremity: Positive for: Normal ROM, Pedal Edema (2+ pitting). Negative for: Deformity Lymphatic: Negative for: Adenopathy Neurologic/Psych: Positive for: Alert. Negative for: Motor/Sensory Deficits - Laboratory Results Result Diagrams: 05/17/18 22:10 05/17/18 22:10 Interpretation Of Abn Labs: Elevated BNP. Troponin neg. CW acute CHF. - ECG ECG: Positive for: Interpreted By Me ECG Rhythm: Positive for: Sinus Rhythm, Nonspecific Changes O2 Sat by Pulse Oximetry: 90 (RA) Pulse Ox Interpretation: Abnormal - Radiology X-Ray: Interpreted by Me X-Ray Interpretation: Other (increased perihilar markings c/w previous including prominent right fissue.) Medical Decision Making Medical Decision Making: Time: 20:51 Impression: Leg edema Differential included but not limited to CHF, DVT, food overload, renal failure Initial Plan --Type and screen --EKG --BNP --CMP --Magnesium --Phosphorous --Troponin I --CBC w/ diff --PTT --Prothrombin time --Chest x-ray --US duplex lower extremity EXAM: US Duplex Bilateral Lower Extremity Veins CLINICAL HISTORY: 68 years old, female; Signs and symptoms; Swelling of limb; Lower extremity, bilateral; Additional info: Leg swelling TECHNIQUE: Real-time duplex ultrasound scan of the bilateral lower extremity veins integrating B-mode twodimensional vascular structure, Doppler spectral analysis, color flow Doppler imaging and compression. COMPARISON: US - DUPLEX LOWER EXTRM VEIN LEFT 2015-08-20 00:25 FINDINGS: Right deep veins: Normal color and spectral Doppler flow. Normal compressibility. No deep vein thrombosis. Right superficial veins: Unremarkable. Left deep veins: Normal color and spectral Doppler flow. Normal compressibility. No deep vein thrombosis. Left superficial veins: Unremarkable. Soft tissues: No popliteal cyst. IMPRESSION: No evidence of DVT within lower extremities. Thank you for allowing us to participate in the care of your patient. Dictated and Authenticated by: Oseas England MD 05/17/2018 10:18 PM Eastern Time ([place] & [place]) Edema most likely from acute CHF exacerbation Pt to be hospitalized for stabilization. [facility] resident for hospitalization. Scribe Attestation: Documented by Brien Martinez, acting as a scribe for Skyla Rodrigues MD. Provider Scribe Attestation: All medical record entries made by the Scribe were at my direction and personally dictated by me. I have reviewed the chart and agree that the record accurately reflects my personal performance of the history, physical exam, medical decision making, and the department course for this patient. I have also personally directed, reviewed, and agree with the discharge instructions and disposition. Disposition - Clinical Impression Clinical Impression: CHF exacerbation, Leg edema Counseled Patient/Family Regarding: Studies Performed, Diagnosis - Disposition Disposition Time: 22:00 Condition: FAIR - Pt Status Changed To: Hospital Disposition Of: Observation - POA Present On Arrival: None
[2018-05-17 22:33] LABS: PARTIAL THROMBOPLASTIN TIME 36.1 Seconds (25.6-37.1)
[2018-05-17 22:36] LABS: ALB/GLOB RATIO 1.2 (1.0-2.1); ALT/SGPT 9 U/L (9-52); AST/SGOT 15 U/L (14-36); BLOOD UREA NITROGEN 19 mg/dl (7-17); CALCIUM 9.3 mg/dL (8.4-10.2); GFR AFRICAN-AMERICAN 42; GFR NON-AFRICAN AMERICAN 35
[2018-05-17 22:47] LABS: B-TYPE NATRIURETIC PEPTIDE 1320 pg/ml (0-900)
[2018-05-17] MEDS ORDERED: Albuterol 0.083% Inhal Sol (2.5 mg/3 mL) UD IH PRN (23:43)
[2018-05-17] MEDS ORDERED: Patient's Own Med (Oxycodone Hcl/Acetaminophen [Percocet 10-325 Mg Tablet] 1 TAB) PO PRN (23:43)
[2018-05-17] MEDS ORDERED: Patient's Own Med (Budesonide/Formoterol Fumarate [Symbicort 160-4.5 Mcg Inhaler] 2 PUFF) IH SCH (23:45)
[2018-05-17] MEDS ORDERED: Albuterol-Ipratrop 3 mg / 0.5 (3 ml) UD INH PRN (23:54)
--- NOTE | 2018-05-18 00:19 | CP.PCM.HP ---
Addendum entered and electronically signed by Zoey Martinez MD 05/18/18 18:29 : I saw and evaluated the patient. I discussed the case with the resident and agree with the findings and plan as documented in the resident's note. LE edema improving after IV lasix. Cardiology consult given extensive cardiac history. Also pain mgmt consult for chonic back pain. Patient has [employer]IE[employer] REVENUE [employer] at home M-S, SW consult, and also PT assessment, pt ambulates with a cane/rolling walker. Pt's HCP is her daughter Pratima Yu. Addendum entered and electronically signed by Cheryl Stern MD 05/18/18 11:47: S: Patient seen and examined this morning at bedside. NAD, denies any chest pain , SOB, palpitations, dizziness or weakness. O: VS reviewed, Labs reviewed PE: B/l LEs edema, and mild tenderness A/P: 68 y/o F admitted for CHF exacerbation - EKG, CXR and labs reviewed - Consult cardio, Dr. Menendez, will follow recommendations - C/w Lasix 40mg IV daily for now - Daily weight checks - C/w home medications Case discussed with Dr. Martinez Original Note: History of Present Illness - History of Present Illness History of Present Illness: 68 YO F/ presents to the ED because of worsening swelling of her legs over the last 2 days. She has chronic leg swelling however, she is concerned that over the last two days it is getting worse and is not resolving with her lasix. She is concerned because 5 years ago she had a history of a DVT for which she was on blood thinners in the past but was stopped because she was having blood in her stools. She stopped the anticoagulation one year ago, as recommended by her PMD. . - She has been taking her medication as directed. Patient admits to sleeping with 3 pillows because of difficulty breathing laying flat. She had a Echo on which showed nomral sized left ventricle with EF of 50-55% and grade 1 abnormal relaxation. Ambulates around her house with her rolling walker but uses her wheelchair when she goes out. she is requesting a letter allowing her to keep her supplemental oxygen because her insurance is refusing to cover it. - Her asthma is controlled with using symbacort twice a day and hasn't had to use her rescue inhaler. - Currently denies chest pain, SOB, Nausea, vomiting or diarrhea PMD: [facility] Specialists: Dr. Ludwig, Dr. Gonzalez, , T[place], Dr. Black PMHx: CAD s/p triple bypass, HTN, COPD, hypothyroidism, chronic low back pain, Ovarian cancer, mitral valve prolapse and CKD Stage 3, "Brain tumor:> Being monitored by Dr. Qureshi. MEDS: Isosorbide DInitrate 20mg PO BID, Furosemide 40mg PO QD, Metoprolol succinate 25?or 50?mg PO QD, ASA 81 mg PO QD, Hydralazine 25mg PO BID, Pravastatin 20mg PO QHS, Uloric 40mg PO QD, Ranexater 500mg PO BID, Folic acid 1mg PO QD, Ferrous sulfate 325mg PO BID,Symbacort BID Albuterol HFA 2 puffs PRN bronchospasm, Levothyroxine 25mcg PO QD ALL: NKDA PSurgHx: triple bypass 03/2012, coronary stent and hysterectomy FamilyHx: mother of HF at 60, father at 45 from MVA, had 14 siblings ( 7 from HTN/DM/HF and NC), lives alone, 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 SocialHx: current smoker (3 cig daily x 20 yrs), denies ETOH/drug abuse Next of Kin: as per demographics Code Status: full code ED course: - Lasix 80mg IVP --EKG: Sinus rhythm non specific changes - CBC: 7.1>12.2/37.5<223 --CMP 141/3.5>100/34<19/1.5<94 --Magnesium:2.0 --Phosphorous: 4.1 --Troponin I x 1 negative --PTT &Prothrombin time: WNL --Chest x-ray --US duplex lower extremity: No evidence of DVT within lower extremities. * Present on Admission - Present on Admission Any Indicators Present on Admission: No Past Patient History - Infectious Disease Hx of Infectious Diseases: None - Past Medical History & Family History Past Medical History?: Yes - Past Social History Smoking Status: Light Smoker < 10 Cigarettes Daily - CARDIAC Hx Cardia Arrhythmia: Yes Hx Congestive Heart Failure: Yes Hx Hypercholesterolemia: Yes Hx Hypertension: Yes Hx Mitral Valve Prolapse: Yes Hx Peripheral Edema: Yes - PULMONARY Hx Asthma: Yes Hx Bronchitis: Yes Hx Chronic Obstructive Pulmonary Disease (COPD): Yes Hx Pneumonia: Yes Hx Pulmonary Embolism: Yes - NEUROLOGICAL Hx Neurological Disorder: Yes Hx Vertigo: Yes - HEENT Hx HEENT Problems: No - RENAL Hx Chronic Kidney Disease: Yes (stage 3) - ENDOCRINE/METABOLIC Hx Hypothyroidism: Yes - HEMATOLOGICAL/ONCOLOGICAL Hx Anemia: Yes Hx Human Immunodeficiency Virus (HIV): No - INTEGUMENTARY Hx Dermatological Problems: No - MUSCULOSKELETAL/RHEUMATOLOGICAL Hx Arthritis: Yes Hx Fractures: Yes (left ankle) Hx Osteoporosis: Yes - GASTROINTESTINAL Hx Gastrointestinal Disorders: Yes Other/Comment: GI Bleed - GENITOURINARY/GYNECOLOGICAL Hx Genitourinary Disorders: Yes Hx Ovarian Cancer: Yes Other/Comment: hysterectomy - PSYCHIATRIC Hx Emotional Abuse: No Hx Physical Abuse: No Hx Substance Use: No - SURGICAL HISTORY Hx Coronary Artery Bypass Graft: Yes (x 4) Hx Coronary Stent: Yes - ANESTHESIA Hx Anesthesia: Yes Hx Anesthesia Reactions: No Hx Malignant Hyperthermia: No Meds Allergies/Adverse Reactions: Allergies Allergy/AdvReac Type Severity Reaction Status Date / Time No Known Allergies Allergy Verified 04/13/18 04:31 Physical Exam - Constitutional Appears: No Acute Distress - Head Exam Head Exam: ATRAUMATIC, NORMAL INSPECTION, NORMOCEPHALIC - Eye Exam Eye Exam: EOMI, Normal appearance Pupil Exam: NORMAL ACCOMODATION, PERRL - ENT Exam ENT Exam: Mucous Membranes Moist, Normal Exam - Neck Exam Neck exam: Positive for: Normal Inspection - Respiratory Exam Respiratory Exam: NORMAL BREATHING PATTERN. absent: Rales, Wheezes - Cardiovascular Exam Cardiovascular Exam: REGULAR RHYTHM, +S1, +S2. absent: JVD, Systolic Murmur - GI/Abdominal Exam GI & Abdominal Exam: Normal Bowel Sounds, Soft. absent: Tenderness - Extremities Exam Extremities exam: Positive for: pedal edema (2+) Additional comments: Slight tenderness on palpation over halfs: chronic b/l - Neurological Exam Neurological exam: Alert, CN II-XII Intact, Oriented x3 - Skin Skin Exam: Normal Color, Warm Results - Vital Signs Recent Vital Signs: Last Vital Signs Temp 98 F 05/17/18 19:49 Pulse 57 L 05/17/18 19:49 Resp 19 05/17/18 19:49 BP 117/60 05/17/18 19:49 Pulse Ox 90 L 05/17/18 23:46 - Labs Result Diagrams: 05/18/18 06:00 05/18/18 06:00 Labs: Laboratory Results - last 24 hr 05/17/18 05/17/18 05/17/18 22:10 22:10 22:10 WBC 7.1 RBC 4.63 Hgb 12.2 Hct 37.5 MCV 81.0 MCH 26.3 L MCHC 32.4 L RDW 16.9 H Plt Count 223 MPV 8.2 Neut % (Auto) 61.8 Lymph % (Auto) 29.6 [place] % (Auto) 6.6 Eos % (Auto) 1.5 Baso % (Auto) 0.5 Neut # (Auto) 4.4 Lymph # (Auto) 2.1 [place] # (Auto) 0.5 Eos # (Auto) 0.1 Baso # (Auto) 0.0 PT 12.5 INR 1.1 APTT 36.1 Sodium 141 Potassium 3.5 L Chloride 100 Carbon Dioxide 34 H Anion Gap 11 BUN 19 H Creatinine 1.5 H Est GFR ( Amer) 42 Est GFR (Non-Af Amer) 35 Random Glucose 94 Calcium 9.3 Phosphorus 4.1 Magnesium 2.0 Total Bilirubin 0.6 AST 15 ALT 9 D Alkaline Phosphatase 89 Troponin I < 0.0120 NT-Pro-B Natriuret Pep 1320 H Total Protein 7.3 Albumin 4.0 Globulin 3.3 Albumin/Globulin Ratio 1.2 Blood Type Antibody Screen BBK History Checked 05/17/18 22:10 WBC RBC Hgb Hct MCV MCH MCHC RDW Plt Count MPV Neut % (Auto) Lymph % (Auto) [place] % (Auto) Eos % (Auto) Baso % (Auto) Neut # (Auto) Lymph # (Auto) [place] # (Auto) Eos # (Auto) Baso # (Auto) PT INR APTT Sodium Potassium Chloride Carbon Dioxide Anion Gap BUN Creatinine Est GFR ( Amer) Est GFR (Non-Af Amer) Random Glucose Calcium Phosphorus Magnesium Total Bilirubin AST ALT Alkaline Phosphatase Troponin I NT-Pro-B Natriuret Pep Total Protein Albumin Globulin Albumin/Globulin Ratio Blood Type A POSITIVE Antibody Screen Negative BBK History Checked Patient has bt Assessment & Plan - Assessment and Plan (Free Text) Assessment: 68 y/o female with extensive medical history admitted for evaluation of acute SOB. Plan: Lower extremity edema - Most likely secondary to volume overload - BNP: 1320 -Lasix 80mg IVP given in ER - C/W home dose -Duplex venous U/S B/L negative Essential HTN -stable -c/w meds as ordered Hypothyroidism -c/w home meds CAD s/p stenting -c/w home meds Diet -heart healthy DVT PPx: -Lovenox 40mg SC QD
[2018-05-18] MEDS: Pravastatin Sodium 20 MG TAB PO SCH ×2 (01:34→22:11)
[2018-05-18] MEDS: Ranolazine 500 mg Extended Release Tablets PO SCH ×3 (01:34→22:11)
[2018-05-18 06:20] LABS: HEMOGLOBIN 11.5 g/dL (12.0-16.0); MEAN CELL VOLUME 80.9 fl (81.0-99.0); MEAN CORPUSCULAR HEMOGLOBIN 26.3 pg (27.0-31.0); MEAN CORPUSCULAR HGB CONC 32.6 g/dL (33.0-37.0); RBC 4.38 Mil/uL (3.80-5.20); RED CELL DISTRIBUTION WIDTH 16.7 % (11.5-14.5); WHITE BLOOD COUNT 6.5 K/uL (4.8-10.8)
[2018-05-18] MEDS ORDERED: Oxycodone/Acetaminophen 5/325 mg Tab PO PRN (06:21)
[2018-05-18 06:27] LABS: CALCIUM 9.1 mg/dL (8.4-10.2)
[2018-05-18] MEDS: Levothyroxine 25 MCG TAB PO SCH (06:40)
[2018-05-18] MEDS ORDERED: Potassium Chloride 20 mEq 100 ML IVPB ONE (07:55)
[2018-05-18] MEDS ORDERED: Enoxaparin 40 mg Syringe SC SCH ×2 (09:00)
--- NOTE | 2018-05-18 09:22 | RAD ---
Date of service: 05/17/2018 HISTORY: sob h/o chf COMPARISON: Chest radiograph dated 04/13/2018. FINDINGS: LUNGS: No active pulmonary disease. PLEURA: Stable eventration of the lateral left hemidiaphragm. No significant pleural effusion identified, no pneumothorax apparent. CARDIOVASCULAR: Prior sternotomy with sternal wires and surgical clips redemonstrated. Atherosclerotic aortic calcifications. Cardiomediastinal silhouette stably enlarged. OSSEOUS STRUCTURES: Unchanged. VISUALIZED UPPER ABDOMEN: Normal. OTHER FINDINGS: None. IMPRESSION: No active disease.
--- NOTE | 2018-05-18 09:23 | US ---
Date of service: 05/17/2018 PROCEDURE: Bilateral lower extremity venous duplex Doppler. HISTORY: leg swelling COMPARISON: Lower extremity venous ultrasound dated 04/14/2018. TECHNIQUE: Bilateral common femoral, superficial femoral, popliteal and posterior tibial veins were evaluated. Flow was assessed with color Doppler, compressibility, assessment of phasic flow and augmentation response. FINDINGS: COMMON FEMORAL VEIN: Right CFV: Unremarkable. Left CFV: Unremarkable. SUPERFICIAL FEMORAL VEIN: Right SFV: Unremarkable. Left SFV: Unremarkable. POPLITEAL VEIN: Right Popliteal: Unremarkable. Left Popliteal: Unremarkable. POSTERIOR TIBIAL VEIN: Right PTV: Unremarkable. Left PTV: Unremarkable. OTHER FINDINGS: Subcutaneous edema. IMPRESSION: No evidence of deep venous thrombosis.
[2018-05-18] MEDS: Metoprolol Succinate 25 mg XL Tab PO SCH (09:35)
[2018-05-18] MEDS: Fluticasone-Salmeterol 250-50mcg Diskus IH SCH ×2 (09:38→22:00)
[2018-05-18] MEDS: Enoxaparin 30 mg Syringe SC SCH (09:39)
--- NOTE | 2018-05-18 12:56 | CP.PCM.CON ---
History of Present Illness - History of Present Illness History of Present Illness: 68 y/o female who presents to the ED complaining of leg swelling. Patient reports the swelling has bothered her on and off for the past x2 months but over the past x2 days the swelling came back and hasn't gone away since despite taking her "water pill" and keeping her legs elevated. Patient also reports shortness of breath but states that it is chronic to her COPD / Asthma She denies any increase in cough or fever. Patient does report mild pain to her bilateral legs. Patient has a history of PE and DVT but because of bleeding in the the past she no longer takes blood thinners. She has a long medical history which consists of coronary artery disease for which she required coronary bypass graft surgery more than 7 years back and along with chronic endogenous obesity obstructive sleep apnea severe spinal stenosis and lower back syndrome with chronic lung disease secondary to a long history of chronic cigarette use and COPD, hypertension. The patient had undergone a coronary angiography in February 2016 which revealed patent coronary bypasses. The bypass from KEITH to LAD was patent. She has chronic pedal edema as a consequence of prolonged sitting with her persistent exogenous obesity. Echo 11/12/2017 Normal size LV LV function normal EF: 50 - 55% EKG: Sinus Bradycardia @ 53 BPM 1* AV Block BNP: 1320 Troponin: neg x 3 PMH: CABS 8 yrs ago Cath 2015 normal COPD Asthma [place] HTN Sleep Apnea Past Patient History - Infectious Disease Hx of Infectious Diseases: None - Past Medical History & Family History Past Medical History?: Yes - Past Social History Smoking Status: Light Smoker < 10 Cigarettes Daily - CARDIAC Hx Cardia Arrhythmia: Yes Hx Congestive Heart Failure: Yes Hx Hypercholesterolemia: Yes Hx Hypertension: Yes Hx Mitral Valve Prolapse: Yes Hx Peripheral Edema: Yes - PULMONARY Hx Asthma: Yes Hx Bronchitis: Yes Hx Chronic Obstructive Pulmonary Disease (COPD): Yes Hx Pneumonia: Yes Hx Pulmonary Embolism: Yes - NEUROLOGICAL Hx Neurological Disorder: Yes - HEENT Hx HEENT Problems: No - RENAL Hx Chronic Kidney Disease: Yes (stage 3) - ENDOCRINE/METABOLIC Hx Hypothyroidism: Yes - HEMATOLOGICAL/ONCOLOGICAL Hx Anemia: Yes Hx Human Immunodeficiency Virus (HIV): No - INTEGUMENTARY Hx Dermatological Problems: No - MUSCULOSKELETAL/RHEUMATOLOGICAL Hx Arthritis: Yes Hx Fractures: Yes (left ankle) Hx Osteoporosis: Yes - GASTROINTESTINAL Hx Gastrointestinal Disorders: Yes Other/Comment: GI Bleed - GENITOURINARY/GYNECOLOGICAL Hx Genitourinary Disorders: Yes - PSYCHIATRIC Hx Emotional Abuse: No Hx Physical Abuse: No Hx Substance Use: No - SURGICAL HISTORY Hx Coronary Artery Bypass Graft: Yes (x 4) Hx Coronary Stent: Yes - ANESTHESIA Hx Anesthesia: Yes Hx Anesthesia Reactions: No Hx Malignant Hyperthermia: No Meds Allergies/Adverse Reactions: Allergies Allergy/AdvReac Type Severity Reaction Status Date / Time No Known Allergies Allergy Verified 04/13/18 04:31 - Medications Medications: Current Medications Albuterol/Ipratropium (Duoneb 3 Mg/0.5 Mg (3 Ml) Ud) 3 ml INH RQ6 PRN PRN Reason: Shortness of Breath Aspirin (Ecotrin) 81 mg PO DAILY [facility] Last Admin: 05/18/18 09:32 Dose: 81 mg Enoxaparin Sodium (Lovenox) 30 mg SC DAILY [facility] PRN Reason: Protocol Last Admin: 05/18/18 09:39 Dose: 30 mg Folic Acid (Folic Acid) 1 mg PO DAILY [facility] Last Admin: 05/18/18 09:32 Dose: 1 mg Furosemide (Lasix) 40 mg IV DAILY [facility] Last Admin: 05/18/18 09:51 Dose: 40 mg Home Med (Febuxostat [Uloric]) 40 mg PO DAILY [facility] Hydralazine HCl (Apresoline) 25 mg PO Q12 [facility] Last Admin: 05/18/18 09:37 Dose: Not Given Levothyroxine Sodium (Synthroid) 25 mcg PO DAILY@0630 [facility] Last Admin: 05/18/18 06:40 Dose: 25 mcg Metoprolol Succinate (Toprol Xl) 25 mg PO DAILY [facility] Last Admin: 05/18/18 09:35 Dose: Not Given Oxycodone/Acetaminophen (Percocet 5/325 Mg Tab) 1 tab PO Q4 PRN PRN Reason: Pain, moderate (4-7) Stop: 05/21/18 06:22 Oxycodone/Acetaminophen (Percocet 5/325 Mg Tab) 2 tab PO Q6 PRN PRN Reason: Pain, severe (8-10) Stop: 05/21/18 06:25 Pravastatin Sodium (Pravachol) 20 mg PO [facility] Last Admin: 05/18/18 01:34 Dose: 20 mg Ranolazine (Ranexa) 500 mg PO Q12 [facility] Last Admin: 05/18/18 09:32 Dose: 500 mg Fluticasone/Salmeterol (Advair Diskus 250/50) 1 puff IH Q12 [facility] Last Admin: 05/18/18 09:38 Dose: 1 puff Physical Exam - Constitutional Appears: Well - Head Exam Head Exam: NORMAL INSPECTION - Eye Exam Eye Exam: Normal appearance - ENT Exam ENT Exam: Normal Exam - Respiratory Exam Respiratory Exam: NORMAL BREATHING PATTERN - Cardiovascular Exam Cardiovascular Exam: REGULAR RHYTHM Results - Vital Signs Recent Vital Signs: Last Vital Signs Temp 98 F 05/18/18 12:17 Pulse 58 L 05/18/18 12:17 Resp 18 05/18/18 12:17 BP 132/75 05/18/18 12:17 Pulse Ox 98 05/18/18 12:17 - Labs Result Diagrams: 05/19/18 05:40 05/19/18 08:33 Labs: Laboratory Results - last 24 hr 05/17/18 05/17/18 05/17/18 22:10 22:10 22:10 WBC 7.1 RBC 4.63 Hgb 12.2 Hct 37.5 MCV 81.0 MCH 26.3 L MCHC 32.4 L RDW 16.9 H Plt Count 223 MPV 8.2 Neut % (Auto) 61.8 Lymph % (Auto) 29.6 [place] % (Auto) 6.6 Eos % (Auto) 1.5 Baso % (Auto) 0.5 Neut # (Auto) 4.4 Lymph # (Auto) 2.1 [place] # (Auto) 0.5 Eos # (Auto) 0.1 Baso # (Auto) 0.0 PT 12.5 INR 1.1 APTT 36.1 Sodium 141 Potassium 3.5 L Chloride 100 Carbon Dioxide 34 H Anion Gap 11 BUN 19 H Creatinine 1.5 H Est GFR ( Amer) 42 Est GFR (Non-Af Amer) 35 Random Glucose 94 Calcium 9.3 Phosphorus 4.1 Magnesium 2.0 Total Bilirubin 0.6 AST 15 ALT 9 D Alkaline Phosphatase 89 Troponin I < 0.0120 NT-Pro-B Natriuret Pep 1320 H Total Protein 7.3 Albumin 4.0 Globulin 3.3 Albumin/Globulin Ratio 1.2 Blood Type Antibody Screen BBK History Checked 05/17/18 05/18/18 05/18/18 22:10 06:00 06:00 WBC 6.5 RBC 4.38 Hgb 11.5 L Hct 35.4 MCV 80.9 L MCH 26.3 L MCHC 32.6 L RDW 16.7 H Plt Count 210 MPV Neut % (Auto) Lymph % (Auto) [place] % (Auto) Eos % (Auto) Baso % (Auto) Neut # (Auto) Lymph # (Auto) [place] # (Auto) Eos # (Auto) Baso # (Auto) PT INR APTT Sodium 144 Potassium 3.3 L Chloride 102 Carbon Dioxide 33 H Anion Gap 12 BUN 22 H Creatinine 1.4 H Est GFR ( Amer) 45 Est GFR (Non-Af Amer) 38 Random Glucose 92 Calcium 9.1 Phosphorus Magnesium Total Bilirubin AST ALT Alkaline Phosphatase Troponin I NT-Pro-B Natriuret Pep Total Protein Albumin Globulin Albumin/Globulin Ratio Blood Type A POSITIVE Antibody Screen Negative BBK History Checked Patient has bt Assessment & Plan (1) Acute on chronic systolic congestive heart failure Assessment and Plan: Continue present Tx Status: Acute (2) COPD (chronic obstructive pulmonary disease) Status: Chronic Priority: High (3) Hypertension Status: Chronic Priority: Low (4) Morbid obesity with BMI of 40.0-44.9, adult Status: Chronic - Date & Time Date: 05/19/18 Time: 10:00
[2018-05-18] MEDS: Oxycodone/Acetaminophen 5/325 mg Tab PO PRN (17:47)
--- NOTE | 2018-05-18 20:04 | CARD ---
APPROVED REPORT Date of service: 05/17/2018 EKG Measurement Heart [id number] MD [id number] <Conclusion> Sinus bradycardia with 1st degree AV block Possible Left atrial enlargement Rightward axis ST & T wave abnormality, consider anterior ischemia Prolonged QT Abnormal ECG
[2018-05-19] MEDS: Oxycodone/Acetaminophen 5/325 mg Tab PO PRN (00:39)
[2018-05-19] MEDS: Levothyroxine 25 MCG TAB PO SCH (06:04)
[2018-05-19 07:15] LABS: BASO % 0.6 % (0.0-2.0); EOS # 0.1 K/uL (0.0-0.7); EOS % 2.1 % (0.0-4.0); HEMOGLOBIN 11.9 g/dL (12.0-16.0); LYMPH # 2.3 K/uL (1.0-4.3); LYMPH % 32.4 % (20.0-40.0); MEAN CORPUSCULAR HEMOGLOBIN 26.8 pg (27.0-31.0); MEAN CORPUSCULAR HGB CONC 32.6 g/dL (33.0-37.0); MEAN PLATELET VOLUME 8.9 fl (7.2-11.7); MONO # 0.5 K/uL (0.0-0.8); NEUT # 4.1 K/uL (1.8-7.0); NEUT % 57.9 % (50.0-75.0); NRBC % 0.1 % (0.0-0.0); RBC 4.45 Mil/uL (3.80-5.20); RED CELL DISTRIBUTION WIDTH 16.8 % (11.5-14.5); WHITE BLOOD COUNT 7.1 K/uL (4.8-10.8)
[2018-05-19 09:39] LABS: ALB/GLOB RATIO 1.2 (1.0-2.1); ALBUMIN 3.6 g/dL (3.5-5.0); CALCIUM 8.9 mg/dL (8.4-10.2)
[2018-05-19] MEDS: Fluticasone-Salmeterol 250-50mcg Diskus IH SCH ×2 (09:44→21:36)
[2018-05-19] MEDS: Metoprolol Succinate 25 mg XL Tab PO SCH (09:46)
[2018-05-19] MEDS: Enoxaparin 30 mg Syringe SC SCH (09:48)
[2018-05-19] MEDS: Ranolazine 500 mg Extended Release Tablets PO SCH ×2 (09:48→21:37)
--- NOTE | 2018-05-19 17:05 | CP.PCM.PN ---
Subjective - Date & Time of Evaluation Date of Evaluation: 05/19/18 Time of Evaluation: 09:05 - Subjective Subjective: Patient seen and examined at bedside, laying in bed. Patient reports SOB on exertion when ambulating to the bathroom, otherwise she is comfortable at rest on 2 L supplemental O2 via nasal cannula. Reports lower extremity swelling persists. Objective - Vital Signs/Intake and Output Vital Signs (last 24 hours): Temp Pulse Resp BP Pulse Ox 98.2 F 56 L 18 121/56 L 99 05/19/18 16:24 05/19/18 16:24 05/19/18 16:24 05/19/18 16:24 05/19/18 16:24 - Medications Medications: Current Medications Albuterol/Ipratropium (Duoneb 3 Mg/0.5 Mg (3 Ml) Ud) 3 ml INH RQ6 PRN PRN Reason: Shortness of Breath Aspirin (Ecotrin) 81 mg PO DAILY [facility] Last Admin: 05/19/18 09:47 Dose: 81 mg Enoxaparin Sodium (Lovenox) 30 mg SC DAILY [facility] PRN Reason: Protocol Last Admin: 05/19/18 09:48 Dose: 30 mg Folic Acid (Folic Acid) 1 mg PO DAILY [facility] Last Admin: 05/19/18 09:47 Dose: 1 mg Furosemide (Lasix) 40 mg IM DAILY [facility] Home Med (Febuxostat [Uloric]) 40 mg PO DAILY [facility] Hydralazine HCl (Apresoline) 25 mg PO Q12 [facility] Last Admin: 05/19/18 09:47 Dose: Not Given Levothyroxine Sodium (Synthroid) 25 mcg PO DAILY@0630 [facility] Last Admin: 05/19/18 06:04 Dose: 25 mcg Metoprolol Succinate (Toprol Xl) 25 mg PO DAILY [facility] Last Admin: 05/19/18 09:46 Dose: Not Given Oxycodone/Acetaminophen (Percocet 5/325 Mg Tab) 1 tab PO Q4 PRN PRN Reason: Pain, moderate (4-7) Stop: 05/21/18 06:22 Oxycodone/Acetaminophen (Percocet 5/325 Mg Tab) 2 tab PO Q6 PRN PRN Reason: Pain, severe (8-10) Stop: 05/21/18 06:25 Last Admin: 05/19/18 00:39 Dose: 2 tab Pravastatin Sodium (Pravachol) 20 mg PO HS [facility] Last Admin: 05/18/18 22:11 Dose: 20 mg Ranolazine (Ranexa) 500 mg PO Q12 [facility] Last Admin: 05/19/18 09:48 Dose: 500 mg Fluticasone/Salmeterol (Advair Diskus 250/50) 1 puff IH Q12 [facility] Last Admin: 05/19/18 09:44 Dose: 1 puff - Labs Labs: 05/19/18 05:40 05/19/18 08:33 PT 12.5 Seconds (9.8-13.1) 05/17/18 22:10 INR 1.1 05/17/18 22:10 APTT 36.1 Seconds (25.6-37.1) 05/17/18 22:10 - Constitutional Appears: No Acute Distress - Head Exam Head Exam: ATRAUMATIC, NORMOCEPHALIC - Eye Exam Eye Exam: EOMI Pupil Exam: PERRL - ENT Exam ENT Exam: Mucous Membranes Moist - Neck Exam Neck Exam: Full ROM Additional comments: dermatitis (pruritic papules) noted around anterior and neck with small superficial abrasion on right side - Respiratory Exam Respiratory Exam: Rales (bilateral lower lobes), NORMAL BREATHING PATTERN - Cardiovascular Exam Cardiovascular Exam: REGULAR RHYTHM, +S1, +S2 - GI/Abdominal Exam GI & Abdominal Exam: Soft, Normal Bowel Sounds. absent: Tenderness - Extremities Exam Extremities Exam: Full ROM, Pedal Edema (+2 from feet to mid tib/fib), Tenderness (to palpation) - Neurological Exam Neurological Exam: Alert, Awake, CN II-XII Intact, Oriented x3 - Psychiatric Exam Psychiatric exam: Normal Affect, Normal Mood - Skin Skin Exam: Abrasion (superficial, small on right neck), Dry, Warm Assessment and Plan - Assessment and Plan (Free Text) Assessment: 68 yr old F admitted for CHF exacerbation with PMHx of CAD s/p triple bypass, HTN, COPD, hypothyroidism, chronic low back pain, Ovarian cancer, mitral valve prolapse and CKD Stage 3b. Acute CHF exacerbation -improving -acute on chronic systolic CHF with preserved EF -proBNP: 1320, bilateral LE pitting edema, SOB -Lasix 40mg IM today (peripheral access was unable to be established) -Cardiology on consult, appreciated: Dr. Menendez -echo 11/12/17: LV size and function normal wth LVEF 50-55% -Bilateral LE Duplex negative for DVT Chronic Kidney Disease Stage 3B -chronic, controlled -monitor BUN/Cr Essential HTN -chronic, stable -continue home medications Hydralazine 25mg PO Q12 Hypothyroidism -chronic, stable -continue home medication: Levothyroxine 25 mcg PO QD COPD -chronic, controlled -continue home medications: -Fluticasone/Salmeterol 1 puff IH Q12 CAD s/p stenting -chronic, controlled -continue Aspirin 81mg PO QD, Metoprolol Succinate XL 25 mg PO QD, Pravastatin 20mg PO QHS, Ranexa 500mg PO Q12 Diet -heart healthy DVT PPx: -Lovenox 40mg SC QD
[2018-05-19] MEDS: Pravastatin Sodium 20 MG TAB PO SCH (21:37)
[2018-05-20] MEDS: Oxycodone/Acetaminophen 5/325 mg Tab PO PRN ×5 (01:08→21:02)
[2018-05-20] MEDS: Levothyroxine 25 MCG TAB PO SCH (05:36)
[2018-05-20 07:40] LABS: ALB/GLOB RATIO 1.2 (1.0-2.1); ALBUMIN 3.8 g/dL (3.5-5.0); CALCIUM 9.1 mg/dL (8.4-10.2)
--- NOTE | 2018-05-20 07:57 | CP.PCM.PN ---
Subjective - Date & Time of Evaluation Date of Evaluation: 05/20/18 Time of Evaluation: 08:00 - Subjective Subjective: Patient is well known to me from pain clinic. She was seen on Sunday, when she was advised to call PMD due to her bipedal pitting edema. She has since been admitted for CHF exacerbation. Her home pain meds have been resumed, there are no acute issues with her pain management. Objective - Vital Signs/Intake and Output Vital Signs (last 24 hours): Temp Pulse Resp BP Pulse Ox 97.9 F 71 18 147/82 93 L 05/20/18 05:00 05/20/18 05:00 05/20/18 05:00 05/20/18 05:00 05/20/18 05:00 - Medications Medications: Current Medications Albuterol/Ipratropium (Duoneb 3 Mg/0.5 Mg (3 Ml) Ud) 3 ml INH RQ6 PRN PRN Reason: Shortness of Breath Aspirin (Ecotrin) 81 mg PO DAILY [facility] Last Admin: 05/19/18 09:47 Dose: 81 mg Enoxaparin Sodium (Lovenox) 30 mg SC DAILY [facility] PRN Reason: Protocol Last Admin: 05/19/18 09:48 Dose: 30 mg Folic Acid (Folic Acid) 1 mg PO DAILY [facility] Last Admin: 05/19/18 09:47 Dose: 1 mg Furosemide (Lasix) 40 mg IM DAILY [facility] Last Admin: 05/19/18 17:27 Dose: 40 mg Home Med (Febuxostat [Uloric]) 40 mg PO DAILY [facility] Hydralazine HCl (Apresoline) 25 mg PO Q12 [facility] Last Admin: 05/19/18 21:37 Dose: 25 mg Hydrocortisone (Cortizone 1% Cream) 1 applic TOP BID [facility] Last Admin: 05/19/18 20:56 Dose: 1 applic Levothyroxine Sodium (Synthroid) 25 mcg PO DAILY@0630 [facility] Last Admin: 05/20/18 05:36 Dose: 25 mcg Metoprolol Succinate (Toprol Xl) 25 mg PO DAILY [facility] Last Admin: 05/19/18 09:46 Dose: Not Given Oxycodone/Acetaminophen (Percocet 5/325 Mg Tab) 1 tab PO Q4 PRN PRN Reason: Pain, moderate (4-7) Stop: 05/21/18 06:22 Oxycodone/Acetaminophen (Percocet 5/325 Mg Tab) 2 tab PO Q6 PRN PRN Reason: Pain, severe (8-10) Stop: 05/21/18 06:25 Last Admin: 05/20/18 01:08 Dose: 2 tab Pravastatin Sodium (Pravachol) 20 mg PO HS [facility] Last Admin: 05/19/18 21:37 Dose: 20 mg Ranolazine (Ranexa) 500 mg PO Q12 [facility] Last Admin: 05/19/18 21:37 Dose: 500 mg Fluticasone/Salmeterol (Advair Diskus 250/50) 1 puff IH Q12 [facility] Last Admin: 05/19/18 21:36 Dose: 1 puff - Labs Labs: 05/19/18 05:40 05/20/18 06:00 PT 12.5 Seconds (9.8-13.1) 05/17/18 22:10 INR 1.1 05/17/18 22:10 APTT 36.1 Seconds (25.6-37.1) 05/17/18 22:10 - Constitutional Appears: No Acute Distress Assessment and Plan (1) Acute on chronic systolic congestive heart failure Assessment & Plan: 68 yo woman w/ multiple medical comorbidities admitted for CHF. No acute issues with pain. - continue home pain meds - f/u cardiology recommendations Status: Acute
--- NOTE | 2018-05-20 09:01 | CP.PCM.PN ---
Subjective - Date & Time of Evaluation Date of Evaluation: 05/20/18 Time of Evaluation: 07:25 - Subjective Subjective: Patient see and examined this morning at bedside. NAD, Patient reports getting SOB when walks to the bathroom. Improved b/l LEs edema and pain, denies any chest pain, SOB, abdominal pain or urinary symptoms. States used oxugen 2L NC overnight. - Spo2 92 to 94 off the NC Objective - Vital Signs/Intake and Output Vital Signs (last 24 hours): Temp Pulse Resp BP Pulse Ox 97.9 F 71 18 147/82 93 L 05/20/18 05:00 05/20/18 05:00 05/20/18 05:00 05/20/18 05:00 05/20/18 05:00 - Medications Medications: Current Medications Albuterol/Ipratropium (Duoneb 3 Mg/0.5 Mg (3 Ml) Ud) 3 ml INH RQ6 PRN PRN Reason: Shortness of Breath Aspirin (Ecotrin) 81 mg PO DAILY [facility] Last Admin: 05/19/18 09:47 Dose: 81 mg Enoxaparin Sodium (Lovenox) 30 mg SC DAILY [facility] PRN Reason: Protocol Last Admin: 05/19/18 09:48 Dose: 30 mg Folic Acid (Folic Acid) 1 mg PO DAILY [facility] Last Admin: 05/19/18 09:47 Dose: 1 mg Furosemide (Lasix) 40 mg IM DAILY [facility] Last Admin: 05/19/18 17:27 Dose: 40 mg Home Med (Febuxostat [Uloric]) 40 mg PO DAILY [facility] Hydralazine HCl (Apresoline) 25 mg PO Q12 [facility] Last Admin: 05/19/18 21:37 Dose: 25 mg Hydrocortisone (Cortizone 1% Cream) 1 applic TOP BID [facility] Last Admin: 05/19/18 20:56 Dose: 1 applic Levothyroxine Sodium (Synthroid) 25 mcg PO DAILY@0630 [facility] Last Admin: 05/20/18 05:36 Dose: 25 mcg Metoprolol Succinate (Toprol Xl) 25 mg PO DAILY [facility] Last Admin: 05/19/18 09:46 Dose: Not Given Oxycodone/Acetaminophen (Percocet 5/325 Mg Tab) 2 tab PO Q6 PRN PRN Reason: Pain, severe (8-10) Stop: 08/16/18 09:01 Oxycodone/Acetaminophen (Percocet 5/325 Mg Tab) 1 tab PO Q4 PRN PRN Reason: Pain, moderate (4-7) Stop: 05/23/18 09:01 Pravastatin Sodium (Pravachol) 20 mg PO HS [facility] Last Admin: 05/19/18 21:37 Dose: 20 mg Ranolazine (Ranexa) 500 mg PO Q12 [facility] Last Admin: 05/19/18 21:37 Dose: 500 mg Fluticasone/Salmeterol (Advair Diskus 250/50) 1 puff IH Q12 [facility] Last Admin: 05/19/18 21:36 Dose: 1 puff - Labs Labs: 05/19/18 05:40 05/20/18 06:00 PT 12.5 Seconds (9.8-13.1) 05/17/18 22:10 INR 1.1 05/17/18 22:10 APTT 36.1 Seconds (25.6-37.1) 05/17/18 22:10 - Constitutional Appears: No Acute Distress - Head Exam Head Exam: NORMAL INSPECTION - Eye Exam Eye Exam: Normal appearance - ENT Exam ENT Exam: Mucous Membranes Moist - Neck Exam Neck Exam: Normal Inspection - Respiratory Exam Respiratory Exam: Clear to Ausculation Bilateral, NORMAL BREATHING PATTERN - Cardiovascular Exam Cardiovascular Exam: REGULAR RHYTHM, +S1, +S2 - GI/Abdominal Exam GI & Abdominal Exam: Soft, Normal Bowel Sounds. absent: Tenderness, Rebound - Extremities Exam Extremities Exam: Full ROM, Normal Capillary Refill, Normal Inspection. absent : Pedal Edema, Tenderness - Back Exam Back Exam: absent: CVA tenderness (L), CVA tenderness (R) - Neurological Exam Neurological Exam: Alert, Awake, CN II-XII Intact, Oriented x3 Neuro motor strength exam: Left Upper Extremity: 4, Right Upper Extremity: 4, Left Lower Extremity: 4, Right Lower Extremity: 4 - Psychiatric Exam Psychiatric exam: Normal Affect - Skin Skin Exam: Normal Color Assessment and Plan - Assessment and Plan (Free Text) Assessment: A/P: 68 yr old F admitted for CHF exacerbation with PMHx of CAD s/p triple bypass, HTN, COPD, hypothyroidism, chronic low back pain, Ovarian cancer, mitral valve prolapse and CKD Stage 3b. Acute CHF exacerbation -improving, lost weight 4.3Kg since admission -acute on chronic systolic CHF with preserved EF -Cardiology on consult, appreciated: Dr. Menendez -Lasix 40mg IM today (peripheral access was unable to be established) -Follow up PT/OT evaluation Chronic Kidney Disease Stage 3B -chronic, controlled -monitor BUN/Cr Essential HTN -chronic, stable -continue home medications Hydralazine 25mg PO Q12, Metoprolol 25mg PO daily, Hypothyroidism -chronic, stable -continue home medication: Levothyroxine 25 mcg PO QD COPD -chronic, controlled -continue home medications -Fluticasone/Salmeterol 1 puff IH Q12 CAD s/p stenting -chronic, controlled -continue Aspirin 81mg PO QD, Metoprolol Succinate XL 25 mg PO QD, Pravastatin 20mg PO QHS, Ranexa 500mg PO Q12 Diet -heart healthy DVT PPx: -Lovenox 40mg SC QD
[2018-05-20] MEDS: Fluticasone-Salmeterol 250-50mcg Diskus IH SCH ×2 (09:07→21:00)
[2018-05-20] MEDS: Ranolazine 500 mg Extended Release Tablets PO SCH ×2 (09:08→21:00)
[2018-05-20] MEDS: Enoxaparin 30 mg Syringe SC SCH (09:09)
[2018-05-20] MEDS: Metoprolol Succinate 25 mg XL Tab PO SCH (09:15)
[2018-05-20] MEDS: Pravastatin Sodium 20 MG TAB PO SCH (21:00)
[2018-05-21] MEDS: Oxycodone/Acetaminophen 5/325 mg Tab PO PRN (04:03)
[2018-05-21] MEDS: Levothyroxine 25 MCG TAB PO SCH (07:25)
[2018-05-21 08:15] VITALS: RESP 18
[2018-05-21] MEDS: Fluticasone-Salmeterol 250-50mcg Diskus IH SCH (09:07)
--- NOTE | 2018-05-21 09:51 | CP.PCM.DIS ---
Provider - Provider Date of Admission: 05/19/18 23:06 Attending physician: Nehal Negron MD Primary care physician: [facility] Consults: Dr. Menendez, Cardiology Dr. Black, Pain management Time Spent in preparation of Discharge (in minutes): 40 Diagnosis - Discharge Diagnosis (1) Acute exacerbation of CHF (congestive heart failure) Status: Acute (2) Lower extremity edema Status: Chronic (3) CKD (chronic kidney disease), stage III Status: Chronic (4) HTN (hypertension) Status: Acute (5) Hypothyroid Status: Chronic (6) COPD (chronic obstructive pulmonary disease) Status: Chronic Hospital Course - Lab Results Lab Results: Most Recent Lab Values WBC 7.1 K/uL (4.8-10.8) 05/19/18 05:40 RBC 4.45 Mil/uL (3.80-5.20) 05/19/18 05:40 Hgb 11.9 g/dL (12.0-16.0) L 05/19/18 05:40 Hct 36.5 % (34.0-47.0) 05/19/18 05:40 MCV 82.0 fl (81.0-99.0) 05/19/18 05:40 MCH 26.8 pg (27.0-31.0) L 05/19/18 05:40 MCHC 32.6 g/dL (33.0-37.0) L 05/19/18 05:40 RDW 16.8 % (11.5-14.5) H 05/19/18 05:40 Plt Count 195 K/uL (130-400) 05/19/18 05:40 MPV 8.9 fl (7.2-11.7) 05/19/18 05:40 Neut % (Auto) 57.9 % (50.0-75.0) 05/19/18 05:40 Lymph % (Auto) 32.4 % (20.0-40.0) 05/19/18 05:40 [place] % (Auto) 7.0 % (0.0-10.0) 05/19/18 05:40 Eos % (Auto) 2.1 % (0.0-4.0) 05/19/18 05:40 Baso % (Auto) 0.6 % (0.0-2.0) 05/19/18 05:40 Neut # (Auto) 4.1 K/uL (1.8-7.0) 05/19/18 05:40 Lymph # (Auto) 2.3 K/uL (1.0-4.3) 05/19/18 05:40 [place] # (Auto) 0.5 K/uL (0.0-0.8) 05/19/18 05:40 Eos # (Auto) 0.1 K/uL (0.0-0.7) 05/19/18 05:40 Baso # (Auto) 0.0 K/uL (0.0-0.2) 05/19/18 05:40 PT 12.5 Seconds (9.8-13.1) 05/17/18 22:10 INR 1.1 05/17/18 22:10 APTT 36.1 Seconds (25.6-37.1) 05/17/18 22:10 Sodium 142 mmol/l (132-148) 05/21/18 04:20 Potassium 3.5 MMOL/L (3.6-5.0) L 05/21/18 04:20 Chloride 103 mmol/L (98-107) 05/21/18 04:20 Carbon Dioxide 33 mmol/L (22-30) H 05/21/18 04:20 Anion Gap 10 (10-20) 05/21/18 04:20 BUN 17 mg/dl (7-17) 05/21/18 04:20 Creatinine 1.3 mg/dl (0.7-1.2) H 05/21/18 04:20 Est GFR ( Amer) 49 05/21/18 04:20 Est GFR (Non-Af Amer) 41 05/21/18 04:20 Random Glucose 87 mg/dL (65-105) 05/21/18 04:20 Hemoglobin A1c 5.8 % (4.2-6.5) 05/18/18 06:00 Calcium 9.0 mg/dL (8.4-10.2) 05/21/18 04:20 Phosphorus 4.1 mg/dl (2.5-4.5) 05/17/18 22:10 Magnesium 2.0 MG/DL (1.6-2.3) 05/17/18 22:10 Total Bilirubin 0.6 mg/dl (0.2-1.3) 05/20/18 06:00 AST 13 U/L (14-36) L D 05/20/18 06:00 ALT 17 U/L (9-52) 05/20/18 06:00 Alkaline Phosphatase 89 U/L (38-126) 05/20/18 06:00 Troponin I < 0.0120 ng/mL (0.00-0.120) 05/17/18 22:10 NT-Pro-B Natriuret Pep 1320 pg/ml (0-900) H 05/17/18 22:10 Total Protein 6.9 G/DL (6.3-8.2) 05/20/18 06:00 Albumin 3.8 g/dL (3.5-5.0) 05/20/18 06:00 Globulin 3.1 gm/dL (2.2-3.9) 05/20/18 06:00 Albumin/Globulin Ratio 1.2 (1.0-2.1) 05/20/18 06:00 Blood Type A POSITIVE 05/17/18 22:10 Antibody Screen Negative 05/17/18 22:10 BBK History Checked Patient has bt 05/17/18 22:10 - Hospital Course Hospital Course: 68 yr old F admitted for CHF exacerbation and lower extremities edema with PMHx of CAD s/p triple bypass, HTN, COPD, hypothyroidism, chronic low back pain, Ovarian cancer, mitral valve prolapse and CKD Stage 3b. After admission, Cardiology, Dr. Menendez was consulted. Patient was started on Lasix 40mg IV and lost about 10 Lbs over the hospital stay. PT was consulted for unsteady gaits, as per PT evaluation patient has unsteady gait with cane and patient was given a script for home wheel chair. Patient is stable and discharged home with instructions to follow up with PMD and C/w home medications plus Vasotec 2.5mg daily added. Patient didn't qualified for home O2, will need outpatient pulmonary referral. Home medications: Isosorbide DInitrate 20mg PO BID, Furosemide 40mg PO QD, Metoprolol succinate 25?or 50?mg PO QD, ASA 81 mg PO QD, Hydralazine 25mg PO BID , Pravastatin 20mg PO QHS, Uloric 40mg PO QD, Ranexater 500mg PO BID, Folic acid 1mg PO QD, Ferrous sulfate 325mg PO BID,Symbacort BID Albuterol HFA 2 puffs PRN bronchospasm, Levothyroxine 25mcg PO QD New Medications: Vasotec 2.5mg daily Discharge Exam - Head Exam Head Exam: NORMAL INSPECTION - Eye Exam Eye Exam: EOMI, Normal appearance, PERRL Pupil Exam: NORMAL ACCOMODATION - ENT Exam ENT Exam: Mucous Membranes Moist - Neck Exam Neck exam: Full Rom - Respiratory Exam Respiratory Exam: Clear to PA & Lateral, NORMAL BREATHING PATTERN. absent: Rhonchi, Wheezes - Cardiovascular Exam Cardiovascular Exam: REGULAR RHYTHM, +S1, +S2 - GI/Abdominal Exam GI & Abdominal Exam: Normal Bowel Sounds, Soft. absent: Hernia, Rigid, Tenderness - Extremities Exam Extremities exam: pedal edema (Improving ), pedal pulses present - Back Exam Back exam: absent: CVA tenderness (L), CVA tenderness (R) - Neurological Exam Neurological exam: Alert, CN II-XII Intact, Oriented x3 - Psychiatric Exam Psychiatric exam: Normal Affect - Skin Skin Exam: Normal Color Discharge Plan - Discharge Medications Prescriptions: Enalapril Maleate [Vasotec] 2.5 mg PO DAILY #30 tab - Follow Up Plan Condition: FAIR Disposition: HOME/ ROUTINE Instructions: Heart Failure, Adult, Dependent Edema (DC), Chronic Kidney Disease Additional Instructions: Follow up with Dr.Pierre- Abraham on 05/31/18 at 1:00 pm C/w home medications START Vasotec 2.5mg daily, Rx sent to the [facility] pharmacy Referrals: Marycarmen Mcbride MD [Primary Care Provider] - Nehal Negron MD [Staff Provider] -
[2018-05-21] MEDS: Enoxaparin 30 mg Syringe SC SCH (10:08)
[2018-05-21] MEDS: Metoprolol Succinate 25 mg XL Tab PO SCH (10:10)
[2018-05-21] MEDS: Ranolazine 500 mg Extended Release Tablets PO SCH (10:10)
[2018-05-21 12:31] VITALS: BP 111/57; PULSE 72; TEMP 98.4; O2SAT 95
== END 2018-05-21 15:20 | disposition home or self-care (01) | DRG 291 ==
LOC: H.ER 19:15 → UNDOADMOB 22:55 → H.ERHOLD 22:55 → INTOOBSV 23:06 → OBSVTOIN 23:06 → H.TEL 05-18 15:45 → H.ERHOLD 05-18 15:45 → H.TEL 05-19 23:06 → H.ERHOLD 05-19 23:06 → OBSVTOIN 05-19 23:06
PROVIDERS: ADMIT Family Medicine Geriatric Medicine; ATTEND Family Medicine Geriatric Medicine
DX: I13.0 Hypertensive heart and chronic kidney disease with heart failure and stage 1 through stage 4 chronic kidney disease, or unspecified chronic kidney disease (principal); I50.23 Acute on chronic systolic (congestive) heart failure; Z68.41 Body mass index [BMI] 40.0-44.9, adult; N18.3 Chronic kidney disease, stage 3 (moderate); I34.1 Nonrheumatic mitral (valve) prolapse; I44.0 Atrioventricular block, first degree; J44.9 Chronic obstructive pulmonary disease, unspecified; E03.9 Hypothyroidism, unspecified; E66.01 Morbid (severe) obesity due to excess calories; I25.10 Atherosclerotic heart disease of native coronary artery without angina pectoris; G47.33 Obstructive sleep apnea (adult) (pediatric); E78.00 Pure hypercholesterolemia, unspecified; G89.29 Other chronic pain; M54.5 Low back pain; M81.0 Age-related osteoporosis without current pathological fracture; F17.210 Nicotine dependence, cigarettes, uncomplicated; Z95.1 Presence of aortocoronary bypass graft; Z95.5 Presence of coronary angioplasty implant and graft; Z86.718 Personal history of other venous thrombosis and embolism; Z86.711 Personal history of pulmonary embolism; Z85.43 Personal history of malignant neoplasm of ovary; Z87.01 Personal history of pneumonia (recurrent); Z79.51 Long term (current) use of inhaled steroids; Z79.82 Long term (current) use of aspirin; Z90.710 Acquired absence of both cervix and uterus

== ENCOUNTER 2018-07-05 01:27 | Observation (INO) | payer MEDICARE, MEDICAID ==
[2018-07-05 01:27] VITALS: BMI 44.9
--- NOTE | 2018-07-05 02:22 | ED PDOC ---
HPI: SOB/CHF/COPD Time Seen by Provider: 07/05/18 01:30 Chief Complaint (Nursing): Shortness Of Breath Chief Complaint (Provider): Shortness Of Breath History Per: Patient History/Exam Limitations: no limitations Onset/Duration Of Symptoms: Hrs (1) Associated Symptoms: denies: Fever Additional Complaint(s): 68 years old female with history of CHF, CAD, COPD, and chronic kidney disease , chronic pain, presents to the ED for evaluation of shortness of breath associated with left side of chest and left arm pain onset 1 hours prior to arrival. Patient reports swelling to her legs bilaterally, which is chronic. She denies any fever or cough. PMD: Marycarmen Mcbride Past Medical History Reviewed: Historical Data, Nursing Documentation, Vital Signs Vital Signs: Last Vital Signs Temp 98.6 F 07/05/18 01:39 Pulse 60 07/05/18 01:39 Resp 12 07/05/18 01:46 BP 113/56 L 07/05/18 01:39 Pulse Ox 100 07/05/18 01:46 - Medical History PMH: Anemia, Arthritis, Asthma, Back Problems (herniated discs (cervical, lumbar)), Bronchitis, CAD (with coronary stent), Cardia Arrhythmia, CHF, COPD, Deep Vein Thrombosis, Fractures (left ankle), HTN, Hypercholesterolemia, Hypothyroidism, Malignancy (ovarian), Mitral Valve Prolapse, Osteoporosis, Peripheral Edema, Pneumonia, Pulmonary Embolism, Chronic Kidney Disease (stage 3) Denies: Diabetes, HIV - Surgical History Surgical History: CABG (x 4), Coronary Stent, Endoscopy - Family History Family History: States: Unknown Family Hx - Social History Current smoker - smoking cessation education provided: Yes (Few cigarettes a day) Alcohol: None Drugs: Denies - Immunization History Hx Pneumococcal Vaccination: Yes - Home Medications Home Medications: Ambulatory Orders Medication Instructions Recorded Aspirin [Ecotrin] 81 mg PO DAILY #0 tabec 11/14/17 Folic Acid 1 mg PO DAILY #30 tab 11/14/17 Levothyroxine Sodium 25 mcg PO DAILY #30 tablet 11/14/17 Metoprolol Succinate XL [Toprol XL] 25 mg PO DAILY #30 tab 11/14/17 Pravastatin Sodium [Pravachol] 20 mg PO HS #30 tab 11/14/17 Albuterol HFA [Ventolin HFA 90 2 puff IH Q4H PRN 12/18/17 mcg/actuation (8 g)] Budesonide/Formoterol Fumarate 2 puff IH Q12 12/18/17 [Symbicort 160-4.5 Mcg Inhaler] Oxycodone HCl/Acetaminophen 1 tab PO Q4 PRN 12/18/17 [Percocet 10-325 mg Tablet] Ranolazine [Ranexa] 500 mg PO Q12 12/18/17 hydrALAZINE [Apresoline] 25 mg PO Q12 12/18/17 Enalapril Maleate [Vasotec] 2.5 mg PO DAILY #30 tab 05/21/18 - Allergies Allergies/Adverse Reactions: Allergies Allergy/AdvReac Type Severity Reaction Status Date / Time No Known Allergies Allergy Verified 07/05/18 01:39 Curb-65 Severity Score - CURB-65 Severity Score Confusion: No Bun >19mg/dl (>7mmol/L): No Respiratory Rate greater than/equal to 30: No Systolic BP <90 or Diastolic BP less than/equal 60mmHg: No Age >64: Yes Curb-65 Score: 1 Percentage 30-day mortality: 2.7% Wells Criteria for PE - Wells Criteria for Pulmonary Embolism Clinical Signs and Symptoms of DVT: No P.E is #1 Diagnosis, or Equally Likely: No Heart Rate >100: No Immobilization at least 3 days;Surgery previous 4 weeks: No Previous, objectively diagnosed PE or DVT: No Hemoptysis: No Malignancy w/treatment within 6 months, or palliative: No Total Score: 0 Review of Systems ROS Statement: Except As Marked, All Systems Reviewed And Found Negative Constitutional: Negative for: Fever Respiratory: Positive for: Shortness of Breath. Negative for: Cough Musculoskeletal: Positive for: Arm Pain (Left) Physical Exam - Reviewed Nursing Documentation Reviewed: Yes Vital Signs Reviewed: Yes - Physical Exam Appears: Positive for: Non-toxic (Obese) Head Exam: Positive for: ATRAUMATIC, NORMOCEPHALIC Skin: Positive for: Normal Color, Warm, Dry Eye Exam: Positive for: Normal appearance ENT: Positive for: Normal ENT Inspection Neck: Positive for: Normal Cardiovascular/Chest: Positive for: Regular Rate, Rhythm. Negative for: Murmur Respiratory: Positive for: Normal Breath Sounds, Other (distended). Negative for: Wheezing Gastrointestinal/Abdominal: Positive for: Soft Extremity: Positive for: Swelling (of legs bilaterally) Neurologic/Psych: Positive for: Alert, Oriented (x3) - Laboratory Results Result Diagrams: 07/05/18 02:44 07/05/18 03:05 - ECG ECG Rhythm: Positive for: Sinus Bradycardia, Premature Ventricular Contraction Rate: 56 O2 Sat by Pulse Oximetry: 100 (RA) Pulse Ox Interpretation: Normal Medical Decision Making Medical Decision Making: Time: 213 Initial Plan: chest left and left sided arm pain rule out ACS, pneumonia, electrolyte abnormality --EKG --CMP --CBC --Chest X-Ray --Troponin I Per records, patient was admitted to the hospital on 05/19/2018 and discharged on 05/21/2018. 0431 Labs reviewed and within normal limits. troponin negative. 0539 Family practice resident is aware of patient admission. pts pcp is dr mcbride. resident aware. Scribe Attestation: Documented by Enedelia Springer, acting as a scribe for Eren Samaniego MD. Provider Scribe Attestation: All medical record entries made by the Scribe were at my direction and personally dictated by me. I have reviewed the chart and agree that the record accurately reflects my personal performance of the history, physical exam, medical decision making, and the department course for this patient. I have also personally directed, reviewed, and agree with the discharge instructions and disposition. Disposition - Clinical Impression Clinical Impression: Chest pain, Chest wall pain - Patient ED Disposition Is Patient to be Admitted: Yes - Disposition Condition: STABLE
[2018-07-05 02:59] LABS: BASO % 0.3 % (0.0-2.0); EOS # 0.2 K/uL (0.0-0.7); EOS % 2.9 % (0.0-4.0); HEMOGLOBIN 11.8 g/dL (12.0-16.0); LYMPH # 2.3 K/uL (1.0-4.3); LYMPH % 31.3 % (20.0-40.0); MEAN CELL VOLUME 82.6 fl (81.0-99.0); MEAN CORPUSCULAR HEMOGLOBIN 26.9 pg (27.0-31.0); MEAN CORPUSCULAR HGB CONC 32.6 g/dL (33.0-37.0); MEAN PLATELET VOLUME 8.6 fl (7.2-11.7); MONO # 0.6 K/uL (0.0-0.8); MONO % 8.2 % (0.0-10.0); NEUT # 4.3 K/uL (1.8-7.0); NEUT % 57.3 % (50.0-75.0); NRBC % 0.1 % (0.0-0.0); RBC 4.39 Mil/uL (3.80-5.20); RED CELL DISTRIBUTION WIDTH 15.9 % (11.5-14.5); WHITE BLOOD COUNT 7.5 K/uL (4.8-10.8)
[2018-07-05 03:24] LABS: ALB/GLOB RATIO 1.1 (1.0-2.1); ALBUMIN 3.6 g/dL (3.5-5.0); CALCIUM 9.2 mg/dL (8.4-10.2)
[2018-07-05] MEDS ORDERED: Morphine 4 MG/ML VIAL IV ONE (04:32)
[2018-07-05] MEDS ORDERED: Morphine 4 MG/ML VIAL ONE (04:56)
[2018-07-05] MEDS ORDERED: Albuterol HFA 90 mcg/actuation (8 g) IH PRN (05:54)
--- NOTE | 2018-07-05 06:09 | CP.PCM.HP ---
Addendum entered and electronically signed by Hayley Rodriguez MD 07/05/18 17:56: Patient was seen and examined bedside.All chart and clinical data reviewed . Case discussed with residents . Agree with assessment and plan. Original Note: History of Present Illness - History of Present Illness History of Present Illness: CC: Dyspnea and left arm pain HPI: 68 y/o woman w/ pmh of CAD s/p triple bypass, HTN, COPD, hypothyroidism, chronic low back pain, Ovarian cancer, mitral valve prolapse, CKD Stage 3, and brain tumor presents to ED w/ dyspnea and left arm pain. Patient reports both arm pain and dyspnea started last night at rest. Patient reports left arm pain is sharp in nature from the shoulder to elbow, non-radiating, w/ associated paresthesia at the left fingers and hand. The patient reports left sided chest discomfort. The patient took 1 nitro w/o relief. The patient reports chronic bilateral pedal edema. The patient reports mild tension headache but denies cough, nausea, vomiting, diarrhea, dysuria, or fever. ED course: vitals: 98.6 F, 56 beats/min, 124/96 mm Hg, resp 14, O2 100% NC 2L CBC: 7.5>11.8/36.3<166 CMP: 138/4.3, 103/31, 22/1.6, glucose 83, AST 19, ALT 13, alk phos 65 troponin: <0.0120 pro-BNP: 650 EKG: sinus bradycardia w/ PVCs, no acute ST elevation/depression CXR: (preliminary) no active disease, unchanged compared to previous study 07/2018 ASA 81 mg PO once morphine 4 mg IV once PMD: [facility], Dr. Mcbride Specialists: (cardio) Dr. Ludwig, (coding spec) Dr. Gonzalez, (neurologist) Titus Epstein, (pain management) Dr. Black PMH: CAD s/p triple bypass, HTN, COPD, hypothyroidism, chronic low back pain, Ovarian cancer, mitral valve prolapse and CKD Stage 3, "Brain tumor:> Being monitored by Dr. Qureshi. 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 SOC: current smoker (3 cig daily x 20 yrs), denies ETOH/drug abuse Next of Kin: as per demographics Code Status: full code Present on Admission - Present on Admission Any Indicators Present on Admission: No History of DVT/PE: No History of Uncontrolled Diabetes: No Urinary Catheter: No Decubitus Ulcer Present: No Review of Systems - Review of Systems All systems: reviewed and no additional remarkable complaints except - Constitutional Constitutional: absent: Chills, Fever, Headache - EENT Eyes: absent: Change in Vision - Cardiovascular Cardiovascular: As Per HPI, Chest Pain - Respiratory Respiratory: As Per HPI, Dyspnea. absent: Cough - Gastrointestinal Gastrointestinal: Abdominal Pain. absent: Diarrhea, Nausea, Vomiting - Genitourinary Genitourinary: absent: Dysuria - Integumentary Integumentary: absent: Rash Past Patient History - Infectious Disease Hx of Infectious Diseases: None - Past Medical History & Family History Past Medical History?: Yes - Past Social History Alcohol: None Drugs: Denies - CARDIAC Hx Cardia Arrhythmia: Yes Hx Congestive Heart Failure: Yes Hx Hypercholesterolemia: Yes Hx Hypertension: Yes Hx Mitral Valve Prolapse: Yes Hx Peripheral Edema: Yes - PULMONARY Hx Asthma: Yes Hx Bronchitis: Yes Hx Chronic Obstructive Pulmonary Disease (COPD): Yes Hx Pneumonia: Yes Hx Pulmonary Embolism: Yes - NEUROLOGICAL Hx Neurological Disorder: Yes - HEENT Hx HEENT Problems: No - RENAL Hx Chronic Kidney Disease: Yes (stage 3) - ENDOCRINE/METABOLIC Hx Hypothyroidism: Yes - HEMATOLOGICAL/ONCOLOGICAL Hx Anemia: Yes Hx Human Immunodeficiency Virus (HIV): No - INTEGUMENTARY Hx Dermatological Problems: No - MUSCULOSKELETAL/RHEUMATOLOGICAL Hx Arthritis: Yes Hx Fractures: Yes (left ankle) Hx Osteoporosis: Yes - GASTROINTESTINAL Hx Gastrointestinal Disorders: Yes Other/Comment: GI Bleed - GENITOURINARY/GYNECOLOGICAL Hx Genitourinary Disorders: Yes - PSYCHIATRIC Hx Emotional Abuse: No Hx Physical Abuse: No Hx Substance Use: No - SURGICAL HISTORY Hx Coronary Artery Bypass Graft: Yes (x 4) Hx Coronary Stent: Yes - ANESTHESIA Hx Anesthesia: Yes Hx Anesthesia Reactions: No Hx Malignant Hyperthermia: No Meds Allergies/Adverse Reactions: Allergies Allergy/AdvReac Type Severity Reaction Status Date / Time No Known Allergies Allergy Verified 07/05/18 01:39 Physical Exam - Constitutional Appears: Non-toxic, No Acute Distress - Head Exam Head Exam: ATRAUMATIC, NORMAL INSPECTION, NORMOCEPHALIC - Eye Exam Eye Exam: Normal appearance - ENT Exam ENT Exam: Mucous Membranes Moist - Neck Exam Neck exam: Positive for: Full Rom. Negative for: Tenderness - Respiratory Exam Respiratory Exam: Decreased Breath Sounds, Wheezes (mild scattered). absent: Accessory Muscle Use, Rales, Rhonchi, Respiratory Distress - Cardiovascular Exam Cardiovascular Exam: REGULAR RHYTHM, +S1, +S2. absent: Tachycardia - GI/Abdominal Exam GI & Abdominal Exam: Normal Bowel Sounds, Soft. absent: Distended, Tenderness - Extremities Exam Extremities exam: Positive for: pedal edema (bilateral +1 up to tibia below knee). Negative for: calf tenderness, tenderness - Neurological Exam Neurological exam: Alert, Oriented x3 - Skin Skin Exam: Dry, Intact, Normal Color, Warm Results - Vital Signs Recent Vital Signs: Last Vital Signs Temp 98.6 F 07/05/18 05:18 Pulse 56 L 07/05/18 05:40 Resp 14 07/05/18 05:32 BP 124/96 H 07/05/18 05:18 Pulse Ox 100 07/05/18 05:40 - Labs Result Diagrams: 07/05/18 02:44 07/05/18 03:05 Labs: Laboratory Results - last 24 hr 07/05/18 07/05/18 07/05/18 02:44 03:00 03:05 WBC 7.5 RBC 4.39 Hgb 11.8 L Hct 36.3 MCV 82.6 MCH 26.9 L MCHC 32.6 L RDW 15.9 H Plt Count 166 MPV 8.6 Neut % (Auto) 57.3 Lymph % (Auto) 31.3 [place] % (Auto) 8.2 Eos % (Auto) 2.9 Baso % (Auto) 0.3 Neut # (Auto) 4.3 Lymph # (Auto) 2.3 [place] # (Auto) 0.6 Eos # (Auto) 0.2 Baso # (Auto) 0.0 Sodium 138 Potassium 4.3 Chloride 103 Carbon Dioxide 31 H Anion Gap 8 L BUN 22 H Creatinine 1.6 H Est GFR ( Amer) 39 Est GFR (Non-Af Amer) 32 Random Glucose 83 Calcium 9.2 Total Bilirubin 0.4 AST 19 ALT 13 Alkaline Phosphatase 65 Troponin I NT-Pro-B Natriuret Pep 650 Total Protein 7.0 Albumin 3.6 Globulin 3.4 Albumin/Globulin Ratio 1.1 07/05/18 03:10 WBC RBC Hgb Hct MCV MCH MCHC RDW Plt Count MPV Neut % (Auto) Lymph % (Auto) [place] % (Auto) Eos % (Auto) Baso % (Auto) Neut # (Auto) Lymph # (Auto) [place] # (Auto) Eos # (Auto) Baso # (Auto) Sodium Potassium Chloride Carbon Dioxide Anion Gap BUN Creatinine Est GFR ( Amer) Est GFR (Non-Af Amer) Random Glucose Calcium Total Bilirubin AST ALT Alkaline Phosphatase Troponin I < 0.0120 NT-Pro-B Natriuret Pep Total Protein Albumin Globulin Albumin/Globulin Ratio Assessment & Plan - Assessment and Plan (Free Text) Assessment: 68 y/o woman w/ pmh of CAD s/p triple bypass, HTN, COPD, hypothyroidism, chronic low back pain, Ovarian cancer, mitral valve prolapse, CKD Stage 3, and brain tumor presents to ED w/ dyspnea and left arm pain Plan: Chest pain - possibly secondary to COPD exacerbation, r/o ACS - vitals: 98.6 F, 56 beats/min, 124/96 mm Hg, resp 14, O2 100% NC 2L - CBC: 7.5>11.8/36.3<166 - CMP: 138/4.3, 103/31, 22/1.6, glucose 83, AST 19, ALT 13, alk phos 65 - troponin: <0.0120 - pro-BNP: 650 - EKG: sinus bradycardia w/ PVCs, no acute ST elevation/depression - CXR: (preliminary) no active disease, unchanged compared to previous study 05/17/2018 - ASA 81 mg PO once - morphine 4 mg IV once - f/u tropnon x2 - f/u repeat EKG - monitor for acute changes - Admit for observation in Tele Dyspnea - Hx of COPD - O2 100% NC 2L - duoneb Q4h prn - c/w ventolin prn - monitor for acute change CAD - Hx of CABG - f/u w/ Dr. Ludwig - c/w ASA, metoprolol, statin HTN - BP stable - hydralazine Hypothyroid - c/w levothyroxine CKD stage 3 - Cr 1.6 - f/u w/ Dr. Gonzalez - c/w ranexa Prophylactic Measures - DVT: Heparin 5000 units SC Q12h
[2018-07-05] MEDS ORDERED: Albuterol-Ipratrop 3 mg / 0.5 (3 ml) UD INH PRN (06:15)
[2018-07-05] MEDS ORDERED: Levothyroxine 25 MCG TAB PO SCH (06:30)
--- NOTE | 2018-07-05 08:36 | CARD ---
APPROVED REPORT Date of service: 07/05/2018 EKG Measurement Heart [id number] <Conclusion> Sinus bradycardia with occasional premature ventricular complexes Nonspecific ST-T changes Abnormal ECG
[2018-07-05] MEDS ORDERED: Metoprolol Succinate 25 mg XL Tab PO SCH (09:00)
[2018-07-05] MEDS ORDERED: Fluticasone-Salmeterol 250-50mcg Diskus IH SCH (09:00)
[2018-07-05] MEDS ORDERED: Ranolazine 500 mg Extended Release Tablets PO SCH (09:00)
[2018-07-05] MEDS ORDERED: Influenza Vaccine 60 MCG/0.5 ML SYR (3 yr & up) IM ONE (10:00)
--- NOTE | 2018-07-05 10:47 | CP.PCM.PN ---
Addendum entered and electronically signed by Saqib Rubio MD 07/08/18 00:50: Addendum entered and electronically signed by Hayley Rodriguez MD 07/05/18 18:00: Patient seen and examined bedside . All chart and clinical data reviewed . Case discussed with resident . Agree with assessment and discharge planning . Patient is AAOx3 Most likely acute mental status change was secondary to Morphine use ( toxic encephalopathy) Complaining of chronic lower and shoulder pain due to arthritis and is on chronic opioid use and follows up with pain clinic ACS ruled out will discharge patient home Advise to follow up with [facility] and pain clinic Original Note: Subjective - Date & Time of Evaluation Date of Evaluation: 07/05/18 Time of Evaluation: 10:45 - Subjective Subjective: Pt was readmitted under Hospitalist team, Pt was seen and examined at bed side. Pt was hard to awake today morning and difficult to understand, but after 2 hours she became more awake and have no complain. Pt state that when she recieve morphine she always become hard to wake and get shacky. Pt state she have abd pian, and chronic pain in LEft shoulder and back and now she is having some abdominal pain. Her paresthesia have improved, her dyspnea have improved. Pt denies any sob, chest pain, dyspnea, nausea, vomiting diarrhea or constipation. Pt denies fever or chills and have no other complain. Objective - Vital Signs/Intake and Output Vital Signs (last 24 hours): Temp Pulse Resp BP Pulse Ox 97.5 F L 55 L 20 105/63 98 07/05/18 08:55 07/05/18 08:55 07/05/18 08:55 07/05/18 08:55 07/05/18 08:55 - Medications Medications: Current Medications Albuterol (Ventolin Hfa 90 Mcg/Actuation (8 G)) 2 puff IH Q4H PRN PRN Reason: Shortness of Breath Albuterol/Ipratropium (Duoneb 3 Mg/0.5 Mg (3 Ml) Ud) 3 ml INH RQ4 PRN PRN Reason: Shortness of Breath Aspirin (Ecotrin) 81 mg PO DAILY [facility] Folic Acid (Folic Acid) 1 mg PO DAILY [facility] Heparin Sodium (Porcine) (Heparin) 5,000 units SC Q12 [facility]; Protocol Hydralazine HCl (Apresoline) 25 mg PO Q12 [facility] Levothyroxine Sodium (Synthroid) 25 mcg PO DAILY@0630 [facility] Metoprolol Succinate (Toprol Xl) 25 mg PO DAILY [facility] Pravastatin Sodium (Pravachol) 20 mg PO HS [facility] Ranolazine (Ranexa) 500 mg PO Q12 [facility] Fluticasone/Salmeterol (Advair Diskus 250/50) 1 puff IH Q12 [facility] Last Admin: 07/05/18 09:41 Dose: 1 puff - Labs Labs: 07/05/18 02:44 07/05/18 03:05 - Constitutional Appears: Well, Non-toxic, No Acute Distress - Head Exam Head Exam: ATRAUMATIC, NORMAL INSPECTION, NORMOCEPHALIC - Eye Exam Eye Exam: EOMI, Normal appearance, PERRL Pupil Exam: NORMAL ACCOMODATION, PERRL - ENT Exam ENT Exam: Mucous Membranes Moist, Normal Exam - Neck Exam Neck Exam: Full ROM, Normal Inspection - Respiratory Exam Respiratory Exam: NORMAL BREATHING PATTERN Additional comments: Crackle B/L side of lower lung - Cardiovascular Exam Cardiovascular Exam: REGULAR RHYTHM, +S1, +S2 - GI/Abdominal Exam GI & Abdominal Exam: Soft, Tenderness, Normal Bowel Sounds Additional comments: generalized tenderness - Extremities Exam Extremities Exam: Full ROM, Normal Capillary Refill, Pedal Edema, Tenderness. absent: Calf Tenderness Additional comments: Left shoulder tenderness Pedal edema +1 b/l - Back Exam Back Exam: tenderness. absent: CVA tenderness (L), CVA tenderness (R) Additional comments: Lumbar tenderness - Neurological Exam Neurological Exam: Alert, Awake, Oriented x3 - Psychiatric Exam Psychiatric exam: Normal Affect, Normal Mood - Skin Skin Exam: Dry, Intact, Normal Color, Warm Assessment and Plan - Assessment and Plan (Free Text) Assessment: Assessment and Plan (Free Text) Assessment: 68 yo female with pmh of CAD s/p triple bypass, CHF diastolic, HTN, COPD, hypothyroidism, chronic low back pain, Ovarian cancer, mitral valve prolapse, CKD Stage 3, and brain tumor presents to ED with symptoms of dyspnea and left arm pain. Pt was admitted for obs and evaluate for ACS Plan: Chest pain Improved Vitals Stable with bradycardia ( chronic) CBC WNL CMP WNL Trop Negative x1 Pro-BNP 650 EKG sinus bradycardia, with PVC no acute ST changes chest Xray: no acute changes on Aspirin 81 mg Monitor for acute changes Consult Pain management Dyspnea Hx of COPD, and CFH Will continue Furosemide O2 100% NC 2L duoneb Q4h prn continue ventolin prn monitor for acute change CAD Hx of CABG F/U w/ Dr. Ludwig Continue ASA, metoprolol, statin HTN BP stable hydralazine Hypothyroid Continue with levothyroxine CKD stage 3 Cr 1.6 F/U with Dr. Gonzalez Continue with ranexa Prophylactic Measures - DVT: Heparin 5000 units SC Q12h
--- NOTE | 2018-07-05 11:26 | RAD ---
Date of service: 07/05/2018 HISTORY: chest pain COMPARISON: Chest radiograph dated 05/17/2018. FINDINGS: LUNGS: No active pulmonary disease. PLEURA: No significant pleural effusion identified, no pneumothorax apparent. CARDIOVASCULAR: Prior sternotomy with sternal wires and surgical clips redemonstrated. Atherosclerotic aortic calcifications. Cardiomediastinal silhouette stably enlarged. OSSEOUS STRUCTURES: Unchanged. VISUALIZED UPPER ABDOMEN: Normal. OTHER FINDINGS: None. IMPRESSION: No active disease.
[2018-07-05] MEDS ORDERED: Oxycodone/Acetaminophen 5/325 mg Tab PO PRN (11:33)
--- NOTE | 2018-07-05 11:52 | CP.PCM.DIS ---
Addendum entered and electronically signed by Hayley Rodriguez MD 07/05/18 18:10: Patient seen and examined bedside .All chart and clinical data reviewed . Case discussed with resident. Agree with assessment and discharge planning ACs ruled out Will need to follow up with [facility] and pain management clinic Addendum entered and electronically signed by Saqib Rubio MD 07/05/18 12:32: Physical exam of Pt mild crackle in lower quadrant of lungs b/l Decrease ROM of LEft shoulder due to pain tenderness noted on lumbar area Mild tenderness on abdomen Original Note: Provider - Provider Date of Admission: 07/05/18 05:27 Attending physician: Marycarmen Mcbride MD Time Spent in preparation of Discharge (in minutes): 20 Diagnosis - Discharge Diagnosis (1) Chest wall pain Status: Acute (2) COPD exacerbation Status: Chronic Priority: High (3) Back pain Status: Chronic (4) HTN (hypertension) Status: Chronic (5) Bradycardia Status: Chronic Priority: Medium (6) CKD (chronic kidney disease) stage 3, GFR 30-59 ml/min Status: Chronic (7) CAD (coronary artery disease) Status: Chronic (8) Hypothyroid Status: Chronic (9) Morbid obesity with BMI of 40.0-44.9, adult Status: Chronic (10) DVT prophylaxis Status: Acute Hospital Course - Lab Results Lab Results: Most Recent Lab Values WBC 7.5 K/uL (4.8-10.8) 07/05/18 02:44 RBC 4.39 Mil/uL (3.80-5.20) 07/05/18 02:44 Hgb 11.8 g/dL (12.0-16.0) L 07/05/18 02:44 Hct 36.3 % (34.0-47.0) 07/05/18 02:44 MCV 82.6 fl (81.0-99.0) 07/05/18 02:44 MCH 26.9 pg (27.0-31.0) L 07/05/18 02:44 MCHC 32.6 g/dL (33.0-37.0) L 07/05/18 02:44 RDW 15.9 % (11.5-14.5) H 07/05/18 02:44 Plt Count 166 K/uL (130-400) 07/05/18 02:44 MPV 8.6 fl (7.2-11.7) 07/05/18 02:44 Neut % (Auto) 57.3 % (50.0-75.0) 07/05/18 02:44 Lymph % (Auto) 31.3 % (20.0-40.0) 07/05/18 02:44 [place] % (Auto) 8.2 % (0.0-10.0) 07/05/18 02:44 Eos % (Auto) 2.9 % (0.0-4.0) 07/05/18 02:44 Baso % (Auto) 0.3 % (0.0-2.0) 07/05/18 02:44 Neut # (Auto) 4.3 K/uL (1.8-7.0) 07/05/18 02:44 Lymph # (Auto) 2.3 K/uL (1.0-4.3) 07/05/18 02:44 [place] # (Auto) 0.6 K/uL (0.0-0.8) 07/05/18 02:44 Eos # (Auto) 0.2 K/uL (0.0-0.7) 07/05/18 02:44 Baso # (Auto) 0.0 K/uL (0.0-0.2) 07/05/18 02:44 Sodium 138 mmol/l (132-148) 07/05/18 03:05 Potassium 4.3 MMOL/L (3.6-5.0) 07/05/18 03:05 Chloride 103 mmol/L (98-107) 07/05/18 03:05 Carbon Dioxide 31 mmol/L (22-30) H 07/05/18 03:05 Anion Gap 8 (10-20) L 07/05/18 03:05 BUN 22 mg/dl (7-17) H 07/05/18 03:05 Creatinine 1.6 mg/dl (0.7-1.2) H 07/05/18 03:05 Est GFR ( Amer) 39 07/05/18 03:05 Est GFR (Non-Af Amer) 32 07/05/18 03:05 Random Glucose 83 mg/dL (65-105) 07/05/18 03:05 Calcium 9.2 mg/dL (8.4-10.2) 07/05/18 03:05 Total Bilirubin 0.4 mg/dl (0.2-1.3) 07/05/18 03:05 AST 19 U/L (14-36) 07/05/18 03:05 ALT 13 U/L (9-52) 07/05/18 03:05 Alkaline Phosphatase 65 U/L (38-126) 07/05/18 03:05 Troponin I < 0.0120 ng/mL (0.00-0.120) 07/05/18 11:00 NT-Pro-B Natriuret Pep 650 pg/ml (0-900) 07/05/18 03:00 Total Protein 7.0 G/DL (6.3-8.2) 07/05/18 03:05 Albumin 3.6 g/dL (3.5-5.0) 07/05/18 03:05 Globulin 3.4 gm/dL (2.2-3.9) 07/05/18 03:05 Albumin/Globulin Ratio 1.1 (1.0-2.1) 07/05/18 03:05 - Hospital Course Hospital Course: 68 yo female with pmh of CAD s/p triple bypass, CHF diastolic, HTN, COPD, hypothyroidism, chronic low back pain, Ovarian cancer, mitral valve prolapse, CKD Stage 3, and brain tumor presents to ED with symptoms of dyspnea and left arm pain. Pt was admitted for obs and evaluate for ACS. Pt EKG demonstrate sinus bradycardia with no st changes, xray no acute disease, CBC/CMP WNL , Trop neg x2 , Probnb 650. PT recieved Morphine 4mg and aspirin 81mg, and placed on O2 ox 100%, duoneb Q4h and ventolin Prn. Pt today felt better, denies dyspnea, or chest pain, she does state that she have shoulder and back pain, and its been chronically treated with Pain management and have a f/u on 07/15/18. Pt feel good today, she Denies any new complain and feel comfortable to go home. Pt chart were reviewed. Pt is stable to be discharged home. Pt need to f/u with PCP in 1 week Pt need to keep and go to her pain management doctor appointment on 07/15/18 Pt should continue with home medication Discharge Exam - Head Exam Head Exam: ATRAUMATIC, NORMAL INSPECTION, NORMOCEPHALIC - Eye Exam Eye Exam: EOMI, Normal appearance, PERRL Pupil Exam: NORMAL ACCOMODATION, PERRL - ENT Exam ENT Exam: Normal Exam - Neck Exam Neck exam: Full Rom - Respiratory Exam Respiratory Exam: Clear to PA & Lateral, NORMAL BREATHING PATTERN, UNREMARKABLE - Cardiovascular Exam Cardiovascular Exam: REGULAR RHYTHM, +S1, +S2 - GI/Abdominal Exam GI & Abdominal Exam: Normal Bowel Sounds, Unremarkable - Extremities Exam Extremities exam: full ROM - Back Exam Back exam: FULL ROM. absent: CVA tenderness (L), CVA tenderness (R) - Neurological Exam Neurological exam: Alert, Oriented x3 - Psychiatric Exam Psychiatric exam: Normal Affect, Normal Mood - Skin Skin Exam: Dry, Intact, Normal Color, Warm Discharge Plan - Follow Up Plan Condition: STABLE Disposition: HOME/ ROUTINE Patient education suggested?: Yes Referrals: [facility] [place] [Outside] Sam Black MD [Staff Provider] -
[2018-07-05 14:51] VITALS: BP 114/73; PULSE 56; RESP 21; TEMP 97.7; O2SAT 93
[2018-07-05] MEDS ORDERED: Pravastatin Sodium 20 MG TAB PO SCH (22:00)
== END 2018-07-05 15:00 | disposition home or self-care (01) ==
LOC: H.ER 01:27 → H.ERHOLD 05:27 → H.TEL 06:34
PROVIDERS: ADMIT Family Medicine; ATTEND Family Medicine
DX: J44.1 Chronic obstructive pulmonary disease with (acute) exacerbation (principal); E03.9 Hypothyroidism, unspecified; E78.00 Pure hypercholesterolemia, unspecified; I13.0 Hypertensive heart and chronic kidney disease with heart failure and stage 1 through stage 4 chronic kidney disease, or unspecified chronic kidney disease; N18.3 Chronic kidney disease, stage 3 (moderate); I25.10 Atherosclerotic heart disease of native coronary artery without angina pectoris; Z95.1 Presence of aortocoronary bypass graft; Z95.5 Presence of coronary angioplasty implant and graft; Z86.718 Personal history of other venous thrombosis and embolism; Z86.711 Personal history of pulmonary embolism; M81.0 Age-related osteoporosis without current pathological fracture; I34.1 Nonrheumatic mitral (valve) prolapse; Z85.43 Personal history of malignant neoplasm of ovary; F17.210 Nicotine dependence, cigarettes, uncomplicated; Z23 Encounter for immunization; G89.29 Other chronic pain; I50.32 Chronic diastolic (congestive) heart failure; R00.1 Bradycardia, unspecified; E66.01 Morbid (severe) obesity due to excess calories; Z68.41 Body mass index [BMI] 40.0-44.9, adult; M19.90 Unspecified osteoarthritis, unspecified site
CPT/HCPCS: 36415; 71045; 80053; 83880; 84484; 85025; 90674; 93005; 99283; G0008; G0378; J1644; J2270

== ENCOUNTER 2018-08-02 04:08 | Emergency (ER) | payer MEDICARE, MEDICAID ==
[2018-08-02 04:09] VITALS: BMI 44.9
[2018-08-02 04:19] VITALS: TEMP 99
[2018-08-02 05:22] LABS: BASO # 0.1 K/uL (0.0-0.2); BASO % 0.9 % (0.0-2.0); EOS # 0.1 K/uL (0.0-0.7); EOS % 1.4 % (0.0-4.0); HEMOGLOBIN 11.9 g/dL (12.0-16.0); LYMPH % 25.5 % (20.0-40.0); MEAN CORPUSCULAR HEMOGLOBIN 26.8 pg (27.0-31.0); MEAN CORPUSCULAR HGB CONC 32.3 g/dL (33.0-37.0); MEAN PLATELET VOLUME 8.5 fl (7.2-11.7); MONO # 0.5 K/uL (0.0-0.8); MONO % 6.7 % (0.0-10.0); NEUT % 65.5 % (50.0-75.0); RBC 4.45 Mil/uL (3.80-5.20); RED CELL DISTRIBUTION WIDTH 16.4 % (11.5-14.5); WHITE BLOOD COUNT 7.7 K/uL (4.8-10.8)
[2018-08-02 05:35] LABS: ALB/GLOB RATIO 1.1 (1.0-2.1); ALBUMIN 3.9 g/dL (3.5-5.0)
--- NOTE | 2018-08-02 06:56 | ED PDOC ---
HPI: Chest Pain Time Seen by Provider: 08/02/18 04:26 Chief Complaint (Nursing): Chest Pain Chief Complaint (Provider): Chest Pain History Per: Patient History/Exam Limitations: no limitations Onset/Duration Of Symptoms: Hrs Past Medical History Vital Signs: Last Vital Signs Temp 99 F 08/02/18 04:17 Pulse 79 08/02/18 04:17 Resp 23 08/02/18 04:17 BP 124/57 L 08/02/18 04:17 Pulse Ox 100 08/02/18 04:17 - Medical History PMH: Anemia, Arthritis, Asthma, Back Problems (herniated discs (cervical, lumbar)), Bronchitis, CAD (with coronary stent), Cardia Arrhythmia, CHF, COPD, Deep Vein Thrombosis, Fractures (left ankle), HTN, Hypercholesterolemia, Hypothyroidism, Malignancy (ovarian), Mitral Valve Prolapse, Osteoporosis, Peripheral Edema, Pneumonia, Pulmonary Embolism, Chronic Kidney Disease (stage 3) Denies: Diabetes, HIV - Surgical History Surgical History: CABG (x 4), Coronary Stent, Endoscopy - Family History Family History: States: Unknown Family Hx - Immunization History Hx Pneumococcal Vaccination: Yes - Home Medications Home Medications: Ambulatory Orders Medication Instructions Recorded Aspirin [Ecotrin] 81 mg PO DAILY #0 tabec 11/14/17 Folic Acid 1 mg PO DAILY #30 tab 11/14/17 Levothyroxine Sodium 25 mcg PO DAILY #30 tablet 11/14/17 Metoprolol Succinate XL [Toprol XL] 25 mg PO DAILY #30 tab 11/14/17 Pravastatin Sodium [Pravachol] 20 mg PO HS #30 tab 11/14/17 Albuterol HFA [Ventolin HFA 90 2 puff IH Q4H PRN 12/18/17 mcg/actuation (8 g)] Budesonide/Formoterol Fumarate 2 puff IH Q12 12/18/17 [Symbicort 160-4.5 Mcg Inhaler] Oxycodone HCl/Acetaminophen 1 tab PO Q4 PRN 12/18/17 [Percocet 10-325 mg Tablet] Ranolazine [Ranexa] 500 mg PO Q12 12/18/17 hydrALAZINE [Apresoline] 25 mg PO Q12 12/18/17 Enalapril Maleate [Vasotec] 2.5 mg PO DAILY #30 tab 08/14/18 - Allergies Allergies/Adverse Reactions: Allergies Allergy/AdvReac Type Severity Reaction Status Date / Time No Known Allergies Allergy Verified 07/05/18 01:39 - Laboratory Results Result Diagrams: 08/02/18 05:15 08/02/18 05:15 - ECG O2 Sat by Pulse Oximetry: 100 Disposition - Disposition
[2018-08-02 07:29] VITALS: BP 134/72; PULSE 82; RESP 16; O2SAT 99
--- NOTE | 2018-08-02 09:08 | CARD ---
APPROVED REPORT Date of service: 08/02/2018 EKG Measurement Heart [id number] <Conclusion> Sinus bradycardia with 1st degree AV block with occasional premature ventricular complexes Rightward axis T wave abnormality, consider anterior ischemia Prolonged QT Abnormal ECG
--- NOTE | 2018-08-03 13:55 | ED PDOC ---
HPI: Abdomen Time Seen by Provider: 08/02/18 04:26 Chief Complaint (Nursing): Chest Pain History Per: Patient History/Exam Limitations: no limitations Onset/Duration Of Symptoms: Days (1) Outside of [place] travel?: No Severity: Mild Pain Scale Rating Of: 2 Location Of Pain/Discomfort: Epigastric Associated Symptoms: Nausea. denies: Fever, Vomiting Exacerbating Factors: None Alleviating Factors: None Last Bowel Movement: Today Past Medical History Reviewed: Historical Data, Nursing Documentation, Vital Signs Vital Signs: Last Vital Signs Temp 99 F 08/02/18 04:17 Pulse 82 08/02/18 07:28 Resp 16 08/02/18 07:28 BP 134/72 08/02/18 07:28 Pulse Ox 99 08/02/18 07:28 - Medical History PMH: Anemia, Arthritis, Asthma, Back Problems (herniated discs (cervical, lumbar)), Bronchitis, CAD (with coronary stent), Cardia Arrhythmia, CHF, COPD, Deep Vein Thrombosis, Fractures (left ankle), HTN, Hypercholesterolemia, Hypothyroidism, Malignancy (ovarian), Mitral Valve Prolapse, Osteoporosis, Per ipheral Edema, Pneumonia, Pulmonary Embolism, Chronic Kidney Disease (stage 3) Denies: Diabetes, HIV - Surgical History Surgical History: CABG (x 4), Coronary Stent, Endoscopy - Family History Family History: States: Unknown Family Hx - Immunization History Hx Pneumococcal Vaccination: Yes - Home Medications Home Medications: Ambulatory Orders Medication Instructions Recorded Aspirin [Ecotrin] 81 mg PO DAILY #0 tabec 11/14/17 Folic Acid 1 mg PO DAILY #30 tab 11/14/17 Levothyroxine Sodium 25 mcg PO DAILY #30 tablet 11/14/17 Metoprolol Succinate XL [Toprol XL] 25 mg PO DAILY #30 tab 11/14/17 Pravastatin Sodium [Pravachol] 20 mg PO HS #30 tab 11/14/17 Albuterol HFA [Ventolin HFA 90 2 puff IH Q4H PRN 12/18/17 mcg/actuation (8 g)] Budesonide/Formoterol Fumarate 2 puff IH Q12 12/18/17 [Symbicort 160-4.5 Mcg Inhaler] Oxycodone HCl/Acetaminophen 1 tab PO Q4 PRN 12/18/17 [Percocet 10-325 mg Tablet] Ranolazine [Ranexa] 500 mg PO Q12 12/18/17 hydrALAZINE [Apresoline] 25 mg PO Q12 12/18/17 Enalapril Maleate [Vasotec] 2.5 mg PO DAILY #30 tab 05/21/18 Ondansetron ODT [Zofran ODT] 4 mg PO Q8 PRN #12 odt 08/02/18 - Allergies Allergies/Adverse Reactions: Allergies Allergy/AdvReac Type Severity Reaction Status Date / Time No Known Allergies Allergy Verified 07/05/18 01:39 Review of Systems ROS Statement: Except As Marked, All Systems Reviewed And Found Negative Constitutional: Negative for: Fever Cardiovascular: Negative for: Chest Pain Respiratory: Negative for: Shortness of Breath Physical Exam - Reviewed Nursing Documentation Reviewed: Yes Vital Signs Reviewed: Yes - Physical Exam Appears: Positive for: Non-toxic, No Acute Distress Head Exam: Positive for: ATRAUMATIC, NORMAL INSPECTION Skin: Positive for: Warm, Dry Eye Exam: Positive for: EOMI Cardiovascular/Chest: Positive for: Regular Rate, Rhythm Respiratory: Positive for: Normal Breath Sounds Gastrointestinal/Abdominal: Positive for: Soft, Tenderness (epigastric mild) Extremity: Positive for: Normal ROM Neurologic/Psych: Positive for: Alert, Oriented - Laboratory Results Result Diagrams: 08/02/18 05:15 08/02/18 05:15 - ECG O2 Sat by Pulse Oximetry: 99 - Progress Re-evaluation Time: 07:00 Condition: Re-examined, Improved Medical Decision Making Medical Decision Making: Impression abdominal pain Diff include gastritis, pancreatitis, gallbladder dx Plan Labs EKG reassess Disposition - Clinical Impression Clinical Impression: Abdominal pain - Patient ED Disposition Is Patient to be Admitted: No Doctor Will See Patient In The: Office Counseled Patient/Family Regarding: Studies Performed, Diagnosis, Need For Followup - Disposition Referrals: [facility] [Outside] Disposition: Routine/Home Disposition Time: 07:00 Condition: GOOD Additional Instructions: RAY MORALES, thank you for letting us take care of you today. Your provider was Earl Goldman MD and you were treated for GENERAL MALAISE. The emergency medical care you received today was directed at your acute symptoms. If you were prescribed any medication, please fill it and take as directed. It may take several days for your symptoms to resolve. Return to the Emergency Department if your symptoms worsen, do not improve, or if you have any other problems. Please contact your doctor or call one of the physicians/clinics you have been referred to that are listed on the Patient Visit Information form that is included in your discharge packet. Bring any paperwork you were given at discharge with you along with any medications you are taking to your follow up visit. Our treatment cannot replace ongoing medical care by a primary care lexi hunter outside of the emergency department. Thank you for allowing the [facility] team to be part of your care today. If you had an X-Ray or CT scan: A Radiologist will review the ED reading if any change in treatment is needed we will contact you. If you had a blood, urine, or wound culture: It will take several days for the results, if any change in treatment is needed we will contact you. If you had an STI test: It will take 48 hours for the results. Please call after 1 week if you have not heard back. Prescriptions: Ondansetron ODT [Zofran ODT] 4 mg PO Q8 PRN #12 odt PRN Reason: Nausea/Vomiting Instructions: Stomach Ache and Stomach Upset
== END 2018-08-02 07:29 | disposition home or self-care (01) ==
LOC: H.ER 04:08
DX: R10.9 Unspecified abdominal pain (principal); E03.9 Hypothyroidism, unspecified; E78.00 Pure hypercholesterolemia, unspecified; I13.0 Hypertensive heart and chronic kidney disease with heart failure and stage 1 through stage 4 chronic kidney disease, or unspecified chronic kidney disease; I34.1 Nonrheumatic mitral (valve) prolapse; N18.3 Chronic kidney disease, stage 3 (moderate); Z85.41 Personal history of malignant neoplasm of cervix uteri; Z86.711 Personal history of pulmonary embolism; Z86.718 Personal history of other venous thrombosis and embolism; Z95.5 Presence of coronary angioplasty implant and graft
CPT/HCPCS: 80053; 83690; 85025; 93005; 96374; 99283; J2405